=== PATIENT | female | born 1995 | race Caucasian/White ===

== ENCOUNTER 2018-06-11 16:19 | Emergency (ER) | payer SELFPAY ==
[~2018-06-11] VITALS: Ht 160 cm; Wt 54.4 kg
[~2018-06-11 16:19] MED LIST: ACYC200C5 PO; ACYC200O4 PO; BIRTHCONTROL PO; CEPH500C PO; DCS100C PO; HYDR-3454 PO; HYDR-3456 PO; HYDR-3714 PO; IBUP-2055 PO; MINO100C6 PO; SULF-222 PO; TRAM50TA2 PO
[2018-06-11 16:48] LABS: BILIRUBIN,URINE NEGATIVE (NEGATIVE); CLARITY,URINE CLEAR; COLOR,URINE YELLOW; GLUCOSE, URINE (UA) NEGATIVE (NEGATIVE); KETONES,URINE NEGATIVE (NEGATIVE); LEUKOCYTE ESTERASE ,URINE 1+ (NEGATIVE); NITRITE,URINE NEGATIVE (NEGATIVE); PH,URINE 6.5 (5-9); PROTEIN,URINE 1+ (NEGATIVE); UROBILINOGEN,URINE NORMAL (NORMAL)
[2018-06-11 16:57] LABS: BACTERIA,URINE FEW /HPF
--- NOTE | 2018-06-11 17:15 | ED GU-Female ---
General Chief Complaint: Abdominal/GI Problems Stated Complaint: ABDOMINAL PAIN Nursing Triage Note: THE PT IS AMBULATORY TO THE ROOM WITHOUT DIFFICULTY. NO DISTRESS IS SEEN ON ARRIVAL. LOC IS NORMAL FOR THE PT. THE PT C/O BILAT LOWER ABD PAIN. Nursing Sepsis Screen: No Definite Risk History of Present Illness Date Seen by Provider: Jun 11, 2018 Time Seen by Provider: 16:50 Initial Comments 23-year-old female presents for intermittent lower abdominal pain. She reports that she has been seen at [facility] and is awaiting financial assistance to have workup for possible ovarian cyst or endometriosis. She presents today, requesting an ultrasound. Explained to her that we do not have ultrasound services at this time, as a tech is not bonbon cream warmer. She denies any other complaints at this time, normal menstrual cycle that began on May 30. No vaginal discharge. No increased pain today. Timing/Duration: intermittent Location: suprapubic Radiation: none Activities at Onset: none Prior Genitourinary Problems: none Associated Symptoms: denies symptoms Allergies and Home Medications Allergies Coded Allergies: No Known Drug Allergies (Unverified , 01/09/12) Home Medications Ibuprofen 200 Mg Tablet, 600 MG PO DAILY PRN for PAIN, (Reported) Patient Home Medication List Home Medication List Reviewed: Yes Review of Systems Review of Systems Constitutional: no symptoms reported, see HPI Genitourinary: see HPI, pain : No LMP: May 30, 2018 Past Eafaiim-Wiywds-Atzuvn Hx Past Med/Social Hx: Reviewed Nursing Past Med/Soc Hx Patient Social History Alcohol Beverage of Choice: Whiskey Drug of Choice: MARIJUANA Type Used: Cigarettes Recent Foreign Travel: No Contact w/Someone Who Travel: No Recent Infectious Disease Expo: No Recent Hopitalizations: No Physical Abuse: No Sexual Abuse: No Mistreated: No Fear: No Immunizations Up To Date Tetanus Booster (TDap): Less than 5yrs PED Vaccines UTD: No Seasonal Allergies Seasonal Allergies: Yes Past Medical History Appendectomy, Tonsillectomy Last Menstrual Period: May 30, 2018 Hx : 0 Hx Para: 0 Hx Total # of Abortions (Sp): 0 Reproductive Disorders: No Female Reproductive Disorders: Denies Sexually Transmitted Disease: Yes (HERPES) HIV/AIDS: No Bipolar, Depression Adverse Reaction/Blood Tranf: No Physical Exam Vital Signs Vital Signs - First Documented 06/11/18 06/11/18 16:47 17:24 Temp 98.2 Pulse 70 Resp 16 B/P (MAP) 110/93 (99) Pulse Ox 98 Capillary Refill : Less Than 3 Seconds Height, Weight, BMI Height: 5'3.00" Weight: 120lbs. 0.0oz. [id number]; 18.1 BMI Method:Estimated General Appearance: WD/WN, no apparent distress Cardiovascular: normal peripheral pulses, regular rate, rhythm Respiratory: chest non-tender, lungs clear, normal breath sounds Gastrointestinal: normal bowel sounds, non tender, soft; No distended, No guarding, No rebound, No tenderness, No hernia, No mass Neurologic/Psychiatric: no motor/sensory deficits, alert, normal mood/affect, oriented x 3 Skin: normal color, warm/dry Lymphatic: no adenopathy Progress/Results/Core Measures Suspected Sepsis Recent Fever Within 48 Hours: No Infection Criteria Present: None New/Unexplained Altered Menta: No Sepsis Screen: No Definite Risk SIRS Temperature:98.2 Pulse: 70 Respiratory Rate: 16 Blood Pressure 110 /93 Mean: 99 Results/Orders Lab Results Laboratory Tests Test 06/11/18 16:35 Range/Units Urine Color YELLOW Urine Clarity CLEAR Urine pH 6.5 5-9 Urine Specific [place] 1.020 1.016-1.022 Urine Protein 1+ H NEGATIVE Urine Glucose (UA) NEGATIVE NEGATIVE Urine Ketones NEGATIVE NEGATIVE Urine Nitrite NEGATIVE NEGATIVE Urine Bilirubin NEGATIVE NEGATIVE Urine Urobilinogen NORMAL NORMAL MG/DL Urine Leukocyte Esterase 1+ H NEGATIVE Urine RBC (Auto) NEGATIVE NEGATIVE Urine RBC NONE /HPF Urine WBC 2-5 /HPF Urine Squamous Epithelial Cells 5-10 /HPF Urine Crystals NONE /LPF Urine Bacteria FEW H /HPF Urine Casts NONE /LPF Urine Mucus LARGE H /LPF Urine Culture Indicated NO Urine Test NEGATIVE NEGATIVE My Orders Orders - BRINDA DEL VALLE Ua Culture If Indicated (06/11/18 16:28) Hcg,Qualitative Urine (06/11/18 17:00) Vital Signs/I&O 06/11/18 06/11/18 16:47 17:24 Temp 98.2 98.2 Pulse 70 70 Resp 16 16 B/P (MAP) 110/93 (99) 110/70 (83) Pulse Ox 98 Capillary Refill : Less Than 3 Seconds Blood Pressure Mean: 99 Progress Note : Time: 16:50 Progress Note Patient was seen and evaluated, offered ibuprofen or Tylenol and patient declined stating that her pain was not worse today. She understands that we're unable to do an ultrasound in her symptoms and exam do not indicate the need for a CT scan. She will follow up at [facility]. Discharge instructions and return precautions were reviewed. Departure Impression Primary Impression: Lower abdominal pain of unknown etiology Disposition: HOME, SELF-CARE Condition: Stable Departure-Patient Inst. Decision time for Depature: 17:10 Referrals: [facility] (PCP/Family) Primary Care Physician Patient Instructions: Endometriosis (DC), Ovarian Cyst (DC) Add. Discharge Instructions: Follow-up with [facility] for referral to LITERARY AGENT or for outpatient ultrasound. You may take ibuprofen 600 mg every 8 hours when symptomatic. Return to emergency department for increased pain, vaginal bleeding, persistent nausea and vomiting, or new urgent health care needs. All discharge instructions reviewed with patient and/or family. Voiced understanding. Work/School Note: Work Release Form Date Seen in the Emergency Department: Jun 11, 2018 Return to Work: Jun 12, 2018 Restrictions: No Restrictions BRINDA DEL VALLE Jun 11, 2018 17:15
[2018-06-11 17:24] VITALS: BP 110/70
== END 2018-06-11 17:26 | disposition home or self-care (01) ==
LOC: EDUNIT# 16:19 → ER 16:25
DX: R10.30 Lower abdominal pain, unspecified (principal); F32.9 Major depressive disorder, single episode, unspecified; F12.10 Cannabis abuse, uncomplicated; Z90.49 Acquired absence of other specified parts of digestive tract; Z90.89 Acquired absence of other organs; Z86.19 Personal history of other infectious and parasitic diseases
CPT/HCPCS: 81000; 84703; 99282

== ENCOUNTER 2018-06-17 02:09 | Emergency (ER) | payer SELFPAY ==
[~2018-06-17] VITALS: Ht 157.5 cm; Wt 43.1 kg
[2018-06-17] MEDS ORDERED: LACTATED RINGERS 1,000 ML IV ONE (02:23)
[2018-06-17] MEDS ORDERED: AZITHROMYCIN 250 MG TAB (ZITHROMAX) PO ONE (02:30)
[2018-06-17] MEDS ORDERED: ONDANSETRON 4 MG/2 ML (SDV) Z0FRAN IVP ONE (02:30)
[2018-06-17] MEDS ORDERED: KETOROLAC 30 MG/ML VIAL IVP ONE (02:30)
--- NOTE | 2018-06-17 02:34 | ED Abdominal Pain ---
General Stated Complaint: ABD CRAMPING,VAG BLEEDING Source of Information: Patient Exam Limitations: No Limitations History of Present Illness Date Seen by Provider: Jun 17, 2018 Time Seen by Provider: 02:20 Initial Comments Patient presents to ER by private conveyance with her significant other and chief complaint that for the past week and a half she's been having some crampy intermittent abdominal pain especially in the suprapubic region. She's been using 1-2 tablets of ibuprofen several times a day with modest relief but she says is not working as well anymore. Tonight the pain has her doubled over and makes it hard for her walk. She says she's having some nausea without vomiting. No fevers or chills. She's been having a dark brown thick malodorous discharge for the last 2 weeks. Her last menstrual period was May 31 12 days ago. She does not smoke or drink alcohol but she does occasionally uses weed once or twice a week. She says she's not been checked for STDs recently but she does have herpes. Allergies and Home Medications Allergies Coded Allergies: No Known Drug Allergies (Unverified , 01/09/12) Home Medications Ibuprofen 200 Mg Tablet, 600 MG PO DAILY PRN for PAIN, (Reported) Patient Home Medication List Home Medication List Reviewed: Yes Review of Systems Review of Systems Constitutional: No chills, No diaphoresis EENTM: No Blurred Vision, No Double Vision Respiratory: Denies Cough, Denies Shortness of Air Cardiovascular: Denies Chest Pain, Denies Lightheadedness Gastrointestinal: See HPI, Abdominal Pain; Denies Constipated, Denies Diarrhea ; Nausea; Denies Vomiting Genitourinary: Denies Discharge, Denies Drainage Musculoskeletal: No back pain, No joint pain Skin: No pruritus, No rash Psychiatric/Neurological: Denies Headache, Denies Numbness, Denies Paresthesia Past Fiuzsft-Ymqccb-Yudygi Hx Patient Social History Alcohol Use: Occasionally Uses Alcohol Beverage of Choice: Whiskey Recreational Drug Use: Yes Drug of Choice: MARIJUANA Smoking Status: Former Smoker Type Used: Cigarettes Recent Foreign Travel: No Contact w/Someone Who Travel: No Recent Hopitalizations: No Immunizations Up To Date Tetanus Booster (TDap): Less than 5yrs PED Vaccines UTD: No Seasonal Allergies Seasonal Allergies: Yes Past Medical History Appendectomy, Tonsillectomy Reproductive Disorders: No Female Reproductive Disorders: Denies Sexually Transmitted Disease: Yes (HERPES) HIV/AIDS: No Bipolar, Depression Adverse Reaction/Blood Tranf: No Physical Exam Vital Signs Vital Signs - First Documented 06/17/18 02:19 Temp 98.3 Pulse 91 Resp 20 B/P (MAP) 112/77 (89) Pulse Ox 100 O2 Delivery Room Air Capillary Refill : Height/Weight/BMI Height: 5'3.00" Weight: 120lbs. 0.0oz. 54.381284lf; 18.1 BMI Method:Estimated General Appearance: WD/WN, moderate distress HEENT: PERRL/EOMI, normal ENT inspection, pharynx normal Respiratory: lungs clear, normal breath sounds, no respiratory distress, no accessory muscle use Cardiovascular: normal peripheral pulses, regular rate, rhythm Peripheral Pulses: 2+ Radial Pulses (R), 2+ Radial Pulses (L) Gastrointestinal: normal bowel sounds, soft, no organomegaly; No rebound (. Negative for rebound tenderness or tenderness over McBurney's point.); tenderness (suprapubic region), other (negative for Rovsing sign or other mesenteric signs.) Extremities: normal inspection, no pedal edema, normal capillary refill Pelvic: normal external exam, no masses, discharge (brown thick mucoid with traces of blood.); No lesions; other (cervix is friable with trace of bright red blood) Neurologic/Psychiatric: alert, oriented x 3, other (tearful, painful affect) Skin: normal color, warm/dry Progress/Results/Core Measures Results/Orders Lab Results Laboratory Tests Test 06/17/18 02:30 06/17/18 02:32 06/17/18 03:25 Range/Units White Blood Count 8.9 4.3-11.0 10^3/uL Red Blood Count 3.36 L 4.35-5.85 10^6/uL Hemoglobin 11.7 11.5-16.0 G/DL Hematocrit 35 35-52 % Mean Corpuscular Volume 103 H 80-99 FL Mean Corpuscular Hemoglobin 35 H 25-34 PG Mean Corpuscular Hemoglobin Concent 34 32-36 G/DL Red Cell Distribution Width 11.6 10.0-14.5 % Platelet Count 279 130-400 10^3/uL Mean Platelet Volume 10.7 H 7.4-10.4 FL Neutrophils (%) (Auto) 62 42-75 % Lymphocytes (%) (Auto) 26 12-44 % Monocytes (%) (Auto) 11 0-12 % Eosinophils (%) (Auto) 1 0-10 % Basophils (%) (Auto) 0 0-10 % Neutrophils # (Auto) 5.5 1.8-7.8 X 10^3 Lymphocytes # (Auto) 2.3 1.0-4.0 X 10^3 Monocytes # (Auto) 1.0 0.0-1.0 X 10^3 Eosinophils # (Auto) 0.1 0.0-0.3 10^3/uL Basophils # (Auto) 0.0 0.0-0.1 10^3/uL Sodium Level 144 135-145 MMOL/L Potassium Level 3.8 3.6-5.0 MMOL/L Chloride Level 112 H 98-107 MMOL/L Carbon Dioxide Level 23 21-32 MMOL/L Anion Gap 9 5-14 MMOL/L Blood Urea Nitrogen 14 7-18 MG/DL Creatinine 0.70 0.60-1.30 MG/DL Estimat Glomerular Filtration Rate > 60 BUN/Creatinine Ratio 20 Glucose Level 103 70-105 MG/DL Calcium Level 9.1 8.5-10.1 MG/DL Corrected Calcium 8.9 8.5-10.1 MG/DL Total Bilirubin 0.3 0.1-1.0 MG/DL Aspartate Amino Transf (AST/SGOT) 20 5-34 U/L Alanine Aminotransferase (ALT/SGPT) 16 0-55 U/L Alkaline Phosphatase 50 40-136 U/L C-Reactive Protein High Sensitivity 2.33 H 0.00-0.50 MG/DL Total Protein 6.4 6.4-8.2 GM/DL Albumin 4.2 3.2-4.5 GM/DL Urine Color YELLOW Urine Clarity CLEAR Urine pH 7 5-9 Urine Specific [place] 1.010 L 1.016-1.022 Urine Protein 2+ H NEGATIVE Urine Glucose (UA) NEGATIVE NEGATIVE Urine Ketones NEGATIVE NEGATIVE Urine Nitrite NEGATIVE NEGATIVE Urine Bilirubin NEGATIVE NEGATIVE Urine Urobilinogen NORMAL NORMAL MG/DL Urine Leukocyte Esterase 2+ H NEGATIVE Urine RBC (Auto) 5+ H NEGATIVE Urine RBC 5-10 H /HPF Urine WBC 25-50 H /HPF Urine Squamous Epithelial Cells 5-10 /HPF Urine Crystals NONE /LPF Urine Bacteria MODERATE H /HPF Urine Casts NONE /LPF Urine Mucus LARGE H /LPF Urine Culture Indicated YES Urine Opiates Screen NEGATIVE NEGATIVE Urine Oxycodone Screen NEGATIVE NEGATIVE Urine Methadone Screen NEGATIVE NEGATIVE Urine Propoxyphene Screen NEGATIVE NEGATIVE Urine Barbiturates Screen NEGATIVE NEGATIVE Ur Tricyclic Antidepressants Screen NEGATIVE NEGATIVE Urine Phencyclidine Screen NEGATIVE NEGATIVE Urine Amphetamines Screen NEGATIVE NEGATIVE Urine Methamphetamines Screen NEGATIVE NEGATIVE Urine Benzodiazepines Screen NEGATIVE NEGATIVE Urine Cocaine Screen NEGATIVE NEGATIVE Urine Cannabinoids Screen POSITIVE H NEGATIVE My Orders Orders - AYANA CARO Cbc With Automated Diff (06/17/18 02:23) Comprehensive Metabolic Panel (06/17/18 02:23) Hs C Reactive Protein (06/17/18 02:23) Drug Screen Stat (Urine) (06/17/18 02:23) Ua Culture If Indicated (06/17/18 02:23) Saline Lock/Iv-Start (06/17/18 02:23) Lactated Ringers (Lr 1000 Ml Iv Solution (06/17/18 02:23) Urine Bedside (06/17/18 02:23) Ketorolac Injection (Toradol Injection) (06/17/18 02:30) Ondansetron Injection (Zofran Injectio (06/17/18 02:30) Neisseria Gonorrhea Swab (06/17/18 02:23) Chlamydia Trachomatis Swab (06/17/18 02:23) Azithromycin Tablet (Zithromax Tablet) (06/17/18 02:30) Wet Prep (06/17/18 02:37) Promethazine Injection (Phenergan Injec (06/17/18 02:45) Promethazine Injection (Phenergan Injec (06/17/18 03:00) Urine Culture (06/17/18 02:32) Rocephin 1 Gm Iv (1x Dose) (06/17/18 04:00) Medications Given in ED Current Medications Medications Dose Ordered Sig/Gilberto Route Start Time Stop Time Status Last Admin Dose Admin Ketorolac Tromethamine 30 mg ONCE ONCE IVP 06/17/18 02:30 06/17/18 02:31 DC 06/17/18 02:33 30 MG Lactated Ringer's 1,000 ml @ 0 mls/hr Q0M ONCE IV 06/17/18 02:23 06/17/18 02:26 DC 06/17/18 02:33 0 MLS/HR Ondansetron HCl 4 mg ONCE ONCE IVP 06/17/18 02:30 06/17/18 02:31 DC 06/17/18 02:33 4 MG Promethazine HCl 25 mg ONCE ONCE IVP 06/17/18 02:45 06/17/18 02:46 DC 06/17/18 02:50 25 MG Vital Signs/I&O 06/17/18 02:19 Temp 98.3 Pulse 91 Resp 20 B/P (MAP) 112/77 (89) Pulse Ox 100 O2 Delivery Room Air Progress Progress Note #1: Time: 02:34 Progress Note Suspect cystitis versus pelvic inflammatory disease. We'll get a urine and basic labs. She is not tachycardic or febrile her vital signs are aseptic. We will give her Toradol and Zofran for her symptoms at first. Liter of fluids and she does appear mildly dry oral mucosa. Progress Note #2: Time: 03:42 Progress Note Wet prep demonstrates copious white blood cells. Departure Impression Primary Impression: Pelvic inflammatory disease Disposition: HOME, SELF-CARE Condition: Stable Departure-Patient Inst. Decision time for Depature: 03:45 Referrals: [facility] [place] (PCP/Family) Primary Care Physician Patient Instructions: Pelvic Inflammatory Disease (DC) Add. Discharge Instructions: Drink plenty of fluids. Use Tylenol 1000 g every 8 hours in addition to ibuprofen 800 mg every 8 hours for your pain. If this does not control your pain you may use one tablet of tramadol every 6 hours as needed. Tramadol will cause constipation and drowsiness. You can treat this with MiraLAX and rest. Do not drink alcohol while on tramadol. If you have nausea you can take Zofran 1 tablet every 6 hours. 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 Follow-up with your primary care doctor or OB doctor for continued management if you more pain or nausea medicines. Scripts Hydrocodone Bit/Acetaminophen (Hydrocodone/Acetaminophen 5/325mg Tablet) 1 Tab Tab 1 EACH PO Q4-6HR PRN for PAIN-MODERATE MDD 10 for 5 Days, #12 TAB 0 Refills Prov: AYANA CARO 06/17/18 Ondansetron (Ondansetron Odt) 4 Mg Tab.rapdis 4 MG PO Q6H PRN for NAUSEA/VOMITING, #8 TAB 0 Refills Prov: AYANA CARO 06/17/18 Doxycycline Hyclate (Doxycycline Hyclate) 100 Mg Tablet 100 MG PO BID for 10 Days, #20 TAB 0 Refills Prov: AYANA CARO 06/17/18 AYANA CARO Jun 17, 2018 02:34
--- NOTE | 2018-06-17 02:40 | NUR ---
PT IN ROOM VOMITING. NOTIFIED DR. VANIA MD.
[2018-06-17 02:41] LABS: BILIRUBIN,URINE NEGATIVE (NEGATIVE); CLARITY,URINE CLEAR; COLOR,URINE YELLOW; GLUCOSE, URINE (UA) NEGATIVE (NEGATIVE); KETONES,URINE NEGATIVE (NEGATIVE); LEUKOCYTE ESTERASE ,URINE 2+ (NEGATIVE); NITRITE,URINE NEGATIVE (NEGATIVE); PH,URINE 7 (5-9); PROTEIN,URINE 2+ (NEGATIVE); UROBILINOGEN,URINE NORMAL (NORMAL)
[2018-06-17 02:43] LABS: BASOPHILS % (AUTO) 0 % (0-10); EOSINOPHILS # (AUTO) 0.1 10^3/uL (0.0-0.3); EOSINOPHILS % (AUTO) 1 % (0-10); HEMATOCRIT 35 % (35-52); HEMOGLOBIN 11.7 G/DL (11.5-16.0); LYMPHOCYTES # (AUTO) 2.3 X 10^3 (1.0-4.0); LYMPHOCYTES % (AUTO) 26 % (12-44); MEAN CORPUSCULAR HEMOGLOBIN 35 PG (25-34); MEAN CORPUSCULAR HGB CONC 34 G/DL (32-36); MEAN CORPUSCULAR VOLUME 103 FL (80-99); MEAN PLATELET VOLUME 10.7 FL (7.4-10.4); MONOCYTES % (AUTO) 11 % (0-12); NEUTROPHILS # (AUTO) 5.5 X 10^3 (1.8-7.8); NEUTROPHILS % (AUTO) 62 % (42-75); PLATELET COUNT 279 10^3/uL (130-400); RED CELL DISTRIBUTION WIDTH 11.6 % (10.0-14.5); WHITE BLOOD COUNT 8.9 10^3/uL (4.3-11.0)
[2018-06-17] MEDS ORDERED: PROMETHAZINE INJ 25 MG/ML (PHENERGAN) AMP IVP ONE ×2 (02:45→03:00)
[2018-06-17 02:47] LABS: BACTERIA,URINE MODERATE /HPF; WBC,URINE 25-50 /HPF
[2018-06-17 02:54] LABS: AMPHETAMINE SCREEN, URINE NEGATIVE (NEGATIVE); BARBITURATE SCREEN URINE NEGATIVE (NEGATIVE); BENZODIAZEPINES SCREEN URINE NEGATIVE (NEGATIVE); CANNABINOID SCREEN, URINE POSITIVE (NEGATIVE); COCAINE SCREEN URINE NEGATIVE (NEGATIVE); METHADONE STAT NEGATIVE (NEGATIVE); METHAMPHETAMINE SCREEN URINE S NEGATIVE (NEGATIVE); OPIATE SCREEN URINE NEGATIVE (NEGATIVE); OXYCODONE STAT NEGATIVE (NEGATIVE); PROPOXYPHENE STAT NEGATIVE (NEGATIVE); TRICYCLIC ANTIDEPRESSANTS SCRE NEGATIVE (NEGATIVE)
[2018-06-17 03:00] LABS: ALANINE AMINOTRANSFERASE 16 U/L (0-55); ALBUMIN 4.2 GM/DL (3.2-4.5); ALKALINE PHOSPHATASE 50 U/L (40-136); BILIRUBIN,TOTAL 0.3 MG/DL (0.1-1.0); BUN/CREATININE RATIO 20; CALCIUM 9.1 MG/DL (8.5-10.1); CARBON DIOXIDE 23 MMOL/L (21-32); CHLORIDE 112 MMOL/L (98-107); GFR ESTIMATED > 60; GLUCOSE 103 MG/DL (70-105); POTASSIUM 3.8 MMOL/L (3.6-5.0); SODIUM 144 MMOL/L (135-145); TOTAL PROTEIN 6.4 GM/DL (6.4-8.2)
[2018-06-17] MEDS ORDERED: cefTRIAXone 1,000 MG IV (ROCEPHIN) VIAL ONE (03:48)
[2018-06-17] MEDS ORDERED: WATER (STERILE) FOR INJECTION 10 ML ONE (03:49)
[2018-06-17] MEDS ORDERED: cefTRIAXone FOR IV USE 1,000 MG in WATER (STERILE) FOR INJECTION 10 ML IV ONE (04:00)
[2018-06-17] MEDS ORDERED: ACHD5005 PO (04:03)
[2018-06-17] MEDS ORDERED: ONDA4TAB11 PO (04:03)
[2018-06-17] MEDS ORDERED: DOXY100T2 PO (04:03)
[2018-06-17] MEDS ORDERED: RX-ONDANSETRON 4 MG ODT (ZOFRAN) PPK #4 PO STA (04:33)
[2018-06-17 04:44] VITALS: BP 97/76
[2018-06-17] MEDS ORDERED: RX-HYDROCODONE/APAP 5/325 MG #4 TAB PK PO PRN (04:45)
== END 2018-06-17 04:44 | disposition home or self-care (01) ==
LOC: EDUNIT# 02:09 → ER 02:10
DX: N73.9 Female pelvic inflammatory disease, unspecified (principal); F31.9 Bipolar disorder, unspecified; F32.9 Major depressive disorder, single episode, unspecified; F12.10 Cannabis abuse, uncomplicated; Z87.891 Personal history of nicotine dependence; Z90.49 Acquired absence of other specified parts of digestive tract; Z86.19 Personal history of other infectious and parasitic diseases; Z90.89 Acquired absence of other organs
CPT/HCPCS: 36415; 80053; 80306; 81000; 84703; 85025; 86141; 87088; 87210; 87491; 87591

== ENCOUNTER → 2018-08-07 | Outpatient (CLI) | payer OTHER ==
[~2018-08-07] MED LIST changes: +ACHD5005 PO; +DOXY100T2 PO; +ONDA4TAB11 PO
--- NOTE | 2018-08-07 13:37 | Diagnostic Imaging Report ---
PROCEDURE: US Non-ob pelvis comp/trans. TECHNIQUE: Multiple realtime grayscale images were obtained of the pelvis in various projections endovaginally. Transabdominal imaging was also performed. INDICATION: Chronic pelvic pain. FINDINGS: Uterus measures 6.6 x 4.2 x 3.1 cm. Endometrium is 9 mm in thickness. No myometrial mass is detected. Right ovary measures 1.7 x 3.0 x 1.5 cm and left ovary measures 3.0 x 2.2 x 1.8 cm. Ovaries contain small follicles. Follicles are all 1 cm or less. There is blood flow to both ovaries. There is no adnexal mass or free fluid identified. IMPRESSION: Unremarkable pelvic ultrasound. Dictated by: Dictated on workstation # [id number]
== END ==
LOC: RAD 12:03
PROVIDERS: ATTEND Obstetrics & Gynecology
DX: G89.29 Other chronic pain (principal); R10.2 Pelvic and perineal pain
CPT/HCPCS: 76830; 76856

== ENCOUNTER 2018-09-02 09:30 | Outpatient (CLI) | payer OTHER ==
[~2018-09-02] VITALS: Ht 157.5 cm; Wt 43.1 kg
[2018-09-02] MEDS ORDERED: VALA10004 PO (09:46)
== END 2018-09-02 09:57 | disposition home or self-care (01) ==
LOC: PREOP 09:30
PROVIDERS: ATTEND Obstetrics & Gynecology
DX: Z01.818 Encounter for other preprocedural examination (principal)

== ENCOUNTER 2018-09-04 08:34 | Day surgery (SDC) | payer OTHER ==
[2018-09-04] VITALS (17 sets, daily range): BP systolic 92–139; BP diastolic 49–105
[~2018-09-04] VITALS: Ht 154.9 cm; Wt 47.2 kg
[~2018-09-04 08:34] MED LIST changes: +VALA10004 PO
[2018-09-04] MEDS ORDERED: ceFAZolin INJECTION 1,000 MG ONE (08:57)
[2018-09-04] MEDS ORDERED: LACTATED RINGERS 1,000 ML IV PRN (09:04)
[2018-09-04 09:05] LABS: BASOPHILS % (AUTO) 1 % (0-10); EOSINOPHILS # (AUTO) 0.2 10^3/uL (0.0-0.3); EOSINOPHILS % (AUTO) 3 % (0-10); HEMATOCRIT 38 % (35-52); HEMOGLOBIN 12.8 G/DL (11.5-16.0); LYMPHOCYTES # (AUTO) 1.7 X 10^3 (1.0-4.0); LYMPHOCYTES % (AUTO) 34 % (12-44); MEAN CORPUSCULAR HEMOGLOBIN 34 PG (25-34); MEAN CORPUSCULAR HGB CONC 34 G/DL (32-36); MEAN CORPUSCULAR VOLUME 99 FL (80-99); MEAN PLATELET VOLUME 11.3 FL (7.4-10.4); MONOCYTES # (AUTO) 0.6 X 10^3 (0.0-1.0); MONOCYTES % (AUTO) 11 % (0-12); NEUTROPHILS # (AUTO) 2.5 X 10^3 (1.8-7.8); NEUTROPHILS % (AUTO) 51 % (42-75); PLATELET COUNT 218 10^3/uL (130-400); RED CELL DISTRIBUTION WIDTH 12.9 % (10.0-14.5)
[2018-09-04] MEDS ORDERED: ceFAZolin INJECTION 1,000 MG in WATER (STERILE) FOR INJECTION 10 ML IV ONE (09:15)
--- OUTSIDE RECORDS SUMMARY | 2018-09-04 10:37 | XMS REPORT ---
Author Author Migration, Doctor Organization [facility] Address Unknown Phone Unavailable Care Team Providers Care Wildlife Control Agent Name Role Phone Migration, Doctor Unavailable Unavailable PROBLEMS Type Condition ICD9-CM Code SWV78-EG Code Onset Dates Condition Status SNOMED Code Problem Constipation, unspecified constipation type K59.00 Active 30157628 Problem Abnormal uterine bleeding N93.9 Active [id number] Problem Depression with anxiety F41.8 Active 788770511 Problem Allergic rhinitis J30.9 Active 27564196 Problem HSV-2 (herpes simplex virus 2) infection B00.9 Active 768877118 Problem Contact dermatitis and eczema due to plant L24.7 Active 206089585 ALLERGIES No Information ENCOUNTERS Encounter Location Date Diagnosis [place] [id number] [place] [address] 03717- 6039 May, Abnormal uterine bleeding N93.9 and Encounter for initial prescription of contraceptive pills Z30.011 [place] [id number] [place] [address] 83328- 4167 May, [place] [id number] [place] [address] 62010- 5209 Apr, HSV-2 (herpes simplex virus 2) infection B00.9 ; Allergic rhinitis J30.9 ; Long-term use of high-risk medication Z79.899 and History of ovarian cyst Z87.42 [place] [id number] [place] [address] 78829- 5869 Jan, Pelvic pain R10.2 and Constipation, unspecified constipation type K59.00 [place] [id number] [place] [address] 55420- 9597 Dec, [place] [id number] [place] [address] 21365- 5734 Nov, HSV-2 (herpes simplex virus 2) infection B00.9 ; Vaginal discharge N89.8 ; Allergic rhinitis J30.9 ; Other specified bacterial agents as the cause of diseases classified elsewhere B96.89 and Acute vaginitis N76.0 [place] [address] [place] [address] 87951- 3979 Nov, [place] [id number] [place] [address] 61063- 5100 Oct, HSV-2 (herpes simplex virus 2) infection B00.9 [place] [id number] [place] [address] 29557- 5807 Oct, HSV-2 (herpes simplex virus 2) infection B00.9 [place] [id number] [place] [address] 53816- 2798 Sep, [facility] [id number] [place] [address] [id number] Sep, [place] [id number] [place] [address] 38542- 7154 Sep, [place] [id number] [place] [address] 58839- 5735 Sep, Screening examination for sexually transmitted disease Z11.3 and Mariella vaginitis B37.3 [address] [place] [address] 04896- 3086 Jul, Acute non-recurrent frontal sinusitis J01.10 and Impacted cerumen of right ear H61.21 [place] [id number] [place] [address] 50352- 5506 Jun, Annual physical exam Z00.00 ; Routine gynecological examination Z01.419 ; HSV-2 (herpes simplex virus 2) infection B00.9 ; Seasonal allergic rhinitis due to pollen J30.1 ; Vaginal discharge N89.8 ; Allergic rhinitis J30.9 and Contact dermatitis and eczema due to plant L24.7 [address] [place] [address] 04734- 7730 16 Feb, 2018 Depression with anxiety F41.8 ; Allergic rhinitis J30.9 ; HSV-2 (herpes simplex virus 2) infection B00.9 ; Contact dermatitis and eczema due to plant L24.7 and Seasonal allergic rhinitis due to pollen J30.1 [place] [id number] [place] [address] 88665- 0690 Mar, [place] [address] 24503- 0584 Mar, [place] [address] 25158- 8641 Mar, Pelvic pain R10.2 ; Vaginal discharge N89.8 ; Other specified bacterial agents as the cause of diseases classified elsewhere B96.89 and Acute vaginitis N76.0 [facility] [place] [address] [address] Jun, Body aches R52 and Influenza A J10.1 [facility] [place] [address] 87305 -5391 Mar, Discharge from the vagina N89.8 ; Unprotected sex Z72.51 and Vaginal candidiasis B37.[address] [address]- [address] Feb, Acute gastritis without hemorrhage, unspecified gastritis type K29.00 and Seasonal allergic rhinitis due to pollen J30.1 [place] [id number] [place] [address] 34250- 6249 Dec, Dysuria R30.0 ; Contact dermatitis and eczema due to plant L24.7 ; Herpes simplex vulvovaginitis A60.04 and Abrasion, multiple sites T14.[address] 65158- 9358 Nov, Depression with anxiety F41.8 and HSV-2 (herpes simplex virus 2) infection B00.[address] 76899- 1685 Nov, [place] [id number] [place] [address] 22360- 2114 May, Depression with anxiety F41.8 [place] [address] 41049- 2444 Apr, [place] [address] 52571- 5716 Apr, Unspecified genital herpes 054.10 [place] [address] 41066- 6169 Mar, Depression with anxiety F41.8 and Allergic rhinitis J30.9 [place] [address] 59780- 9132 Mar, [place] [address] 31786- 1994 Mar, Chlamydia A74.9 [place] [address] 81387- 1019 Feb, Well woman exam Z01.419 ; Dysmenorrhea N94.6 ; Herpes simplex B00.9 ; Dyspareunia N94.1 ; Anxiety associated with depression F41.8 ; Unprotected sexual intercourse Z72.51 and Marijuana use F12.10 [place] [id number] [place] [address] 05727- 4964 Feb, Depression with anxiety F41.8 and H/O dysmenorrhea Z87.42 [place] [id number] [place] [address] 38434- 4071 Feb, General medical exam Z00.00 [place] [address] 57128- 0816 Jan, [place] [address] 94109- 9515 Jan, Major depressive disorder, recurrent episode, unspecified severity F33.9 ; Generalized anxiety disorder F41.1 and ADHD, adult residual type F90.8 [place] [address] [address]- 4585 Jan, General medical exam Z00.00 and Anxiety associated with depression F41.8 [facility] [address] 5372 Jan, Generalized anxiety disorder F41.1 [facility] [address] [address]- 6779 Sep, Allergic rhinitis 477.9 [facility] [address] [address]- 3320 August, [facility] [id number] [place] [address] 193871- 6632 August, Cervicitis and endocervicitis 616.0 ; History of chlamydia infection V12.09 and Unspecified genital herpes 054.10 [facility] [address] [address]- 7684 Jul, [facility] [address] [address]- 2773 Jul, [facility] [address] [address]- 7634 Apr, [facility] [address] [address]- 9902 Apr, [facility] [address] [address]- 5692 Apr, [facility] [address] [address]- 6628 Apr, [facility] [address] 3023 Apr, [facility] [address] 5336 Apr, [facility] [address] 1278 Apr, [facility] [place] [facility] [address] [id number] [place] [address]- 6876 Apr, [facility] [place] [facility] [address] [id number] [place] [address]- 9221 Apr, [facility] [place] [facility] [address] [id number] [place] [address]- 3041 Apr, [facility] [place] [facility] [address] [id number] [place] [address]- 5559 Apr, [facility] [place] [facility] [address] [id number] [place] [address]- 0680 Apr, [facility] [place] [facility] [address] [id number] [place] [address]- 6739 Mar, [facility] [place] [facility] [address] [id number] [place] [address]- 4754 Mar, [facility] [place] [facility] [address] [id number] [place] [address]- 0440 Jan, [facility] [place] [facility] [address] [id number] [place] [address]- 3021 Jan, [facility] [place] [facility] [address] [id number] [place] [address]- 8010 26 Dec, 2013 [facility] [place] [facility] [address] [id number] [place] [address]- 6321 26 Dec, 2013 [facility] [place] [facility] [address] [id number], [place] [address]- 2891 20 Dec, 2013 [facility] [place] [facility] [address] [id number] [place] [address]- 5730 19 Dec, 2013 [facility] [place] [facility] [address] [id number] [place] [address]- 7878 19 Dec, 2013 [facility] [place] [facility] [address] [id number] [place] [address]- 0664 17 Dec, 2013 [facility] [place] [facility] [address] [id number] [place] [address]- 0665 Dec, [facility] [place] [facility] [address] [id number] [place] [address]- 3736 Dec, [facility] [place] [facility] [address] [id number] [place] [address]- 0079 Dec, [facility] [place] [facility] [address] [id number] [place] [address]- 2998 Oct, [facility] [place] [facility] [address] [id number] [place] [address]- 3502 Oct, [facility] [place] [facility] [address] [id number] [place] [address]- 6180 Oct, [facility] [place] [facility] [address] [id number] [place] [address]- 5055 Oct, [facility] [place] [facility] [address] [id number] [place] [address]- 7823 Oct, [facility] [place] [facility] [address] [id number] [place] [address]- 2282 Oct, [facility] [place] [facility] [address] [id number] [place] [address]- 1071 Oct, [facility] [place] [facility] [address] [id number] [place] [address]- 8040 Oct, [facility] [place] [facility] [address] [id number] [place] [address]- 8850 Sep, [facility] [place] [facility] [address] [id number] [place] [address]- 1262 Sep, [facility] [place] [facility] [address] [id number] [place] [address]- 5782 August, [facility] [place] [facility] [address] [id number] [place] [address]- 5405 August, [facility] [place] [facility] [address] [id number] [place] [address]- 0020 August, [facility] [place] [facility] [address] [id number] [place] [address]- 1963 August, [facility] [place] [facility] [address] [id number] [place] [address]- 3386 August, [facility] [place] [facility] [address] [id number] [place] 9390 August, [facility] [place] [facility] [address] [id number] [place] [address]- 3730 August, [facility] [place] [facility] [address] [id number] [place] [address]- 8610 August, [facility] [place] [facility] [address] [id number] [place] [address]- 4110 Jul, [facility] [place] [facility] [address] [id number] [place] [address]- 8931 Jul, [facility] [place] [facility] [address] [id number] [place] [address]- 7109 Jul, [facility] [place] [facility] [address] [id number] [place] [address]- 7242 Jul, [facility] [place] [facility] [address] [id number] [place] [address]- 2905 Mar, [facility] [place] [facility] [address] [id number] [place] [address]- 5266 Mar, [facility] [place] [facility] [address] [id number] [place] [address]- 5738 Mar, [facility] [place] [facility] [address] [id number] [place] [address]- 2144 Mar, [facility] [place] [facility] [address] [id number] [place] 3575 Jan, [facility] [place] [facility] [address] [id number] [place] 8298 Jan, [facility] [place] [facility] [address] [id number] [place] [address]- 9598 Jul, [facility] [address] [id number] [place] [address]- 6918 Jul, [facility] [place] [facility] [address] [id number] [place] [address]- 3321 Jun, [facility] [place] [facility] [address] [id number] [place] [address]- 0095 Jun, [facility] [place] [facility] [address] [id number] [place] [address]- 6052 25 Jun, 2012 [facility] [place] [facility] [address] [id number] [place] [address]- 5697 15 Jun, 2012 [facility] [place] [facility] [address] [id number] [place] [address]- 9814 13 Jun, 2012 [facility] [place] [facility] [address] [id number] [place] [address]- 6074 12 Jun, 2012 [facility] [place] [facility] [address] [id number] [place] [address]- 9142 08 Jun, 2012 [facility] [place] [facility] [address] [id number] [place] [address]- 0014 07 Jun, 2012 [facility] [place] [facility] [address] [id number] [place] [address]- 4752 06 Jun, 2012 [facility] [place] [facility] [address] [id number], [place] [address]- 5384 05 Jun, 2012 [facility] [place] [facility] [address] [id number], [place] [address]- 6764 26 May, 2012 [facility] [place] [facility] [address] [id number] [place] [address]- 6552 19 May, 2012 [facility] [place] [facility] [address] [id number], [place] [address]- 0066 14 May, 2012 [facility] [place] [facility] [address] [id number][place] [address]- 3406 05 May, 2012 [facility] [place] [facility] [address] [id number] [place] [address]- 2546 May, [facility] [address] [id number] [place] [address]- 8436 May, [facility] [place] [facility] [address] [id number] [place] [address]- 1796 Apr, [facility] [address] [id number] [place] [address]- 0852 Apr, [facility] [place] [facility] [address] [id number] [place] [address]- 6796 Apr, [facility] [address] [id number] [place] [address]- 5806 Apr, [facility] [place] [facility] [address] [id number] [place] [address]- 0659 Mar, [facility] [address] [id number] [place] [address]- 1639 Mar, [facility] [address] [id number] [place] [address]- 2050 Mar, [facility] [address] [id number] [place] [address]- 2363 Mar, [facility] [address] [id number] [place] [address]- 5659 Feb, [facility] [place] [facility] [address] [id number] [place] [address]- 0244 Feb, [facility] [place] [facility] [address] [id number] [place] [address]- 8580 Feb, [facility] [place] [facility] [address] [id number] [place] [address]- 6316 Feb, [facility] [place] [facility] [address] [id number] [place] [address]- 2546 16 Feb, 2012 [facility] [place] [facility] [address] [id number] [place] [address]- 7515 15 Feb, 2012 [facility] [place] [facility] [address] [id number] [place] [address]- 9057 14 Feb, 2012 [facility] [place] [facility] [address] [id number] [place] [address]- 9143 13 Feb, 2012 [facility] [place] [facility] [address] [id number] [place] [address]- 0855 13 Feb, 2012 [facility] [place] [facility] [address] [id number] [place] [address]- 6795 13 Feb, 2012 [facility] [place] [facility] [address] [id number] [place] [address]- 1255 13 Feb, 2012 [facility] [place] [facility] [address] [id number] [place] [address]- 7537 Feb, [facility] [place] [facility] [address] [id number] [place] [address]- 0776 Feb, [facility] [place] [facility] [address] [id number] [place] [address]- 8677 Feb, [facility] [place] [facility] [address] [id number] [place] [address]- 9769 Jan, [facility] [place] [facility] [address] [id number] [place] [address]- 2788 Jan, [facility] [place] [facility] [address] [id number], [place] [address]- 3043 Jan, [facility] [place] [facility] [address] [id number], [place] [address]- 7295 August, [facility] [place] [facility] [address] [id number] [place] [address]- 9604 August, [facility] [place] [facility] [address] [id number], [place] [address]- 1668 Jul, [facility] [place] [facility] [address] [id number] [place] [address]- 2109 Jul, [facility] [place] [facility] [address] [id number] [place] [address]- 8928 21 Jul, 2011 [facility] [address] [id number] [place] [address]- 1640 20 Jul, 2011 [facility] [place] [facility] [address] [id number] [place] [address]- 2816 19 Jul, 2011 [facility] [place] [facility] [address] [id number] [place] [address]- 0176 Jul, [facility] [place] [facility] [address] [id number] [place] [address]- 8579 Jun, [facility] [place] [facility] [address] [id number] [place] [address]- 4565 24 May, 2011 [facility] [place] [facility] [address] [id number] [place] [address]- 8159 14 May, 2011 [facility] [address] [facility] [id number] [place] [address]- 5768 05 Mar, 2011 [facility] [address] [id number] [place] [address]- 7626 07 Feb, 2011 [facility] [place] [facility] [address] [facility] [id number] [place] [address]- 4374 18 Feb, 2010 [facility] [place] [facility] [address] [facility] [id number] [place] [address]- 3031 14 Jan, 2010 [facility] [place] [facility] [address] [id number] [place] [address]- 7616 14 Jan, 2010 [facility] [place] [facility] [address] [facility] [id number] [place] [address]- 0316 15 May, 2009 [facility] [place] [facility] [address] [id number] [place] 7776 02 Mar, 2009 [facility] [place] [facility] [address] [id number] [place] [address]- 3501 25 Feb, 2009 [facility] [place] [facility] [address] [id number] [place] [address]- 8849 10 Jul, 2008 [facility] [id number] [address]- 2546 16 May, 2008 [facility] [id number] [address]- 2546 14 May, 2006 [facility] [id number] [address]- 2546 Oct, [facility] [id number] [address]- 2546 10 Feb, 2003 IMMUNIZATIONS No Known Immunizations SOCIAL HISTORY Never Assessed REASON FOR VISIT EMR-[facility] PLAN OF CARE VITAL SIGNS MEDICATIONS No Known Medications RESULTS No Results PROCEDURES No Known procedures INSTRUCTIONS MEDICATIONS ADMINISTERED No Known Medications MEDICAL (GENERAL) HISTORY Type Description Date Medical History herpes simplex type II--dx 2011 Medical History anxiety Surgical History appendectomy 08/07/13 Hospitalization History Concussion 11/2015
--- OUTSIDE RECORDS SUMMARY | 2018-09-04 10:38 | XMS REPORT ---
Author Author Migration, Doctor Organization [facility] Address Unknown Phone Unavailable Care Team Providers Care Website Developer Name Role Phone Migration, Doctor Unavailable Unavailable PROBLEMS Type Condition ICD9-CM Code OAT47-GK Code Onset Dates Condition Status SNOMED Code Problem Constipation, unspecified constipation type K59.00 Active 44991266 Problem Abnormal uterine bleeding N93.9 Active 68274059668297 Problem Depression with anxiety F41.8 Active 047604133 Problem Allergic rhinitis J30.9 Active 72684842 Problem HSV-2 (herpes simplex virus 2) infection B00.9 Active 660313172 Problem Contact dermatitis and eczema due to plant L24.7 Active [id number] ALLERGIES No Information ENCOUNTERS Encounter Location Date Diagnosis [place] [id number] [place] [address] 95456- 4000 May, Abnormal uterine bleeding N93.9 and Encounter for initial prescription of contraceptive pills Z30.011 [place] [address] [place] [id number] [place] [address] 13716- 7283 May, [place] [address] [id number] [place] [address] 07831- 6248 Apr, HSV-2 (herpes simplex virus 2) infection B00.9 ; Allergic rhinitis J30.9 ; Long-term use of high-risk medication Z79.899 and History of ovarian cyst Z87.42 [place] [id number] [place] [address] 63680- 2801 Jan, Pelvic pain R10.2 and Constipation, unspecified constipation type K59.00 [place] [address] [place] [id number] [place] [address] 72850- 2804 Dec, [place] [address] [address] [id number] [place] [address] 98692- 7417 Nov, HSV-2 (herpes simplex virus 2) infection B00.9 ; Vaginal discharge N89.8 ; Allergic rhinitis J30.9 ; Other specified bacterial agents as the cause of diseases classified elsewhere B96.89 and Acute vaginitis N76.0 [place] [id number] [place] [address] 18653- 6980 Nov, [place] [address] [id number] [place] [address] 60088- 9562 Oct, HSV-2 (herpes simplex virus 2) infection B00.9 [place] [address] [address] [id number] [place] [address] 01010- 2653 Oct, HSV-2 (herpes simplex virus 2) infection B00.9 [place] [address] [id number] [place] [address] 14987- 1535 Sep, [facility] [id number] [place] [address] [id number] Sep, [place] [address] [address] [id number] [place] [address] 42518- 8476 Sep, [place] [address] [address] [id number] [place] [address] 33733- 8612 Sep, Screening examination for sexually transmitted disease Z11.3 and Mariella vaginitis B37.3 [id number] [place] [address] 98010- 0823 Jul, Acute non-recurrent frontal sinusitis J01.10 and Impacted cerumen of right ear H61.21 [place] [address] [id number] [place] [address] 21073- 0013 Jun, Annual physical exam Z00.00 ; Routine gynecological examination Z01.419 ; HSV-2 (herpes simplex virus 2) infection B00.9 ; Seasonal allergic rhinitis due to pollen J30.1 ; Vaginal discharge N89.8 ; Allergic rhinitis J30.9 and Contact dermatitis and eczema due to plant L24.7 [address] [place] [address] 30352- 0431 16 Feb, 2018 Depression with anxiety F41.8 ; Allergic rhinitis J30.9 ; HSV-2 (herpes simplex virus 2) infection B00.9 ; Contact dermatitis and eczema due to plant L24.7 and Seasonal allergic rhinitis due to pollen J30.1 [place] [address] [place] [id number] [place] [address] 69880- 8896 Mar, [place] [address] 90158- 5147 Mar, [place] [address] 06263- 1354 Mar, Pelvic pain R10.2 ; Vaginal discharge N89.8 ; Other specified bacterial agents as the cause of diseases classified elsewhere B96.89 and Acute vaginitis N76.0 [facility] [place] [address] [address] -4847 Jun, Body aches R52 and Influenza A J10.1 [facility] [place] [address] 37313 -0284 Mar, Discharge from the vagina N89.8 ; Unprotected sex Z72.51 and Vaginal candidiasis B37.[address] 84212- 9462 Feb, Acute gastritis without hemorrhage, unspecified gastritis type K29.00 and Seasonal allergic rhinitis due to pollen J30.1 [place] [address] [id number] [place] [address] 47530- 4948 Dec, Dysuria R30.0 ; Contact dermatitis and eczema due to plant L24.7 ; Herpes simplex vulvovaginitis A60.04 and Abrasion, multiple sites T14.[address] 09471- 9172 Nov, Depression with anxiety F41.8 and HSV-2 (herpes simplex virus 2) infection B00.[address] 77029- 2445 Nov, [place] [address] [id number] [place] [address] 55392- 8525 May, Depression with anxiety F41.8 [place] [address] 85273- 4481 Apr, [place] [address] 70272- 1866 Apr, Unspecified genital herpes 054.10 [place] [address] 92809- 8465 Mar, Depression with anxiety F41.8 and Allergic rhinitis J30.9 [place] [address] 08586- 5727 Mar, [place] [address] 70481- 7786 Mar, Chlamydia A74.9 [place] [address] 90733- 5571 Feb, Well woman exam Z01.419 ; Dysmenorrhea N94.6 ; Herpes simplex B00.9 ; Dyspareunia N94.1 ; Anxiety associated with depression F41.8 ; Unprotected sexual intercourse Z72.51 and Marijuana use F12.10 [place] [address] [id number] [place] [address] 44532- 4934 Feb, Depression with anxiety F41.8 and H/O dysmenorrhea Z87.42 [place] [address] [id number] [place] [address] 15894- 2937 Feb, General medical exam Z00.00 [place] [address] 30674- 9859 Jan, [place] [address] 25281- 7469 Jan, Major depressive disorder, recurrent episode, unspecified severity F33.9 ; Generalized anxiety disorder F41.1 and ADHD, adult residual type F90.8 [place] [id number] [address]- 7960 Jan, Generalized anxiety disorder F41.1 [facility] [address] [address]- 8068 Jan, General medical exam Z00.00 and Anxiety associated with depression F41.8 [facility] [address] [place] [address] 07488- 3015 15 Sep, 2014 Allergic rhinitis 477.9 [facility] [address] [place] [address] 41780- 3615 August, [facility] [id number] [place] [address] 97523- 4802 August, Cervicitis and endocervicitis 616.0 ; History of chlamydia infection V12.09 and Unspecified genital herpes 054.10 [facility] [address] [address]- 8500 Jul, [facility] [address] [address]- 6836 Jul, [facility] [address] [place] [address]- 9790 Apr, [facility] [address] [address]- 1340 Apr, [facility] [address] [place] [address]- 3038 Apr, [facility] [address] [place] [address]- 6723 Apr, [facility] [address] [id number] 2873 Apr, [facility] [address]- 9516 Apr, [facility] [address] 2870 Apr, [facility] [place] [facility] [address] [id number] [place] [address]- 9379 Apr, [facility] [place] [facility] [address] [id number] [place] [address]- 4017 Apr, [facility] [place] [facility] [address] [id number] [place] [address]- 7948 Apr, [facility] [place] [facility] [address] [id number] [place] [address]- 7393 Apr, [facility] [place] [facility] [address] [id number] [place] [address]- 2556 Apr, [facility] [place] [facility] [address] [id number] [place] [address]- 6950 Mar, [facility] [place] [facility] [address] [id number] [place] [address]- 6810 Mar, [facility] [place] [facility] [address] [id number] [place] [address]- 6024 Jan, [facility] [place] [facility] [address] [id number] [place] [address]- 4500 Jan, [facility] [place] [facility] [address] [id number] [place] [address]- 3516 26 Dec, 2013 [facility] [place] [facility] [address] [id number] [place] [address]- 6955 26 Dec, 2013 [facility] [place] [facility] [address] [id number] [address]- 5186 20 Dec, 2013 [facility] [place] [facility] [address] [id number] [place] [address]- 8560 19 Dec, 2013 [facility] [place] [facility] [address] [id number] [place] [address]- 1811 19 Dec, 2013 [facility] [place] [facility] [address] [id number] [place] [address]- 4264 17 Dec, 2013 [facility] [place] [facility] [address] [id number] [place] [address]- 9356 Dec, [facility] [place] [facility] [address] [id number] [place] [address]- 6842 Dec, [facility] [place] [facility] [address] [id number] [place] [address]- 5545 Dec, [facility] [place] [facility] [address] [id number] [place] [address]- 7762 Oct, [facility] [place] [facility] [address] [id number] [place] [address]- 5315 Oct, [facility] [place] [facility] [address] [id number] [place] [address]- 6182 Oct, [facility] [place] [facility] [address] [id number] [place] [address]- 6650 Oct, [facility] [place] [facility] [address] [id number] [place] [address]- 6011 Oct, [facility] [place] [facility] [address] [id number] [place] [address]- 6742 Oct, [facility] [place] [facility] [address] [id number] [place] [address]- 0060 Oct, [facility] [place] [facility] [address] [id number] [place] [address]- 5926 Oct, [facility] [place] [facility] [address] [id number] [place] [address]- 4791 Sep, [facility] [place] [facility] [address] [id number] [place] [address]- 5295 Sep, [facility] [place] [facility] [address] [id number] [place] [address]- 8803 August, [facility] [place] [facility] [address] [id number] [place] [address]- 5331 August, [facility] [place] [facility] [address] [id number] [place] [address]- 5428 August, [facility] [place] [facility] [address] [id number] [place] [address]- 7280 August, [facility] [place] [facility] [address] [id number] [place] [address]- 5941 August, [facility] [place] [facility] [address] [id number] [place] 8612 August, [facility] [place] [facility] [address] [id number] [place] [address]- 6762 August, [facility] [place] [facility] [address] [id number] [place] [address]- 2509 August, [facility] [place] [facility] [address] [id number] [place] [address]- 9631 Jul, [facility] [place] [facility] [address] [id number] [place] [address]- 2319 Jul, [facility] [place] [facility] [address] [id number] [place] [address]- 8657 Jul, [facility] [place] [facility] [address] [id number] [place] [address]- 0319 Jul, [facility] [place] [facility] [address] [id number] [place] [address]- 2123 Mar, [facility] [place] [facility] [address] [id number] [place] [address]- 3120 Mar, [facility] [place] [facility] [address] [id number] [place] [address]- 8940 Mar, [facility] [place] [facility] [address] [id number] [place] [address]- 6426 Mar, [facility] [place] [facility] [address] [id number] [place] 1120 Jan, [facility] [place] [facility] [address] [id number] [place] 5702 Jan, [facility] [place] [facility] [address] [id number] [place] [address]- 7514 Jul, [facility] [address] [id number] [place] [address]- 1954 Jul, [facility] [place] [facility] [address] [id number] [place] [address]- 3892 Jun, [facility] [place] [facility] [address] [id number] [place] [address]- 1248 Jun, [facility] [place] [facility] [address] [id number] [place] [address]- 8173 25 Jun, 2012 [facility] [place] [facility] [address] [id number] [place] [address]- 4032 15 Jun, 2012 [facility] [place] [facility] [address] [id number] [place] [address]- 9702 13 Jun, 2012 [facility] [place] [facility] [address] [id number] [place] [address]- 0062 12 Jun, 2012 [facility] [place] [facility] [address] [id number] [place] [address]- 4962 08 Jun, 2012 [facility] [place] [facility] [address] [id number] [place] [address]- 2170 07 Jun, 2012 [facility] [place] [facility] [address] [id number] [place] [address]- 2464 06 Jun, 2012 [facility] [place] [facility] [address] [id number], [place] [address]- 2647 05 Jun, 2012 [facility] [place] [facility] [address] [id number], [place] [address]- 6240 26 May, 2012 [facility] [place] [facility] [address] [id number] [place] [address]- 6918 19 May, 2012 [facility] [place] [facility] [address] [id number], [place] [address]- 9223 14 May, 2012 [facility] [place] [facility] [address] [id number], [place] [address]- 0926 05 May, 2012 [facility] [place] [facility] [address] [id number] [place] [address]- 2546 May, [facility] [address] [id number] [place] [address]- 0566 May, [facility] [place] [facility] [address] [id number] [place] [address]- 1986 Apr, [facility] [address] [id number] [place] [address]- 1949 Apr, [facility] [place] [facility] [address] [id number] [place] [address]- 1686 Apr, [facility] [address] [id number] [place] [address]- 8826 Apr, [facility] [place] [facility] [address] [id number] [place] [address]- 4541 Mar, [facility] [address] [id number] [place] [address]- 3840 Mar, [facility] [address] [id number] [place] [address]- 8693 Mar, [facility] [address] [id number] [place] [address]- 7001 Mar, [facility] [address] [id number] [place] [address]- 8741 Feb, [facility] [place] [facility] [address] [id number] [place] [address]- 5621 Feb, [facility] [place] [facility] [address] [id number] [place] [address]- 2725 Feb, [facility] [place] [facility] [address] [id number] [place] [address]- 9066 Feb, [facility] [place] [facility] [address] [id number] [place] [address]- 2546 16 Feb, 2012 [facility] [place] [facility] [address] [id number] [place] [address]- 0504 15 Feb, 2012 [facility] [place] [facility] [address] [id number] [place] [address]- 4608 14 Feb, 2012 [facility] [place] [facility] [address] [id number] [place] [address]- 9308 13 Feb, 2012 [facility] [place] [facility] [address] [id number] [place] [address]- 0472 13 Feb, 2012 [facility] [place] [facility] [address] [id number] [place] [address]- 7285 13 Feb, 2012 [facility] [place] [facility] [address] [id number] [place] [address]- 0074 13 Feb, 2012 [facility] [place] [facility] [address] [id number] [place] [address]- 9548 Feb, [facility] [place] [facility] [address] [id number] [place] [address]- 5274 Feb, [facility] [place] [facility] [address] [id number] [place] [address]- 7085 Feb, [facility] [place] [facility] [address] [id number] [place] [address]- 2109 Jan, [facility] [place] [facility] [address] [id number] [place] [address]- 7372 Jan, [facility] [place] [facility] [address] [id number], [place] [address]- 7829 Jan, [facility] [place] [facility] [address] [id number], [place] [address]- 6904 August, [facility] [place] [facility] [address] [id number] [place] [address]- 9967 August, [facility] [place] [facility] [address] [id number], [place] [address]- 5503 Jul, [facility] [place] [facility] [address] [id number] [place] [address]- 2688 Jul, [facility] [place] [facility] [address] [id number] [place] [address]- 6747 21 Jul, 2011 [facility] [address] [id number] [place] [address]- 9863 20 Jul, 2011 [facility] [place] [facility] [address] [id number] [place] [address]- 6036 19 Jul, 2011 [facility] [place] [facility] [address] [id number] [place] [address]- 0716 Jul, [facility] [place] [facility] [address] [id number] [place] [address]- 3474 Jun, [facility] [place] [facility] [address] [id number] [place] [address]- 8123 24 May, 2011 [facility] [place] [facility] [address] [id number] [place] [address]- 4237 14 May, 2011 [facility] [address] [facility] [id number] [place] [address]- 8086 05 Mar, 2011 [facility] [address] [id number] [place] [address]- 7855 07 Feb, 2011 [facility] [place] [facility] [address] [facility] [id number] [place] [address]- 9994 18 Feb, 2010 [facility] [place] [facility] [address] [facility] [id number] [place] [address]- 8313 14 Jan, 2010 [facility] [place] [facility] [address] [id number] [place] [address]- 3617 14 Jan, 2010 [facility] [place] [facility] [address] [facility] [id number] [place] [address]- 1261 15 May, 2009 [facility] [place] [facility] [address] [id number] [place] [address]100 02 Mar, 2009 [facility] [place] [facility] [address] [id number] [place] [address]- 2805 25 Feb, 2009 [facility] [place] [facility] [address] [id number] [place] [address]- 3702 10 Jul, 2008 [facility] [id number] [address]- 2546 16 May, 2008 [facility] [id number] [address]- 2546 14 May, 2006 [facility] [id number] [address]- 2546 Oct, [facility] [id number] [address]- 2546 10 Feb, 2003 IMMUNIZATIONS No Known Immunizations SOCIAL HISTORY Never Assessed REASON FOR VISIT EMR-[facility] [place] PLAN OF CARE VITAL SIGNS MEDICATIONS No Known Medications RESULTS No Results PROCEDURES No Known procedures INSTRUCTIONS MEDICATIONS ADMINISTERED No Known Medications MEDICAL (GENERAL) HISTORY Type Description Date Medical History herpes simplex type II--dx 2011 Medical History anxiety Surgical History appendectomy 08/07/13 Hospitalization History Concussion 11/2015
--- OUTSIDE RECORDS SUMMARY | 2018-09-04 10:38 | XMS REPORT ---
Author Author Migration, Doctor Organization [facility] Address Unknown Phone Unavailable Care Team Providers Care [employer] Name Role Phone Migration, Doctor Unavailable Unavailable PROBLEMS Type Condition ICD9-CM Code [id number] Code Onset Dates Condition Status SNOMED Code Problem Constipation, unspecified constipation type K59.00 Active 79254911 Problem Abnormal uterine bleeding N93.9 Active [id number] Problem Depression with anxiety F41.8 Active 032664518 Problem Allergic rhinitis J30.9 Active 23709900 Problem HSV-2 (herpes simplex virus 2) infection B00.9 Active 767067484 Problem Contact dermatitis and eczema due to plant L24.7 Active 866984145 ALLERGIES No Information ENCOUNTERS Encounter Location Date Diagnosis [place] [id number] [place] [address] 69796- 5078 May, Abnormal uterine bleeding N93.9 and Encounter for initial prescription of contraceptive pills Z30.011 [place] [address] [place] [id number] [place] [address] 81605- 0971 May, [place] [address] [place] [id number] [place] [address] 42055- 6070 Apr, HSV-2 (herpes simplex virus 2) infection B00.9 ; Allergic rhinitis J30.9 ; Long-term use of high-risk medication Z79.899 and History of ovarian cyst Z87.42 [place] [id number] [place] [address] 80428- 2108 Jan, Pelvic pain R10.2 and Constipation, unspecified constipation type K59.00 [place] [address] [place] [id number] [place] [address] 20009- 2715 Dec, [place] [address] [place] [id number] [place] [address] 07516- 1664 Nov, HSV-2 (herpes simplex virus 2) infection B00.9 ; Vaginal discharge N89.8 ; Allergic rhinitis J30.9 ; Other specified bacterial agents as the cause of diseases classified elsewhere B96.89 and Acute vaginitis N76.0 [place] [id number] [place] [address] 17028- 0416 Nov, [place] [address] [place] [id number] [place] [address] 09357- 7991 Oct, HSV-2 (herpes simplex virus 2) infection B00.9 [place] [address] [place] [id number] [place] [address] 36725- 0805 Oct, HSV-2 (herpes simplex virus 2) infection B00.9 [place] [address] [place] [id number] [place] [address] 26418- 7085 Sep, [facility] [id number] [place] [address] [id number] Sep, [place] [address] [place] [id number] [place] [address] 16421- 0599 Sep, [place] [address] [place] [id number] [place] [address] 90986- 0552 Sep, Screening examination for sexually transmitted disease Z11.3 and Mariella vaginitis B37.3 [address] [place] [address] 40394- 5103 Jul, Acute non-recurrent frontal sinusitis J01.10 and Impacted cerumen of right ear H61.21 [place] [address] [place] [id number] [place] [address] 26309- 6396 Jun, Annual physical exam Z00.00 ; Routine gynecological examination Z01.419 ; HSV-2 (herpes simplex virus 2) infection B00.9 ; Seasonal allergic rhinitis due to pollen J30.1 ; Vaginal discharge N89.8 ; Allergic rhinitis J30.9 and Contact dermatitis and eczema due to plant L24.7 [address] [place] [address] 69440- 2141 16 Feb, 2018 Depression with anxiety F41.8 ; Allergic rhinitis J30.9 ; HSV-2 (herpes simplex virus 2) infection B00.9 ; Contact dermatitis and eczema due to plant L24.7 and Seasonal allergic rhinitis due to pollen J30.1 [place] [address] [place] [id number] [place] [address] 81204- 4169 Mar, [place] [address] 96292- 9637 Mar, [place] [address] 91525- 2843 Mar, Pelvic pain R10.2 ; Vaginal discharge N89.8 ; Other specified bacterial agents as the cause of diseases classified elsewhere B96.89 and Acute vaginitis N76.0 [facility] [place] [address] [address] Jun, Body aches R52 and Influenza A J10.1 [facility] [place] [address] [address] -2771 Mar, Discharge from the vagina N89.8 ; Unprotected sex Z72.51 and Vaginal candidiasis B37.[address] 87346- 5108 Feb, Acute gastritis without hemorrhage, unspecified gastritis type K29.00 and Seasonal allergic rhinitis due to pollen J30.1 [place] [address] [place] [id number] [place] [address] 70199- 0131 Dec, Dysuria R30.0 ; Contact dermatitis and eczema due to plant L24.7 ; Herpes simplex vulvovaginitis A60.04 and Abrasion, multiple sites T14.[address] 73498- 0928 Nov, Depression with anxiety F41.8 and HSV-2 (herpes simplex virus 2) infection B00.[address] 03248- 5688 Nov, [place] [address] [place] [id number] [place] [address] 37392- 7689 May, Depression with anxiety F41.8 [place] [address] 69936- 3880 Apr, [place] [address] 30847- 9254 Apr, Unspecified genital herpes 054.10 [place] [address] 51866- 1502 Mar, Depression with anxiety F41.8 and Allergic rhinitis J30.9 [place] [address] 36163- 3249 Mar, [place] [address] 02595- 1483 Mar, Chlamydia A74.9 [place] [address] 60564- 8530 Feb, Well woman exam Z01.419 ; Dysmenorrhea N94.6 ; Herpes simplex B00.9 ; Dyspareunia N94.1 ; Anxiety associated with depression F41.8 ; Unprotected sexual intercourse Z72.51 and Marijuana use F12.10 [place] [address] [place] [id number] [place] [address] 83676- 8625 Feb, Depression with anxiety F41.8 and H/O dysmenorrhea Z87.42 [place] [address] [place] [id number] [place] [address] 83176- 6380 Feb, General medical exam Z00.00 [place] [address] 72225- 0918 Jan, [place] [address] 28630- 6607 Jan, Major depressive disorder, recurrent episode, unspecified severity F33.9 ; Generalized anxiety disorder F41.1 and ADHD, adult residual type F90.8 [place] [address] [address]- 6756 Jan, Generalized anxiety disorder F41.1 [facility] [address] [address]- 9417 Jan, General medical exam Z00.00 and Anxiety associated with depression F41.8 [facility] [address] [place] [address] 78100- 2583 15 Sep, 2014 Allergic rhinitis 477.9 [facility] [address] [place] [address] 40659- 2686 August, [facility] [address] [place] [id number] [place] [address] 05494- 7263 August, Cervicitis and endocervicitis 616.0 ; History of chlamydia infection V12.09 and Unspecified genital herpes 054.10 [facility] [address] [address]- 9107 Jul, [facility] [address] [address]- 0705 Jul, [facility] [address] [address]- 7078 Apr, [facility] [address], [place] [address]- 1178 Apr, [facility] [address], [place] [address]- 8594 Apr, [facility] [address] [place] [address]- 6168 Apr, [facility] [address] [place] [id number] 4041 Apr, [facility] [address]- 9046 Apr, [facility] [address]594 Apr, [facility] [place] [facility] [address] [id number] [place] [address]- 3722 Apr, [facility] [place] [facility] [address] [id number] [place] [address]- 6475 Apr, [facility] [place] [facility] [address] [id number] [place] [address]- 6900 Apr, [facility] [place] [facility] [address] [id number] [place] [address]- 5622 Apr, [facility] [place] [facility] [address] [id number] [place] [address]- 9675 Apr, [facility] [place] [facility] [address] [id number] [place] [address]- 6532 Mar, [facility] [place] [facility] [address] [id number] [place] [address]- 2254 Mar, [facility] [place] [facility] [address] [id number] [place] [address]- 6106 Jan, [facility] [place] [facility] [address] [id number] [place] [address]- 8635 Jan, [facility] [place] [facility] [address] [id number] [place] [address]- 3440 26 Dec, 2013 [facility] [place] [facility] [address] [id number] [place] [address]- 8386 26 Dec, 2013 [facility] [place] [facility] [address] [id number], [place] [address]- 5033 20 Dec, 2013 [facility] [place] [facility] [address] [id number] [place] [address]- 1891 19 Dec, 2013 [facility] [place] [facility] [address] [id number] [place] [address]- 0133 19 Dec, 2013 [facility] [place] [facility] [address] [id number] [place] [address]- 1180 17 Dec, 2013 [facility] [place] [facility] [address] [id number] [place] [address]- 3669 Dec, [facility] [place] [facility] [address] [id number] [place] [address]- 5872 Dec, [facility] [place] [facility] [address] [id number] [place] [address]- 9862 Dec, [facility] [place] [facility] [address] [id number] [place] [address]- 5877 Oct, [facility] [place] [facility] [address] [id number] [place] [address]- 4178 Oct, [facility] [place] [facility] [address] [id number] [place] [address]- 9264 Oct, [facility] [place] [facility] [address] [id number] [place] [address]- 4184 Oct, [facility] [place] [facility] [address] [id number] [place] [address]- 1734 Oct, [facility] [place] [facility] [address] [id number] [place] [address]- 2100 Oct, [facility] [place] [facility] [address] [id number] [place] [address]- 6199 Oct, [facility] [place] [facility] [address] [id number] [place] [address]- 5339 Oct, [facility] [place] [facility] [address] [id number] [place] [address]- 1246 Sep, [facility] [place] [facility] [address] [id number] [place] [address]- 4767 Sep, [facility] [place] [facility] [address] [id number] [place] [address]- 6432 August, [facility] [place] [facility] [address] [id number] [place] [address]- 8422 August, [facility] [place] [facility] [address] [id number] [place] [address]- 3657 August, [facility] [place] [facility] [address] [id number] [place] [address]- 8722 August, [facility] [place] [facility] [address] [id number] [place] [address]- 1619 August, [facility] [place] [facility] [address] [id number] [place] 1220 August, [facility] [place] [facility] [address] [id number] [place] [address]- 1511 August, [facility] [place] [facility] [address] [id number] [place] [address]- 4962 August, [facility] [place] [facility] [address] [id number] [place] [address]- 1295 Jul, [facility] [place] [facility] [address] [id number] [place] [address]- 0587 Jul, [facility] [place] [facility] [address] [id number] [place] [address]- 1995 Jul, [facility] [place] [facility] [address] [id number] [place] [address]- 8742 Jul, [facility] [place] [facility] [address] [id number] [place] [address]- 4367 Mar, [facility] [place] [facility] [address] [id number] [place] [address]- 3209 Mar, [facility] [place] [facility] [address] [id number] [place] [address]- 0076 Mar, [facility] [place] [facility] [address] [id number] [place] [address]- 5510 Mar, [facility] [place] [facility] [address] [id number] [place] 7828 Jan, [facility] [place] [facility] [address] [id number] [place] 9955 Jan, [facility] [place] [facility] [address] [id number] [place] [address]- 8624 Jul, [facility] [address] [id number] [place] [address]- 5856 Jul, [facility] [place] [facility] [address] [id number] [place] [address]- 0419 Jun, [facility] [place] [facility] [address] [id number] [place] [address]- 5742 Jun, [facility] [place] [facility] [address] [id number] [place] [address]- 7788 25 Jun, 2012 [facility] [place] [facility] [address] [id number] [place] [address]- 8248 15 Jun, 2012 [facility] [place] [facility] [address] [id number] [place] [address]- 0957 13 Jun, 2012 [facility] [place] [facility] [address] [id number] [place] [address]- 3419 12 Jun, 2012 [facility] [place] [facility] [address] [id number] [place] [address]- 4495 08 Jun, 2012 [facility] [place] [facility] [address] [id number] [place] [address]- 8474 07 Jun, 2012 [facility] [place] [facility] [address] [id number] [place] [address]- 2552 06 Jun, 2012 [facility] [place] [facility] [address] [id number], [place] [address]- 4456 05 Jun, 2012 [facility] [place] [facility] [address] [id number], [place] [address]- 6157 26 May, 2012 [facility] [place] [facility] [address] [id number] [place] [address]- 0690 19 May, 2012 [facility] [place] [facility] [address] [id number], [place] [address]- 7211 14 May, 2012 [facility] [place] [facility] [address] [id number], [place] [address]- 3806 05 May, 2012 [facility] [place] [facility] [address] [id number] [place] [address]- 2546 May, [facility] [address] [id number] [place] [address]- 4546 May, [facility] [place] [facility] [address] [id number] [place] [address]- 7846 Apr, [facility] [address] [id number] [place] [address]- 2401 Apr, [facility] [place] [facility] [address] [id number] [place] [address]- 9996 Apr, [facility] [address] [id number] [place] [address]- 6916 Apr, [facility] [place] [facility] [address] [id number] [place] [address]- 3181 Mar, [facility] [address] [id number] [place] [address]- 8925 Mar, [facility] [address] [id number] [place] [address]- 5378 Mar, [facility] [address] [id number] [place] [address]- 0969 Mar, [facility] [address] [id number] [place] [address]- 1151 Feb, [facility] [place] [facility] [address] [id number] [place] [address]- 8266 Feb, [facility] [place] [facility] [address] [id number] [place] [address]- 3539 Feb, [facility] [place] [facility] [address] [id number] [place] [address]- 6196 Feb, [facility] [place] [facility] [address] [id number] [place] [address]- 2546 16 Feb, 2012 [facility] [place] [facility] [address] [id number] [place] [address]- 5160 15 Feb, 2012 [facility] [place] [facility] [address] [id number] [place] [address]- 4973 14 Feb, 2012 [facility] [place] [facility] [address] [id number] [place] [address]- 9532 13 Feb, 2012 [facility] [place] [facility] [address] [id number] [place] [address]- 5555 13 Feb, 2012 [facility] [place] [facility] [address] [id number] [place] [address]- 6851 13 Feb, 2012 [facility] [place] [facility] [address] [id number] [place] [address]- 5313 13 Feb, 2012 [facility] [place] [facility] [address] [id number] [place] [address]- 8435 Feb, [facility] [place] [facility] [address] [id number] [place] [address]- 7407 Feb, [facility] [place] [facility] [address] [id number] [place] [address]- 4481 Feb, [facility] [place] [facility] [address] [id number] [place] [address]- 0657 Jan, [facility] [place] [facility] [address] [id number] [place] [address]- 3019 Jan, [facility] [place] [facility] [address] [id number], [place] [address]- 7087 Jan, [facility] [place] [facility] [address] [id number], [place] [address]- 9362 August, [facility] [place] [facility] [address] [id number] [place] [address]- 1055 August, [facility] [place] [facility] [address] [id number], [place] [address]- 3745 Jul, [facility] [place] [facility] [address] [id number] [place] [address]- 2349 Jul, [facility] [place] [facility] [address] [id number] [place] [address]- 5526 21 Jul, 2011 [facility] [address] [id number] [place] [address]- 0287 20 Jul, 2011 [facility] [place] [facility] [address] [id number] [place] [address]- 4526 19 Jul, 2011 [facility] [place] [facility] [address] [id number] [place] [address]- 2446 Jul, [facility] [place] [facility] [address] [id number] [place] [address]- 3018 Jun, [facility] [place] [facility] [address] [id number] [place] [address]- 7855 24 May, 2011 [facility] [place] [facility] [address] [id number] [place] [address]- 3749 14 May, 2011 [facility] [address] [facility] [id number] [place] [address]- 4214 05 Mar, 2011 [facility] [address] [id number] [place] [address]- 7611 07 Feb, 2011 [facility] [place] [facility] [address] [facility] [id number] [place] [address]- 2514 18 Feb, 2010 [facility] [place] [facility] [address] [facility] [id number] [place] [address]- 4780 14 Jan, 2010 [facility] [place] [facility] [address] [id number] [place] [address]- 2704 14 Jan, 2010 [facility] [place] [facility] [address] [facility] [id number] [place] [address]- 5000 15 May, 2009 [facility] [place] [facility] [address] [id number] [place] 4913 02 Mar, 2009 [facility] [place] [facility] [address] [id number] [place] [address]- 1290 25 Feb, 2009 [facility] [place] [facility] [address] [id number] [place] [address]- 2376 10 Jul, 2008 [facility] [id number] [address]- 2546 16 May, 2008 [facility] [address] [id number], [place] [address]- 2546 14 May, 2006 [facility] [id number], [place] [address]- 2546 Oct, [facility] [id number], [place] [address]- 2546 10 Feb, 2003 IMMUNIZATIONS No Known Immunizations SOCIAL HISTORY Never Assessed REASON FOR VISIT [place] [place] VITAL SIGNS MEDICATIONS No Known Medications RESULTS No Results PROCEDURES No Known procedures INSTRUCTIONS MEDICATIONS ADMINISTERED No Known Medications MEDICAL (GENERAL) HISTORY Type Description Date Medical History herpes simplex type II--dx 2011 Medical History anxiety Surgical History appendectomy 08/07/13 Hospitalization History Concussion 11/2015
--- OUTSIDE RECORDS SUMMARY | 2018-09-04 10:38 | XMS REPORT ---
Author Author Migration, Doctor Organization [facility] Address Unknown Phone Unavailable Care Team Providers Care Plaster Helper Name Role Phone Migration, Doctor Unavailable Unavailable PROBLEMS Type Condition ICD9-CM Code ESR49-RP Code Onset Dates Condition Status SNOMED Code Problem Constipation, unspecified constipation type K59.00 Active 23719367 Problem Abnormal uterine bleeding N93.9 Active 88419115737859 Problem Depression with anxiety F41.8 Active [id number] Problem Allergic rhinitis J30.9 Active 94064911 Problem HSV-2 (herpes simplex virus 2) infection B00.9 Active 128845829 Problem Contact dermatitis and eczema due to plant L24.7 Active [id number] ALLERGIES No Information ENCOUNTERS Encounter Location Date Diagnosis [place] [id number] [place] [address] 10368- 9987 May, Abnormal uterine bleeding N93.9 and Encounter for initial prescription of contraceptive pills Z30.011 [place] [address] [place] [id number] [place] [address] 30821- 0871 May, [place] [address] [id number] [place] [address] 13745- 1346 Apr, HSV-2 (herpes simplex virus 2) infection B00.9 ; Allergic rhinitis J30.9 ; Long-term use of high-risk medication Z79.899 and History of ovarian cyst Z87.42 [place] [id number] [place] [address] 33080- 9365 Jan, Pelvic pain R10.2 and Constipation, unspecified constipation type K59.00 [place] [address] [id number] [place] [address] 61516- 1371 Dec, [place] [address] [id number] [place] [address] 59606- 2510 Nov, HSV-2 (herpes simplex virus 2) infection B00.9 ; Vaginal discharge N89.8 ; Allergic rhinitis J30.9 ; Other specified bacterial agents as the cause of diseases classified elsewhere B96.89 and Acute vaginitis N76.0 [place] [id number] [place] [address] 31751- 5828 Nov, [place] [address] [place] [id number] [place] [address] 42184- 5323 Oct, HSV-2 (herpes simplex virus 2) infection B00.9 [place] [id number] [place] [address] 60024- 2871 Oct, HSV-2 (herpes simplex virus 2) infection B00.9 [place] [id number] [place] [address] 41418- 8486 Sep, [facility] [id number] [place] [address] [id number] Sep, [place] [address] [id number] [place] [address] 36813- 9301 Sep, [place] [address] [id number] [place] [address] 59406- 9971 Sep, Screening examination for sexually transmitted disease Z11.3 and Mariella vaginitis B37.3 [address] [place] [address] 31797- 8923 Jul, Acute non-recurrent frontal sinusitis J01.10 and Impacted cerumen of right ear H61.21 [place] [address] [id number] [place] [address] 80753- 0831 Jun, Annual physical exam Z00.00 ; Routine gynecological examination Z01.419 ; HSV-2 (herpes simplex virus 2) infection B00.9 ; Seasonal allergic rhinitis due to pollen J30.1 ; Vaginal discharge N89.8 ; Allergic rhinitis J30.9 and Contact dermatitis and eczema due to plant L24.7 [address] [place] [address] 60372- 9559 16 Feb, 2018 Depression with anxiety F41.8 ; Allergic rhinitis J30.9 ; HSV-2 (herpes simplex virus 2) infection B00.9 ; Contact dermatitis and eczema due to plant L24.7 and Seasonal allergic rhinitis due to pollen J30.1 [place] [id number] [place] [address] 28328- 5147 Mar, [place] [address] 91297- 7299 Mar, [place] [address] 89408- 4436 Mar, Pelvic pain R10.2 ; Vaginal discharge N89.8 ; Other specified bacterial agents as the cause of diseases classified elsewhere B96.89 and Acute vaginitis N76.0 [facility] [place] [address] 49[address] -0929 Jun, Body aches R52 and Influenza A J10.1 [facility] [place] [address] 22504 -2274 Mar, Discharge from the vagina N89.8 ; Unprotected sex Z72.51 and Vaginal candidiasis B37.[address] 13753- 3743 Feb, Acute gastritis without hemorrhage, unspecified gastritis type K29.00 and Seasonal allergic rhinitis due to pollen J30.1 [place] [id number] [place] [address] 41670- 0197 Dec, Dysuria R30.0 ; Contact dermatitis and eczema due to plant L24.7 ; Herpes simplex vulvovaginitis A60.04 and Abrasion, multiple sites T14.[address] 12165- 8159 Nov, Depression with anxiety F41.8 and HSV-2 (herpes simplex virus 2) infection B00.[address] 77370- 7259 Nov, [place] [id number] [place] [address] 80161- 0027 May, Depression with anxiety F41.8 [place] [address] 72855- 5367 Apr, [place] [address] 30953- 5318 Apr, Unspecified genital herpes 054.10 [place] [address] 59805- 9444 Mar, Depression with anxiety F41.8 and Allergic rhinitis J30.9 [place] [address] 69984- 7995 Mar, [place] [address] 10130- 2757 Mar, Chlamydia A74.9 [place] [address] 17496- 1169 Feb, Well woman exam Z01.419 ; Dysmenorrhea N94.6 ; Herpes simplex B00.9 ; Dyspareunia N94.1 ; Anxiety associated with depression F41.8 ; Unprotected sexual intercourse Z72.51 and Marijuana use F12.10 [place] [id number] [place] [address] 45226- 3460 Feb, Depression with anxiety F41.8 and H/O dysmenorrhea Z87.42 [place] [address] [id number] [place] [address] 33944- 3821 Feb, General medical exam Z00.00 [place] [address] 56153- 4056 Jan, [place] [address] 05437- 9363 Jan, Major depressive disorder, recurrent episode, unspecified severity F33.9 ; Generalized anxiety disorder F41.1 and ADHD, adult residual type F90.8 [place] [address] [address] 7109 Jan, Generalized anxiety disorder F41.1 [facility] [address] [address]- 3800 Jan, General medical exam Z00.00 and Anxiety associated with depression F41.8 [facility] [address] [place] [address] 99491- 2689 15 Sep, 2014 Allergic rhinitis 477.9 [facility] [address] [place] [address] 04067- 4810 August, [facility] [address] [id number] [place] [address] 73357- 0385 August, Cervicitis and endocervicitis 616.0 ; History of chlamydia infection V12.09 and Unspecified genital herpes 054.10 [facility] [address] [address]- 7777 Jul, [facility] [address] [address]- 1392 Jul, [facility] [address] [address]- 0621 Apr, [facility] [address] [address]- 6571 Apr, [facility] [address] [address]- 0422 Apr, [facility] [address] [address]- 3444 Apr, [facility] [id number] 3908 Apr, [facility] [address]- 2966 Apr, [facility] [address] 5099 Apr, [facility] [place] [facility] [address] [id number] [place] [address]- 7602 Apr, [facility] [place] [facility] [address] [id number] [place] [address]- 8945 Apr, [facility] [place] [facility] [address] [id number] [place] [address]- 6675 Apr, [facility] [place] [facility] [address] [id number] [place] [address]- 2570 Apr, [facility] [place] [facility] [address] [id number] [place] [address]- 0489 Apr, [facility] [place] [facility] [address] [id number] [place] [address]- 0855 Mar, [facility] [place] [facility] [address] [id number] [place] [address]- 6183 Mar, [facility] [place] [facility] [address] [id number] [place] [address]- 3325 Jan, [facility] [place] [facility] [address] [id number] [place] [address]- 4488 Jan, [facility] [place] [facility] [address] [id number] [place] [address]- 3859 26 Dec, 2013 [facility] [place] [facility] [address] [id number] [place] [address]- 8195 26 Dec, 2013 [facility] [place] [facility] [address] [id number] [address]- 0091 20 Dec, 2013 [facility] [place] [facility] [address] [id number] [place] [address]- 2616 19 Dec, 2013 [facility] [place] [facility] [address] [id number] [place] [address]- 9500 19 Dec, 2013 [facility] [place] [facility] [address] [id number] [place] [address]- 8815 17 Dec, 2013 [facility] [place] [facility] [address] [id number] [place] [address]- 2760 Dec, [facility] [place] [facility] [address] [id number] [place] [address]- 6451 Dec, [facility] [place] [facility] [address] [id number] [place] [address]- 5232 Dec, [facility] [place] [facility] [address] [id number] [place] [address]- 2578 Oct, [facility] [place] [facility] [address] [id number] [place] [address]- 6780 Oct, [facility] [place] [facility] [address] [id number] [place] [address]- 1823 Oct, [facility] [place] [facility] [address] [id number] [place] [address]- 4350 Oct, [facility] [place] [facility] [address] [id number] [place] [address]- 6484 Oct, [facility] [place] [facility] [address] [id number] [place] [address]- 8640 Oct, [facility] [place] [facility] [address] [id number] [place] [address]- 4401 Oct, [facility] [place] [facility] [address] [id number] [place] [address]- 5771 Oct, [facility] [place] [facility] [address] [id number] [place] [address]- 5764 Sep, [facility] [place] [facility] [address] [id number] [place] [address]- 8153 Sep, [facility] [place] [facility] [address] [id number] [place] [address]- 8185 August, [facility] [place] [facility] [address] [id number] [place] [address]- 1591 August, [facility] [place] [facility] [address] [id number] [place] [address]- 0354 August, [facility] [place] [facility] [address] [id number] [place] [address]- 6609 August, [facility] [place] [facility] [address] [id number] [place] [address]- 8189 August, [facility] [place] [facility] [address] [id number] [place]170 August, [facility] [place] [facility] [address] [id number] [place] [address]- 4641 August, [facility] [place] [facility] [address] [id number] [place] [address]- 5300 August, [facility] [place] [facility] [address] [id number] [place] [address]- 9320 Jul, [facility] [place] [facility] [address] [id number] [place] [address]- 5213 Jul, [facility] [place] [facility] [address] [id number] [place] [address]- 0665 Jul, [facility] [place] [facility] [address] [id number] [place] [address]- 9515 Jul, [facility] [place] [facility] [address] [id number] [place] [address]- 6684 Mar, [facility] [place] [facility] [address] [id number] [place] [address]- 4431 Mar, [facility] [place] [facility] [address] [id number] [place] [address]- 6636 Mar, [facility] [place] [facility] [address] [id number] [place] [address]- 0938 Mar, [facility] [place] [facility] [address] [id number] [place] 9416 Jan, [facility] [place] [facility] [address] [id number] [place] 8992 Jan, [facility] [place] [facility] [address] [id number] [place] [address]- 5534 Jul, [facility] [address] [id number] [place] [address]- 3019 Jul, [facility] [place] [facility] [address] [id number] [place] [address]- 1784 Jun, [facility] [place] [facility] [address] [id number] [place] [address]- 3942 Jun, [facility] [place] [facility] [address] [id number] [place] [address]- 2390 25 Jun, 2012 [facility] [place] [facility] [address] [id number] [place] [address]- 6785 15 Jun, 2012 [facility] [place] [facility] [address] [id number] [place] [address]- 6743 13 Jun, 2012 [facility] [place] [facility] [address] [id number] [place] [address]- 8425 12 Jun, 2012 [facility] [place] [facility] [address] [id number] [place] [address]- 7589 08 Jun, 2012 [facility] [place] [facility] [address] [id number] [place] [address]- 8038 07 Jun, 2012 [facility] [place] [facility] [address] [id number] [place] [address]- 9042 06 Jun, 2012 [facility] [place] [facility] [address] [id number] [address]- 0957 05 Jun, 2012 [facility] [place] [facility] [address] [id number] [address]- 6310 26 May, 2012 [facility] [place] [facility] [address] [id number] [place] [address]- 3037 19 May, 2012 [facility] [place] [facility] [address] [id number] [address]- 6533 14 May, 2012 [facility] [place] [facility] [address] [id number] [address]- 6716 05 May, 2012 [facility] [place] [facility] [address] [id number] [place] [address]- 2546 May, [facility] [address] [id number] [place] [address]- 7976 May, [facility] [place] [facility] [address] [id number] [place] [address]- 2516 Apr, [facility] [address] [id number] [place] [address]- 8267 Apr, [facility] [place] [facility] [address] [id number] [place] [address]- 0096 Apr, [facility] [address] [id number] [place] [address]- 1296 Apr, [facility] [place] [facility] [address] [id number] [place] [address]- 5907 Mar, [facility] [address] [id number] [place] [address]- 5729 Mar, [facility] [address] [id number] [place] [address]- 4563 Mar, [facility] [address] [id number] [place] [address]- 5187 Mar, [facility] [address] [id number] [place] [address]- 4623 Feb, [facility] [place] [facility] [address] [id number] [place] [address]- 2391 Feb, [facility] [place] [facility] [address] [id number] [place] [address]- 9712 Feb, [facility] [place] [facility] [address] [id number] [place] [address]- 2356 Feb, [facility] [place] [facility] [address] [id number] [place] [address]- 2546 16 Feb, 2012 [facility] [place] [facility] [address] [id number] [place] [address]- 4117 15 Feb, 2012 [facility] [place] [facility] [address] [id number] [place] [address]- 1727 14 Feb, 2012 [facility] [place] [facility] [address] [id number] [place] [address]- 5406 13 Feb, 2012 [facility] [place] [facility] [address] [id number] [place] [address]- 7313 13 Feb, 2012 [facility] [place] [facility] [address] [id number] [place] [address]- 6086 13 Feb, 2012 [facility] [place] [facility] [address] [id number] [place] [address]- 1763 13 Feb, 2012 [facility] [place] [facility] [address] [id number] [place] [address]- 0322 Feb, [facility] [place] [facility] [address] [id number] [place] [address]- 9222 Feb, [facility] [place] [facility] [address] [id number] [place] [address]- 5617 Feb, [facility] [place] [facility] [address] [id number] [place] [address]- 8667 Jan, [facility] [place] [facility] [address] [id number] [place] [address]- 3472 Jan, [facility] [place] [facility] [address] [id number] [address]- 6091 Jan, [facility] [place] [facility] [address] [id number], [place] [address]- 8621 August, [facility] [place] [facility] [address] [id number] [place] [address]- 5359 August, [facility] [place] [facility] [address] [id number] [address]- 1652 Jul, [facility] [place] [facility] [address] [id number] [place] [address]- 2362 Jul, [facility] [place] [facility] [address] [id number] [place] [address]- 4855 21 Jul, 2011 [facility] [address] [id number] [place] [address]- 9400 20 Jul, 2011 [facility] [place] [facility] [address] [id number] [place] [address]- 7456 19 Jul, 2011 [facility] [place] [facility] [address] [id number] [place] [address]- 7086 Jul, [facility] [place] [facility] [address] [id number] [place] [address]- 0769 Jun, [facility] [place] [facility] [address] [id number] [place] [address]- 3249 24 May, 2011 [facility] [place] [facility] [address] [id number] [place] [address]- 1375 14 May, 2011 [facility] [address] [facility] [id number] [place] [address]- 9599 05 Mar, 2011 [facility] [address] [id number] [place] [address]- 6838 07 Feb, 2011 [facility] [place] [facility] [address] [facility] [id number] [place] [address]- 7779 18 Feb, 2010 [facility] [place] [facility] [address] [facility] [id number] [place] [address]- 3911 14 Jan, 2010 [facility] [place] [facility] [address] [id number] [place] [address]- 7558 14 Jan, 2010 [facility] [place] [facility] [address] [facility] [id number] [place] [address]- 7385 15 May, 2009 [facility] [place] [facility] [address] [id number] [place] 4949 02 Mar, 2009 [facility] [place] [facility] [address] [id number] [place] [address]- 1323 25 Feb, 2009 [facility] [place] [facility] [address] [id number] [place] [address]- 1744 10 Jul, 2008 [facility] [id number] [address]- 2546 16 May, 2008 [facility] [id number] [address]- 2546 14 May, 2006 [facility] [id number] [address]- 2546 Oct, [facility] [id number] [address]- 2546 10 Feb, 2003 IMMUNIZATIONS No Known Immunizations SOCIAL HISTORY Never Assessed REASON FOR VISIT [place] VITAL SIGNS MEDICATIONS No Known Medications RESULTS No Results PROCEDURES No Known procedures INSTRUCTIONS MEDICATIONS ADMINISTERED No Known Medications MEDICAL (GENERAL) HISTORY Type Description Date Medical History herpes simplex type II--dx 2011 Medical History anxiety Surgical History appendectomy 08/07/13 Hospitalization History Concussion 11/2015
--- OUTSIDE RECORDS SUMMARY | 2018-09-04 10:39 | XMS REPORT ---
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 Name Role Phone Migration, Doctor Unavailable Unavailable PROBLEMS Type Condition ICD9-CM Code [id number] Code Onset Dates Condition Status SNOMED Code Problem Constipation, unspecified constipation type K59.00 Active 39865973 Problem Abnormal uterine bleeding N93.9 Active 52450501171345 Problem Depression with anxiety F41.8 Active 239215790 Problem Allergic rhinitis J30.9 Active 50743113 Problem HSV-2 (herpes simplex virus 2) infection B00.9 Active 455542029 Problem Contact dermatitis and eczema due to plant L24.7 Active [id number] ALLERGIES No Information ENCOUNTERS Encounter Location Date Diagnosis [place] [id number] [place] [address] 40845- 5494 May, Abnormal uterine bleeding N93.9 and Encounter for initial prescription of contraceptive pills Z30.011 [place] [address] [place] [id number] [place] [address] 11377- 2606 May, [place] [address] [place] [id number] [place] [address] 77775- 0531 Apr, HSV-2 (herpes simplex virus 2) infection B00.9 ; Allergic rhinitis J30.9 ; Long-term use of high-risk medication Z79.899 and History of ovarian cyst Z87.42 [place] [id number] [place] [address] 56636- 2943 Jan, Pelvic pain R10.2 and Constipation, unspecified constipation type K59.00 [place] [address] [place] [id number] [place] [address] 86501- 8827 Dec, [place] [address] [place] [id number] [place] [address] 43956- 6174 Nov, HSV-2 (herpes simplex virus 2) infection B00.9 ; Vaginal discharge N89.8 ; Allergic rhinitis J30.9 ; Other specified bacterial agents as the cause of diseases classified elsewhere B96.89 and Acute vaginitis N76.0 [place] [address] [place] [address] 61404- 5464 Nov, [place] [address] [place] [id number] [place] [address] 52973- 7097 Oct, HSV-2 (herpes simplex virus 2) infection B00.9 [place] [address] [place] [id number] [place] [address] 74056- 5064 Oct, HSV-2 (herpes simplex virus 2) infection B00.9 [place] [address] [place] [id number] [place] [address] 83404- 1927 Sep, [facility] [id number] [place] [address] [id number] Sep, [place] [address] [place] [id number] [place] [address] 55926- 9942 Sep, [place] [address] [place] [id number] [place] [address] 95375- 9678 Sep, Screening examination for sexually transmitted disease Z11.3 and Mariella vaginitis B37.3 [address] [place] [address] 29725- 0061 Jul, Acute non-recurrent frontal sinusitis J01.10 and Impacted cerumen of right ear H61.21 [place] [address] [place] [id number] [place] [address] 97890- 4691 Jun, Annual physical exam Z00.00 ; Routine gynecological examination Z01.419 ; HSV-2 (herpes simplex virus 2) infection B00.9 ; Seasonal allergic rhinitis due to pollen J30.1 ; Vaginal discharge N89.8 ; Allergic rhinitis J30.9 and Contact dermatitis and eczema due to plant L24.7 [address] [place] [address] 39869- 1315 16 Feb, 2018 Depression with anxiety F41.8 ; Allergic rhinitis J30.9 ; HSV-2 (herpes simplex virus 2) infection B00.9 ; Contact dermatitis and eczema due to plant L24.7 and Seasonal allergic rhinitis due to pollen J30.1 [place] [address] [place] [id number] [place] [address] 85265- 5798 Mar, [place] [address] 31283- 9985 Mar, [place] [address] 24762- 6727 Mar, Pelvic pain R10.2 ; Vaginal discharge N89.8 ; Other specified bacterial agents as the cause of diseases classified elsewhere B96.89 and Acute vaginitis N76.0 [facility] [place] [address] [address] -0625 Jun, Body aches R52 and Influenza A J10.1 [facility] [place] [address] 60122 -2052 Mar, Discharge from the vagina N89.8 ; Unprotected sex Z72.51 and Vaginal candidiasis B37.[address] 72591- 7983 Feb, Acute gastritis without hemorrhage, unspecified gastritis type K29.00 and Seasonal allergic rhinitis due to pollen J30.1 [place] [address] [place] [place] [id number] [place] [address] 89460- 2531 Dec, Dysuria R30.0 ; Contact dermatitis and eczema due to plant L24.7 ; Herpes simplex vulvovaginitis A60.04 and Abrasion, multiple sites T14.[address] 03764- 6078 Nov, Depression with anxiety F41.8 and HSV-2 (herpes simplex virus 2) infection B00.[address] 79466- 0568 Nov, [place] [address] [place] [id number] [place] [address] 65069- 0831 May, Depression with anxiety F41.8 [place] [address] 96977- 1406 Apr, [place] [address] 76021- 5266 Apr, Unspecified genital herpes 054.10 [place] [address] 96604- 8574 Mar, Depression with anxiety F41.8 and Allergic rhinitis J30.9 [place] [address] 00765- 2760 Mar, [place] [address] 03911- 2082 Mar, Chlamydia A74.9 [place] [address] 39587- 1472 Feb, Well woman exam Z01.419 ; Dysmenorrhea N94.6 ; Herpes simplex B00.9 ; Dyspareunia N94.1 ; Anxiety associated with depression F41.8 ; Unprotected sexual intercourse Z72.51 and Marijuana use F12.10 [place] [address] [id number] [place] [address] 10249- 5524 Feb, Depression with anxiety F41.8 and H/O dysmenorrhea Z87.42 [place] [address] [place] [id number] [place] [address] 14257- 1430 Feb, General medical exam Z00.00 [place] [address] 62751- 1055 Jan, [place] [address] 74635- 3553 Jan, Major depressive disorder, recurrent episode, unspecified severity F33.9 ; Generalized anxiety disorder F41.1 and ADHD, adult residual type F90.8 [place] [id number] [address]- 4086 Jan, Generalized anxiety disorder F41.1 [facility] [address] [address]- 4921 Jan, General medical exam Z00.00 and Anxiety associated with depression F41.8 [facility] [address] [place] [address] 66115- 3223 15 Sep, 2014 Allergic rhinitis 477.9 [facility] [address] [place] [address] 31113- 2443 August, [facility] [address] [place] [id number] [place] [address] 69715- 4452 August, Cervicitis and endocervicitis 616.0 ; History of chlamydia infection V12.09 and Unspecified genital herpes 054.10 [facility] [address] [address]- 2809 Jul, [facility] [address] [address]- 3241 Jul, [facility] [address] [address]- 7890 Apr, [facility] [address] [address]- 9814 Apr, [facility] [address] [address]- 7334 Apr, [facility] [address] [address]- 2779 Apr, [facility] [address] [place] [address] [id number] 8598 Apr, [facility] [address] [address] 8336 Apr, [facility] [address] [address]1 Apr, [facility] [place] [facility] [address] [id number] [place] [address]- 5090 Apr, [facility] [place] [facility] [address] [id number] [place] [address]- 9563 Apr, [facility] [place] [facility] [address] [id number] [place] [address]- 7103 Apr, [facility] [place] [facility] [address] [id number] [place] [address]- 8856 Apr, [facility] [place] [facility] [address] [id number] [place] [address]- 0925 Apr, [facility] [place] [facility] [address] [id number] [place] [address]- 0228 Mar, [facility] [place] [facility] [address] [id number] [place] [address]- 6357 Mar, [facility] [place] [facility] [address] [id number] [place] [address]- 5477 Jan, [facility] [place] [facility] [address] [id number] [place] [address]- 0988 Jan, [facility] [place] [facility] [address] [id number] [place] [address]- 6475 26 Dec, 2013 [facility] [place] [facility] [address] [id number] [place] [address]- 2872 26 Dec, 2013 [facility] [place] [facility] [address] [id number] [address]- 1730 20 Dec, 2013 [facility] [place] [facility] [address] [id number] [place] [address]- 6241 19 Dec, 2013 [facility] [place] [facility] [address] [id number] [place] [address]- 6503 19 Dec, 2013 [facility] [place] [facility] [address] [id number] [place] [address]- 7557 17 Dec, 2013 [facility] [place] [facility] [address] [id number] [place] [address]- 1985 Dec, [facility] [place] [facility] [address] [id number] [place] [address]- 9777 Dec, [facility] [place] [facility] [address] [id number] [place] [address]- 3130 Dec, [facility] [place] [facility] [address] [id number] [place] [address]- 2049 Oct, [facility] [place] [facility] [address] [id number] [place] [address]- 5204 Oct, [facility] [place] [facility] [address] [id number] [place] [address]- 1468 Oct, [facility] [place] [facility] [address] [id number] [place] [address]- 6229 Oct, [facility] [place] [facility] [address] [id number] [place] [address]- 6114 Oct, [facility] [place] [facility] [address] [id number] [place] [address]- 1525 Oct, [facility] [place] [facility] [address] [id number] [place] [address]- 0994 Oct, [facility] [place] [facility] [address] [id number] [place] [address]- 1637 Oct, [facility] [place] [facility] [address] [id number] [place] [address]- 6150 Sep, [facility] [place] [facility] [address] [id number] [place] [address]- 9311 Sep, [facility] [place] [facility] [address] [id number] [place] [address]- 2063 August, [facility] [place] [facility] [address] [id number] [place] [address]- 2655 August, [facility] [place] [facility] [address] [id number] [place] [address]- 3806 August, [facility] [place] [facility] [address] [id number] [place] [address]- 0641 August, [facility] [place] [facility] [address] [id number] [place] [address]- 7242 August, [facility] [place] [facility] [address] [id number] [place] 9588 August, [facility] [place] [facility] [address] [id number] [place] [address]- 0951 August, [facility] [place] [facility] [address] [id number] [place] [address]- 6368 August, [facility] [place] [facility] [address] [id number] [place] [address]- 9926 Jul, [facility] [place] [facility] [address] [id number] [place] [address]- 3885 Jul, [facility] [place] [facility] [address] [id number] [place] [address]- 3373 Jul, [facility] [place] [facility] [address] [id number] [place] [address]- 2411 Jul, [facility] [place] [facility] [address] [id number] [place] [address]- 1146 Mar, [facility] [place] [facility] [address] [id number] [place] [address]- 7960 Mar, [facility] [place] [facility] [address] [id number] [place] [address]- 5791 Mar, [facility] [place] [facility] [address] [id number] [place] [address]- 3133 Mar, [facility] [place] [facility] [address] [id number] [place] 2438 Jan, [facility] [place] [facility] [address] [id number] [place] 1950 Jan, [facility] [place] [facility] [address] [id number] [place] [address]- 6966 Jul, [facility] [address] [id number] [place] [address]- 3384 Jul, [facility] [place] [facility] [address] [id number] [place] [address]- 2687 Jun, [facility] [place] [facility] [address] [id number] [place] [address]- 1560 Jun, [facility] [place] [facility] [address] [id number] [place] [address]- 9905 25 Jun, 2012 [facility] [place] [facility] [address] [id number] [place] [address]- 6679 15 Jun, 2012 [facility] [place] [facility] [address] [id number] [place] [address]- 4113 13 Jun, 2012 [facility] [place] [facility] [address] [id number] [place] [address]- 4435 12 Jun, 2012 [facility] [place] [facility] [address] [id number] [place] [address]- 2830 08 Jun, 2012 [facility] [place] [facility] [address] [id number] [place] [address]- 0134 07 Jun, 2012 [facility] [place] [facility] [address] [id number] [place] [address]- 0068 06 Jun, 2012 [facility] [place] [facility] [address] [id number], [place] [address]- 2537 05 Jun, 2012 [facility] [place] [facility] [address] [id number], [place] [address]- 6701 26 May, 2012 [facility] [place] [facility] [address] [id number] [place] [address]- 0597 19 May, 2012 [facility] [place] [facility] [address] [id number], [place] [address]- 4887 14 May, 2012 [facility] [place] [facility] [address] [id number], [place] [address]- 2356 05 May, 2012 [facility] [place] [facility] [address] [id number] [place] [address]- 2546 May, [facility] [address] [id number] [place] [address]- 0966 May, [facility] [place] [facility] [address] [id number] [place] [address]- 7946 Apr, [facility] [address] [id number] [place] [address]- 5978 Apr, [facility] [place] [facility] [address] [id number] [place] [address]- 9586 Apr, [facility] [address] [id number] [place] [address]- 8806 Apr, [facility] [place] [facility] [address] [id number] [place] [address]- 2555 Mar, [facility] [address] [id number] [place] [address]- 1728 Mar, [facility] [address] [id number] [place] [address]- 2566 Mar, [facility] [address] [id number] [place] [address]- 6000 Mar, [facility] [address] [id number] [place] [address]- 3467 Feb, [facility] [place] [facility] [address] [id number] [place] [address]- 4393 Feb, [facility] [place] [facility] [address] [id number] [place] [address]- 7318 Feb, [facility] [place] [facility] [address] [id number] [place] [address]- 1446 Feb, [facility] [place] [facility] [address] [id number] [place] [address]- 2546 16 Feb, 2012 [facility] [place] [facility] [address] [id number] [place] [address]- 9603 15 Feb, 2012 [facility] [place] [facility] [address] [id number] [place] [address]- 3807 14 Feb, 2012 [facility] [place] [facility] [address] [id number] [place] [address]- 7972 13 Feb, 2012 [facility] [place] [facility] [address] [id number] [place] [address]- 4539 13 Feb, 2012 [facility] [place] [facility] [address] [id number] [place] [address]- 1478 13 Feb, 2012 [facility] [place] [facility] [address] [id number] [place] [address]- 7136 13 Feb, 2012 [facility] [place] [facility] [address] [id number] [place] [address]- 6384 Feb, [facility] [place] [facility] [address] [id number] [place] [address]- 0688 Feb, [facility] [place] [facility] [address] [id number] [place] [address]- 9503 Feb, [facility] [place] [facility] [address] [id number] [place] [address]- 2999 Jan, [facility] [place] [facility] [address] [id number] [place] [address]- 1599 Jan, [facility] [place] [facility] [address] [id number], [place] [address]- 8027 Jan, [facility] [place] [facility] [address] [id number], [place] [address]- 7798 August, [facility] [place] [facility] [address] [id number] [place] [address]- 2472 August, [facility] [place] [facility] [address] [id number], [place] [address]- 9060 Jul, [facility] [place] [facility] [address] [id number] [place] [address]- 0433 Jul, [facility] [place] [facility] [address] [id number] [place] [address]- 2183 21 Jul, 2011 [facility] [address] [id number] [place] [address]- 8193 20 Jul, 2011 [facility] [place] [facility] [address] [id number] [place] [address]- 1976 19 Jul, 2011 [facility] [place] [facility] [address] [id number] [place] [address]- 8966 Jul, [facility] [place] [facility] [address] [id number] [place] [address]- 7623 Jun, [facility] [place] [facility] [address] [id number] [place] [address]- 9615 24 May, 2011 [facility] [place] [facility] [address] [id number] [place] [address]- 4539 14 May, 2011 [facility] [address] [facility] [id number] [place] [address]- 5903 05 Mar, 2011 [facility] [address] [id number] [place] [address]- 3181 07 Feb, 2011 [facility] [place] [facility] [address] [facility] [id number] [place] [address]- 8127 18 Feb, 2010 [facility] [place] [facility] [address] [facility] [id number] [place] [address]- 8762 14 Jan, 2010 [facility] [place] [facility] [address] [id number] [place] [address]- 0206 14 Jan, 2010 [facility] [place] [facility] [address] [facility] [id number] [place] [address]- 2052 15 May, 2009 [facility] [place] [facility] [address] [id number] [place] 8663 02 Mar, 2009 [facility] [place] [facility] [address] [id number] [place] [address]- 0999 25 Feb, 2009 [facility] [place] [facility] [address] [id number] [place] [address]- 6215 10 Jul, 2008 [facility] [id number] [address]- 2546 16 May, 2008 [facility] [id number], [place] [address]- 2546 14 May, 2006 [facility] [id number], [place] [address]- 2546 Oct, [facility] [id number], [place] [address]- 2546 10 Feb, 2003 IMMUNIZATIONS No Known Immunizations SOCIAL HISTORY Never Assessed REASON FOR VISIT EMR-[facility] PLAN OF CARE VITAL SIGNS MEDICATIONS No Known Medications RESULTS No Results PROCEDURES No Known procedures INSTRUCTIONS MEDICATIONS ADMINISTERED No Known Medications MEDICAL (GENERAL) HISTORY Type Description Date Medical History herpes simplex type II--dx 2011 Medical History anxiety Surgical History appendectomy 08/07/13 Hospitalization History Concussion 11/2015
--- OUTSIDE RECORDS SUMMARY | 2018-09-04 10:39 | XMS REPORT ---
Author Author Migration, Doctor Organization [facility] Address Unknown Phone Unavailable Care Team Providers Care Logistics Supervisor Name Role Phone Migration, Doctor Unavailable Unavailable PROBLEMS Type Condition ICD9-CM Code WTI13-OE Code Onset Dates Condition Status SNOMED Code Problem Constipation, unspecified constipation type K59.00 Active 19728985 Problem Abnormal uterine bleeding N93.9 Active 46116021597602 Problem Depression with anxiety F41.8 Active 305082950 Problem Allergic rhinitis J30.9 Active 96884234 Problem HSV-2 (herpes simplex virus 2) infection B00.9 Active 470862893 Problem Contact dermatitis and eczema due to plant L24.7 Active 578135123 ALLERGIES No Information ENCOUNTERS Encounter Location Date Diagnosis [place] [id number] [place] [address] 52519- 5505 May, Abnormal uterine bleeding N93.9 and Encounter for initial prescription of contraceptive pills Z30.011 [place] [address] [place] [id number] [place] [address] 36148- 8148 May, [place] [address] [place] [id number] [place] [address] 77387- 2371 Apr, HSV-2 (herpes simplex virus 2) infection B00.9 ; Allergic rhinitis J30.9 ; Long-term use of high-risk medication Z79.899 and History of ovarian cyst Z87.42 [place] [id number] [place] [address] 04354- 0450 Jan, Pelvic pain R10.2 and Constipation, unspecified constipation type K59.00 [place] [address] [place] [id number] [place] [address] 35198- 5991 Dec, [place] [address] [place] [id number] [place] [address] 83844- 0692 Nov, HSV-2 (herpes simplex virus 2) infection B00.9 ; Vaginal discharge N89.8 ; Allergic rhinitis J30.9 ; Other specified bacterial agents as the cause of diseases classified elsewhere B96.89 and Acute vaginitis N76.0 [place] [id number] [place] [address] 26670- 7444 Nov, [place] [address] [place] [id number] [place] [address] 69569- 4340 Oct, HSV-2 (herpes simplex virus 2) infection B00.9 [place] [address] [place] [id number] [place] [address] 84624- 6787 Oct, HSV-2 (herpes simplex virus 2) infection B00.9 [place] [address] [place] [id number] [place] [address] 43554- 3410 Sep, [facility] [id number] [place] [address] [id number] Sep, [place] [address] [place] [id number] [place] [address] 03359- 7726 Sep, [place] [address] [place] [id number] [place] [address] 63890- 7279 Sep, Screening examination for sexually transmitted disease Z11.3 and Mariella vaginitis B37.3 [id number] [place] [address] 90495- 7673 Jul, Acute non-recurrent frontal sinusitis J01.10 and Impacted cerumen of right ear H61.21 [place] [address] [place] [id number] [place] [address] 93919- 5285 Jun, Annual physical exam Z00.00 ; Routine gynecological examination Z01.419 ; HSV-2 (herpes simplex virus 2) infection B00.9 ; Seasonal allergic rhinitis due to pollen J30.1 ; Vaginal discharge N89.8 ; Allergic rhinitis J30.9 and Contact dermatitis and eczema due to plant L24.7 [address] [place] [address] 30347- 8333 16 Feb, 2018 Depression with anxiety F41.8 ; Allergic rhinitis J30.9 ; HSV-2 (herpes simplex virus 2) infection B00.9 ; Contact dermatitis and eczema due to plant L24.7 and Seasonal allergic rhinitis due to pollen J30.1 [place] [address] [place] [id number] [place] [address] 80529- 2889 Mar, [place] [address] 46158- 5701 Mar, [place] [address] 54152- 4691 Mar, Pelvic pain R10.2 ; Vaginal discharge N89.8 ; Other specified bacterial agents as the cause of diseases classified elsewhere B96.89 and Acute vaginitis N76.0 [facility] [place] [address] [address] -8831 Jun, Body aches R52 and Influenza A J10.1 [facility] [place] [address] 39990 -7817 Mar, Discharge from the vagina N89.8 ; Unprotected sex Z72.51 and Vaginal candidiasis B37.[address] 88122- 1056 Feb, Acute gastritis without hemorrhage, unspecified gastritis type K29.00 and Seasonal allergic rhinitis due to pollen J30.1 [place] [address] [place] [id number] [place] [address] 24327- 3517 Dec, Dysuria R30.0 ; Contact dermatitis and eczema due to plant L24.7 ; Herpes simplex vulvovaginitis A60.04 and Abrasion, multiple sites T14.[address] 98245- 1920 Nov, Depression with anxiety F41.8 and HSV-2 (herpes simplex virus 2) infection B00.[address] 53358- 0135 Nov, [place] [address] [place] [id number] [place] [address] 31602- 9207 May, Depression with anxiety F41.8 [place] [address] 54610- 8210 Apr, [place] [address] 94235- 3314 Apr, Unspecified genital herpes 054.10 [place] [address] 57628- 5829 Mar, Depression with anxiety F41.8 and Allergic rhinitis J30.9 [place] [address] 74927- 9606 Mar, [place] [address] 29770- 7299 Mar, Chlamydia A74.9 [place] [address] 41751- 1583 Feb, Well woman exam Z01.419 ; Dysmenorrhea N94.6 ; Herpes simplex B00.9 ; Dyspareunia N94.1 ; Anxiety associated with depression F41.8 ; Unprotected sexual intercourse Z72.51 and Marijuana use F12.10 [place] [address] [place] [id number] [place] [address] 71335- 3589 Feb, Depression with anxiety F41.8 and H/O dysmenorrhea Z87.42 [place] [address] [place] [id number] [place] [address] 72905- 3351 Feb, General medical exam Z00.00 [place] [address] 67818- 1084 Jan, [place] [address] 67625- 3293 Jan, Major depressive disorder, recurrent episode, unspecified severity F33.9 ; Generalized anxiety disorder F41.1 and ADHD, adult residual type F90.8 [place] [id number] [address]- 2384 Jan, Generalized anxiety disorder F41.1 [facility] [address] [address] 7[address] Jan, General medical exam Z00.00 and Anxiety associated with depression F41.8 [facility] [id number] [place] [address] 31872- 9343 15 Sep, 2014 Allergic rhinitis 477.9 [facility] [id number] [place] [address] 03630- 6323 August, [facility] [address] [place] [id number] [place] [address] 88527- 6742 August, Cervicitis and endocervicitis 616.0 ; History of chlamydia infection V12.09 and Unspecified genital herpes 054.10 [facility] [address] [address]- 6171 Jul, [facility] [address] [address]- 8129 Jul, [facility] [address] [address]- 6848 Apr, [facility] [address] [address]- 8871 Apr, [facility] [address] [address]- 1046 Apr, [facility] [address] [address]- 4473 Apr, [facility] [address] [place] [id number] 0130 Apr, [facility] [address] [address] 7266 Apr, [facility] [address] [address]80 Apr, [facility] [place] [facility] [address] [id number] [place] [address]- 1103 Apr, [facility] [place] [facility] [address] [id number] [place] [address]- 1822 Apr, [facility] [place] [facility] [address] [id number] [place] [address]- 5496 Apr, [facility] [place] [facility] [address] [id number] [place] [address]- 0162 Apr, [facility] [place] [facility] [address] [id number] [place] [address]- 1866 Apr, [facility] [place] [facility] [address] [id number] [place] [address]- 7138 Mar, [facility] [place] [facility] [address] [id number] [place] [address]- 0260 Mar, [facility] [place] [facility] [address] [id number] [place] [address]- 3304 Jan, [facility] [place] [facility] [address] [id number] [place] [address]- 0042 Jan, [facility] [place] [facility] [address] [id number] [place] [address]- 2593 26 Dec, 2013 [facility] [place] [facility] [address] [id number] [place] [address]- 3690 26 Dec, 2013 [facility] [place] [facility] [address] [id number] [address]- 8529 20 Dec, 2013 [facility] [place] [facility] [address] [id number] [place] [address]- 1261 19 Dec, 2013 [facility] [place] [facility] [address] [id number] [place] [address]- 8399 19 Dec, 2013 [facility] [place] [facility] [address] [id number] [place] [address]- 4825 17 Dec, 2013 [facility] [place] [facility] [address] [id number] [place] [address]- 6999 Dec, [facility] [place] [facility] [address] [id number] [place] [address]- 6531 Dec, [facility] [place] [facility] [address] [id number] [place] [address]- 9411 Dec, [facility] [place] [facility] [address] [id number] [place] [address]- 7224 Oct, [facility] [place] [facility] [address] [id number] [place] [address]- 4537 Oct, [facility] [place] [facility] [address] [id number] [place] [address]- 8262 Oct, [facility] [place] [facility] [address] [id number] [place] [address]- 3600 Oct, [facility] [place] [facility] [address] [id number] [place] [address]- 7020 Oct, [facility] [place] [facility] [address] [id number] [place] [address]- 4425 Oct, [facility] [place] [facility] [address] [id number] [place] [address]- 9250 Oct, [facility] [place] [facility] [address] [id number] [place] [address]- 4354 Oct, [facility] [place] [facility] [address] [id number] [place] [address]- 0115 Sep, [facility] [place] [facility] [address] [id number] [place] [address]- 1466 Sep, [facility] [place] [facility] [address] [id number] [place] [address]- 2013 August, [facility] [place] [facility] [address] [id number] [place] [address]- 9336 August, [facility] [place] [facility] [address] [id number] [place] [address]- 3648 August, [facility] [place] [facility] [address] [id number] [place] [address]- 5776 August, [facility] [place] [facility] [address] [id number] [place] [address]- 3116 August, [facility] [place] [facility] [address] [id number] [place] 4833 August, [facility] [place] [facility] [address] [id number] [place] [address]- 9334 August, [facility] [place] [facility] [address] [id number] [place] [address]- 7942 August, [facility] [place] [facility] [address] [id number] [place] [address]- 8411 Jul, [facility] [place] [facility] [address] [id number] [place] [address]- 3019 Jul, [facility] [place] [facility] [address] [id number] [place] [address]- 2305 Jul, [facility] [place] [facility] [address] [id number] [place] [address]- 8819 Jul, [facility] [place] [facility] [address] [id number] [place] [address]- 0961 Mar, [facility] [place] [facility] [address] [id number] [place] [address]- 2319 Mar, [facility] [place] [facility] [address] [id number] [place] [address]- 5767 Mar, [facility] [place] [facility] [address] [id number] [place] [address]- 1656 Mar, [facility] [place] [facility] [address] [id number] [place] 6784 Jan, [facility] [place] [facility] [address] [id number] [place] 5982 Jan, [facility] [place] [facility] [address] [id number] [place] [address]- 1501 Jul, [facility] [address] [id number] [place] [address]- 1502 Jul, [facility] [place] [facility] [address] [id number] [place] [address]- 1797 Jun, [facility] [place] [facility] [address] [id number] [place] [address]- 1999 Jun, [facility] [place] [facility] [address] [id number] [place] [address]- 1426 25 Jun, 2012 [facility] [place] [facility] [address] [id number] [place] [address]- 3012 15 Jun, 2012 [facility] [place] [facility] [address] [id number] [place] [address]- 5843 13 Jun, 2012 [facility] [place] [facility] [address] [id number] [place] [address]- 3720 12 Jun, 2012 [facility] [place] [facility] [address] [id number] [place] [address]- 9606 08 Jun, 2012 [facility] [place] [facility] [address] [id number] [place] [address]- 5048 07 Jun, 2012 [facility] [place] [facility] [address] [id number] [place] [address]- 7411 06 Jun, 2012 [facility] [place] [facility] [address] [id number], [place] [address]- 0221 05 Jun, 2012 [facility] [place] [facility] [address] [id number], [place] [address]- 6568 26 May, 2012 [facility] [place] [facility] [address] [id number] [place] [address]- 7269 19 May, 2012 [facility] [place] [facility] [address] [id number], [place] [address]- 8630 14 May, 2012 [facility] [place] [facility] [address] [id number], [place] [address]- 5196 05 May, 2012 [facility] [place] [facility] [address] [id number] [place] [address]- 2546 May, [facility] [address] [id number] [place] [address]- 0666 May, [facility] [place] [facility] [address] [id number] [place] [address]- 2066 Apr, [facility] [address] [id number] [place] [address]- 8118 Apr, [facility] [place] [facility] [address] [id number] [place] [address]- 3716 Apr, [facility] [address] [id number] [place] [address]- 6076 Apr, [facility] [place] [facility] [address] [id number] [place] [address]- 0838 Mar, [facility] [address] [id number] [place] [address]- 7154 Mar, [facility] [address] [id number] [place] [address]- 4510 Mar, [facility] [address] [id number] [place] [address]- 3507 Mar, [facility] [address] [id number] [place] [address]- 9030 Feb, [facility] [place] [facility] [address] [id number] [place] [address]- 5785 Feb, [facility] [place] [facility] [address] [id number] [place] [address]- 9207 Feb, [facility] [place] [facility] [address] [id number] [place] [address]- 6136 Feb, [facility] [place] [facility] [address] [id number] [place] [address]- 2546 16 Feb, 2012 [facility] [place] [facility] [address] [id number] [place] [address]- 8449 15 Feb, 2012 [facility] [place] [facility] [address] [id number] [place] [address]- 1757 14 Feb, 2012 [facility] [place] [facility] [address] [id number] [place] [address]- 5055 13 Feb, 2012 [facility] [place] [facility] [address] [id number] [place] [address]- 3405 13 Feb, 2012 [facility] [place] [facility] [address] [id number] [place] [address]- 1086 13 Feb, 2012 [facility] [place] [facility] [address] [id number] [place] [address]- 6764 13 Feb, 2012 [facility] [place] [facility] [address] [id number] [place] [address]- 0156 Feb, [facility] [place] [facility] [address] [id number] [place] [address]- 2883 Feb, [facility] [place] [facility] [address] [id number] [place] [address]- 0172 Feb, [facility] [place] [facility] [address] [id number] [place] [address]- 3973 Jan, [facility] [place] [facility] [address] [id number] [place] [address]- 2092 Jan, [facility] [place] [facility] [address] [id number], [place] [address]- 9791 Jan, [facility] [place] [facility] [address] [id number], [place] [address]- 6112 August, [facility] [place] [facility] [address] [id number] [place] [address]- 6847 August, [facility] [place] [facility] [address] [id number], [place] [address]- 3282 Jul, [facility] [place] [facility] [address] [id number] [place] [address]- 5504 Jul, [facility] [place] [facility] [address] [id number] [place] [address]- 6355 21 Jul, 2011 [facility] [address] [id number] [place] [address]- 0171 20 Jul, 2011 [facility] [place] [facility] [address] [id number] [place] [address]- 1256 19 Jul, 2011 [facility] [place] [facility] [address] [id number] [place] [address]- 0996 Jul, [facility] [place] [facility] [address] [id number] [place] [address]- 1330 Jun, [facility] [place] [facility] [address] [id number] [place] [address]- 6467 24 May, 2011 [facility] [place] [facility] [address] [id number] [place] [address]- 4687 14 May, 2011 [facility] [address] [facility] [id number] [place] [address]- 9854 05 Mar, 2011 [facility] [address] [id number] [place] [address]- 1669 07 Feb, 2011 [facility] [place] [facility] [address] [facility] [id number] [place] [address]- 8419 18 Feb, 2010 [facility] [place] [facility] [address] [facility] [id number] [place] [address]- 6149 14 Jan, 2010 [facility] [place] [facility] [address] [id number] [place] [address]- 0932 14 Jan, 2010 [facility] [place] [facility] [address] [facility] [id number] [place] [address]- 8083 15 May, 2009 [facility] [place] [facility] [address] [id number] [place] 3197 02 Mar, 2009 [facility] [place] [facility] [address] [id number] [place] [address]- 4205 25 Feb, 2009 [facility] [place] [facility] [address] [id number] [place] [address]- 1347 10 Jul, 2008 [facility] [id number] [address]- 2546 16 May, 2008 [facility] [id number] [address]- 2546 14 May, 2006 [facility] [id number] [address]- 2546 Oct, [facility] [id number] [address]- 2546 10 Feb, 2003 IMMUNIZATIONS No Known Immunizations SOCIAL HISTORY Never Assessed REASON FOR VISIT EMR-[facility] PLAN OF CARE VITAL SIGNS MEDICATIONS No Known Medications RESULTS No Results PROCEDURES No Known procedures INSTRUCTIONS MEDICATIONS ADMINISTERED No Known Medications MEDICAL (GENERAL) HISTORY Type Description Date Medical History herpes simplex type II--dx 2011 Medical History anxiety Surgical History appendectomy 08/07/13 Hospitalization History Concussion 11/2015
--- OUTSIDE RECORDS SUMMARY | 2018-09-04 10:40 | XMS REPORT ---
Author Author Migration, Doctor Organization [facility] Address Unknown Phone Unavailable Care Team Providers Care Biology Intern Name Role Phone Migration, Doctor Unavailable Unavailable PROBLEMS Type Condition ICD9-CM Code KIV67-HR Code Onset Dates Condition Status SNOMED Code Problem Constipation, unspecified constipation type K59.00 Active 28047346 Problem Abnormal uterine bleeding N93.9 Active [id number] Problem Depression with anxiety F41.8 Active 745413213 Problem Allergic rhinitis J30.9 Active 32881732 Problem HSV-2 (herpes simplex virus 2) infection B00.9 Active 615717099 Problem Contact dermatitis and eczema due to plant L24.7 Active [id number] ALLERGIES No Information ENCOUNTERS Encounter Location Date Diagnosis [place] [id number] [place] [address] 70601- 8829 May, Abnormal uterine bleeding N93.9 and Encounter for initial prescription of contraceptive pills Z30.011 [place] [address] [place] [id number] [place] [address] 25098- 4742 May, [place] [address] [place] [id number] [place] [address] 89805- 3776 Apr, HSV-2 (herpes simplex virus 2) infection B00.9 ; Allergic rhinitis J30.9 ; Long-term use of high-risk medication Z79.899 and History of ovarian cyst Z87.42 [place] [address] [place] [address] 41017- 2147 Jan, Pelvic pain R10.2 and Constipation, unspecified constipation type K59.00 [place] [address] [place] [id number] [place] [address] 23163- 9971 Dec, [place] [address] [place] [id number] [place] [address] 31760- 5163 Nov, HSV-2 (herpes simplex virus 2) infection B00.9 ; Vaginal discharge N89.8 ; Allergic rhinitis J30.9 ; Other specified bacterial agents as the cause of diseases classified elsewhere B96.89 and Acute vaginitis N76.0 [place] [address] [place] [address] 58958- 9163 Nov, [place] [address] [place] [id number] [place] [address] 52654- 4003 Oct, HSV-2 (herpes simplex virus 2) infection B00.9 [place] [address] [place] [id number] [place] [address] 38470- 4213 Oct, HSV-2 (herpes simplex virus 2) infection B00.9 [place] [address] [place] [id number] [place] [address] 84583- 8959 Sep, [facility] [id number] [place] [address] [id number] Sep, [place] [address] [place] [id number] [place] [address] 46692- 5296 Sep, [place] [address] [place] [id number] [place] [address] 45932- 7428 Sep, Screening examination for sexually transmitted disease Z11.3 and Mariella vaginitis B37.3 [address] [place] [address] 31176- 8969 Jul, Acute non-recurrent frontal sinusitis J01.10 and Impacted cerumen of right ear H61.21 [place] [address] [place] [id number] [place] [address] 36658- 1487 Jun, Annual physical exam Z00.00 ; Routine gynecological examination Z01.419 ; HSV-2 (herpes simplex virus 2) infection B00.9 ; Seasonal allergic rhinitis due to pollen J30.1 ; Vaginal discharge N89.8 ; Allergic rhinitis J30.9 and Contact dermatitis and eczema due to plant L24.7 [address] [place] [address] 07148- 9931 16 Feb, 2018 Depression with anxiety F41.8 ; Allergic rhinitis J30.9 ; HSV-2 (herpes simplex virus 2) infection B00.9 ; Contact dermatitis and eczema due to plant L24.7 and Seasonal allergic rhinitis due to pollen J30.1 [place] [address] [place] [id number] [place] [address] 47614- 3533 Mar, [place] [address] 02517- 3985 Mar, [place] [address] 03021- 7146 Mar, Pelvic pain R10.2 ; Vaginal discharge N89.8 ; Other specified bacterial agents as the cause of diseases classified elsewhere B96.89 and Acute vaginitis N76.0 [facility] [place] [address] [address] -0916 Jun, Body aches R52 and Influenza A J10.1 [facility] [place] [address] 28792 -6888 Mar, Discharge from the vagina N89.8 ; Unprotected sex Z72.51 and Vaginal candidiasis B37.[address] 16971- 4741 Feb, Acute gastritis without hemorrhage, unspecified gastritis type K29.00 and Seasonal allergic rhinitis due to pollen J30.1 [place] [address] [place] [id number] [place] [address] 34422- 4011 Dec, Dysuria R30.0 ; Contact dermatitis and eczema due to plant L24.7 ; Herpes simplex vulvovaginitis A60.04 and Abrasion, multiple sites T14.[address] [address]- 1965 Nov, Depression with anxiety F41.8 and HSV-2 (herpes simplex virus 2) infection B00.[address] 13544- 9024 Nov, [place] [address] [place] [id number] [place] [address] 28956- 0072 May, Depression with anxiety F41.8 [place] [address] 48066- 9938 Apr, [place] [address] 55370- 6315 Apr, Unspecified genital herpes 054.10 [place] [address] 91485- 6440 Mar, Depression with anxiety F41.8 and Allergic rhinitis J30.9 [place] [address] 81910- 4641 Mar, [place] [address] 72945- 1378 Mar, Chlamydia A74.9 [place] [address] 08118- 3871 Feb, Well woman exam Z01.419 ; Dysmenorrhea N94.6 ; Herpes simplex B00.9 ; Dyspareunia N94.1 ; Anxiety associated with depression F41.8 ; Unprotected sexual intercourse Z72.51 and Marijuana use F12.10 [place] [address] [place] [id number] [place] [address] 26657- 4609 Feb, Depression with anxiety F41.8 and H/O dysmenorrhea Z87.42 [place] [address] [place] [id number] [place] [address] 03953- 2719 Feb, General medical exam Z00.00 [place] [address] 47150- 4332 Jan, [place] [address] 76197- 0676 Jan, Major depressive disorder, recurrent episode, unspecified severity F33.9 ; Generalized anxiety disorder F41.1 and ADHD, adult residual type F90.8 [place] [address] [address] 0073 Jan, Generalized anxiety disorder F41.1 [facility] [address] [address]- 1793 Jan, General medical exam Z00.00 and Anxiety associated with depression F41.8 [facility] [address] [place] [address] 83764- 4565 15 Sep, 2014 Allergic rhinitis 477.9 [facility] [address] [place] [address] 73749- 5639 August, [facility] [address] [place] [id number] [place] [address] 84434- 1420 August, Cervicitis and endocervicitis 616.0 ; History of chlamydia infection V12.09 and Unspecified genital herpes 054.10 [facility] [address] [address]- 1558 Jul, [facility] [address] [address]- 4798 Jul, [facility] [address] [address]- 7053 Apr, [facility] [address] [address]- 5529 Apr, [facility] [address] [address]- 8697 Apr, [facility] [address] [address]- 0508 Apr, [facility] [address] [place] [id number] 3246 Apr, [facility] [address] [address] 1756 Apr, [facility] [address] 2441 Apr, [facility] [place] [facility] [address] [id number] [place] [address]- 6173 Apr, [facility] [place] [facility] [address] [id number] [place] [address]- 5577 Apr, [facility] [place] [facility] [address] [id number] [place] [address]- 0409 Apr, [facility] [place] [facility] [address] [id number] [place] [address]- 2861 Apr, [facility] [place] [facility] [address] [id number] [place] [address]- 8606 Apr, [facility] [place] [facility] [address] [id number] [place] [address]- 0785 Mar, [facility] [place] [facility] [address] [id number] [place] [address]- 0654 Mar, [facility] [place] [facility] [address] [id number] [place] [address]- 9781 Jan, [facility] [place] [facility] [address] [id number] [place] [address]- 2932 Jan, [facility] [place] [facility] [address] [id number] [place] [address]- 2297 26 Dec, 2013 [facility] [place] [facility] [address] [id number] [place] [address]- 4582 26 Dec, 2013 [facility] [place] [facility] [address] [id number], [place] [address]- 4264 20 Dec, 2013 [facility] [place] [facility] [address] [id number] [place] [address]- 7438 19 Dec, 2013 [facility] [place] [facility] [address] [id number] [place] [address]- 0064 19 Dec, 2013 [facility] [place] [facility] [address] [id number] [place] [address]- 1397 17 Dec, 2013 [facility] [place] [facility] [address] [id number] [place] [address]- 4827 Dec, [facility] [place] [facility] [address] [id number] [place] [address]- 9525 Dec, [facility] [place] [facility] [address] [id number] [place] [address]- 8261 Dec, [facility] [place] [facility] [address] [id number] [place] [address]- 9902 Oct, [facility] [place] [facility] [address] [id number] [place] [address]- 2491 Oct, [facility] [place] [facility] [address] [id number] [place] [address]- 8238 Oct, [facility] [place] [facility] [address] [id number] [place] [address]- 2485 Oct, [facility] [place] [facility] [address] [id number] [place] [address]- 5056 Oct, [facility] [place] [facility] [address] [id number] [place] [address]- 7890 Oct, [facility] [place] [facility] [address] [id number] [place] [address]- 7749 Oct, [facility] [place] [facility] [address] [id number] [place] [address]- 8929 Oct, [facility] [place] [facility] [address] [id number] [place] [address]- 3903 Sep, [facility] [place] [facility] [address] [id number] [place] [address]- 1927 Sep, [facility] [place] [facility] [address] [id number] [place] [address]- 3982 August, [facility] [place] [facility] [address] [id number] [place] [address]- 7845 August, [facility] [place] [facility] [address] [id number] [place] [address]- 0397 August, [facility] [place] [facility] [address] [id number] [place] [address]- 9786 August, [facility] [place] [facility] [address] [id number] [place] [address]- 6176 August, [facility] [place] [facility] [address] [id number] [place]25 August, [facility] [place] [facility] [address] [id number] [place] [address]- 6114 August, [facility] [place] [facility] [address] [id number] [place] [address]- 5340 August, [facility] [place] [facility] [address] [id number] [place] [address]- 8735 Jul, [facility] [place] [facility] [address] [id number] [place] [address]- 9633 Jul, [facility] [place] [facility] [address] [id number] [place] [address]- 9813 Jul, [facility] [place] [facility] [address] [id number] [place] [address]- 4370 Jul, [facility] [place] [facility] [address] [id number] [place] [address]- 3517 Mar, [facility] [place] [facility] [address] [id number] [place] [address]- 1563 Mar, [facility] [place] [facility] [address] [id number] [place] [address]- 1371 Mar, [facility] [place] [facility] [address] [id number] [place] [address]- 8890 Mar, [facility] [place] [facility] [address] [id number] [place] 6469 Jan, [facility] [place] [facility] [address] [id number] [place] 0764 Jan, [facility] [place] [facility] [address] [id number] [place] [address]- 5838 Jul, [facility] [address] [id number] [place] [address]- 8592 Jul, [facility] [place] [facility] [address] [id number] [place] [address]- 9837 Jun, [facility] [place] [facility] [address] [id number] [place] [address]- 5750 Jun, [facility] [place] [facility] [address] [id number] [place] [address]- 8548 25 Jun, 2012 [facility] [place] [facility] [address] [id number] [place] [address]- 7805 15 Jun, 2012 [facility] [place] [facility] [address] [id number] [place] [address]- 5316 13 Jun, 2012 [facility] [place] [facility] [address] [id number] [place] [address]- 2862 12 Jun, 2012 [facility] [place] [facility] [address] [id number] [place] [address]- 7805 08 Jun, 2012 [facility] [place] [facility] [address] [id number] [place] [address]- 6194 07 Jun, 2012 [facility] [place] [facility] [address] [id number] [place] [address]- 0876 06 Jun, 2012 [facility] [place] [facility] [address] [id number], [place] [address]- 3683 05 Jun, 2012 [facility] [place] [facility] [address] [id number], [place] [address]- 5228 26 May, 2012 [facility] [place] [facility] [address] [id number] [place] [address]- 1719 19 May, 2012 [facility] [place] [facility] [address] [id number], [place] [address]- 1224 14 May, 2012 [facility] [place] [facility] [address] [id number], [place] [address]- 3136 05 May, 2012 [facility] [place] [facility] [address] [id number] [place] [address]- 2546 May, [facility] [address] [id number] [place] [address]- 4576 May, [facility] [place] [facility] [address] [id number] [place] [address]- 1486 Apr, [facility] [address] [id number] [place] [address]- 1074 Apr, [facility] [place] [facility] [address] [id number] [place] [address]- 5286 Apr, [facility] [address] [id number] [place] [address]- 5346 Apr, [facility] [place] [facility] [address] [id number] [place] [address]- 5157 Mar, [facility] [address] [id number] [place] [address]- 9594 Mar, [facility] [address] [id number] [place] [address]- 4077 Mar, [facility] [address] [id number] [place] [address]- 7240 Mar, [facility] [address] [id number] [place] [address]- 2664 Feb, [facility] [place] [facility] [address] [id number] [place] [address]- 5127 Feb, [facility] [place] [facility] [address] [id number] [place] [address]- 5886 Feb, [facility] [place] [facility] [address] [id number] [place] [address]- 8146 Feb, [facility] [place] [facility] [address] [id number] [place] [address]- 2546 16 Feb, 2012 [facility] [place] [facility] [address] [id number] [place] [address]- 5166 15 Feb, 2012 [facility] [place] [facility] [address] [id number] [place] [address]- 9031 14 Feb, 2012 [facility] [place] [facility] [address] [id number] [place] [address]- 7187 13 Feb, 2012 [facility] [place] [facility] [address] [id number] [place] [address]- 5855 13 Feb, 2012 [facility] [place] [facility] [address] [id number] [place] [address]- 2938 13 Feb, 2012 [facility] [place] [facility] [address] [id number] [place] [address]- 3755 13 Feb, 2012 [facility] [place] [facility] [address] [id number] [place] [address]- 9855 Feb, [facility] [place] [facility] [address] [id number] [place] [address]- 9120 Feb, [facility] [place] [facility] [address] [id number] [place] [address]- 2208 Feb, [facility] [place] [facility] [address] [id number] [place] [address]- 4765 Jan, [facility] [place] [facility] [address] [id number] [place] [address]- 2263 Jan, [facility] [place] [facility] [address] [id number], [place] [address]- 0876 Jan, [facility] [place] [facility] [address] [id number], [place] [address]- 3428 August, [facility] [place] [facility] [address] [id number] [place] [address]- 7168 August, [facility] [place] [facility] [address] [id number], [place] [address]- 0280 Jul, [facility] [place] [facility] [address] [id number] [place] [address]- 1012 Jul, [facility] [place] [facility] [address] [id number] [place] [address]- 6598 21 Jul, 2011 [facility] [address] [id number] [place] [address]- 3950 20 Jul, 2011 [facility] [place] [facility] [address] [id number] [place] [address]- 7716 19 Jul, 2011 [facility] [place] [facility] [address] [id number] [place] [address]- 6116 Jul, [facility] [place] [facility] [address] [id number] [place] [address]- 9099 Jun, [facility] [place] [facility] [address] [id number] [place] [address]- 8996 24 May, 2011 [facility] [place] [facility] [address] [id number] [place] [address]- 5543 14 May, 2011 [facility] [address] [facility] [id number] [place] [address]- 8876 05 Mar, 2011 [facility] [address] [id number] [place] [address]- 8235 07 Feb, 2011 [facility] [place] [facility] [address] [facility] [id number] [place] [address]- 5830 18 Feb, 2010 [facility] [place] [facility] [address] [facility] [id number] [place] [address]- 6697 14 Jan, 2010 [facility] [place] [facility] [address] [id number] [place] [address]- 2284 14 Jan, 2010 [facility] [place] [facility] [address] [facility] [address] [id number] [place] [address]- 4045 15 May, 2009 [facility] [place] [facility] [address] [id number] [place] [address]29 02 Mar, 2009 [facility] [place] [facility] [address] [id number] [place] [address]- 7115 25 Feb, 2009 [facility] [place] [facility] [address] [id number] [place] [address]- 6932 10 Jul, 2008 [facility] [id number] [address]- 2546 16 May, 2008 [facility] [id number], [place] [address]- 2546 14 May, 2006 [facility] [id number], [place] [address]- 2546 Oct, [facility] [id number], [place] [address]- 2546 10 Feb, 2003 IMMUNIZATIONS No Known Immunizations SOCIAL HISTORY Never Assessed REASON FOR VISIT EMR-[facility] PLAN OF CARE VITAL SIGNS MEDICATIONS No Known Medications RESULTS No Results PROCEDURES No Known procedures INSTRUCTIONS MEDICATIONS ADMINISTERED No Known Medications MEDICAL (GENERAL) HISTORY Type Description Date Medical History herpes simplex type II--dx 2011 Medical History anxiety Surgical History appendectomy 08/07/13 Hospitalization History Concussion 11/2015
--- OUTSIDE RECORDS SUMMARY | 2018-09-04 10:40 | XMS REPORT ---
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 Name Role Phone Migration, Doctor Unavailable Unavailable PROBLEMS Type Condition ICD9-CM Code XBI00-PK Code Onset Dates Condition Status SNOMED Code Problem Constipation, unspecified constipation type K59.00 Active 85214212 Problem Abnormal uterine bleeding N93.9 Active [id number] Problem Depression with anxiety F41.8 Active 848321083 Problem Allergic rhinitis J30.9 Active 39394965 Problem HSV-2 (herpes simplex virus 2) infection B00.9 Active 944383164 Problem Contact dermatitis and eczema due to plant L24.7 Active [id number] ALLERGIES No Information ENCOUNTERS Encounter Location Date Diagnosis [place] [id number] [place] [address] 83192- 5447 May, Abnormal uterine bleeding N93.9 and Encounter for initial prescription of contraceptive pills Z30.011 [place] [address] [place] [id number] [place] [address] 16083- 3556 May, [place] [address] [id number] [place] [address] 85267- 3209 Apr, HSV-2 (herpes simplex virus 2) infection B00.9 ; Allergic rhinitis J30.9 ; Long-term use of high-risk medication Z79.899 and History of ovarian cyst Z87.42 [place] [id number] [place] [address] 79432- 8459 Jan, Pelvic pain R10.2 and Constipation, unspecified constipation type K59.00 [place] [address] [id number] [place] [address] 05907- 5467 Dec, [place] [address] [address] [id number] [place] [address] 04745- 6211 Nov, HSV-2 (herpes simplex virus 2) infection B00.9 ; Vaginal discharge N89.8 ; Allergic rhinitis J30.9 ; Other specified bacterial agents as the cause of diseases classified elsewhere B96.89 and Acute vaginitis N76.0 [place] [id number] [place] [address] 94956- 4311 Nov, [place] [address] [id number] [place] [address] 56486- 3095 Oct, HSV-2 (herpes simplex virus 2) infection B00.9 [place] [id number] [place] [address] 27592- 1701 Oct, HSV-2 (herpes simplex virus 2) infection B00.9 [place] [id number] [place] [address] 17467- 3614 Sep, [facility] [id number] [place] [address] [id number] Sep, [place] [id number] [place] [address] 07801- 6859 Sep, [place] [id number] [place] [address] 44729- 3083 Sep, Screening examination for sexually transmitted disease Z11.3 and Mariella vaginitis B37.3 [address] [place] [address] 90749- 6237 Jul, Acute non-recurrent frontal sinusitis J01.10 and Impacted cerumen of right ear H61.21 [place] [id number] [place] [address] 79151- 7412 Jun, Annual physical exam Z00.00 ; Routine gynecological examination Z01.419 ; HSV-2 (herpes simplex virus 2) infection B00.9 ; Seasonal allergic rhinitis due to pollen J30.1 ; Vaginal discharge N89.8 ; Allergic rhinitis J30.9 and Contact dermatitis and eczema due to plant L24.7 [address] [place] [address] 99409- 1673 16 Feb, 2018 Depression with anxiety F41.8 ; Allergic rhinitis J30.9 ; HSV-2 (herpes simplex virus 2) infection B00.9 ; Contact dermatitis and eczema due to plant L24.7 and Seasonal allergic rhinitis due to pollen J30.1 [place] [id number] [place] [address] 84516- 4269 Mar, [place] [address] 08499- 8126 Mar, [place] [address] 41973- 6078 Mar, Pelvic pain R10.2 ; Vaginal discharge N89.8 ; Other specified bacterial agents as the cause of diseases classified elsewhere B96.89 and Acute vaginitis N76.0 [facility] [place] [address] [address] -5782 Jun, Body aches R52 and Influenza A J10.1 [facility] [place] [address] 68480 -1260 Mar, Discharge from the vagina N89.8 ; Unprotected sex Z72.51 and Vaginal candidiasis B37.[address] 14136- 2483 Feb, Acute gastritis without hemorrhage, unspecified gastritis type K29.00 and Seasonal allergic rhinitis due to pollen J30.1 [place] [id number] [place] [address] 82970- 6379 Dec, Dysuria R30.0 ; Contact dermatitis and eczema due to plant L24.7 ; Herpes simplex vulvovaginitis A60.04 and Abrasion, multiple sites T14.[address] 36363- 6906 Nov, Depression with anxiety F41.8 and HSV-2 (herpes simplex virus 2) infection B00.[address] 07774- 8307 Nov, [place] [address] [id number] [place] [address] 74017- 9389 May, Depression with anxiety F41.8 [place] [address] 08425- 9872 Apr, [place] [address] 77591- 6840 Apr, Unspecified genital herpes 054.10 [place] [address] 80934- 4484 Mar, Depression with anxiety F41.8 and Allergic rhinitis J30.9 [place] [address] 03302- 7924 Mar, [place] [address] 69641- 4807 Mar, Chlamydia A74.9 [place] [address] 31724- 3821 Feb, Well woman exam Z01.419 ; Dysmenorrhea N94.6 ; Herpes simplex B00.9 ; Dyspareunia N94.1 ; Anxiety associated with depression F41.8 ; Unprotected sexual intercourse Z72.51 and Marijuana use F12.10 [place] [address] [id number] [place] [address] 22900- 3819 Feb, Depression with anxiety F41.8 and H/O dysmenorrhea Z87.42 [place] [address] [id number] [place] [address] 02459- 3259 Feb, General medical exam Z00.00 [place] [address] 32763- 4825 Jan, [place] [address] 28093- 9516 Jan, Major depressive disorder, recurrent episode, unspecified severity F33.9 ; Generalized anxiety disorder F41.1 and ADHD, adult residual type F90.8 [place] [address] [address] 2018 Jan, Generalized anxiety disorder F41.1 [facility] [address] [address]- 3899 Jan, General medical exam Z00.00 and Anxiety associated with depression F41.8 [facility] [address] [place] [address] 33958- 8870 15 Sep, 2014 Allergic rhinitis 477.9 [facility] [address] [place] [address] 21830- 8861 August, [facility] [address] [address] [id number] [place] [address] 84087- 3049 August, Cervicitis and endocervicitis 616.0 ; History of chlamydia infection V12.09 and Unspecified genital herpes 054.10 [facility] [address] [address]- 6706 Jul, [facility] [address] [address]- 7271 Jul, [facility] [address] [address]- 6896 Apr, [facility] [address] [address]- 2591 Apr, [facility] [address] [address]- 1031 Apr, [facility] [address] [place] [address]- 1313 Apr, [facility] [id number] 9509 Apr, [facility] [address] [address]- 1166 Apr, [facility] [address] 9448 Apr, [facility] [place] [facility] [address] [id number] [place] [address]- 3729 Apr, [facility] [place] [facility] [address] [id number] [place] [address]- 6434 Apr, [facility] [place] [facility] [address] [id number] [place] [address]- 0908 Apr, [facility] [place] [facility] [address] [id number] [place] [address]- 9021 Apr, [facility] [place] [facility] [address] [id number] [place] [address]- 8017 Apr, [facility] [place] [facility] [address] [id number] [place] [address]- 6348 Mar, [facility] [place] [facility] [address] [id number] [place] [address]- 4435 Mar, [facility] [place] [facility] [address] [id number] [place] [address]- 4892 Jan, [facility] [place] [facility] [address] [id number] [place] [address]- 4442 Jan, [facility] [place] [facility] [address] [id number] [place] [address]- 0336 26 Dec, 2013 [facility] [place] [facility] [address] [id number] [place] [address]- 1935 26 Dec, 2013 [facility] [place] [facility] [address] [id number] [address]- 7894 20 Dec, 2013 [facility] [place] [facility] [address] [id number] [place] [address]- 1175 19 Dec, 2013 [facility] [place] [facility] [address] [id number] [place] [address]- 4604 19 Dec, 2013 [facility] [place] [facility] [address] [id number] [place] [address]- 1278 17 Dec, 2013 [facility] [place] [facility] [address] [id number] [place] [address]- 1922 Dec, [facility] [place] [facility] [address] [id number] [place] [address]- 3293 Dec, [facility] [place] [facility] [address] [id number] [place] [address]- 0666 Dec, [facility] [place] [facility] [address] [id number] [place] [address]- 2851 Oct, [facility] [place] [facility] [address] [id number] [place] [address]- 1436 Oct, [facility] [place] [facility] [address] [id number] [place] [address]- 3849 Oct, [facility] [place] [facility] [address] [id number] [place] [address]- 1871 Oct, [facility] [place] [facility] [address] [id number] [place] [address]- 2518 Oct, [facility] [place] [facility] [address] [id number] [place] [address]- 2128 Oct, [facility] [place] [facility] [address] [id number] [place] [address]- 3440 Oct, [facility] [place] [facility] [address] [id number] [place] [address]- 9366 Oct, [facility] [place] [facility] [address] [id number] [place] [address]- 2665 Sep, [facility] [place] [facility] [address] [id number] [place] [address]- 9904 Sep, [facility] [place] [facility] [address] [id number] [place] [address]- 6784 August, [facility] [place] [facility] [address] [id number] [place] [address]- 7778 August, [facility] [place] [facility] [address] [id number] [place] [address]- 6222 August, [facility] [place] [facility] [address] [id number] [place] [address]- 2293 August, [facility] [place] [facility] [address] [id number] [place] [address]- 0099 August, [facility] [place] [facility] [address] [id number] [place] 9485 August, [facility] [place] [facility] [address] [id number] [place] [address]- 9712 August, [facility] [place] [facility] [address] [id number] [place] [address]- 6984 August, [facility] [place] [facility] [address] [id number] [place] [address]- 0869 Jul, [facility] [place] [facility] [address] [id number] [place] [address]- 3212 Jul, [facility] [place] [facility] [address] [id number] [place] [address]- 6343 Jul, [facility] [place] [facility] [address] [id number] [place] [address]- 4757 Jul, [facility] [place] [facility] [address] [id number] [place] [address]- 3128 Mar, [facility] [place] [facility] [address] [id number] [place] [address]- 4187 Mar, [facility] [place] [facility] [address] [id number] [place] [address]- 1747 Mar, [facility] [place] [facility] [address] [id number] [place] [address]- 5480 Mar, [facility] [place] [facility] [address] [id number] [place] 2472 Jan, [facility] [place] [facility] [address] [id number] [place] 4491 Jan, [facility] [place] [facility] [address] [id number] [place] [address]- 6368 Jul, [facility] [address] [id number] [place] [address]- 9312 Jul, [facility] [place] [facility] [address] [id number] [place] [address]- 6451 Jun, [facility] [place] [facility] [address] [id number] [place] [address]- 0087 Jun, [facility] [place] [facility] [address] [id number] [place] [address]- 2180 25 Jun, 2012 [facility] [place] [facility] [address] [id number] [place] [address]- 2884 15 Jun, 2012 [facility] [place] [facility] [address] [id number] [place] [address]- 4009 13 Jun, 2012 [facility] [place] [facility] [address] [id number] [place] [address]- 0531 12 Jun, 2012 [facility] [place] [facility] [address] [id number] [place] [address]- 5713 08 Jun, 2012 [facility] [place] [facility] [address] [id number] [place] [address]- 0323 07 Jun, 2012 [facility] [place] [facility] [address] [id number] [place] [address]- 8434 06 Jun, 2012 [facility] [place] [facility] [address] [id number], [place] [address]- 6884 05 Jun, 2012 [facility] [place] [facility] [address] [id number], [place] [address]- 1860 26 May, 2012 [facility] [place] [facility] [address] [id number] [place] [address]- 4106 19 May, 2012 [facility] [place] [facility] [address] [id number], [place] [address]- 2299 14 May, 2012 [facility] [place] [facility] [address] [id number], [place] [address]- 4996 05 May, 2012 [facility] [place] [facility] [address] [id number] [place] [address]- 2546 May, [facility] [address] [id number] [place] [address]- 0136 May, [facility] [place] [facility] [address] [id number] [place] [address]- 3876 Apr, [facility] [address] [id number] [place] [address]- 0724 Apr, [facility] [place] [facility] [address] [id number] [place] [address]- 9446 Apr, [facility] [address] [id number] [place] [address]- 7246 Apr, [facility] [place] [facility] [address] [id number] [place] [address]- 4368 Mar, [facility] [address] [id number] [place] [address]- 2496 Mar, [facility] [address] [id number] [place] [address]- 2525 Mar, [facility] [address] [id number] [place] [address]- 4627 Mar, [facility] [address] [id number] [place] [address]- 5851 Feb, [facility] [place] [facility] [address] [id number] [place] [address]- 3575 Feb, [facility] [place] [facility] [address] [id number] [place] [address]- 2069 Feb, [facility] [place] [facility] [address] [id number] [place] [address]- 9486 Feb, [facility] [place] [facility] [address] [id number] [place] [address]- 2546 16 Feb, 2012 [facility] [place] [facility] [address] [id number] [place] [address]- 5991 15 Feb, 2012 [facility] [place] [facility] [address] [id number] [place] [address]- 6974 14 Feb, 2012 [facility] [place] [facility] [address] [id number] [place] [address]- 8398 13 Feb, 2012 [facility] [place] [facility] [address] [id number] [place] [address]- 7867 13 Feb, 2012 [facility] [place] [facility] [address] [id number] [place] [address]- 6618 13 Feb, 2012 [facility] [place] [facility] [address] [id number] [place] [address]- 3937 13 Feb, 2012 [facility] [place] [facility] [address] [id number] [place] [address]- 1491 Feb, [facility] [place] [facility] [address] [id number] [place] [address]- 2764 Feb, [facility] [place] [facility] [address] [id number] [place] [address]- 5148 Feb, [facility] [place] [facility] [address] [id number] [place] [address]- 9246 Jan, [facility] [place] [facility] [address] [id number] [place] [address]- 0482 Jan, [facility] [place] [facility] [address] [id number], [place] [address]- 2643 Jan, [facility] [place] [facility] [address] [id number], [place] [address]- 7985 August, [facility] [place] [facility] [address] [id number] [place] [address]- 0309 August, [facility] [place] [facility] [address] [id number], [place] [address]- 9137 Jul, [facility] [place] [facility] [address] [id number] [place] [address]- 3476 Jul, [facility] [place] [facility] [address] [id number] [place] [address]- 2172 21 Jul, 2011 [facility] [address] [id number] [place] [address]- 3555 20 Jul, 2011 [facility] [place] [facility] [address] [id number] [place] [address]- 4076 19 Jul, 2011 [facility] [place] [facility] [address] [id number] [place] [address]- 5696 Jul, [facility] [place] [facility] [address] [id number] [place] [address]- 6410 Jun, [facility] [place] [facility] [address] [id number] [place] [address]- 5880 24 May, 2011 [facility] [place] [facility] [address] [id number] [place] [address]- 3500 14 May, 2011 [facility] [address] [facility] [id number] [place] [address]- 5929 05 Mar, 2011 [facility] [address] [id number] [place] [address]- 9904 07 Feb, 2011 [facility] [place] [facility] [address] [facility] [id number] [place] [address]- 5276 18 Feb, 2010 [facility] [place] [facility] [address] [facility] [id number] [place] [address]- 5570 14 Jan, 2010 [facility] [place] [facility] [address] [id number] [place] [address]- 7598 14 Jan, 2010 [facility] [place] [facility] [address] [facility] [id number] [place] [address]- 0192 15 May, 2009 [facility] [place] [facility] [address] [id number] [place] 4946 02 Mar, 2009 [facility] [place] [facility] [address] [id number] [place] [address]- 3666 25 Feb, 2009 [facility] [place] [facility] [address] [id number] [place] [address]- 0116 10 Jul, 2008 [facility] [id number], [place] [address]- 2546 16 May, 2008 [facility] [id number], [place] [address]- 2546 14 May, 2006 [facility] [id number], [place] [address]- 2546 Oct, [facility] [id number], [place] [address]- 2546 10 Feb, 2003 IMMUNIZATIONS No Known Immunizations SOCIAL HISTORY Never Assessed REASON FOR VISIT EMR[place] [place] VITAL SIGNS MEDICATIONS No Known Medications RESULTS No Results PROCEDURES No Known procedures INSTRUCTIONS MEDICATIONS ADMINISTERED No Known Medications MEDICAL (GENERAL) HISTORY Type Description Date Medical History herpes simplex type II--dx 2011 Medical History anxiety Surgical History appendectomy 08/07/13 Hospitalization History Concussion 11/2015
--- OUTSIDE RECORDS SUMMARY | 2018-09-04 10:41 | XMS REPORT ---
Author Author Migration, Doctor Organization [facility] Address Unknown Phone Unavailable Care Team Providers Care Robot Operator Name Role Phone Migration, Doctor Unavailable Unavailable PROBLEMS Type Condition ICD9-CM Code ESS64-HQ Code Onset Dates Condition Status SNOMED Code Problem Constipation, unspecified constipation type K59.00 Active 43534501 Problem Abnormal uterine bleeding N93.9 Active 42854119009165 Problem Depression with anxiety F41.8 Active 815841979 Problem Allergic rhinitis J30.9 Active 42896958 Problem HSV-2 (herpes simplex virus 2) infection B00.9 Active 505591464 Problem Contact dermatitis and eczema due to plant L24.7 Active 773294109 ALLERGIES No Information ENCOUNTERS Encounter Location Date Diagnosis [place] [id number] [place] [address] 97766- [address]77 May, Abnormal uterine bleeding N93.9 and Encounter for initial prescription of contraceptive pills Z30.011 [place] [address] [place] [id number] [place] [address] 51646- 8156 May, [place] [address] [id number] [place] [address] 72417- 9973 Apr, HSV-2 (herpes simplex virus 2) infection B00.9 ; Allergic rhinitis J30.9 ; Long-term use of high-risk medication Z79.899 and History of ovarian cyst Z87.42 [place] [id number] [place] [address] 19239- 3418 Jan, Pelvic pain R10.2 and Constipation, unspecified constipation type K59.00 [place] [address] [place] [id number] [place] [address] 40847- 5726 Dec, [place] [address] [place] [id number] [place] [address] 03027- 8177 Nov, HSV-2 (herpes simplex virus 2) infection B00.9 ; Vaginal discharge N89.8 ; Allergic rhinitis J30.9 ; Other specified bacterial agents as the cause of diseases classified elsewhere B96.89 and Acute vaginitis N76.0 [place] [id number] [place] [address] 35605- 9065 Nov, [place] [address] [id number] [place] [address] 26112- 3709 Oct, HSV-2 (herpes simplex virus 2) infection B00.9 [place] [address] [id number] [place] [address] 81889- 5010 Oct, HSV-2 (herpes simplex virus 2) infection B00.9 [place] [address] [id number] [place] [address] 24276- 2319 Sep, [facility] [id number] [place] [address] [id number] Sep, [place] [address] [place] [id number] [place] [address] 55877- 8283 Sep, [place] [address] [place] [id number] [place] [address] 84899- 5296 Sep, Screening examination for sexually transmitted disease Z11.3 and Mariella vaginitis B37.3 [address] [place] [address] 38157- 4753 Jul, Acute non-recurrent frontal sinusitis J01.10 and Impacted cerumen of right ear H61.21 [place] [address] [id number] [place] [address] 13951- 0806 Jun, Annual physical exam Z00.00 ; Routine gynecological examination Z01.419 ; HSV-2 (herpes simplex virus 2) infection B00.9 ; Seasonal allergic rhinitis due to pollen J30.1 ; Vaginal discharge N89.8 ; Allergic rhinitis J30.9 and Contact dermatitis and eczema due to plant L24.7 [address] [place] [address] 01879- 9992 16 Feb, 2018 Depression with anxiety F41.8 ; Allergic rhinitis J30.9 ; HSV-2 (herpes simplex virus 2) infection B00.9 ; Contact dermatitis and eczema due to plant L24.7 and Seasonal allergic rhinitis due to pollen J30.1 [place] [address] [place] [id number] [place] [address] 81777- 9421 Mar, [place] [address] 68666- 1197 Mar, [place] [address] 06368- 1763 Mar, Pelvic pain R10.2 ; Vaginal discharge N89.8 ; Other specified bacterial agents as the cause of diseases classified elsewhere B96.89 and Acute vaginitis N76.0 [facility] [place] [address] [address] -9167 Jun, Body aches R52 and Influenza A J10.1 [facility] [place] [address] 69921 -5451 Mar, Discharge from the vagina N89.8 ; Unprotected sex Z72.51 and Vaginal candidiasis B37.[address] 76984- 9695 Feb, Acute gastritis without hemorrhage, unspecified gastritis type K29.00 and Seasonal allergic rhinitis due to pollen J30.1 [place] [address] [place] [id number] [place] [address] 50216- 6793 Dec, Dysuria R30.0 ; Contact dermatitis and eczema due to plant L24.7 ; Herpes simplex vulvovaginitis A60.04 and Abrasion, multiple sites T14.[address] 33605- 8809 Nov, Depression with anxiety F41.8 and HSV-2 (herpes simplex virus 2) infection B00.[address] 04301- 4071 Nov, [place] [address] [place] [id number] [place] [address] 62080- 8252 May, Depression with anxiety F41.8 [place] [address] 40429- 8396 Apr, [place] [address] 54499- 7762 Apr, Unspecified genital herpes 054.10 [place] [address] 00918- 3236 Mar, Depression with anxiety F41.8 and Allergic rhinitis J30.9 [place] [address] 54654- 5439 Mar, [place] [address] 90343- 4250 Mar, Chlamydia A74.9 [place] [address] 00634- 3352 Feb, Well woman exam Z01.419 ; Dysmenorrhea N94.6 ; Herpes simplex B00.9 ; Dyspareunia N94.1 ; Anxiety associated with depression F41.8 ; Unprotected sexual intercourse Z72.51 and Marijuana use F12.10 [place] [address] [place] [id number] [place] [address] 62969- 0204 Feb, Depression with anxiety F41.8 and H/O dysmenorrhea Z87.42 [place] [address] [id number] [place] [address] 81163- 0195 Feb, General medical exam Z00.00 [place] [address] 73805- 7627 Jan, [place] [address] 31773- 5279 Jan, Major depressive disorder, recurrent episode, unspecified severity F33.9 ; Generalized anxiety disorder F41.1 and ADHD, adult residual type F90.8 [place] [address] [address]- 6590 Jan, Generalized anxiety disorder F41.1 [facility] [address] [address]- 6437 Jan, General medical exam Z00.00 and Anxiety associated with depression F41.8 [facility] [id number] [place] [address] 23282- 1485 15 Sep, 2014 Allergic rhinitis 477.9 [facility] [address] [place] [address] 71726- 5192 August, [facility] [address] [place] [id number] [place] [address] 88019- 2470 August, Cervicitis and endocervicitis 616.0 ; History of chlamydia infection V12.09 and Unspecified genital herpes 054.10 [facility] [address] [address]- 8098 Jul, [facility] [address] [address]- 1169 Jul, [facility] [address] [address]- 4494 Apr, [facility] [address] [address]- 0936 Apr, [facility] [address] [address]- 5115 Apr, [facility] [address] [address]- 3572 Apr, [facility] [id number] 1420 Apr, [facility] [address] [address] 6766 Apr, [facility] [address] [address]39 Apr, [facility] [place] [facility] [address] [id number] [place] [address]- 0725 Apr, [facility] [place] [facility] [address] [id number] [place] [address]- 6576 Apr, [facility] [place] [facility] [address] [id number] [place] [address]- 3355 Apr, [facility] [place] [facility] [address] [id number] [place] [address]- 8313 Apr, [facility] [place] [facility] [address] [id number] [place] [address]- 7330 Apr, [facility] [place] [facility] [address] [id number] [place] [address]- 5815 Mar, [facility] [place] [facility] [address] [id number] [place] [address]- 6700 Mar, [facility] [place] [facility] [address] [id number] [place] [address]- 2867 Jan, [facility] [place] [facility] [address] [id number] [place] [address]- 0000 Jan, [facility] [place] [facility] [address] [id number] [place] [address]- 0694 26 Dec, 2013 [facility] [place] [facility] [address] [id number] [place] [address]- 7017 26 Dec, 2013 [facility] [place] [facility] [address] [id number] [address]- 1763 20 Dec, 2013 [facility] [place] [facility] [address] [id number] [place] [address]- 9529 19 Dec, 2013 [facility] [place] [facility] [address] [id number] [place] [address]- 8495 19 Dec, 2013 [facility] [place] [facility] [address] [id number] [place] [address]- 3218 17 Dec, 2013 [facility] [place] [facility] [address] [id number] [place] [address]- 9839 Dec, [facility] [place] [facility] [address] [id number] [place] [address]- 9949 Dec, [facility] [place] [facility] [address] [id number] [place] [address]- 0063 Dec, [facility] [place] [facility] [address] [id number] [place] [address]- 6297 Oct, [facility] [place] [facility] [address] [id number] [place] [address]- 2167 Oct, [facility] [place] [facility] [address] [id number] [place] [address]- 0873 Oct, [facility] [place] [facility] [address] [id number] [place] [address]- 0921 Oct, [facility] [place] [facility] [address] [id number] [place] [address]- 6204 Oct, [facility] [place] [facility] [address] [id number] [place] [address]- 8746 Oct, [facility] [place] [facility] [address] [id number] [place] [address]- 9039 Oct, [facility] [place] [facility] [address] [id number] [place] [address]- 2008 Oct, [facility] [place] [facility] [address] [id number] [place] [address]- 5439 Sep, [facility] [place] [facility] [address] [id number] [place] [address]- 3748 Sep, [facility] [place] [facility] [address] [id number] [place] [address]- 5602 August, [facility] [place] [facility] [address] [id number] [place] [address]- 8717 August, [facility] [place] [facility] [address] [id number] [place] [address]- 8422 August, [facility] [place] [facility] [address] [id number] [place] [address]- 9896 August, [facility] [place] [facility] [address] [id number] [place] [address]- 2554 August, [facility] [place] [facility] [address] [id number] [place] 2892 August, [facility] [place] [facility] [address] [id number] [place] [address]- 8655 August, [facility] [place] [facility] [address] [id number] [place] [address]- 0181 August, [facility] [place] [facility] [address] [id number] [place] [address]- 1434 Jul, [facility] [place] [facility] [address] [id number] [place] [address]- 0864 Jul, [facility] [place] [facility] [address] [id number] [place] [address]- 5002 Jul, [facility] [place] [facility] [address] [id number] [place] [address]- 0860 Jul, [facility] [place] [facility] [address] [id number] [place] [address]- 2770 Mar, [facility] [place] [facility] [address] [id number] [place] [address]- 0189 Mar, [facility] [place] [facility] [address] [id number] [place] [address]- 9431 Mar, [facility] [place] [facility] [address] [id number] [place] [address]- 4969 Mar, [facility] [place] [facility] [address] [id number] [place] 4373 Jan, [facility] [place] [facility] [address] [id number] [place] 5012 Jan, [facility] [place] [facility] [address] [id number] [place] [address]- 3269 Jul, [facility] [address] [id number] [place] [address]- 1453 Jul, [facility] [place] [facility] [address] [id number] [place] [address]- 9423 Jun, [facility] [place] [facility] [address] [id number] [place] [address]- 7958 Jun, [facility] [place] [facility] [address] [id number] [place] [address]- 7759 25 Jun, 2012 [facility] [place] [facility] [address] [id number] [place] [address]- 2770 15 Jun, 2012 [facility] [place] [facility] [address] [id number] [place] [address]- 0972 13 Jun, 2012 [facility] [place] [facility] [address] [id number] [place] [address]- 0472 12 Jun, 2012 [facility] [place] [facility] [address] [id number] [place] [address]- 5554 08 Jun, 2012 [facility] [place] [facility] [address] [id number] [place] [address]- 7185 07 Jun, 2012 [facility] [place] [facility] [address] [id number] [place] [address]- 6375 06 Jun, 2012 [facility] [place] [facility] [address] [id number] [address]- 4637 05 Jun, 2012 [facility] [place] [facility] [address] [id number] [address]- 6131 26 May, 2012 [facility] [place] [facility] [address] [id number] [place] [address]- 5136 19 May, 2012 [facility] [place] [facility] [address] [id number] [address]- 6838 14 May, 2012 [facility] [place] [facility] [address] [id number] [place] [address]- 5096 05 May, 2012 [facility] [place] [facility] [address] [id number] [place] [address]- 2546 May, [facility] [address] [id number] [place] [address]- 1266 May, [facility] [place] [facility] [address] [id number] [place] [address]- 5996 Apr, [facility] [address] [id number] [place] [address]- 0164 Apr, [facility] [place] [facility] [address] [id number] [place] [address]- 8106 Apr, [facility] [address] [id number] [place] [address]- 2776 Apr, [facility] [place] [facility] [address] [id number] [place] [address]- 1244 Mar, [facility] [address] [id number] [place] [address]- 4615 Mar, [facility] [address] [id number] [place] [address]- 8942 Mar, [facility] [address] [id number] [place] [address]- 8881 Mar, [facility] [address] [id number] [place] [address]- 1513 Feb, [facility] [place] [facility] [address] [id number] [place] [address]- 6884 Feb, [facility] [place] [facility] [address] [id number] [place] [address]- 6292 Feb, [facility] [place] [facility] [address] [id number] [place] [address]- 6826 Feb, [facility] [place] [facility] [address] [id number] [place] [address]- 2546 16 Feb, 2012 [facility] [place] [facility] [address] [id number] [place] [address]- 1314 15 Feb, 2012 [facility] [place] [facility] [address] [id number] [place] [address]- 1361 14 Feb, 2012 [facility] [place] [facility] [address] [id number] [place] [address]- 1686 13 Feb, 2012 [facility] [place] [facility] [address] [id number] [place] [address]- 8672 13 Feb, 2012 [facility] [place] [facility] [address] [id number] [place] [address]- 2682 13 Feb, 2012 [facility] [place] [facility] [address] [id number] [place] [address]- 9909 13 Feb, 2012 [facility] [place] [facility] [address] [id number] [place] [address]- 4002 Feb, [facility] [place] [facility] [address] [id number] [place] [address]- 4215 Feb, [facility] [place] [facility] [address] [id number] [place] [address]- 5464 Feb, [facility] [place] [facility] [address] [id number] [place] [address]- 7869 Jan, [facility] [place] [facility] [address] [id number] [place] [address]- 9969 Jan, [facility] [place] [facility] [address] [id number] [address]- 1995 Jan, [facility] [place] [facility] [address] [id number] [place] [address]- 1877 August, [facility] [place] [facility] [address] [id number] [place] [address]- 6155 August, [facility] [place] [facility] [address] [id number] [place] [address]- 5401 Jul, [facility] [place] [facility] [address] [id number] [place] [address]- 1370 Jul, [facility] [place] [facility] [address] [id number] [place] [address]- 4772 21 Jul, 2011 [facility] [address] [id number] [place] [address]- 3910 20 Jul, 2011 [facility] [place] [facility] [address] [id number] [place] [address]- 1846 19 Jul, 2011 [facility] [place] [facility] [address] [id number] [place] [address]- 9086 Jul, [facility] [place] [facility] [address] [id number] [place] [address]- 7538 Jun, [facility] [place] [facility] [address] [id number] [place] [address]- 1123 24 May, 2011 [facility] [place] [facility] [address] [id number] [place] [address]- 7082 14 May, 2011 [facility] [address] [facility] [id number] [place] [address]- 3331 05 Mar, 2011 [facility] [address] [id number] [place] [address]- 3301 07 Feb, 2011 [facility] [place] [facility] [address] [facility] [id number] [place] [address]- 3788 18 Feb, 2010 [facility] [place] [facility] [address] [facility] [id number] [place] [address]- 1879 14 Jan, 2010 [facility] [place] [facility] [address] [id number] [place] [address]- 1440 14 Jan, 2010 [facility] [place] [facility] [address] [facility] [id number] [place] [address]- 6030 15 May, 2009 [facility] [place] [facility] [address] [id number] [place] 5888 02 Mar, 2009 [facility] [place] [facility] [address] [id number] [place] [address]- 4002 25 Feb, 2009 [facility] [place] [facility] [address] [id number] [place] [address]- 3650 10 Jul, 2008 [facility] [id number] [address]- 2546 16 May, 2008 [facility] [address] [id number] [address]- 2546 14 May, 2006 [facility] [address] [id number] [address]- 2546 Oct, [facility] [id number] [address]- 2546 10 Feb, 2003 IMMUNIZATIONS No Known Immunizations SOCIAL HISTORY Never Assessed REASON FOR VISIT EMR-[facility] PLAN OF CARE VITAL SIGNS MEDICATIONS No Known Medications RESULTS No Results PROCEDURES No Known procedures INSTRUCTIONS MEDICATIONS ADMINISTERED No Known Medications MEDICAL (GENERAL) HISTORY Type Description Date Medical History herpes simplex type II--dx 2011 Medical History anxiety Surgical History appendectomy 08/07/13 Hospitalization History Concussion 11/2015
--- OUTSIDE RECORDS SUMMARY | 2018-09-04 10:41 | XMS REPORT ---
Author Author LAURE PEREIRA [facility] Address [address] [place] [address] Care Team Providers Care Grounds Manager Name Role Phone LAURE PEREIRA Unavailable PROBLEMS Type Condition ICD9-CM Code VWC72-ZR Code Onset Dates Condition Status SNOMED Code Problem Constipation, unspecified constipation type K59.00 Active 23665137 Problem Contact dermatitis and eczema due to plant L24.7 Active 778169736 Problem Depression with anxiety F41.8 Active 865771472 Problem HSV-2 (herpes simplex virus 2) infection B00.9 Active 888658808 Problem Allergic rhinitis J30.9 Active 80183205 ALLERGIES Substance Reaction Event Type Date Status Cymbalta Insominia, Rapid heart beat and sweating Drug Allergy Jan, Active ENCOUNTERS Encounter Location Date Diagnosis [place] [id number] [address] Jan, Pelvic pain R10.2 and Constipation, unspecified constipation type K59.00 [place] [address] [place] [id number] [place] [address]- [address] Dec, [place] [address] [place] [id number] [place] [address]07- 3701 Nov, HSV-2 (herpes simplex virus 2) infection B00.9 ; Vaginal discharge N89.8 ; Allergic rhinitis J30.9 ; Other specified bacterial agents as the cause of diseases classified elsewhere B96.89 and Acute vaginitis N76.0 [place] [address] [place] [id number] [place] [address]10- 8421 Nov, [place] [address] [place] [id number] [place] [address] 89439- 7750 Oct, HSV-2 (herpes simplex virus 2) infection B00.9 [place] [address] [place] [id number] [address] Oct, HSV-2 (herpes simplex virus 2) infection B00.9 [place] [address], [place] [address] Sep, [facility] [id number] [id number] Sep, [place] [id number] [place] [address]- [address]146 Sep, [place] [id number] [place] [address] 44[address]- 1526 Sep, Screening examination for sexually transmitted disease Z11.3 and Mariella vaginitis B37.[id number] [place] [address] 68043- 3755 Jul, Acute non-recurrent frontal sinusitis J01.10 and Impacted cerumen of right ear H61.21 [address], [place] [address] Jun, Annual physical exam Z00.00 ; Routine gynecological examination Z01.419 ; HSV-2 (herpes simplex virus 2) infection B00.9 ; Seasonal allergic rhinitis due to pollen J30.1 ; Vaginal discharge N89.8 ; Allergic rhinitis J30.9 and Contact dermatitis and eczema due to plant L24.7 [place] [id number] [place] [address] 29943- 8992 16 May, 2017 Depression with anxiety F41.8 ; Allergic rhinitis J30.9 ; HSV-2 (herpes simplex virus 2) infection B00.9 ; Contact dermatitis and eczema due to plant L24.7 and Seasonal allergic rhinitis due to pollen J30.1 [place] [address], [place] [address] Mar, [place] [id number] [place] [address] 29701- 5594 Mar, [place] [address] [place] [id number] [place] [address] 26836- 8480 05 Mar, 2017 Pelvic pain R10.2 ; Vaginal discharge N89.8 ; Other specified bacterial agents as the cause of diseases classified elsewhere B96.89 and Acute vaginitis N76.0 [facility] [address] [address] Jun, Body aches R52 and Influenza A J10.1 [facility] [place] [address] [address] Mar, Discharge from the vagina N89.8 ; Unprotected sex Z72.51 and Vaginal candidiasis B37.[address] [address]- [address] Feb, Acute gastritis without hemorrhage, unspecified gastritis type K29.00 and Seasonal allergic rhinitis due to pollen J30.[address] [address]- [address] Dec, Dysuria R30.0 ; Contact dermatitis and eczema due to plant L24.7 ; Herpes simplex vulvovaginitis A60.04 and Abrasion, multiple sites T14.8 [place] [address] [address]- 9987 Nov, Depression with anxiety F41.8 and HSV-2 (herpes simplex virus 2) infection B00.9 [place] [address] [address]- 3084 Nov, [address] [address]- 8537 May, Depression with anxiety F41.8 [place] [address] [address]- 1365 Apr, [place] [address] [address]- 3261 Apr, Unspecified genital herpes 054.10 [place] [address] [place] [id number] [address] Mar, Depression with anxiety F41.8 and Allergic rhinitis J30.9 [place] [address] [address]- 3[address] Mar, [place] [address] [address]- 87[address] Mar, Chlamydia A74.9 [place] [address] [address]- 45[address] Feb, Well woman exam Z01.419 ; Dysmenorrhea N94.6 ; Herpes simplex B00.9 ; Dyspareunia N94.1 ; Anxiety associated with depression F41.8 ; Unprotected sexual intercourse Z72.51 and Marijuana use F12.10 [place] [address] [address]- [address] Feb, Depression with anxiety F41.8 and H/O dysmenorrhea Z87.42 [place] [address] [place] [id number] [place] [address] 71239- 1445 Feb, General medical exam Z00.00 [place] [address] [address]- 82[address] Jan, [place] [address] [address]69- [address] Jan, Major depressive disorder, recurrent episode, unspecified severity F33.9 ; Generalized anxiety disorder F41.1 and ADHD, adult residual type F90.8 [place] [address] [place] [id number] [place] [address] 41774- 7016 Jan, Generalized anxiety disorder F41.1 [place] [address] [address]- 0[address] Jan, General medical exam Z00.00 and Anxiety associated with depression F41.8 [place] [address] [address]- 63[address] Sep, Allergic rhinitis 477.9 [facility] [address], [place] [address] August, [facility] [address] [place] [id number] [address] August, Cervicitis and endocervicitis 616.0 ; History of chlamydia infection V12.09 and Unspecified genital herpes 054.10 [facility] [address], [place] [address]- [address] Jul, [facility] [address] [facility] [id number] [address]- [address] Jul, [facility] [address] [place] [id number] [address] 0[address] Apr, [facility] [address], [place] [address]- 2026 Apr, [facility] [address], [place] [address]- 2830 Apr, [facility] [address], [place] [address]- 8428 Apr, [facility] [address], [place] [address]- 54[address] Apr, [facility] [address], [place] [address]- 3527 Apr, [facility] [address], [place] [address]- 9129 Apr, [facility] [address] [place] [id number], [place] [address]- 4216 Apr, [facility] [address], [place] [address]- 4298 Apr, [facility] [address], [place] [address]- 9427 Apr, [facility] [address], [place] [address]- 5180 Apr, [facility] [place] [facility] [address] [id number] [place] [address]- 5843 Apr, [facility] [place] [facility] [address] [id number] [place] [address]- 7437 Mar, [facility] [place] [facility] [address] [id number] [place] [address]- 0685 Mar, [facility] [place] [facility] [address] [id number] [place] [address]- 7940 Jan, [facility] [place] [facility] [address] [id number] [place] [address]- 7012 Jan, [facility] [place] [facility] [address] [id number] [place] [address]- 0866 26 Dec, 2013 [facility] [place] [facility] [address] [id number] [place] [address]- 9095 26 Dec, 2013 [facility] [place] [facility] [address] [id number] [place] [address]- 6067 20 Dec, 2013 [facility] [place] [facility] [address] [id number] [place] [address]- 5441 19 Dec, 2013 [facility] [place] [facility] [address] [id number] [place] [address]- 9040 19 Dec, 2013 [facility] [place] [facility] [address] [id number] [place] [address]- 4721 17 Dec, 2013 [facility] [place] [facility] [address] [id number] [place] [address]- 2597 17 Dec, 2013 [facility] [place] [facility] [address] [id number] [place] [address]- 2309 12 Dec, 2013 [facility] [place] [facility] [address] [id number] [place] [address]- 2457 12 Dec, 2013 [facility] [place] [facility] [address] [id number] [place] [address]- 7301 Oct, [facility] [place] [facility] [address] [id number] [place] [address]- 7923 Oct, [facility] [place] [facility] [address] [id number] [place] [address]- 4932 Oct, [facility] [place] [facility] [address] [id number] [place] [address]- 2565 Oct, [facility] [place] [facility] [address] [id number] [place] [address]- 3358 Oct, [facility] [place] [facility] [address] [id number] [place] [address]- 4739 Oct, [facility] [place] [facility] [address] [id number] [place] [address]- 0247 Oct, [facility] [place] [facility] [address] [id number] [place] [address]- 0443 Oct, [facility] [place] [facility] [address] [id number] [place] [address]- 7023 Sep, [facility] [place] [facility] [address] [id number] [place] [address]- 9424 Sep, [facility] [place] [facility] [address] [id number] [place] [address]- 4466 August, [facility] [place] [facility] [address] [id number] [place] [address]- 1174 August, [facility] [place] [facility] [address] [id number] [place] [address]- 8131 August, [facility] [place] [facility] [address] [id number] [place] [address]- 2060 August, [facility] [place] [facility] [address] [id number] [place] [address]- 1855 August, [facility] [place] [facility] [address] [id number] [place] [address]- 4688 August, [facility] [place] [facility] [address] [id number] [place] [address]- 8512 August, [facility] [address] [id number] [place] [address]- 3063 August, [facility] [place] [facility] [address] [id number] [place] [address]- 8922 Jul, [facility] [place] [facility] [address] [id number] [place] [address]- 5462 Jul, [facility] [place] [facility] [address] [id number] [place] [address]- 1826 Jul, [facility] [place] [facility] [address] [id number] [place] [address]- 8345 Jul, [facility] [place] [facility] [address] [id number] [place] [address]- 4612 Mar, [facility] [place] [facility] [address] [id number] [place] [address]- 1260 Mar, [facility] [place] [facility] [address] [id number] [place] [address]- 4333 Mar, [facility] [place] [facility] [address] [id number] [place] [address]- 8817 Mar, [facility] [place] [facility] [address] [id number], [place] [address]- 6874 Jan, [facility] [place] [facility] [address] [id number], [place] [address]- 9977 Jan, [facility] [place] [facility] [address] [id number], [place] [address]- 9797 Jul, [facility] [place] [facility] [address] [id number] [place] [address]- 9172 Jul, [facility] [place] [facility] [address] [id number], [place] [address]- 3585 Jun, [facility] [place] [facility] [address] [id number], [place] [address]- 2441 Jun, [facility] [place] [facility] [address] [id number], [place] [address]- 5647 25 Jun, 2012 [facility] [address] [id number] [place] [address]- 4907 15 Jun, 2012 [facility] [address] [id number] [place] [address]- 9506 13 Jun, 2012 [facility] [address] [facility] [id number] [place] [address]- 9486 12 Jun, 2012 [facility] [address] [id number] [place] [address]- 7679 08 Jun, 2012 [facility] [address] [id number] [place] [address]- 1595 07 Jun, 2012 [facility] [address] [facility] [id number] [place] [address]- 9793 06 Jun, 2012 [facility] [address] [place] [address]- 8601 05 Jun, 2012 [facility] [address] [facility] [id number] [place] [address]- 3524 26 May, 2012 [facility] [address] [place] [id number] [place] [address]- 5631 May, [facility] [address] [place] [id number] [place] [address]- 3227 14 May, 2012 [facility] [address] [place] [address]- 8782 May, [facility] [place] [facility] [address] [facility] [id number] [place] [address]- 2548 May, [facility] [place] [facility] [address] [facility] [id number] [place] [address]- 5600 May, [facility] [place] [facility] [address] [facility] [id number] [place] [address]- 8456 Apr, [facility] [place] [facility] [address] [facility] [id number] [place] [address]- 5041 Apr, [facility] [place] [facility] [address] [id number] [place] [address]- 0310 Apr, [facility] [place] [facility] [address] [id number] [place] [address]- 9907 Apr, [facility] [place] [facility] [address] [id number] [place] [address]- 2874 Mar, [facility] [place] [facility] [address] [id number] [place] [address]- 9649 Mar, [facility] [place] [facility] [address] [id number] [place] [address]- 7959 Mar, [facility] [place] [facility] [address] [id number] [place] [address]- 4730 Mar, [facility] [place] [facility] [address] [id number] [place] [address]- 5104 Feb, [facility] [place] [facility] [address] [id number] [place] [address]- 4522 Feb, [facility] [place] [facility] [address] [id number] [place] [address]- 4035 Feb, [facility] [place] [facility] [address] [id number] [place] [address]- 3895 19 Feb, 2012 [facility] [place] [facility] [address] [id number] [place] [address]- 8168 16 Feb, 2012 [facility] [place] [facility] [address] [id number], [place] [address]- 5338 15 Feb, 2012 [facility] [place] [facility] [address] [id number] [place] [address]- 7415 14 Feb, 2012 [facility] [place] [facility] [address] [id number] [place] [address]- 5260 13 Feb, 2012 [facility] [place] [facility] [address] [id number] [place] [address]- 0477 13 Feb, 2012 [facility] [place] [facility] [address] [id number], [place] [address]- 2652 Feb, [facility] [place] [facility] [address] [id number] [place] [address]- 6030 Feb, [facility] [place] [facility] [address] [id number] [place] [address]- 5714 Feb, [facility] [place] [facility] [address] [id number] [place] [address]- 1007 Feb, [facility] [place] [facility] [address] [id number] [place] [address]- 2990 Feb, [facility] [place] [facility] [address] [id number] [place] [address]- 9043 Jan, [facility] [place] [facility] [address] [id number] [place] [address]- 9422 Jan, [facility] [place] [facility] [address] [id number] [place] [address]- 7118 Jan, [facility] [place] [facility] [address] [id number] [place] [address]- 0649 August, [facility] [place] [facility] [address] [id number] [place] [address]- 3451 August, [facility] [place] [facility] [address] [id number] [place] [address]- 8486 Jul, [facility] [place] [facility] [address] [id number] [place] [address]- 8229 Jul, [facility] [place] [facility] [address] [id number] [place] [address]- 5533 Jul, [facility] [place] [facility] [address] [id number] [place] [address]- 6840 Jul, [facility] [place] [facility] [address] [id number] [place] [address]- 4742 Jul, [facility] [place] [facility] [address] [id number] [place] [address]- 9422 Jul, [facility] [place] [facility] [address] [id number] [place] [address]- 8242 06 Jun, 2011 [facility] [place] [facility] [address] [id number] [place] [address]- 5266 24 May, 2011 [facility] [place] [facility] [address] [id number] [place] [address]- 2508 14 May, 2011 [facility] [place] [facility] [address] [id number] [place] [address]- 1518 05 Mar, 2011 [facility] [place] [facility] [address] [id number] [place] [address]- 9286 07 Feb, 2011 [facility] [place] [facility] [address] [id number] [place] [address]- 6003 18 Feb, 2010 [facility] [place] [facility] [address] [id number] [place] [address]- 4366 14 Jan, 2010 [facility] [place] [facility] [address] [id number] [place] [address]- 5028 14 Jan, 2010 [facility] [place] [facility] [address] [id number] [place] [address]- 0063 15 May, 2009 [facility] [place] [facility] [address] [facility] [id number] [place] [address]- 0075 02 Mar, 2009 [facility] [place] [facility] [address] [facility] [id number] [place] [address]- 4513 25 Feb, 2009 [facility] [place] [facility] [address] [facility] [id number] [place] [address]- 8448 10 Jul, 2008 [facility] [place] [facility] [address] [id number] [place] [address]- 5331 16 May, 2008 [facility] [place] [facility] [address] [id number] [place] [address]- 8662 14 May, 2006 [facility] [place] [facility] [address] [id number] [place] [address]- 7174 13 Oct, 2004 [facility] [place] [facility] [address] [id number], [place] [address]- 1816 Feb, IMMUNIZATIONS No Known Immunizations SOCIAL HISTORY Never Assessed REASON FOR VISIT intermittent lower abdominal pain. Pt states that she has had this pain on and off for years but it is getting worse. RICARDO Cali PLAN OF CARE Activity Details Follow Up 4 Weeks Reason: Pending Test Ultrasound : Pelvic, COMPLETE (REFLEX [id number]) VITAL SIGNS Height 62 in 2018-01-22 Weight 101.5 lbs 2018-01-22 Temperature 97.4 degrees Fahrenheit 2018-01-22 Heart Rate 89 bpm 2018-01-22 Respiratory Rate 18 2018-01-22 BMI 18.56 kg/m2 2018-01-22 Blood pressure systolic 112 mmHg 2018-01-22 Blood pressure diastolic 74 mmHg 2018-01-22 MEDICATIONS Medication Instructions Dosage Frequency Start Date End Date Duration Status Fluticasone Propionate 50 MCG/ACT Nasally Once a day 1 spray in each nostril 24h Mar, 12 months Active Polyethylene Glycol 3350 17 gm/dose Orally every other day 17 gram JanApr, 30 days Active Valtrex 500 mg Orally twice a day 1 tablet 12h 16 May, 2017 90 days Active RESULTS Name Result Date Reference Range TEST, URINE (IN HOUSE) 2018-01-22 RESULTS negative Lot # [id number] Control + Exp date 07/2019 UA LONG DIP (IN HOUSE) 2018-01-22 Lot # [id number] Exp date 10/2018 Clarity slightly cloudy Color dark yellow Odor no GLU neg RIANNA neg KET neg SG 1.030 BLO neg pH 6.0 Protein trace URO 0.2 NIT neg PAU neg Lot # Exp date PROCEDURES Procedure Date Ordered Result Body Site URINE TEST Jan 22, 2018 URINALYSIS, AUTO, W/O SCOPE Jan 22, 2018 INSTRUCTIONS MEDICATIONS ADMINISTERED No Known Medications MEDICAL (GENERAL) HISTORY Type Description Date Medical History herpes simplex type II--dx 2011 Medical History anxiety Surgical History appendectomy 08/07/13 Hospitalization History Concussion 11/2015
--- OUTSIDE RECORDS SUMMARY | 2018-09-04 10:41 | XMS REPORT ---
Author Author KYLAHROXYULYSSES Organization [facility] Address [address] [place] [address] Care Team Providers Care Hand Former Helper Name Role Phone ULYSSES MONTERO Unavailable PROBLEMS Type Condition ICD9-CM Code QYE66-KX Code Onset Dates Condition Status SNOMED Code Problem Contact dermatitis and eczema due to plant L24.7 Active 371446343 Problem HSV-2 (herpes simplex virus 2) infection B00.9 Active 518923712 Problem Allergic rhinitis J30.9 Active 21628297 Problem Depression with anxiety F41.8 Active 261215116 ALLERGIES Substance Reaction Event Type Date Status Cymbalta Insominia, Rapid heart beat and sweating Drug Allergy Nov, Active ENCOUNTERS Encounter Location Date Diagnosis [place] [id number] [place] [address]456- 8894 Jan, [facility] [id number] [place] [address] 62938- 4696 Dec, [place] [id number] [place] [address] 25291- 7084 Nov, HSV-2 (herpes simplex virus 2) infection B00.9 ; Vaginal discharge N89.8 ; Allergic rhinitis J30.9 ; Other specified bacterial agents as the cause of diseases classified elsewhere B96.89 and Acute vaginitis N76.0 [facility] [address] [address] Nov, [facility] [id number] [place] [address] 30566- 9884 Oct, HSV-2 (herpes simplex virus 2) infection B00.9 [facility] [address] [address] 2537 Oct, HSV-2 (herpes simplex virus 2) infection B00.9 [facility] [id number] [address]273 Sep, [facility]AC[facility] [address] [id number] [id number] Sep, [facility] [address] [address] 92[address] Sep, [facility] [id number] [place] [address] 07842- 5506 Sep, Screening examination for sexually transmitted disease Z11.3 and Mariella vaginitis B37.3 [facility] [id number] [place] [address] 77179- 6438 Jul, Acute non-recurrent frontal sinusitis J01.10 and Impacted cerumen of right ear H61.21 [facility] [id number] [place] [address] 56628- 8112 Jun, Annual physical exam Z00.00 ; Routine gynecological examination Z01.419 ; HSV-2 (herpes simplex virus 2) infection B00.9 ; Seasonal allergic rhinitis due to pollen J30.1 ; Vaginal discharge N89.8 ; Allergic rhinitis J30.9 and Contact dermatitis and eczema due to plant L24.7 [facility] [address], [place] [address] 8577 May, Depression with anxiety F41.8 ; Allergic rhinitis J30.9 ; HSV-2 (herpes simplex virus 2) infection B00.9 ; Contact dermatitis and eczema due to plant L24.7 and Seasonal allergic rhinitis due to pollen J30.1 [facility] [id number] [address] 1480 Mar, [facility] [id number] [place] [address] 39819- 5089 Mar, [facility] [address] [address] 3421 Mar, Pelvic pain R10.2 ; Vaginal discharge N89.8 ; Other specified bacterial agents as the cause of diseases classified elsewhere B96.89 and Acute vaginitis N76.0 [facility] [address] [address] Jun, Body aches R52 and Influenza A J10.1 [facility] [address] [address] Mar, Discharge from the vagina N89.8 ; Unprotected sex Z72.51 and Vaginal candidiasis B37.3 [place] [address] 88981- 6473 Feb, Acute gastritis without hemorrhage, unspecified gastritis type K29.00 and Seasonal allergic rhinitis due to pollen J30.1 [place] [address] 07817- 9450 08 Dec, 2015 Dysuria R30.0 ; Contact dermatitis and eczema due to plant L24.7 ; Herpes simplex vulvovaginitis A60.04 and Abrasion, multiple sites T14.8 [place] [address] 26078- 5771 Nov, Depression with anxiety F41.8 and HSV-2 (herpes simplex virus 2) infection B00.9 [place] [id number] [place] [address] 33795- 8476 Nov, [place] [address] 37950- 7583 May, Depression with anxiety F41.8 [place] [address] [address]37- 6820 Apr, [place] [address] 10458- 9567 Apr, Unspecified genital herpes 054.10 [place] [id number] [place] [address] 63851- 9310 Mar, Depression with anxiety F41.8 and Allergic rhinitis J30.9 [place] [id number] [place] [address] 53934- 4221 Mar, [place] [address] 14734- 3110 Mar, Chlamydia A74.9 [place] [id number] [place] [address] 16240- 5852 Feb, Well woman exam Z01.419 ; Dysmenorrhea N94.6 ; Herpes simplex B00.9 ; Dyspareunia N94.1 ; Anxiety associated with depression F41.8 ; Unprotected sexual intercourse Z72.51 and Marijuana use F12.10 [place] [address] 04207- 4317 Feb, Depression with anxiety F41.8 and H/O dysmenorrhea Z87.[address] [address]- 5036 Feb, General medical exam Z00.00 [place] [id number] [place] [address] 94573- 3291 Jan, [address] [address]- [address] Jan, Major depressive disorder, recurrent episode, unspecified severity F33.9 ; Generalized anxiety disorder F41.1 and ADHD, adult residual type F90.8 [place] [id number] [place] [address] 52884- 9644 Jan, Generalized anxiety disorder F41.1 [place] [id number] [place] [address] 88037- 1024 Jan, General medical exam Z00.00 and Anxiety associated with depression F41.8 [place] [id number] [place] [address] 51055- 6473 Sep, Allergic rhinitis 477.9 [place] [id number] [place] [address] 74881- 8563 August, [place] [address] [facility] [id number] [address] 4[address] August, Cervicitis and endocervicitis 616.0 ; History of chlamydia infection V12.09 and Unspecified genital herpes 054.10 [facility] [address] [id number] [place] [address]- 7186 14 Jul, 2014 [facility] [address] [facility] [id number] [place] [address]- 3706 Jul, [facility] [address] [id number] [place] [address]- 7239 Apr, [facility] [address] [id number] [place] [address]- 9826 Apr, [facility] [address] [facility] [id number] [place] [address]- 4820 Apr, [facility] [address] [facility] [id number] [place] [address]- 2792 Apr, [facility] [address] [facility] [id number] [place] [address]- 2646 Apr, [facility] [address] [facility] [id number] [place] [address]- 4061 Apr, [facility] [address] [id number] [address]- 4678 Apr, [facility] [address] [facility] [id number], [place] [address]- 6646 Apr, [facility] [address] [id number], [place] [address]- 9596 Apr, [facility] [address] [facility] [id number], [place] [address]- 3996 Apr, [facility] [address] [facility] [id number], [place] [address]- 8096 Apr, [facility] [address] [facility] [id number], [place] [address]- 9890 Apr, [facility] [place] [facility] [address] [id number] [place] [address]- 7367 Mar, [facility] [place] [facility] [address] [id number] [place] [address]- 2976 Mar, [facility] [place] [facility] [address] [id number] [place] [address]- 3022 Jan, [facility] [place] [facility] [address] [id number] [place] [address]- 4834 Jan, [facility] [place] [facility] [address] [id number] [place] [address]- 4395 Dec, [facility] [place] [facility] [address] [id number] [place] [address]- 9646 26 Dec, 2013 [facility] [place] [facility] [address] [id number] [place] [address]- 2258 20 Dec, 2013 [facility] [place] [facility] [address] [id number] [place] [address]- 0769 19 Dec, 2013 [facility] [place] [facility] [address] [id number] [place] [address]- 0109 19 Dec, 2013 [facility] [place] [facility] [address] [id number] [place] [address]- 1381 17 Dec, 2013 [facility] [place] [facility] [address] [id number] [place] [address]- 3221 17 Dec, 2013 [facility] [place] [facility] [address] [id number], [place] [address]- 8193 12 Dec, 2013 [facility] [place] [facility] [address] [id number] [place] [address]- 1059 Dec, [facility] [place] [facility] [address] [id number] [place] [address]- 2272 Oct, [facility] [place] [facility] [address] [id number] [place] [address]- 9101 Oct, [facility] [place] [facility] [address] [id number] [place] [address]- 4244 Oct, [facility] [place] [facility] [address] [id number] [place] [address]- 1632 Oct, [facility] [place] [facility] [address] [id number] [place] [address]- 5769 Oct, [facility] [place] [facility] [address] [id number] [place] [address]- 7725 Oct, [facility] [place] [facility] [address] [id number] [place] [address]- 3248 Oct, [facility] [place] [facility] [address] [id number] [place] [address]- 6288 Oct, [facility] [place] [facility] [address] [id number] [place] [address]- 5557 Sep, [facility] [place] [facility] [address] [id number] [place] [address]- 1606 Sep, [facility] [place] [facility] [address] [id number] [place] [address]- 8701 August, [facility] [place] [facility] [address] [id number] [place] [address]- 0438 August, [facility] [place] [facility] [address] [id number] [place] [address]- 8985 August, [facility] [place] [facility] [address] [id number] [place] [address]- 1396 August, [facility] [place] [facility] [address] [id number] [place] [address]- 2193 August, [facility] [place] [facility] [address] [id number] [place] [address]- 0748 August, [facility] [place] [facility] [address] [id number] [place] [address]- 4803 August, [facility] [place] [facility] [address] [id number] [place] [address]- 7761 August, [facility] [place] [facility] [address] [id number] [place] [address]- 8912 Jul, [facility] [address] [id number] [place] [address]- 7946 Jul, [facility] [place] [facility] [address] [id number] [place] [address]- 2493 Jul, [facility] [place] [facility] [address] [id number] [place] [address]- 7472 Jul, [facility] [address] [id number] [place] [address]- 4027 Mar, [facility] [place] [facility] [address] [id number] [place] [address]- 9958 Mar, [facility] [address] [id number] [place] [address]- 6642 Mar, [facility] [address] [id number] [place] [address]- 0347 Mar, [facility] [address] [id number] [place] [address]- 7817 Jan, [facility] [place] [facility] [address] [id number] [place] [address]- 6813 Jan, [facility] [place] [facility] [address] [id number] [place] [address]- 9330 Jul, [facility] [place] [facility] [address] [id number] [place] [address]- 7922 Jul, [facility] [place] [facility] [address] [id number] [place] [address]- 6107 Jun, [facility] [place] [facility] [address] [id number] [place] [address]- 3456 Jun, [facility] [place] [facility] [address] [id number] [place] [address]- 3630 Jun, [facility] [place] [facility] [address] [id number], [place] [address]- 9786 15 Jun, 2012 [facility] [address] [id number] [place] [address]- 5816 13 Jun, 2012 [facility] [place] [facility] [address] [id number] [place] [address]- 9156 12 Jun, 2012 [facility] [address] [facility] [id number] [place] [address]- 3084 08 Jun, 2012 [facility] [place] [facility] [address] [id number] [place] [address]- 0386 07 Jun, 2012 [facility] [address] [id number] [place] [address]- 9132 06 Jun, 2012 [facility] [address] [facility] [id number] [place] [address]- 8305 05 Jun, 2012 [facility] [address] [facility] [id number] [place] [address]- 0919 26 May, 2012 [facility] [place] [facility] [address] [id number] [place] [address]- 0714 May, [facility] [address] [id number] [place] [address]- 4966 14 May, 2012 [facility] [place] [facility] [address] [facility] [id number] [place] [address]- 1393 May, [facility] [place] [facility] [address] [id number], [place] [address]- 3956 05 May, 2012 [facility] [place] [facility] [address] [id number], [place] [address] 2545 May, [facility] [place] [facility] [address] [id number], [place] [address]- 8981 Apr, [facility] [place] [facility] [address] [id number] [place] [address]- 3276 Apr, [facility] [place] [facility] [address] [facility] [id number], [place] [address]- 5403 Apr, [facility] [place] [facility] [address] [id number] [place] [address]- 5603 Apr, [facility] [place] [facility] [address] [id number] [place] [address]- 4246 Mar, [facility] [place] [facility] [address] [id number] [place] [address]- 2076 Mar, [facility] [place] [facility] [address] [id number] [place] [address]- 9580 Mar, [facility] [place] [facility] [address] [id number] [place] [address]- 6290 Mar, [facility] [place] [facility] [address] [id number] [place] [address]- 2851 Feb, [facility] [place] [facility] [address] [id number] [place] [address]- 2751 Feb, [facility] [place] [facility] [address] [id number] [place] [address]- 9308 Feb, [facility] [place] [facility] [address] [id number] [place] [address]- 1989 19 Feb, 2012 [facility] [place] [facility] [address] [id number] [place] [address]- 0372 16 Feb, 2012 [facility] [place] [facility] [address] [id number] [place] [address]- 9624 15 Feb, 2012 [facility] [place] [facility] [address] [id number] [place] [address]- 1184 14 Feb, 2012 [facility] [place] [facility] [address] [id number] [place] [address]- 4481 13 Feb, 2012 [facility] [place] [facility] [address] [id number] [place] [address] 2543 13 Feb, 2012 [facility] [place] [facility] [address] [id number] [place] [address]- 2548 13 Feb, 2012 [facility] [place] [facility] [address] [id number] [place] [address]- 4315 Feb, [facility] [place] [facility] [address] [id number] [place] [address]- 6093 Feb, [facility] [place] [facility] [address] [id number] [place] [address]- 9594 Feb, [facility] [place] [facility] [address] [facility] [id number] [place] [address]- 1250 Feb, [facility] [place] [facility] [address] [id number] [place] [address]- 0291 Jan, [facility] [place] [facility] [address] [id number] [place] [address]- 3538 Jan, [facility] [place] [facility] [address] [id number] [place] [address]- 1499 Jan, [facility] [place] [facility] [address] [id number] [place] [address]- 7673 August, [facility] [place] [facility] [address] [id number] [place] [address]- 4098 August, [facility] [place] [facility] [address] [id number] [place] [address]- 8454 Jul, [facility] [place] [facility] [address] [id number] [place] [address]- 6850 Jul, [facility] [place] [facility] [address] [id number], [place] [address]- 1200 Jul, [facility] [place] [facility] [address] [id number], [place] [address]- 1169 Jul, [facility] [place] [facility] [address] [id number] [place] [address]- 3538 Jul, [facility] [place] [facility] [address] [id number], [place] [address]- 0051 Jul, [facility] [place] [facility] [address] [id number] [place] [address]- 0586 Jun, [facility] [place] [facility] [address] [facility] [id number], [place] [address]- 9478 24 May, 2011 [facility] [address] [facility] [id number][place]- 8906 14 May, 2011 [facility] [address] [facility] [id number][place]- 4036 05 Mar, 2011 [facility] [address] 1396 07 Feb, 2011 [facility] [address] [facility] [id number], [place] [address]- 9117 18 Feb, 2010 [facility] [address] [facility] [id number][place]- 8883 14 Jan, 2010 [facility] [address] [id number] 0993 14 Jan, 2010 [facility] [address] [address]- 3447 15 May, 2009 [facility] [id number] [address]- 0975 02 Mar, 2009 [facility] [address] [address]- 4226 25 Feb, 2009 [facility] [address] [address]- 1118 10 Jul, 2008 [facility] [address] [address]- 7934 16 May, 2008 [facility] [address] [facility] [id number], [place] [address]- 2543 14 May, 2006 [facility] [address] 5566 13 Oct, 2004 [facility] [address] [id number] [address]- 8353 10 Feb, 2003 IMMUNIZATIONS No Known Immunizations SOCIAL HISTORY Never Assessed REASON FOR VISIT Vaginal discharge- yellow in color for the past two weeks with slight itching Cm Farris RN PLAN OF CARE Activity Details Follow Up prn Reason: VITAL SIGNS Height 62 in 2017-12-12 Weight 108.2 lbs 2017-12-12 Temperature 98.6 degrees Fahrenheit 2017-12-12 Heart Rate 71 bpm 2017-12-12 Respiratory Rate 18 2017-12-12 BMI 19.79 kg/m2 2017-12-12 Blood pressure systolic 106 mmHg 2017-12-12 Blood pressure diastolic 80 mmHg 2017-12-12 MEDICATIONS Medication Instructions Dosage Frequency Start Date End Date Duration Status Metronidazole 500 mg Orally Twice a day 1 tablet 12h Nov, Nov, 07 days Active Fluticasone Propionate 50 MCG/ACT Nasally Once a day 1 spray in each nostril 24h Mar, 12 months Active Valtrex 500 mg Orally twice a day 1 tablet 12h May, 90 days Active RESULTS No Results PROCEDURES Procedure Date Ordered Result Body Site URINALYSIS, AUTO, W/O SCOPE Dec 12, 2017 Bacterial Vaginosis In House Dec 12, 2017 No Charge Dec 12, 2017 TRICHOMONAS ASSAY W/OPTIC Dec 12, 2017 CULTURE, BACTERIA, OTHER Dec 12, 2017 INSTRUCTIONS MEDICATIONS ADMINISTERED No Known Medications MEDICAL (GENERAL) HISTORY Type Description Date Medical History herpes simplex type II--dx 2011 Medical History anxiety Surgical History appendectomy 08/07/13 Hospitalization History Concussion 11/2015
[2018-09-04] MEDS ORDERED: METHYLENE BLUE (Antidote only) 100 MG/10 ML VIAL IV ONE (10:42)
--- OUTSIDE RECORDS SUMMARY | 2018-09-04 10:42 | XMS REPORT ---
Author Author KYLHA ULYSSES Organization [facility] Address [address] [place] [address] Care Team Providers Care Flue Blower Name Role Phone ULYSSES MONTERO Unavailable PROBLEMS Type Condition ICD9-CM Code [id number] Code Onset Dates Condition Status SNOMED Code Problem Contact dermatitis and eczema due to plant L24.7 Active 601931193 Problem HSV-2 (herpes simplex virus 2) infection B00.9 Active 244481511 Problem Allergic rhinitis J30.9 Active 33473842 Problem Depression with anxiety F41.8 Active [id number] ALLERGIES No Information ENCOUNTERS Encounter Location Date Diagnosis [facility] [id number] [place] [address] 25335- 2868 Nov, HSV-2 (herpes simplex virus 2) infection B00.9 ; Vaginal discharge N89.8 ; Allergic rhinitis J30.9 ; Other specified bacterial agents as the cause of diseases classified elsewhere B96.89 and Acute vaginitis N76.0 [facility] [id number] [place] [address] 58629- 2426 Nov, [facility] [id number] [place] [address] 69942- 7353 Oct, HSV-2 (herpes simplex virus 2) infection B00.9 [facility] [id number] [place] [address] 36659- 8334 Oct, HSV-2 (herpes simplex virus 2) infection B00.9 [facility] [id number] [place] [address] 39746- 7565 Sep, [facility] [address] [id number] [id number] Sep, [facility] [id number] [place] [address] 51357- 8774 Sep, [place] [id number] [place] [address] 61088- 2451 Sep, Screening examination for sexually transmitted disease Z11.3 and Mariella vaginitis B37.3 [place] [id number] [place] [address] 42367- 5428 Jul, Acute non-recurrent frontal sinusitis J01.10 and Impacted cerumen of right ear H61.21 [place] [id number] [place] [address] 87240- 5772 Jun, Annual physical exam Z00.00 ; Routine gynecological examination Z01.419 ; HSV-2 (herpes simplex virus 2) infection B00.9 ; Seasonal allergic rhinitis due to pollen J30.1 ; Vaginal discharge N89.8 ; Allergic rhinitis J30.9 and Contact dermatitis and eczema due to plant L24.[address] [address]21- 1425 May, Depression with anxiety F41.8 ; Allergic rhinitis J30.9 ; HSV-2 (herpes simplex virus 2) infection B00.9 ; Contact dermatitis and eczema due to plant L24.7 and Seasonal allergic rhinitis due to pollen J30.1 [place] [id number] [place] [address] 94621- 6051 Mar, [place] [id number] [place] [address] 45250- 7399 Mar, [place] [id number] [place] [address] 44454- 0909 Mar, Pelvic pain R10.2 ; Vaginal discharge N89.8 ; Other specified bacterial agents as the cause of diseases classified elsewhere B96.89 and Acute vaginitis N76.0 [facility] [place] [id number] [place] [address] 69259 -8528 Jun, Body aches R52 and Influenza A J10.1 [facility] [address] [address] -7371 Mar, Discharge from the vagina N89.8 ; Unprotected sex Z72.51 and Vaginal candidiasis B37.3 [place] [address] 68849- 2691 Feb, Acute gastritis without hemorrhage, unspecified gastritis type K29.00 and Seasonal allergic rhinitis due to pollen J30.1 [place] [address] 91063- 1828 Dec, Dysuria R30.0 ; Contact dermatitis and eczema due to plant L24.7 ; Herpes simplex vulvovaginitis A60.04 and Abrasion, multiple sites T14.8 [place] [address] 44767- 1188 Nov, Depression with anxiety F41.8 and HSV-2 (herpes simplex virus 2) infection B00.[address] 21941- 8435 Nov, [place] [address] 08017- 9301 May, Depression with anxiety F41.8 [place] [address] 54333- 8807 Apr, [address] 89595- 2605 Apr, Unspecified genital herpes 054.10 [place] [address] 95658- 3315 Mar, Depression with anxiety F41.8 and Allergic rhinitis J30.9 [place] [address] 71430- 0675 Mar, [address] 99826- 0951 Mar, Chlamydia A74.[address] 92156- 0048 Feb, Well woman exam Z01.419 ; Dysmenorrhea N94.6 ; Herpes simplex B00.9 ; Dyspareunia N94.1 ; Anxiety associated with depression F41.8 ; Unprotected sexual intercourse Z72.51 and Marijuana use F12.10 [place] [id number] [place] [address] 25300- 4615 Feb, Depression with anxiety F41.8 and H/O dysmenorrhea Z87.42 [place] [id number] [place] [address] 31579- 5048 Feb, General medical exam Z00.00 [place] [address] 63813- 0343 Jan, [place] [id number] [place] [address] 69031- 9732 Jan, Major depressive disorder, recurrent episode, unspecified severity F33.9 ; Generalized anxiety disorder F41.1 and ADHD, adult residual type F90.8 [place] [id number] [place] [address] 01892- 6826 Jan, Generalized anxiety disorder F41.1 [place] [id number] [place] [address] 22723- 8597 Jan, General medical exam Z00.00 and Anxiety associated with depression F41.8 [place] [id number] [place] [address] 62234- 4929 Sep, Allergic rhinitis 477.9 [place] [id number] [place] [address] 15815- 8515 August, [address] 68483- 1555 August, Cervicitis and endocervicitis 616.0 ; History of chlamydia infection V12.09 and Unspecified genital herpes 054.10 [place] [id number] [place] [address] 34013- 7868 Jul, [facility] [address] [id number] [place] [address]- 3955 13 Jul, 2014 [facility] [place] [facility] [address] [id number] [place] [address]- 3037 Apr, [facility] [place] [facility] [address] [id number] [place] [address]- 6331 Apr, [facility] [place] [facility] [address] [id number] [place] [address]- 0890 Apr, [facility] [place] [facility] [address] [id number] [place] [address]- 4967 Apr, [facility] [place] [facility] [address] [id number] [place] [address]- 0974 Apr, [facility] [place] [facility] [address] [id number] [place] [address]- 5319 Apr, [facility] [place] [facility] [address] [id number] [place] [address]- 8421 Apr, [facility] [place] [facility] [address] [id number] [place] [address]- 0716 Apr, [facility] [place] [facility] [address] [id number] [place] [address]- 7387 Apr, [facility] [place] [facility] [address] [id number] [place] [address]- 4052 Apr, [facility] [place] [facility] [address] [id number], [place] [address]- 4655 Apr, [facility] [place] [facility] [address] [id number] [place] [address]- 5235 Apr, [facility] [place] [facility] [address] [id number] [place] [address]- 5291 Mar, [facility] [place] [facility] [address] [id number] [place] [address]- 5529 Mar, [facility] [place] [facility] [address] [id number], [place] [address]- 1766 Jan, [facility] [place] [facility] [address] [id number] [place] [address]- 7765 07 Jan, 2014 [facility] [place] [facility] [address] [id number] [place] [address]- 1880 26 Dec, 2013 [facility] [place] [facility] [address] [id number] [place] [address]- 6466 26 Dec, 2013 [facility] [place] [facility] [address] [id number] [place] [address]- 5628 20 Dec, 2013 [facility] [place] [facility] [address] [id number] [place] [address]- 1537 19 Dec, 2013 [facility] [place] [facility] [address] [id number] [place] [address]- 8202 19 Dec, 2013 [facility] [place] [facility] [address] [id number] [place] [address]- 0825 17 Dec, 2013 [facility] [place] [facility] [address] [id number] [place] [address]- 5292 17 Dec, 2013 [facility] [place] [facility] [address] [id number] [place] [address]- 6728 Dec, [facility] [place] [facility] [address] [id number] [place] [address]- 8537 Dec, [facility] [place] [facility] [address] [id number] [place] [address]- 0351 Oct, [facility] [place] [facility] [address] [id number] [place] [address]- 3697 Oct, [facility] [place] [facility] [address] [id number] [place] [address]- 1573 Oct, [facility] [place] [facility] [address] [id number] [place] [address]- 3645 Oct, [facility] [place] [facility] [address] [id number] [place] [address]- 4080 Oct, [facility] [place] [facility] [address] [id number] [place] [address]- 4262 Oct, [facility] [place] [facility] [address] [id number] [place] [address]- 0024 Oct, [facility] [place] [facility] [address] [id number] [place] [address]- 6541 Oct, [facility] [place] [facility] [address] [id number] [place] [address]- 5115 Sep, [facility] [place] [facility] [address] [id number] [place] [address]- 2160 Sep, [facility] [place] [facility] [address] [id number] [place] [address]- 0284 August, [facility] [place] [facility] [address] [id number] [place] [address]- 5293 August, [facility] [place] [facility] [address] [id number] [place] [address]- 2535 August, [facility] [place] [facility] [address] [id number] [place] [address]- 7273 August, [facility] [place] [facility] [address] [id number] [place] [address]- 6712 August, [facility] [place] [facility] [address] [id number] [place] [address]- 4011 August, [facility] [place] [facility] [address] [id number] [place] [address]- 2053 August, [facility] [place] [facility] [address] [id number] [place] [address]- 8987 August, [facility] [place] [facility] [address] [id number] [place] [address]- 0536 Jul, [facility] [place] [facility] [address] [id number] [place] [address]- 8309 Jul, [facility] [place] [facility] [address] [id number] [place] [address]- 0826 Jul, [facility] [address] [id number] [place] [address]- 1295 Jul, [facility] [place] [facility] [address] [id number] [place] [address]- 6071 Mar, [facility] [place] [facility] [address] [id number] [place] [address]- 6249 Mar, [facility] [place] [facility] [address] [id number] [place] [address]- 1982 Mar, [facility] [address] [id number] [place] [address]- 1308 Mar, [facility] [place] [facility] [address] [id number] [place] [address]- 4050 Jan, [facility] [place] [facility] [address] [id number] [place] [address]- 6609 Jan, [facility] [place] [facility] [address] [id number] [place] [address]- 0217 Jul, [facility] [place] [facility] [address] [id number] [place] [address]- 6472 Jul, [facility] [place] [facility] [address] [id number], [place] [address]- 7045 Jun, [facility] [place] [facility] [address] [id number], [place] [address]- 1585 Jun, [facility] [place] [facility] [address] [id number], [place] [address]- 4693 25 Jun, 2012 [facility] [place] [facility] [address] [id number] [place] [address]- 5435 15 Jun, 2012 [facility] [place] [facility] [address] [id number], [place] [address]- 1943 13 Jun, 2012 [facility] [place] [facility] [address] [id number] [place] [address]- 6758 12 Jun, 2012 [facility] [place] [facility] [address] [id number] [place] [address]- 3760 08 Jun, 2012 [facility] [address] [id number] [place] [address]- 1644 07 Jun, 2012 [facility] [place] [facility] [address] [id number] [place] [address]- 6457 06 Jun, 2012 [facility] [address] [id number] [place] [address]- 4149 05 Jun, 2012 [facility] [place] [facility] [address] [id number] [place] [address]- 1482 26 May, 2012 [facility] [place] [facility] [address] [id number] [place] [address]- 2507 May, [facility] [place] [facility] [address] [id number] [place] [address]- 4206 14 May, 2012 [facility] [address] [id number] [place] [address]- 5223 05 May, 2012 [facility] [address] [id number] [place] [address]- 5990 05 May, 2012 [facility] [place] [facility] [address] [id number] [place] [address]- 4656 May, [facility] [address] [facility] [id number] [place] [address]- 3814 Apr, [facility] [place] [facility] [address] [id number] [place] [address]- 5825 Apr, [facility] [place] [facility] [address] [id number] [place] [address]- 6525 Apr, [facility] [place] [facility] [address] [id number] [place] [address]- 3350 Apr, [facility] [place] [facility] [address] [id number] [place] [address]- 3386 Mar, [facility] [place] [facility] [address] [id number] [place] 4087 Mar, [facility] [place] [facility] [address] [id number] [place] [address]- 1993 Mar, [facility] [place] [facility] [address] [id number] [place] [address]- 7152 Mar, [facility] [place] [facility] [address] [id number] [place] [address]- 3071 Feb, [facility] [place] [facility] [address] [id number] [place] [address]- 5270 Feb, [facility] [place] [facility] [address] [id number] [place] [address]- 9791 Feb, [facility] [place] [facility] [address] [id number] [place] [address]- 8260 19 Feb, 2012 [facility] [place] [facility] [address] [id number] [place] [address]- 5669 16 Feb, 2012 [facility] [place] [facility] [address] [id number], [place] [address]- 6650 15 Feb, 2012 [facility] [place] [facility] [address] [id number] [place] [address]- 7220 14 Feb, 2012 [facility] [place] [facility] [address] [id number], [place] [address]- 9559 13 Feb, 2012 [facility] [place] [facility] [address] [id number], [place] [address]- 2914 13 Feb, 2012 [facility] [place] [facility] [address] [id number], [place] [address]- 5641 13 Feb, 2012 [facility] [place] [facility] [address] [id number], [place] [address]- 6488 13 Feb, 2012 [facility] [place] [facility] [address] [id number], [place] [address]- 1445 12 Feb, 2012 [facility] [place] [facility] [address] [id number], [place] [address]- 4048 06 Feb, 2012 [facility] [place] [facility] [address] [id number], [place] [address]- 0320 Feb, [facility] [address] [id number] [place] [address]- 4738 Jan, [facility] [place] [facility] [address] [id number] [place] [address]- 6268 Jan, [facility] [id number] [place] [address]- 4445 Jan, [facility] [place] [facility] [address] [facility] [id number] [place] [address]- 1999 August, [facility] [id number] [place] [address], [place]- 8982 August, [facility] [place] [facility] [address] [id number] [place] [address]- 3496 Jul, [facility] [id number] [place] [address]- 4573 Jul, [facility] [place] [facility] [id number] [place] [address]- 4039 Jul, [facility] [address] [id number] [place] [address]- 4018 Jul, [facility] [place] [facility] [id number] [place] [address]- 8037 Jul, [facility] [id number] [place] [address]- 2590 Jul, [facility] [place] [facility] [address] [facility] [id number], [place] [address]- 2967 Jun, [facility] [place] [facility] [address] [id number] [place] [address]- 5479 May, [facility] [place] [facility] [address] [facility] [id number] [place] [address]- 4611 May, [facility] [place] [facility] [address] [id number] 0038 Mar, [facility] [place] [facility] [address], [place] [address] 2546 07 Feb, 2011 [facility] [address], [place] [address]- 4766 18 Feb, 2010 [facility] [address], [place] [address]- 2546 14 Jan, 2010 [facility] [id number] [place] [address] 83354- 9816 14 Jan, 2010 [facility] [address], [place] [address]- 4535 15 May, 2009 [facility] [id number] [place] [address] 43512- 6246 Mar, [facility] [address], [place] [address]- 4796 Feb, [facility] [id number] [place] [address] 42373- 8818 Jul, [facility] [address], [place] [address]- 1473 16 May, 2008 [facility] [address], [place] [address]- 5975 14 May, 2006 [facility] [address], [place] [address]- 1461 Oct, [facility] [address], [place] [address]- 0576 Feb, IMMUNIZATIONS No Known Immunizations SOCIAL HISTORY Never Assessed REASON FOR VISIT PLAN OF CARE VITAL SIGNS MEDICATIONS Medication Instructions Dosage Frequency Start Date End Date Duration Status Valtrex 500 mg Orally twice a day 1 tablet 12h 16 May, 2017 Oct, 90 days Active RESULTS No Results PROCEDURES No Known procedures INSTRUCTIONS MEDICATIONS ADMINISTERED No Known Medications MEDICAL (GENERAL) HISTORY Type Description Date Medical History herpes simplex type II--dx 2011 Medical History anxiety Surgical History appendectomy 08/07/13 Hospitalization History Concussion 11/2015
--- OUTSIDE RECORDS SUMMARY | 2018-09-04 10:42 | XMS REPORT ---
Author Author LAURE PEREIRA [facility] Address [address] [place] [address] Care Team Providers Care Area Manager Name Role Phone LAURE PEREIRA Unavailable PROBLEMS Type Condition ICD9-CM Code GWO78-FG Code Onset Dates Condition Status SNOMED Code Problem Contact dermatitis and eczema due to plant L24.7 Active 317228870 Problem HSV-2 (herpes simplex virus 2) infection B00.9 Active 042083279 Problem Allergic rhinitis J30.9 Active 31333198 Problem Depression with anxiety F41.8 Active [id number] ALLERGIES No Information ENCOUNTERS Encounter Location Date Diagnosis [place] [id number] [place] [address] 21163- 9630 Jan, [facility] [id number] [place] [address] 44313- 3392 Dec, [place] [id number] [place] [address] 68249- 3890 Nov, HSV-2 (herpes simplex virus 2) infection B00.9 ; Vaginal discharge N89.8 ; Allergic rhinitis J30.9 ; Other specified bacterial agents as the cause of diseases classified elsewhere B96.89 and Acute vaginitis N76.0 [facility] [address] [address] 7608 Nov, [facility] [id number] [place] [address] 07727- 7623 Oct, HSV-2 (herpes simplex virus 2) infection B00.9 [place] [address] [address] 2403 Oct, HSV-2 (herpes simplex virus 2) infection B00.9 [place] [id number] [address] 27[address] Sep, [facility] [address] [id number] [id number] Sep, [facility] [address] [address]- 57[address] Sep, [place] [id number] [address] 0703 Sep, Screening examination for sexually transmitted disease Z11.3 and Mariella vaginitis B37.3 [place] [id number] [address]- 6369 Jul, Acute non-recurrent frontal sinusitis J01.10 and Impacted cerumen of right ear H61.21 [place] [id number] [address]- 2957 Jun, Annual physical exam Z00.00 ; Routine gynecological examination Z01.419 ; HSV-2 (herpes simplex virus 2) infection B00.9 ; Seasonal allergic rhinitis due to pollen J30.1 ; Vaginal discharge N89.8 ; Allergic rhinitis J30.9 and Contact dermatitis and eczema due to plant L24.7 [place] [address] [address] 08[address] May, Depression with anxiety F41.8 ; Allergic rhinitis J30.9 ; HSV-2 (herpes simplex virus 2) infection B00.9 ; Contact dermatitis and eczema due to plant L24.7 and Seasonal allergic rhinitis due to pollen J30.1 [facility] [id number] [address]- 0410 Mar, [place] [address] [address]- 4798 Mar, [place] [id number] [address]- 3328 Mar, Pelvic pain R10.2 ; Vaginal discharge N89.8 ; Other specified bacterial agents as the cause of diseases classified elsewhere B96.89 and Acute vaginitis N76.0 [facility] [id number] [place] [address] 48784 -9121 Jun, Body aches R52 and Influenza A J10.1 [facility] [address] [address] -[address]47 Mar, Discharge from the vagina N89.8 ; Unprotected sex Z72.51 and Vaginal candidiasis B37.3 [place] [address] 36401- 7416 Feb, Acute gastritis without hemorrhage, unspecified gastritis type K29.00 and Seasonal allergic rhinitis due to pollen J30.1 [place] [address] 65095- 8490 08 Dec, 2015 Dysuria R30.0 ; Contact dermatitis and eczema due to plant L24.7 ; Herpes simplex vulvovaginitis A60.04 and Abrasion, multiple sites T14.8 [place] [address] 7[address]- 5205 Nov, Depression with anxiety F41.8 and HSV-2 (herpes simplex virus 2) infection B00.9 [place] [address] [address]649- 4111 Nov, [address] [address]- 2952 May, Depression with anxiety F41.8 [place] [address] 38741- 0666 Apr, [place] [address] 96934- 5713 Apr, Unspecified genital herpes 054.10 [place] [address] 25880- 0834 Mar, Depression with anxiety F41.8 and Allergic rhinitis J30.9 [place] [address] 80813- 4006 Mar, [place] [id number] [place] [address] 34292- 3720 Mar, Chlamydia A74.9 [place] [id number] [place] [address] 99029- 8036 Feb, Well woman exam Z01.419 ; Dysmenorrhea N94.6 ; Herpes simplex B00.9 ; Dyspareunia N94.1 ; Anxiety associated with depression F41.8 ; Unprotected sexual intercourse Z72.51 and Marijuana use F12.10 [place] [id number] [place] [address] 06329- 0937 Feb, Depression with anxiety F41.8 and H/O dysmenorrhea Z87.42 [place] [id number] [place] [address] 96402- 0184 Feb, General medical exam Z00.00 [place] [id number] [place] [address] 25047- 5386 Jan, [place] [address] 53219- 5999 Jan, Major depressive disorder, recurrent episode, unspecified severity F33.9 ; Generalized anxiety disorder F41.1 and ADHD, adult residual type F90.8 [place] [id number] [place] [address] 69001- 0521 Jan, Generalized anxiety disorder F41.1 [place] [id number] [place] [address] 86675- 4654 Jan, General medical exam Z00.00 and Anxiety associated with depression F41.8 [place] [address] 14183- 9205 Sep, Allergic rhinitis 477.9 [place] [id number] [place] [address] 35106- 5410 August, [place] [address] 30026- 5561 August, Cervicitis and endocervicitis 616.0 ; History of chlamydia infection V12.09 and Unspecified genital herpes 054.10 [facility] [address] [facility] [id number] [address]- 5293 14 Jul, 2014 [facility] [address] [facility] [id number] [address]- 7870 Jul, [facility] [address] [id number] [address]- 7956 Apr, [facility] [address] [id number] [address]- 0971 Apr, [facility] [address] [facility] [id number] [address]- 9335 Apr, [facility] [address] [facility] [id number] [address]- 8403 Apr, [facility] [address] [facility] [id number] [address]- 2740 Apr, [facility] [address] [facility] [id number] [address]- 6594 Apr, [facility] [address] [facility] [id number] [address]- 2289 Apr, [facility] [address] [facility] [id number] [address]- 6231 Apr, [facility] [address] [facility] [id number] [address]- 4747 Apr, [facility] [address] [facility] [id number] [address]- 6376 Apr, [facility] [address] [facility] [id number] [place] 2793 Apr, [facility] [address] [facility] [id number] [address]- 3822 Apr, [facility] [address] [facility] [id number] [place] [address]- 0045 15 Mar, 2014 [facility] [place] [facility] [address] [id number] [place] [address]- 3568 15 Mar, 2014 [facility] [place] [facility] [address] [id number] [place] [address]- 3666 07 Jan, 2014 [facility] [place] [facility] [address] [id number] [place] [address]- 0836 07 Jan, 2014 [facility] [place] [facility] [address] [id number] [place] [address]- 9615 26 Dec, 2013 [facility] [place] [facility] [address] [id number] [place] [address]- 3335 26 Dec, 2013 [facility] [place] [facility] [address] [id number] [place] [address]- 8621 20 Dec, 2013 [facility] [place] [facility] [address] [id number] [place] [address]- 9188 19 Dec, 2013 [facility] [place] [facility] [address] [id number] [place] [address]- 8901 19 Dec, 2013 [facility] [place] [facility] [address] [id number] [place] [address]- 8982 17 Dec, 2013 [facility] [place] [facility] [address] [id number] [place] [address]- 5911 17 Dec, 2013 [facility] [place] [facility] [address] [id number] [place] [address]- 5190 12 Dec, 2013 [facility] [place] [facility] [address] [id number] [place] [address]- 2542 12 Dec, 2013 [facility] [place] [facility] [address] [id number] [place] [address]- 1080 Oct, [facility] [place] [facility] [address] [id number] [place] [address]- 7608 Oct, [facility] [place] [facility] [address] [id number] [place] [address]- 4014 Oct, [facility] [place] [facility] [address] [id number] [place] [address]- 0060 Oct, [facility] [place] [facility] [address] [id number] [place] [address]- 4259 Oct, [facility] [place] [facility] [address] [id number] [place] [address]- 9977 Oct, [facility] [place] [facility] [address] [id number] [place] [address]- 2179 Oct, [facility] [place] [facility] [address] [id number] [place] [address]- 1505 Oct, [facility] [place] [facility] [address] [id number] [place] [address]- 6072 Sep, [facility] [place] [facility] [address] [id number] [place] [address]- 6371 Sep, [facility] [place] [facility] [address] [id number] [place] [address]- 6288 August, [facility] [place] [facility] [address] [id number] [place] [address]- 0367 August, [facility] [place] [facility] [address] [id number] [place] [address]- 1284 August, [facility] [place] [facility] [address] [id number] [place] [address]- 9972 August, [facility] [place] [facility] [address] [id number] [place] [address]- 0280 August, [facility] [place] [facility] [address] [id number] [place] [address]- 5847 August, [facility] [place] [facility] [address] [id number] [place] [address]- 5528 August, [facility] [place] [facility] [address] [id number] [place] [address]- 7192 August, [facility] [place] [facility] [address] [id number] [place] [address]- 0290 Jul, [facility] [address] [id number] [place] [address]- 6582 Jul, [facility] [place] [facility] [address] [id number] [place] [address]- 8415 Jul, [facility] [place] [facility] [address] [id number] [place] [address]- 5444 Jul, [facility] [place] [facility] [address] [id number] [place] [address]- 7601 Mar, [facility] [place] [facility] [address] [id number] [place] [address]- 9867 Mar, [facility] [place] [facility] [address] [id number] [place] [address]- 7948 Mar, [facility] [place] [facility] [address] [id number] [place] [address]- 1903 Mar, [facility] [place] [facility] [address] [id number] [place] [address]- 6640 Jan, [facility] [place] [facility] [address] [id number] [place] [address]- 1363 Jan, [facility] [place] [facility] [address] [id number] [place] [address]- 8779 Jul, [facility] [place] [facility] [address] [id number] [address]- 7487 Jul, [facility] [place] [facility] [address] [id number] [place] [address]- 5190 Jun, [facility] [place] [facility] [address] [id number] [place] [address]- 5401 Jun, [facility] [place] [facility] [address] [id number] [place] [address]- 7159 Jun, [facility] [place] [facility] [address] [id number] [place] [address]- 4328 Jun, [facility] [place] [facility] [address] [id number] [place] [address]- 6665 13 Jun, 2012 [facility] [address] [id number] [place] [address]- 9825 12 Jun, 2012 [facility] [place] [facility] [address] [id number] [place] [address]- 6690 08 Jun, 2012 [facility] [address] [id number] [place] [address]- 4915 07 Jun, 2012 [facility] [address] [id number] [place] [address]- 1420 06 Jun, 2012 [facility] [address] [id number] [place] [address]- 1675 05 Jun, 2012 [facility] [address] [id number] [place] [address]- 1010 26 May, 2012 [facility] [address] [id number] [place] [address]- 4780 May, [facility] [address] [id number] [place] [address]- 6734 14 May, 2012 [facility] [address] [id number] [place] [address]- 4763 05 May, 2012 [facility] [address] [facility] [id number] [place] [address]- 2338 May, [facility] [address] [id number] [place] [address]- 0426 May, [facility] [place] [facility] [address] [id number] [place] [address]- 8300 Apr, [facility] [place] [facility] [address] [id number] [place] [address]- 2178 Apr, [facility] [place] [facility] [address] [facility] [id number] [place] [address]- 2546 Apr, [facility] [place] [facility] [address] [id number] [place] [address]- 1917 Apr, [facility] [place] [facility] [address] [id number] [place] [address]- 5120 Mar, [facility] [place] [facility] [address] [id number] [place] [address]- 6781 Mar, [facility] [place] [facility] [address] [id number] [place] [address]- 9789 Mar, [facility] [place] [facility] [address] [id number] [place] [address]- 7987 Mar, [facility] [place] [facility] [address] [id number] [place] [address]- 0319 Feb, [facility] [place] [facility] [address] [id number] [place] [address]- 3570 Feb, [facility] [place] [facility] [address] [id number] [place] [address]- 4728 Feb, [facility] [place] [facility] [address] [id number] [address]- 5729 19 Feb, 2012 [facility] [place] [facility] [address] [id number] [place] [address]- 9579 16 Feb, 2012 [facility] [place] [facility] [address] [id number] [place] [address]- 4057 15 Feb, 2012 [facility] [place] [facility] [address] [id number] [address]- 5887 14 Feb, 2012 [facility] [place] [facility] [address] [id number] [address]- 4823 13 Feb, 2012 [facility] [place] [facility] [address] [id number] [address]- 9452 13 Feb, 2012 [facility] [place] [facility] [address] [id number] [address]- 9380 13 Feb, 2012 [facility] [place] [facility] [address] [id number] [address]- 9593 13 Feb, 2012 [facility] [place] [facility] [address] [id number] [place] [address]- 4177 Feb, [facility] [place] [facility] [address] [id number] [place] [address]- 4675 Feb, [facility] [place] [facility] [address] [id number] [place] 3525 Feb, [facility] [place] [facility] [address] [id number] [place] [address]- 6703 Jan, [facility] [place] [facility] [address] [id number] [place] [address]- 6536 Jan, [facility] [place] [facility] [address] [id number] [place] 0374 Jan, [facility] [place] [facility] [address] [id number] [place] [address]- 5878 August, [facility] [place] [facility] [address] [id number] [place] [address]- 6437 August, [facility] [place] [facility] [address] [id number] [place] [address]- 0100 Jul, [facility] [place] [facility] [address] [id number] [place] [address]- 5603 Jul, [facility] [place] [facility] [address] [facility] [id number] [place] [address]- 5175 Jul, [facility] [place] [facility] [address] [id number] [place] [address]- 1886 Jul, [facility] [place] [facility] [address] [id number] [place] [address]- 4421 Jul, [facility] [place] [facility] [address] [id number] [place] [address]- 9494 Jul, [facility] [place] [facility] [address] [id number] [place] [address]- 8103 Jun, [facility] [place] [facility] [address] [id number] [place] [address]- 9732 May, [facility] [address] [address]- 6317 14 May, 2011 [facility] [address] [address]- 8798 05 Mar, 2011 [facility] [address] [address]- 7242 Feb, [facility] [address] [address]- 7983 Feb, [facility] [address] [address]- 9780 14 Jan, 2010 [facility] [address] [address]- 1865 14 Jan, 2010 [facility] [address] [address]- 8481 15 May, 2009 [facility] [address] [address]- 4170 Mar, [facility] [address] [address]- 7966 Feb, [facility] [address] [address]- 3398 Jul, [facility] [address] [address]- 8020 16 May, 2008 [facility] [address] [address]- 2743 14 May, 2006 [facility] [id number] [address]- 5758 Oct, [facility] [address] [address]- 9446 10 Feb, 2003 IMMUNIZATIONS No Known Immunizations SOCIAL HISTORY Never Assessed REASON FOR VISIT Requests return call PLAN OF CARE VITAL SIGNS MEDICATIONS Unknown Medications RESULTS No Results PROCEDURES No Known procedures INSTRUCTIONS MEDICATIONS ADMINISTERED No Known Medications MEDICAL (GENERAL) HISTORY Type Description Date Medical History herpes simplex type II--dx 2011 Medical History anxiety Surgical History appendectomy 08/07/13 Hospitalization History Concussion 11/2015
[2018-09-04] MEDS ORDERED: BUPIVACAINE 0.25% 30 ML (SENSORCAINE) VIAL ONE (10:43)
--- OUTSIDE RECORDS SUMMARY | 2018-09-04 10:43 | XMS REPORT ---
Author Author KYLAH ULYSSES Organization [facility] Address [address] [place] [address] Care Team Providers Care Rn Patient Care Name Role Phone ULYSSES MONTERO Unavailable PROBLEMS Type Condition ICD9-CM Code UGE98-KE Code Onset Dates Condition Status SNOMED Code Problem Contact dermatitis and eczema due to plant L24.7 Active 463221421 Problem HSV-2 (herpes simplex virus 2) infection B00.9 Active 481728994 Problem Allergic rhinitis J30.9 Active 70714945 Problem Depression with anxiety F41.8 Active 416379420 ALLERGIES No Information ENCOUNTERS Encounter Location Date Diagnosis [facility] [id number] [place] [address] 43018- 9734 Nov, HSV-2 (herpes simplex virus 2) infection B00.9 ; Vaginal discharge N89.8 ; Allergic rhinitis J30.9 ; Other specified bacterial agents as the cause of diseases classified elsewhere B96.89 and Acute vaginitis N76.0 [facility] [id number] [place] [address] 98817- 6569 Nov, [facility] [id number] [place] [address] 96738- 7949 Oct, HSV-2 (herpes simplex virus 2) infection B00.9 [facility] [id number] [place] [address] 26986- 2385 Oct, HSV-2 (herpes simplex virus 2) infection B00.9 [facility] [id number] [place] [address] 96251- 9844 Sep, [facility] [address] [id number] [id number] Sep, [facility] [id number] [place] [address] 64086- 5324 Sep, [place] [id number] [place] [address] 46712- 9808 Sep, Screening examination for sexually transmitted disease Z11.3 and Mariella vaginitis B37.3 [place] [id number] [place] [address] 32101- 5072 Jul, Acute non-recurrent frontal sinusitis J01.10 and Impacted cerumen of right ear H61.21 [place] [id number] [place] [address] 38971- 4262 Jun, Annual physical exam Z00.00 ; Routine gynecological examination Z01.419 ; HSV-2 (herpes simplex virus 2) infection B00.9 ; Seasonal allergic rhinitis due to pollen J30.1 ; Vaginal discharge N89.8 ; Allergic rhinitis J30.9 and Contact dermatitis and eczema due to plant L24.[address] 93172- 7157 May, Depression with anxiety F41.8 ; Allergic rhinitis J30.9 ; HSV-2 (herpes simplex virus 2) infection B00.9 ; Contact dermatitis and eczema due to plant L24.7 and Seasonal allergic rhinitis due to pollen J30.1 [place] [id number] [place] [address] 46007- 5868 Mar, [place] [id number] [place] [address] 63348- 6599 Mar, [place] [id number] [place] [address] 39423- 9381 Mar, Pelvic pain R10.2 ; Vaginal discharge N89.8 ; Other specified bacterial agents as the cause of diseases classified elsewhere B96.89 and Acute vaginitis N76.0 [facility] [place] [id number] [place] [address] 68201 -8620 Jun, Body aches R52 and Influenza A J10.1 [facility] [address] [address]90 -9540 Mar, Discharge from the vagina N89.8 ; Unprotected sex Z72.51 and Vaginal candidiasis B37.3 [place] [address] 06254- 3143 Feb, Acute gastritis without hemorrhage, unspecified gastritis type K29.00 and Seasonal allergic rhinitis due to pollen J30.1 [place] [address] 99655- 6820 Dec, Dysuria R30.0 ; Contact dermatitis and eczema due to plant L24.7 ; Herpes simplex vulvovaginitis A60.04 and Abrasion, multiple sites T14.8 [place] [address] 58026- 9490 Nov, Depression with anxiety F41.8 and HSV-2 (herpes simplex virus 2) infection B00.[address] 15623- 8316 Nov, [place] [address] 80810- 6782 May, Depression with anxiety F41.8 [place] [address] 78983- 8613 Apr, [address] 96307- 2231 Apr, Unspecified genital herpes 054.10 [place] [address] 13482- 6057 Mar, Depression with anxiety F41.8 and Allergic rhinitis J30.9 [place] [address] 29490- 2621 Mar, [address] 99341- 6967 Mar, Chlamydia A74.[address] 05043- 8420 Feb, Well woman exam Z01.419 ; Dysmenorrhea N94.6 ; Herpes simplex B00.9 ; Dyspareunia N94.1 ; Anxiety associated with depression F41.8 ; Unprotected sexual intercourse Z72.51 and Marijuana use F12.10 [place] [id number] [place] [address] 37786- 7051 Feb, Depression with anxiety F41.8 and H/O dysmenorrhea Z87.42 [place] [id number] [place] [address] 88099- 3325 Feb, General medical exam Z00.00 [place] [address] 69952- 4425 Jan, [place] [id number] [place] [address] 66608- 0712 Jan, Major depressive disorder, recurrent episode, unspecified severity F33.9 ; Generalized anxiety disorder F41.1 and ADHD, adult residual type F90.8 [place] [id number] [place] [address] 07916- 5589 Jan, Generalized anxiety disorder F41.1 [place] [id number] [place] [address] 39331- 1123 Jan, General medical exam Z00.00 and Anxiety associated with depression F41.8 [place] [id number] [place] [address] 32805- 3216 Sep, Allergic rhinitis 477.9 [place] [id number] [place] [address] 57175- 6520 August, [address] 63867- 6515 August, Cervicitis and endocervicitis 616.0 ; History of chlamydia infection V12.09 and Unspecified genital herpes 054.10 [place] [id number] [place] [address] 98724- 2265 Jul, [facility] [address] [id number] [place] [address]- 2267 13 Jul, 2014 [facility] [place] [facility] [address] [id number] [place] [address]- 8063 Apr, [facility] [place] [facility] [address] [id number] [place] [address]- 5465 Apr, [facility] [place] [facility] [address] [id number] [place] [address]- 0299 Apr, [facility] [place] [facility] [address] [id number] [place] [address]- 8316 Apr, [facility] [place] [facility] [address] [id number] [place] [address]- 3635 Apr, [facility] [place] [facility] [address] [id number] [place] [address]- 2248 Apr, [facility] [place] [facility] [address] [id number] [place] [address]- 9037 Apr, [facility] [place] [facility] [address] [id number] [place] [address]- 5292 Apr, [facility] [place] [facility] [address] [id number] [place] [address]- 7005 Apr, [facility] [place] [facility] [address] [id number] [place] [address]- 8324 Apr, [facility] [place] [facility] [address] [id number], [place] [address]- 9404 Apr, [facility] [place] [facility] [address] [id number] [place] [address]- 4985 Apr, [facility] [place] [facility] [address] [id number] [place] [address]- 0708 Mar, [facility] [place] [facility] [address] [id number] [place] [address]- 6171 Mar, [facility] [place] [facility] [address] [id number], [place] [address]- 9900 Jan, [facility] [place] [facility] [address] [id number] [place] [address]- 6878 07 Jan, 2014 [facility] [place] [facility] [address] [id number] [place] [address]- 3093 26 Dec, 2013 [facility] [place] [facility] [address] [id number] [place] [address]- 3656 26 Dec, 2013 [facility] [place] [facility] [address] [id number] [place] [address]- 5087 20 Dec, 2013 [facility] [place] [facility] [address] [id number] [place] [address]- 4956 19 Dec, 2013 [facility] [place] [facility] [address] [id number] [place] [address]- 9323 19 Dec, 2013 [facility] [place] [facility] [address] [id number] [place] [address]- 0399 17 Dec, 2013 [facility] [place] [facility] [address] [id number] [place] [address]- 5615 17 Dec, 2013 [facility] [place] [facility] [address] [id number] [place] [address]- 1269 Dec, [facility] [place] [facility] [address] [id number] [place] [address]- 4914 Dec, [facility] [place] [facility] [address] [id number] [place] [address]- 6620 Oct, [facility] [place] [facility] [address] [id number] [place] [address]- 1143 Oct, [facility] [place] [facility] [address] [id number] [place] [address]- 1205 Oct, [facility] [place] [facility] [address] [id number] [place] [address]- 2119 Oct, [facility] [place] [facility] [address] [id number] [place] [address]- 6522 Oct, [facility] [place] [facility] [address] [id number] [place] [address]- 1916 Oct, [facility] [place] [facility] [address] [id number] [place] [address]- 7724 Oct, [facility] [place] [facility] [address] [id number] [place] [address]- 5988 Oct, [facility] [place] [facility] [address] [id number] [place] [address]- 6447 Sep, [facility] [place] [facility] [address] [id number] [place] [address]- 5779 Sep, [facility] [place] [facility] [address] [id number] [place] [address]- 4482 August, [facility] [place] [facility] [address] [id number] [place] [address]- 3745 August, [facility] [place] [facility] [address] [id number] [place] [address]- 9439 August, [facility] [place] [facility] [address] [id number] [place] [address]- 9161 August, [facility] [place] [facility] [address] [id number] [place] [address]- 9523 August, [facility] [place] [facility] [address] [id number] [place] [address]- 0544 August, [facility] [place] [facility] [address] [id number] [place] [address]- 6659 August, [facility] [place] [facility] [address] [id number] [place] [address]- 5141 August, [facility] [place] [facility] [address] [id number] [place] [address]- 7681 Jul, [facility] [place] [facility] [address] [id number] [place] [address]- 7903 Jul, [facility] [place] [facility] [address] [id number] [place] [address]- 2310 Jul, [facility] [address] [id number] [place] [address]- 7533 Jul, [facility] [place] [facility] [address] [id number] [place] [address]- 4097 Mar, [facility] [place] [facility] [address] [id number] [place] [address]- 5101 Mar, [facility] [place] [facility] [address] [id number] [place] [address]- 1787 Mar, [facility] [address] [id number] [place] [address]- 5189 Mar, [facility] [place] [facility] [address] [id number] [place] [address]- 3737 Jan, [facility] [place] [facility] [address] [id number] [place] [address]- 6830 Jan, [facility] [place] [facility] [address] [id number] [place] [address]- 6544 Jul, [facility] [place] [facility] [address] [id number] [place] [address]- 1109 Jul, [facility] [place] [facility] [address] [id number], [place] [address]- 2567 Jun, [facility] [place] [facility] [address] [id number], [place] [address]- 4012 Jun, [facility] [place] [facility] [address] [id number], [place] [address]- 2430 25 Jun, 2012 [facility] [place] [facility] [address] [id number] [place] [address]- 1097 15 Jun, 2012 [facility] [place] [facility] [address] [id number], [place] [address]- 6906 13 Jun, 2012 [facility] [place] [facility] [address] [id number] [place] [address]- 8810 12 Jun, 2012 [facility] [place] [facility] [address] [id number] [place] [address]- 8141 08 Jun, 2012 [facility] [address] [id number] [place] [address]- 9332 07 Jun, 2012 [facility] [place] [facility] [address] [id number] [place] [address]- 4661 06 Jun, 2012 [facility] [address] [id number] [place] [address]- 7475 05 Jun, 2012 [facility] [place] [facility] [address] [id number] [place] [address]- 3705 26 May, 2012 [facility] [place] [facility] [address] [id number] [place] [address]- 2112 May, [facility] [place] [facility] [address] [id number] [place] [address]- 9836 14 May, 2012 [facility] [address] [id number] [place] [address]- 3162 05 May, 2012 [facility] [address] [id number] [place] [address]- 7817 05 May, 2012 [facility] [place] [facility] [address] [id number] [place] [address]- 3560 May, [facility] [address] [facility] [id number] [place] [address]- 1848 Apr, [facility] [place] [facility] [address] [id number] [place] [address]- 8742 Apr, [facility] [place] [facility] [address] [id number] [place] [address]- 5740 Apr, [facility] [place] [facility] [address] [id number] [place] [address]- 6155 Apr, [facility] [place] [facility] [address] [id number] [place] [address]- 9166 Mar, [facility] [place] [facility] [address] [id number] [place] 3961 Mar, [facility] [place] [facility] [address] [id number] [place] [address]- 4503 Mar, [facility] [place] [facility] [address] [id number] [place] [address]- 9083 Mar, [facility] [place] [facility] [address] [id number] [place] [address]- 0148 Feb, [facility] [place] [facility] [address] [id number] [place] [address]- 0293 Feb, [facility] [place] [facility] [address] [id number] [place] [address]- 4011 Feb, [facility] [place] [facility] [address] [id number] [place] [address]- 9902 19 Feb, 2012 [facility] [place] [facility] [address] [id number] [place] [address]- 7487 16 Feb, 2012 [facility] [place] [facility] [address] [id number], [place] [address]- 5813 15 Feb, 2012 [facility] [place] [facility] [address] [id number] [place] [address]- 2072 14 Feb, 2012 [facility] [place] [facility] [address] [id number], [place] [address]- 8814 13 Feb, 2012 [facility] [place] [facility] [address] [id number], [place] [address]- 2477 13 Feb, 2012 [facility] [place] [facility] [address] [id number], [place] [address]- 1220 13 Feb, 2012 [facility] [place] [facility] [address] [id number], [place] [address]- 4308 13 Feb, 2012 [facility] [place] [facility] [address] [id number], [place] [address]- 4144 12 Feb, 2012 [facility] [place] [facility] [address] [id number], [place] [address]- 5014 06 Feb, 2012 [facility] [place] [facility] [address] [id number], [place] [address]- 9168 Feb, [facility] [address] [id number] [place] [address]- 4167 Jan, [facility] [place] [facility] [address] [id number] [place] [address]- 2900 Jan, [facility] [id number] [place] [address]- 3461 Jan, [facility] [place] [facility] [address] [facility] [id number] [place] [address]- 1701 August, [facility] [id number] [place] [address], [place] 8477 August, [facility] [place] [facility] [address] [id number] [place] [address]- 7387 Jul, [facility] [address] [place] [address]- 2503 Jul, [facility] [place] [facility] [id number] [place] [address]- 3716 Jul, [facility] [address] [id number] [place] [address]- 7039 Jul, [facility] [place] [facility] [id number] [place] [address]- 5030 Jul, [facility] [id number] [place] [address]- 7330 Jul, [facility] [place] [facility] [address] [facility] [id number], [place] [address]- 6176 Jun, [facility] [place] [facility] [address] [id number] [place] [address]- 1185 May, [facility] [place] [facility] [address] [facility] [id number] [place] [address]- 1652 May, [facility] [place] [facility] [address] [id number] 1615 Mar, [facility] [place] [facility] [address], [place] [address] 2546 07 Feb, 2011 [facility] [address], [place] [address]- 8686 18 Feb, 2010 [facility] [address], [place] [address]- 3456 14 Jan, 2010 [facility] [id number] [place] [address] 58389- 4671 14 Jan, 2010 [facility] [id number] [place] [address] 09861- 4867 15 May, 2009 [facility] [id number] [place] [address] 52248- 8836 Mar, [facility] [address], [place] [address]- 2699 Feb, [facility] [id number] [place] [address] 14499- 7320 Jul, [facility] [address], [place] [address]- 6622 16 May, 2008 [facility] [address], [place] [address]- 5484 14 May, 2006 [facility] [address], [place] [address]- 6707 Oct, [facility] [address], [place] [address]- 5181 10 Feb, 2003 IMMUNIZATIONS No Known Immunizations SOCIAL HISTORY Never Assessed REASON FOR VISIT Medication refill request PLAN OF CARE VITAL SIGNS MEDICATIONS Medication Instructions Dosage Frequency Start Date End Date Duration Status Valtrex 500 mg Orally twice a day 1 tablet 12h 16 May, 2017 90 days Active RESULTS No Results PROCEDURES No Known procedures INSTRUCTIONS MEDICATIONS ADMINISTERED No Known Medications MEDICAL (GENERAL) HISTORY Type Description Date Medical History herpes simplex type II--dx 2011 Medical History anxiety Surgical History appendectomy 08/07/13 Hospitalization History Concussion 11/2015
--- OUTSIDE RECORDS SUMMARY | 2018-09-04 10:43 | XMS REPORT ---
Author Author LAURE PEREIRA [facility] Address [address] [place] [address] Care Team Providers Care English Language Learner Teacher Name Role Phone LAURE PEREIRA Unavailable PROBLEMS Type Condition ICD9-CM Code HSR46-PC Code Onset Dates Condition Status SNOMED Code Problem Contact dermatitis and eczema due to plant L24.7 Active 662065589 Problem HSV-2 (herpes simplex virus 2) infection B00.9 Active 455132924 Problem Allergic rhinitis J30.9 Active 84755570 Problem Depression with anxiety F41.8 Active [id number] ALLERGIES No Information ENCOUNTERS Encounter Location Date Diagnosis [facility] [id number] [place] [address] 85152- 9140 Nov, HSV-2 (herpes simplex virus 2) infection B00.9 ; Vaginal discharge N89.8 ; Allergic rhinitis J30.9 ; Other specified bacterial agents as the cause of diseases classified elsewhere B96.89 and Acute vaginitis N76.0 [facility] [address] [address] Nov, [facility] [id number] [place] [address] 16287- 8352 Oct, HSV-2 (herpes simplex virus 2) infection B00.9 [facility] [id number] [place] [address] 62853- 2173 Oct, HSV-2 (herpes simplex virus 2) infection B00.9 [facility] [id number] [place] [address] 71399- 2660 Sep, [facility] [address] [id number] [id number] Sep, [facility] [id number] [place] [address] 50483- 8354 Sep, [place] [address] [address]- [address] Sep, Screening examination for sexually transmitted disease Z11.3 and Mariella vaginitis B37.3 [place] [id number] [place] [address] 38885- 2925 Jul, Acute non-recurrent frontal sinusitis J01.10 and Impacted cerumen of right ear H61.21 [place] [id number] [place] [address] 75496- 1249 Jun, Annual physical exam Z00.00 ; Routine gynecological examination Z01.419 ; HSV-2 (herpes simplex virus 2) infection B00.9 ; Seasonal allergic rhinitis due to pollen J30.1 ; Vaginal discharge N89.8 ; Allergic rhinitis J30.9 and Contact dermatitis and eczema due to plant L24.[address] [address]09- 8598 16 May, 2017 Depression with anxiety F41.8 ; Allergic rhinitis J30.9 ; HSV-2 (herpes simplex virus 2) infection B00.9 ; Contact dermatitis and eczema due to plant L24.7 and Seasonal allergic rhinitis due to pollen J30.1 [place] [address] [place] [address] 84828- 6239 Mar, [place] [id number] [place] [address] 57609- 0724 Mar, [address] 01893- 5883 Mar, Pelvic pain R10.2 ; Vaginal discharge N89.8 ; Other specified bacterial agents as the cause of diseases classified elsewhere B96.89 and Acute vaginitis N76.0 [facility] [id number] [place] [address] 45060 -1641 Jun, Body aches R52 and Influenza A J10.1 [facility] [address] [address]27 Mar, Discharge from the vagina N89.8 ; Unprotected sex Z72.51 and Vaginal candidiasis B37.3 [place] [address] 40826- 0465 Feb, Acute gastritis without hemorrhage, unspecified gastritis type K29.00 and Seasonal allergic rhinitis due to pollen J30.1 [place] [address] 57129- 1378 08 Dec, 2015 Dysuria R30.0 ; Contact dermatitis and eczema due to plant L24.7 ; Herpes simplex vulvovaginitis A60.04 and Abrasion, multiple sites T14.8 [place] [address] 95377- 2937 Nov, Depression with anxiety F41.8 and HSV-2 (herpes simplex virus 2) infection B00.9 [place] [address] 59448- 0108 Nov, [place] [address] 01107- 7632 May, Depression with anxiety F41.8 [place] [address] 65780- 5039 Apr, [place] [address] 09180- 2526 Apr, Unspecified genital herpes 054.10 [place] [address] 68385- 3041 Mar, Depression with anxiety F41.8 and Allergic rhinitis J30.9 [place] [address] 56620- 9971 Mar, [place] [address] 52970- 1752 Mar, Chlamydia A74.9 [place] [address] 87882- 0276 Feb, Well woman exam Z01.419 ; Dysmenorrhea N94.6 ; Herpes simplex B00.9 ; Dyspareunia N94.1 ; Anxiety associated with depression F41.8 ; Unprotected sexual intercourse Z72.51 and Marijuana use F12.10 [place] [id number] [place] [address] 45150- 5469 Feb, Depression with anxiety F41.8 and H/O dysmenorrhea Z87.42 [place] [address] 20498- 3818 Feb, General medical exam Z00.00 [place] [address] 46998- 7181 Jan, [address] 28545- 7176 Jan, Major depressive disorder, recurrent episode, unspecified severity F33.9 ; Generalized anxiety disorder F41.1 and ADHD, adult residual type F90.8 [place] [id number] [place] [address] 23188- 5396 Jan, Generalized anxiety disorder F41.1 [place] [id number] [place] [address] 82636- 8517 Jan, General medical exam Z00.00 and Anxiety associated with depression F41.8 [place] [id number] [place] [address] 80344- 5871 Sep, Allergic rhinitis 477.9 [place] [id number] [place] [address] 06501- 3537 August, [place] [address] 55645- 5141 August, Cervicitis and endocervicitis 616.0 ; History of chlamydia infection V12.09 and Unspecified genital herpes 054.10 [place] [id number] [place] [address] 54223- 7124 14 Jul, 2014 [facility] [place] [facility] [address] [id number] [place] [address]- 7851 Jul, [facility] [place] [facility] [address] [id number] [place] [address]- 5864 Apr, [facility] [place] [facility] [address] [id number] [place] [address]- 0866 Apr, [facility] [place] [facility] [address] [id number] [place] [address]- 3832 Apr, [facility] [place] [facility] [address] [id number] [place] [address]- 7497 Apr, [facility] [place] [facility] [address] [id number] [place] [address]- 0493 Apr, [facility] [place] [facility] [address] [id number] [place] [address]- 3091 Apr, [facility] [place] [facility] [address] [id number] [place] [address]- 6649 Apr, [facility] [place] [facility] [address] [id number] [place] [address]- 8499 Apr, [facility] [place] [facility] [address] [id number] [place] [address]- 5344 Apr, [facility] [place] [facility] [address] [id number] [address]- 5151 Apr, [facility] [place] [facility] [address] [id number][place] [address]- 6872 Apr, [facility] [place] [facility] [address] [id number] [place] [address]- 2189 Apr, [facility] [place] [facility] [address] [id number] [address]- 5323 Mar, [facility] [place] [facility] [address] [id number] [place] [address]- 9639 Mar, [facility] [place] [facility] [address] [id number] [place] [address]- 5794 07 Jan, 2013 [facility] [place] [facility] [address] [id number] [place] [address]- 6544 07 Jan, 2014 [facility] [place] [facility] [address] [id number] [place] [address]- 2826 26 Dec, 2013 [facility] [place] [facility] [address] [id number] [place] [address]- 2856 26 Dec, 2013 [facility] [place] [facility] [address] [id number] [place] [address]- 9135 20 Dec, 2013 [facility] [place] [facility] [address] [id number] [place] [address]- 0604 19 Dec, 2013 [facility] [place] [facility] [address] [id number] [place] [address]- 1261 19 Dec, 2013 [facility] [place] [facility] [address] [id number] [place] [address]- 1350 17 Dec, 2013 [facility] [place] [facility] [address] [id number] [place] [address]- 2198 17 Dec, 2013 [facility] [place] [facility] [address] [id number] [place] [address]- 8475 12 Dec, 2013 [facility] [place] [facility] [address] [id number] [place] [address]- 5751 12 Dec, 2013 [facility] [place] [facility] [address] [id number] [place] [address]- 8587 Oct, [facility] [place] [facility] [address] [id number] [place] [address]- 7410 Oct, [facility] [place] [facility] [address] [id number] [place] [address]- 5807 Oct, [facility] [place] [facility] [address] [id number] [place] [address]- 9229 Oct, [facility] [place] [facility] [address] [id number] [place] [address]- 2858 Oct, [facility] [place] [facility] [address] [id number] [place] [address]- 1752 Oct, [facility] [place] [facility] [address] [id number] [place] [address]- 3280 Oct, [facility] [place] [facility] [address] [id number] [place] [address]- 2244 Oct, [facility] [place] [facility] [address] [id number] [place] [address]- 2317 Sep, [facility] [place] [facility] [address] [id number] [place] [address]- 4580 Sep, [facility] [place] [facility] [address] [id number] [place] [address]- 4352 August, [facility] [place] [facility] [address] [id number] [place] [address]- 0664 August, [facility] [place] [facility] [address] [id number] [place] [address]- 2877 August, [facility] [place] [facility] [address] [id number] [place] [address]- 5518 August, [facility] [place] [facility] [address] [id number] [place] [address]- 7234 August, [facility] [place] [facility] [address] [id number] [place] [address]- 3041 August, [facility] [place] [facility] [address] [id number] [place] [address]- 0009 August, [facility] [place] [facility] [address] [id number] [place] [address]- 2432 August, [facility] [place] [facility] [address] [id number] [place] [address]- 5933 Jul, [facility] [place] [facility] [address] [id number] [place] [address]- 6798 Jul, [facility] [place] [facility] [address] [id number] [place] [address]- 8046 Jul, [facility] [address] [id number] [place] 8806 Jul, [facility] [place] [facility] [address] [id number] [place] [address]- 1388 Mar, [facility] [place] [facility] [address] [id number] [place] 5343 Mar, [facility] [place] [facility] [address] [id number] [place] [address]- 4781 Mar, [facility] [address] [id number] [place] [address]- 2049 Mar, [facility] [place] [facility] [address] [id number] [place] [address]- 9099 Jan, [facility] [address] [id number] [place] [address]- 0823 Jan, [facility] [place] [facility] [address] [id number] [place] [address]- 6604 Jul, [facility] [address] [id number] [place] [address]- 4956 Jul, [facility] [place] [facility] [address] [id number] [place] [address]- 8230 Jun, [facility] [place] [facility] [address] [id number], [place] [address]- 9622 Jun, [facility] [place] [facility] [address] [id number], [place] [address]- 7415 25 Jun, 2012 [facility] [place] [facility] [address] [id number] [place] [address]- 5682 15 Jun, 2012 [facility] [place] [facility] [address] [id number] 8302 13 Jun, 2012 [facility] [place] [facility] [address] [id number] [place] 0722 12 Jun, 2012 [facility] [place] [facility] [address] [id number] [place] [address]- 2991 08 Jun, 2012 [facility] [address] [id number] [place] [address]- 7185 07 Jun, 2012 [facility] [place] [facility] [address] [id number] [place] [address] 2546 06 Jun, 2012 [facility] [address] [id number] [place] [address]- 7332 05 Jun, 2012 [facility] [place] [facility] [address] [id number] [place] [address]- 4704 26 May, 2012 [facility] [place] [facility] [address] [id number] [place] [address]- 2426 May, [facility] [place] [facility] [address] [id number] [place] [address]- 9626 14 May, 2012 [facility] [place] [facility] [address] [id number] [place] [address] 2541 May, [facility] [address] [id number] [place] [address]- 0088 May, [facility] [place] [facility] [address] [id number] [place] [address]- 3063 May, [facility] [address] [id number] [place] [address]- 1196 Apr, [facility] [place] [facility] [address] [id number] [place] [address]- 4962 Apr, [facility] [place] [facility] [address] [id number] [place] [address]- 4282 Apr, [facility] [place] [facility] [address] [id number] [place] [address] 254 Apr, [facility] [place] [facility] [address] [id number] [place] [address]- 2541 Mar, [facility] [place] [facility] [address] [id number] [place] [address]- 4605 Mar, [facility] [place] [facility] [address] [id number] [place] [address]- 4180 Mar, [facility] [place] [facility] [address] [id number] [place] [address]- 1397 Mar, [facility] [place] [facility] [address] [id number] [place] [address]- 0043 Feb, [facility] [place] [facility] [address] [id number] [place] [address]- 1744 Feb, [facility] [place] [facility] [address] [id number] [place] [address]- 0291 Feb, [facility] [place] [facility] [address] [id number] [place] [address]- 8407 19 Feb, 2012 [facility] [place] [facility] [address] [id number] [place] [address]- 4230 16 Feb, 2012 [facility] [place] [facility] [address] [id number], [place] [address]- 1007 15 Feb, 2012 [facility] [place] [facility] [address] [id number][place] [address]- 8758 14 Feb, 2012 [facility] [place] [facility] [address] [id number][place] [address]- 4401 13 Feb, 2012 [facility] [place] [facility] [address] [id number], [place] [address]- 8979 13 Feb, 2012 [facility] [place] [facility] [address] [id number], [place] [address]- 2530 13 Feb, 2012 [facility] [place] [facility] [address] [id number], [place] [address]- 3170 13 Feb, 2012 [facility] [place] [facility] [address] [id number], [place] [address]- 1770 12 Feb, 2012 [facility] [place] [facility] [address] [id number][place] [address]- 4498 06 Feb, 2012 [facility] [place] [facility] [address] [id number] [place] [address]- 8759 Feb, [facility] [address] [id number] [place] [address]- 1718 Jan, [facility] [place] [facility] [address] [id number] [place] 4991 Jan, [facility] [place] [facility] [address] [id number] [place] [address]- 7039 Jan, [facility] [place] [facility] [address] [id number] [place] [address]- 6534 August, [facility] [place] [facility] [address] [id number] [place] 5909 August, [facility] [place] [facility] [address] [id number] [place] [address]- 2408 Jul, [facility] [place] [facility] [address] [id number] [place] [address]- 1409 Jul, [facility] [place] [facility] [address] [id number] [place] [address]- 6337 Jul, [facility] [place] [facility] [address] [id number] [place] [address]- 4186 Jul, [facility] [address] [facility] [id number] [place] [address]- 4139 Jul, [facility] [place] [facility] [address] [id number] [place] [address]- 3829 Jul, [facility] [place] [facility] [address] [id number] [place] [address]- 3763 Jun, [facility] [place] [facility] [address] [id number] [place] [address]- 8831 May, [facility] [place] [facility] [address] [id number] [place] [address]- 0725 May, [facility] [place] [facility] [address] [id number] [place] [address]- 6931 Mar, [facility] [address] [address]- 5946 07 Feb, 2011 [facility] [address] [address]- 2546 18 Feb, 2010 [facility] [address] [address]- 9596 14 Jan, 2010 [facility] [address] [address]- 2546 14 Jan, 2010 [facility] [address] [address]- 1466 15 May, 2009 [facility] [address] [place] [address] 46840- 2546 02 Mar, 2009 [facility] [address] [address]- 9826 Feb, [facility] [address] [address]- 4346 Jul, [facility] [address] [address]- 1896 16 May, 2008 [facility] [address] [address]- 6126 14 May, 2006 [facility] [address] [address]- 9466 Oct, [facility] [id number] [address]- 2286 10 Feb, 2003 IMMUNIZATIONS No Known Immunizations SOCIAL HISTORY Never Assessed REASON FOR VISIT STD treatment (STATE)-[facility] PLAN OF CARE VITAL SIGNS MEDICATIONS No Known Medications RESULTS No Results PROCEDURES No Known procedures INSTRUCTIONS MEDICATIONS ADMINISTERED No Known Medications MEDICAL (GENERAL) HISTORY Type Description Date Medical History herpes simplex type II--dx 2011 Medical History anxiety Surgical History appendectomy 08/07/13 Hospitalization History Concussion 11/2015
--- OUTSIDE RECORDS SUMMARY | 2018-09-04 10:44 | XMS REPORT ---
Author Author LAURE PEREIRA [facility] Address [address] [place] [address] Care Team Providers Care Photograph Developer Name Role Phone LAURE PEREIRA Unavailable PROBLEMS Type Condition ICD9-CM Code [id number] Code Onset Dates Condition Status SNOMED Code Problem Contact dermatitis and eczema due to plant L24.7 Active 903171186 Problem HSV-2 (herpes simplex virus 2) infection B00.9 Active 134278975 Problem Allergic rhinitis J30.9 Active 09144184 Problem Depression with anxiety F41.8 Active [id number] ALLERGIES No Information ENCOUNTERS Encounter Location Date Diagnosis [facility] [id number] [place] [address] 66405- 6604 Nov, HSV-2 (herpes simplex virus 2) infection B00.9 ; Vaginal discharge N89.8 ; Allergic rhinitis J30.9 ; Other specified bacterial agents as the cause of diseases classified elsewhere B96.89 and Acute vaginitis N76.0 [facility] [address] [address] Nov, [facility] [id number] [place] [address] 64648- 8378 Oct, HSV-2 (herpes simplex virus 2) infection B00.9 [facility] [id number] [place] [address] 34963- 9601 Oct, HSV-2 (herpes simplex virus 2) infection B00.9 [facility] [id number] [place] [address] 16692- 4315 Sep, [facility] [address] [id number] [id number] Sep, [facility] [id number] [place] [address] 33885- 1394 Sep, [place] [address] [address]- [address] Sep, Screening examination for sexually transmitted disease Z11.3 and Mariella vaginitis B37.3 [place] [id number] [place] [address] 01344- 3631 Jul, Acute non-recurrent frontal sinusitis J01.10 and Impacted cerumen of right ear H61.21 [place] [id number] [place] [address] 25077- 6832 Jun, Annual physical exam Z00.00 ; Routine gynecological examination Z01.419 ; HSV-2 (herpes simplex virus 2) infection B00.9 ; Seasonal allergic rhinitis due to pollen J30.1 ; Vaginal discharge N89.8 ; Allergic rhinitis J30.9 and Contact dermatitis and eczema due to plant L24.[address] [address]- [address] 16 May, 2017 Depression with anxiety F41.8 ; Allergic rhinitis J30.9 ; HSV-2 (herpes simplex virus 2) infection B00.9 ; Contact dermatitis and eczema due to plant L24.7 and Seasonal allergic rhinitis due to pollen J30.1 [place] [id number] [place] [address] 79587- 7949 Mar, [place] [id number] [place] [address] 81211- 1282 Mar, [address] [address]271- 3687 Mar, Pelvic pain R10.2 ; Vaginal discharge N89.8 ; Other specified bacterial agents as the cause of diseases classified elsewhere B96.89 and Acute vaginitis N76.0 [facility] [id number] [place] [address] 78411 -0930 Jun, Body aches R52 and Influenza A J10.1 [facility] [address] [address] -9729 Mar, Discharge from the vagina N89.8 ; Unprotected sex Z72.51 and Vaginal candidiasis B37.3 [place] [address] 08945- 7023 Feb, Acute gastritis without hemorrhage, unspecified gastritis type K29.00 and Seasonal allergic rhinitis due to pollen J30.1 [place] [address] 04791- 0615 08 Dec, 2015 Dysuria R30.0 ; Contact dermatitis and eczema due to plant L24.7 ; Herpes simplex vulvovaginitis A60.04 and Abrasion, multiple sites T14.8 [place] [address] 13181- 4394 Nov, Depression with anxiety F41.8 and HSV-2 (herpes simplex virus 2) infection B00.9 [place] [address] 51352- 2753 Nov, [place] [address] 54707- 0095 May, Depression with anxiety F41.8 [place] [address] 56769- 0821 Apr, [place] [address] 26557- 9419 Apr, Unspecified genital herpes 054.10 [place] [address] 56660- 5990 Mar, Depression with anxiety F41.8 and Allergic rhinitis J30.9 [place] [address] 60481- 7859 Mar, [place] [address] 61312- 7998 Mar, Chlamydia A74.9 [place] [address] 75561- 0355 Feb, Well woman exam Z01.419 ; Dysmenorrhea N94.6 ; Herpes simplex B00.9 ; Dyspareunia N94.1 ; Anxiety associated with depression F41.8 ; Unprotected sexual intercourse Z72.51 and Marijuana use F12.10 [place] [id number] [place] [address] 68132- 9887 Feb, Depression with anxiety F41.8 and H/O dysmenorrhea Z87.42 [place] [address] 07654- 9224 Feb, General medical exam Z00.00 [place] [address] 07894- 1488 Jan, [address] 6[address]24- 3586 Jan, Major depressive disorder, recurrent episode, unspecified severity F33.9 ; Generalized anxiety disorder F41.1 and ADHD, adult residual type F90.8 [place] [id number] [place] [address] 38431- 0975 Jan, Generalized anxiety disorder F41.1 [place] [id number] [place] [address] 19062- 7613 Jan, General medical exam Z00.00 and Anxiety associated with depression F41.8 [place] [id number] [place] [address] 45686- 9984 Sep, Allergic rhinitis 477.9 [place] [id number] [place] [address] 10718- 7882 August, [place] [address] 73572- 4232 August, Cervicitis and endocervicitis 616.0 ; History of chlamydia infection V12.09 and Unspecified genital herpes 054.10 [place] [id number] [place] [address] 77326- 7014 14 Jul, 2014 [facility] [place] [facility] [address] [id number] [place] [address]- 4287 Jul, [facility] [place] [facility] [address] [id number] [place] [address]- 0610 Apr, [facility] [place] [facility] [address] [id number] [place] [address]- 7777 Apr, [facility] [place] [facility] [address] [id number] [place] [address]- 8289 Apr, [facility] [place] [facility] [address] [id number] [place] [address]- 6067 Apr, [facility] [place] [facility] [address] [id number] [place] [address]- 7607 Apr, [facility] [place] [facility] [address] [id number] [place] [address]- 6056 Apr, [facility] [place] [facility] [address] [id number] [place] [address]- 6618 Apr, [facility] [place] [facility] [address] [id number] [place] [address]- 3421 Apr, [facility] [place] [facility] [address] [id number] [place] [address]- 0322 Apr, [facility] [place] [facility] [address] [id number] [address]- 1442 Apr, [facility] [place] [facility] [address] [id number] [address]- 3599 Apr, [facility] [place] [facility] [address] [id number] [place] [address]- 6677 Apr, [facility] [place] [facility] [address] [id number] [address]- 1149 Mar, [facility] [place] [facility] [address] [id number] [place] [address]- 9270 Mar, [facility] [place] [facility] [address] [id number] [place] [address]- 9156 07 Jan, 2013 [facility] [place] [facility] [address] [id number] [place] [address]- 1166 07 Jan, 2014 [facility] [place] [facility] [address] [id number] [place] [address]- 0776 26 Dec, 2013 [facility] [place] [facility] [address] [id number] [place] [address]- 8126 26 Dec, 2013 [facility] [place] [facility] [address] [id number] [place] [address]- 8542 20 Dec, 2013 [facility] [place] [facility] [address] [id number] [place] [address]- 4453 19 Dec, 2013 [facility] [place] [facility] [address] [id number] [place] [address]- 8554 19 Dec, 2013 [facility] [place] [facility] [address] [id number] [place] [address]- 0660 17 Dec, 2013 [facility] [place] [facility] [address] [id number] [place] [address]- 1680 17 Dec, 2013 [facility] [place] [facility] [address] [id number] [place] [address]- 5749 12 Dec, 2013 [facility] [place] [facility] [address] [id number] [place] [address]- 8268 12 Dec, 2013 [facility] [place] [facility] [address] [id number] [place] [address]- 2740 Oct, [facility] [place] [facility] [address] [id number] [place] [address]- 1885 Oct, [facility] [place] [facility] [address] [id number] [place] [address]- 0250 Oct, [facility] [place] [facility] [address] [id number] [place] [address]- 6129 Oct, [facility] [place] [facility] [address] [id number] [place] [address]- 2177 Oct, [facility] [place] [facility] [address] [id number] [place] [address]- 6553 Oct, [facility] [place] [facility] [address] [id number] [place] [address]- 3386 Oct, [facility] [place] [facility] [address] [id number] [place] [address]- 2227 Oct, [facility] [place] [facility] [address] [id number] [place] [address]- 1671 Sep, [facility] [place] [facility] [address] [id number] [place] [address]- 7571 Sep, [facility] [place] [facility] [address] [id number] [place] [address]- 1447 August, [facility] [place] [facility] [address] [id number] [place] [address]- 2169 August, [facility] [place] [facility] [address] [id number] [place] [address]- 2177 August, [facility] [place] [facility] [address] [id number] [place] [address]- 8203 August, [facility] [place] [facility] [address] [id number] [place] [address]- 4320 August, [facility] [place] [facility] [address] [id number] [place] [address]- 7230 August, [facility] [place] [facility] [address] [id number] [place] [address]- 6780 August, [facility] [place] [facility] [address] [id number] [place] [address]- 6932 August, [facility] [place] [facility] [address] [id number] [place] [address]- 0223 Jul, [facility] [place] [facility] [address] [id number] [place] [address]- 0856 Jul, [facility] [place] [facility] [address] [id number] [place] [address]- 6796 Jul, [facility] [address] [id number] [place]284 Jul, [facility] [place] [facility] [address] [id number] [place] [address]- 6856 Mar, [facility] [place] [facility] [address] [id number] [place] 2297 Mar, [facility] [place] [facility] [address] [id number] [place] [address]- 5606 Mar, [facility] [address] [id number] [place] [address]- 6623 Mar, [facility] [place] [facility] [address] [id number] [place] [address]- 3330 Jan, [facility] [address] [id number] [place] [address]- 2607 Jan, [facility] [place] [facility] [address] [id number] [place] [address]- 1543 Jul, [facility] [address] [id number] [place] [address]- 8669 Jul, [facility] [place] [facility] [address] [id number] [place] [address]- 3765 Jun, [facility] [place] [facility] [address] [id number] [address]- 8350 Jun, [facility] [place] [facility] [address] [id number] [place] [address]- 0922 25 Jun, 2012 [facility] [place] [facility] [address] [id number] [place] [address]- 7297 15 Jun, 2012 [facility] [place] [facility] [address] [id number] [place] 0927 13 Jun, 2012 [facility] [place] [facility] [address] [id number] [place] 3345 12 Jun, 2012 [facility] [place] [facility] [address] [id number] [place] [address]- 6973 08 Jun, 2012 [facility] [address] [id number] [place] [address]- 7879 07 Jun, 2012 [facility] [place] [facility] [address] [id number] [place] [address] 2546 06 Jun, 2012 [facility] [address] [id number] [place] [address]- 1748 05 Jun, 2012 [facility] [place] [facility] [address] [id number] [place] [address]- 8927 26 May, 2012 [facility] [place] [facility] [address] [id number] [place] [address]- 2356 May, [facility] [place] [facility] [address] [id number] [place] [address]- 1121 14 May, 2012 [facility] [place] [facility] [address] [id number] [place] [address] 2549 May, [facility] [address] [id number] [place] [address]- 0740 May, [facility] [place] [facility] [address] [id number] [place] [address]- 0981 May, [facility] [address] [id number] [place] [address]- 1490 Apr, [facility] [place] [facility] [address] [id number] [place] [address]- 3463 Apr, [facility] [place] [facility] [address] [id number] [place] [address]- 5156 Apr, [facility] [place] [facility] [address] [id number] [place] [address] 2542 Apr, [facility] [place] [facility] [address] [id number] [place] [address]- 2545 Mar, [facility] [place] [facility] [address] [id number] [place] [address]- 3173 Mar, [facility] [place] [facility] [address] [id number] [place] [address]- 7199 Mar, [facility] [place] [facility] [address] [id number] [place] [address]- 7428 Mar, [facility] [place] [facility] [address] [id number] [place] [address]- 1173 Feb, [facility] [place] [facility] [address] [id number] [place] [address]- 3949 Feb, [facility] [place] [facility] [address] [id number] [place] [address]- 0650 Feb, [facility] [place] [facility] [address] [id number] [place] [address]- 7712 19 Feb, 2012 [facility] [place] [facility] [address] [id number] [place] [address]- 2807 16 Feb, 2012 [facility] [place] [facility] [address] [id number] [address]- 7971 15 Feb, 2012 [facility] [place] [facility] [address] [id number] [address]- 6223 14 Feb, 2012 [facility] [place] [facility] [address] [id number] [place] [address]- 8640 13 Feb, 2012 [facility] [place] [facility] [address] [id number] [address]- 4990 13 Feb, 2012 [facility] [place] [facility] [address] [id number] [place] [address]- 0383 13 Feb, 2012 [facility] [place] [facility] [address] [id number] [address]- 9376 13 Feb, 2012 [facility] [place] [facility] [address] [id number] [address]- 9801 12 Feb, 2012 [facility] [place] [facility] [address] [id number] [address]- 9086 06 Feb, 2012 [facility] [place] [facility] [address] [id number] [place] [address]- 5944 Feb, [facility] [address] [id number] [place] [address]- 1761 Jan, [facility] [place] [facility] [address] [id number] [place] 5366 Jan, [facility] [place] [facility] [address] [id number] [place] [address]- 1054 Jan, [facility] [place] [facility] [address] [id number] [place] [address]- 4706 August, [facility] [place] [facility] [address] [id number] [place] [address]294 August, [facility] [place] [facility] [address] [id number] [place] [address]- 2824 Jul, [facility] [place] [facility] [address] [id number] [place] [address]- 7363 Jul, [facility] [place] [facility] [address] [id number] [place] [address]- 4213 Jul, [facility] [place] [facility] [address] [id number] [place] [address]- 3839 Jul, [facility] [address] [facility] [id number] [place] [address]- 3802 Jul, [facility] [place] [facility] [address] [id number] [place] [address]- 2415 Jul, [facility] [place] [facility] [address] [id number] [place] [address]- 5583 Jun, [facility] [place] [facility] [address] [id number] [place] [address]- 0532 May, [facility] [place] [facility] [address] [id number] [place] [address]- 6588 May, [facility] [place] [facility] [address] [id number] [place] [address]- 9430 Mar, [facility] [address] [address]- 0366 07 Feb, 2011 [facility] [address] [address]- 2546 Feb, [facility] [address] [address]- 3576 14 Jan, 2010 [facility] [address] [address]- 1356 14 Jan, 2010 [facility] [address] [address]- 3826 15 May, 2009 [facility] [id number] [place] [address] 10736- 9876 Mar, [facility] [address] [address]- 3146 Feb, [facility] [id number] [place] [address] 88753- 2526 Jul, [facility] [address] [address]- 5226 16 May, 2008 [facility] [address] [address]- 1286 14 May, 2006 [facility] [address] [address]- 0796 Oct, [facility] [id number] [address]- 8116 Feb, IMMUNIZATIONS No Known Immunizations SOCIAL HISTORY Never Assessed REASON FOR VISIT new med orders PLAN OF CARE VITAL SIGNS MEDICATIONS Medication Instructions Dosage Frequency Start Date End Date Duration Status Azithromycin 500 mg Orally Once as directed Sep, 1 dose Active RESULTS No Results PROCEDURES No Known procedures INSTRUCTIONS MEDICATIONS ADMINISTERED No Known Medications MEDICAL (GENERAL) HISTORY Type Description Date Medical History herpes simplex type II--dx 2011 Medical History anxiety Surgical History appendectomy 08/07/13 Hospitalization History Concussion 11/2015
--- OUTSIDE RECORDS SUMMARY | 2018-09-04 10:44 | XMS REPORT ---
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 Role Phone LAURE PEREIRA Unavailable PROBLEMS Type Condition ICD9-CM Code [id number] Code Onset Dates Condition Status SNOMED Code Problem Contact dermatitis and eczema due to plant L24.7 Active 844311664 Problem HSV-2 (herpes simplex virus 2) infection B00.9 Active 676432150 Problem Allergic rhinitis J30.9 Active 72543406 Problem Depression with anxiety F41.8 Active [id number] ALLERGIES No Information ENCOUNTERS Encounter Location Date Diagnosis [facility] [id number] [place] [address]29- 5869 Nov, HSV-2 (herpes simplex virus 2) infection B00.9 ; Vaginal discharge N89.8 ; Allergic rhinitis J30.9 ; Other specified bacterial agents as the cause of diseases classified elsewhere B96.89 and Acute vaginitis N76.0 [facility] [address] [address] Nov, [facility] [id number] [place] [address] 17517- 4731 Oct, HSV-2 (herpes simplex virus 2) infection B00.9 [facility] [id number] [place] [address] 48957- 8902 Oct, HSV-2 (herpes simplex virus 2) infection B00.9 [facility] [id number] [place] [address] 45265- 3297 Sep, [facility] [address] [id number] [id number] Sep, [facility] [id number] [place] [address] 31495- 4478 Sep, [place] [address] [address]- [address] Sep, Screening examination for sexually transmitted disease Z11.3 and Mariella vaginitis B37.3 [place] [id number] [place] [address] 03992- 9116 Jul, Acute non-recurrent frontal sinusitis J01.10 and Impacted cerumen of right ear H61.21 [place] [id number] [place] [address] 51752- 7278 Jun, Annual physical exam Z00.00 ; Routine gynecological examination Z01.419 ; HSV-2 (herpes simplex virus 2) infection B00.9 ; Seasonal allergic rhinitis due to pollen J30.1 ; Vaginal discharge N89.8 ; Allergic rhinitis J30.9 and Contact dermatitis and eczema due to plant L24.[address] [address]- [address] 16 May, 2017 Depression with anxiety F41.8 ; Allergic rhinitis J30.9 ; HSV-2 (herpes simplex virus 2) infection B00.9 ; Contact dermatitis and eczema due to plant L24.7 and Seasonal allergic rhinitis due to pollen J30.1 [place] [id number] [place] [address] 04413- 9836 Mar, [place] [id number] [place] [address] 68481- 5206 Mar, [address] [address]- 2749 Mar, Pelvic pain R10.2 ; Vaginal discharge N89.8 ; Other specified bacterial agents as the cause of diseases classified elsewhere B96.89 and Acute vaginitis N76.0 [facility] [address] [id number] [place] [address] 22273 -7077 Jun, Body aches R52 and Influenza A J10.1 [facility] [address] [address] -2451 Mar, Discharge from the vagina N89.8 ; Unprotected sex Z72.51 and Vaginal candidiasis B37.3 [place] [address] 90139- 1220 Feb, Acute gastritis without hemorrhage, unspecified gastritis type K29.00 and Seasonal allergic rhinitis due to pollen J30.1 [place] [address] 27673- 7875 08 Dec, 2015 Dysuria R30.0 ; Contact dermatitis and eczema due to plant L24.7 ; Herpes simplex vulvovaginitis A60.04 and Abrasion, multiple sites T14.8 [place] [address] 19559- 4608 Nov, Depression with anxiety F41.8 and HSV-2 (herpes simplex virus 2) infection B00.9 [place] [address] 44293- 0344 Nov, [place] [address] 42687- 2903 May, Depression with anxiety F41.8 [place] [address] 69211- 5373 Apr, [place] [address] 01408- 6470 Apr, Unspecified genital herpes 054.10 [place] [address] 86174- 3656 Mar, Depression with anxiety F41.8 and Allergic rhinitis J30.9 [place] [address] 55860- 3801 Mar, [place] [address] 96837- 6084 Mar, Chlamydia A74.9 [place] [address] 58735- 6619 Feb, Well woman exam Z01.419 ; Dysmenorrhea N94.6 ; Herpes simplex B00.9 ; Dyspareunia N94.1 ; Anxiety associated with depression F41.8 ; Unprotected sexual intercourse Z72.51 and Marijuana use F12.10 [place] [id number] [place] [address] 47147- 3209 Feb, Depression with anxiety F41.8 and H/O dysmenorrhea Z87.42 [place] [address] 71065- 5868 Feb, General medical exam Z00.00 [place] [address] 04958- 6986 Jan, [address] 6[address]- 7931 Jan, Major depressive disorder, recurrent episode, unspecified severity F33.9 ; Generalized anxiety disorder F41.1 and ADHD, adult residual type F90.8 [place] [id number] [place] [address] 56633- 3116 Jan, Generalized anxiety disorder F41.1 [place] [id number] [place] [address] 34650- 1424 Jan, General medical exam Z00.00 and Anxiety associated with depression F41.8 [place] [id number] [place] [address] 81477- 7746 Sep, Allergic rhinitis 477.9 [place] [id number] [place] [address] 74732- 0341 August, [place] [address] 87076- 2410 August, Cervicitis and endocervicitis 616.0 ; History of chlamydia infection V12.09 and Unspecified genital herpes 054.10 [place] [id number] [place] [address] 19478- 3925 14 Jul, 2014 [facility] [place] [facility] [address] [id number] [place] [address]- 7648 Jul, [facility] [place] [facility] [address] [id number] [place] [address]- 9436 Apr, [facility] [place] [facility] [address] [id number] [place] [address]- 5277 Apr, [facility] [place] [facility] [address] [id number] [place] [address]- 0259 Apr, [facility] [place] [facility] [address] [id number] [place] [address]- 4249 Apr, [facility] [place] [facility] [address] [id number] [place] [address]- 3047 Apr, [facility] [place] [facility] [address] [id number] [place] [address]- 7510 Apr, [facility] [place] [facility] [address] [id number] [place] [address]- 3092 Apr, [facility] [place] [facility] [address] [id number] [place] [address]- 3558 Apr, [facility] [place] [facility] [address] [id number] [place] [address]- 5387 Apr, [facility] [place] [facility] [address] [id number], [place] [address]- 7929 Apr, [facility] [place] [facility] [address] [id number], [place] [address]- 1611 Apr, [facility] [place] [facility] [address] [id number] [place] [address]- 7286 Apr, [facility] [place] [facility] [address] [id number], [place] [address]- 1257 Mar, [facility] [place] [facility] [address] [id number] [place] [address]- 1737 Mar, [facility] [place] [facility] [address] [id number] [place] [address]- 8464 07 Jan, 2013 [facility] [place] [facility] [address] [id number] [place] [address]- 4434 07 Jan, 2014 [facility] [place] [facility] [address] [id number] [place] [address]- 1396 26 Dec, 2013 [facility] [place] [facility] [address] [id number] [place] [address]- 5446 26 Dec, 2013 [facility] [place] [facility] [address] [id number] [place] [address]- 3624 20 Dec, 2013 [facility] [place] [facility] [address] [id number] [place] [address]- 7103 19 Dec, 2013 [facility] [place] [facility] [address] [id number] [place] [address]- 4639 19 Dec, 2013 [facility] [place] [facility] [address] [id number] [place] [address]- 6933 17 Dec, 2013 [facility] [place] [facility] [address] [id number] [place] [address]- 6756 17 Dec, 2013 [facility] [place] [facility] [address] [id number] [place] [address]- 5002 12 Dec, 2013 [facility] [place] [facility] [address] [id number] [place] [address]- 4516 12 Dec, 2013 [facility] [place] [facility] [address] [id number] [place] [address]- 5919 Oct, [facility] [place] [facility] [address] [id number] [place] [address]- 8927 Oct, [facility] [place] [facility] [address] [id number] [place] [address]- 3575 Oct, [facility] [place] [facility] [address] [id number] [place] [address]- 8534 Oct, [facility] [place] [facility] [address] [id number] [place] [address]- 7204 Oct, [facility] [place] [facility] [address] [id number] [place] [address]- 3792 Oct, [facility] [place] [facility] [address] [id number] [place] [address]- 9566 Oct, [facility] [place] [facility] [address] [id number] [place] [address]- 5629 Oct, [facility] [place] [facility] [address] [id number] [place] [address]- 8915 Sep, [facility] [place] [facility] [address] [id number] [place] [address]- 0136 Sep, [facility] [place] [facility] [address] [id number] [place] [address]- 0615 August, [facility] [place] [facility] [address] [id number] [place] [address]- 4191 August, [facility] [place] [facility] [address] [id number] [place] [address]- 7755 August, [facility] [place] [facility] [address] [id number] [place] [address]- 2438 August, [facility] [place] [facility] [address] [id number] [place] [address]- 7522 August, [facility] [place] [facility] [address] [id number] [place] [address]- 8444 August, [facility] [place] [facility] [address] [id number] [place] [address]- 3772 August, [facility] [place] [facility] [address] [id number] [place] [address]- 6471 August, [facility] [place] [facility] [address] [id number] [place] [address]- 0080 Jul, [facility] [place] [facility] [address] [id number] [place] [address]- 6419 Jul, [facility] [place] [facility] [address] [id number] [place] [address]- 1446 Jul, [facility] [address] [id number] [place] 1897 Jul, [facility] [place] [facility] [address] [id number] [place] [address]- 1619 Mar, [facility] [place] [facility] [address] [id number] [place] 9579 Mar, [facility] [place] [facility] [address] [id number] [place] [address]- 3389 Mar, [facility] [address] [id number] [place] [address]- 2941 Mar, [facility] [place] [facility] [address] [id number] [place] [address]- 3177 Jan, [facility] [address] [id number] [place] [address]- 1242 Jan, [facility] [place] [facility] [address] [id number] [place] [address]- 8484 Jul, [facility] [address] [id number] [place] [address]- 0699 Jul, [facility] [place] [facility] [address] [id number] [place] [address]- 1741 Jun, [facility] [place] [facility] [address] [id number], [place] [address]- 0232 Jun, [facility] [place] [facility] [address] [id number], [place] [address]- 2334 25 Jun, 2012 [facility] [place] [facility] [address] [id number] [place] [address]- 5385 15 Jun, 2012 [facility] [place] [facility] [address] [id number] 2559 13 Jun, 2012 [facility] [place] [facility] [address] [id number] [place] 0853 12 Jun, 2012 [facility] [place] [facility] [address] [id number] [place] [address]- 0634 08 Jun, 2012 [facility] [address] [id number] [place] [address]- 9719 07 Jun, 2012 [facility] [place] [facility] [address] [id number] [place] [address] 2546 06 Jun, 2012 [facility] [address] [id number] [place] [address]- 9249 05 Jun, 2012 [facility] [place] [facility] [address] [id number] [place] [address]- 1591 26 May, 2012 [facility] [place] [facility] [address] [id number] [place] [address]- 0496 May, [facility] [place] [facility] [address] [id number] [place] [address]- 8543 14 May, 2012 [facility] [place] [facility] [address] [id number] [place] [address] 2547 May, [facility] [address] [id number] [place] [address]- 3644 May, [facility] [place] [facility] [address] [id number] [place] [address]- 1795 May, [facility] [address] [id number] [place] [address]- 0145 Apr, [facility] [place] [facility] [address] [id number] [place] [address]- 9406 Apr, [facility] [place] [facility] [address] [id number] [place] [address]- 8977 Apr, [facility] [place] [facility] [address] [id number] [place] [address] 2547 Apr, [facility] [place] [facility] [address] [id number] [place] [address]- 2548 Mar, [facility] [place] [facility] [address] [id number] [place] [address]- 6202 Mar, [facility] [place] [facility] [address] [id number] [place] [address]- 6762 Mar, [facility] [place] [facility] [address] [id number] [place] [address]- 9125 Mar, [facility] [place] [facility] [address] [id number] [place] [address]- 1665 Feb, [facility] [place] [facility] [address] [id number] [place] [address]- 3708 Feb, [facility] [place] [facility] [address] [id number] [place] [address]- 7429 Feb, [facility] [place] [facility] [address] [id number] [place] [address]- 7452 19 Feb, 2012 [facility] [place] [facility] [address] [id number] [place] [address]- 7684 16 Feb, 2012 [facility] [place] [facility] [address] [id number], [place] [address]- 7887 15 Feb, 2012 [facility] [place] [facility] [address] [id number], [place] [address]- 0865 14 Feb, 2012 [facility] [place] [facility] [address] [id number], [place] [address]- 8239 13 Feb, 2012 [facility] [place] [facility] [address] [id number], [place] [address]- 9100 13 Feb, 2012 [facility] [place] [facility] [address] [id number], [place] [address]- 0649 13 Feb, 2012 [facility] [place] [facility] [address] [id number], [place] [address]- 0118 13 Feb, 2012 [facility] [place] [facility] [address] [id number], [place] [address]- 9104 12 Feb, 2012 [facility] [place] [facility] [address] [id number], [place] [address]- 1101 06 Feb, 2012 [facility] [place] [facility] [address] [id number] [place] [address]- 4325 Feb, [facility] [address] [id number] [place] [address]- 4555 Jan, [facility] [place] [facility] [address] [id number] [place] 9162 Jan, [facility] [place] [facility] [address] [id number] [place] [address]- 8366 Jan, [facility] [place] [facility] [address] [id number] [place] [address]- 7470 August, [facility] [place] [facility] [address] [id number] [place] 8416 August, [facility] [place] [facility] [address] [id number] [place] [address]- 5683 Jul, [facility] [place] [facility] [address] [id number] [place] [address]- 6869 Jul, [facility] [place] [facility] [address] [id number] [place] [address]- 9491 Jul, [facility] [place] [facility] [address] [id number] [place] [address]- 0018 Jul, [facility] [address] [facility] [id number] [place] [address]- 9984 Jul, [facility] [place] [facility] [address] [id number] [place] [address]- 0529 Jul, [facility] [place] [facility] [address] [id number] [place] [address]- 7564 Jun, [facility] [place] [facility] [address] [id number] [place] [address]- 4867 May, [facility] [place] [facility] [address] [id number] [place] [address]- 6623 May, [facility] [place] [facility] [address] [id number] [place] [address]- 7041 Mar, [facility] [address] [address]- 2546 07 Feb, 2011 [facility] [address], [place] [address]- 2546 18 Feb, 2010 [facility] [address], [place] [address]- 2546 14 Jan, 2010 [facility] [id number] [place] [address] 24719- 2546 14 Jan, 2010 [facility] [address], [place] [address]- 6776 15 May, 2009 [facility] [id number] [place] [address] 00062- 2546 Mar, [facility] [address], [place] [address]- 2546 Feb, [facility] [id number] [place] [address] 25342- 2676 Jul, [facility] [address], [place] [address]- 7086 16 May, 2008 [facility] [address], [place] [address]- 9806 14 May, 2006 [facility] [address], [place] [address]- 2546 Oct, [facility] [id number], [place] [address]- 2546 10 Feb, 2003 IMMUNIZATIONS No Known Immunizations SOCIAL HISTORY Never Assessed REASON FOR VISIT MEDICATION NOT RECEIVED PLAN OF CARE VITAL SIGNS MEDICATIONS No Known Medications RESULTS No Results PROCEDURES No Known procedures INSTRUCTIONS MEDICATIONS ADMINISTERED No Known Medications MEDICAL (GENERAL) HISTORY Type Description Date Medical History herpes simplex type II--dx 2011 Medical History anxiety Surgical History appendectomy 08/07/13 Hospitalization History Concussion 11/2015
--- OUTSIDE RECORDS SUMMARY | 2018-09-04 10:44 | XMS REPORT ---
Author Author LAURE PEREIRA [facility] Address [address] [place] [address] Care Team Providers Care Leather Tanner Name Role Phone LAURE PEREIRA Unavailable PROBLEMS Type Condition ICD9-CM Code [id number] Code Onset Dates Condition Status SNOMED Code Problem Contact dermatitis and eczema due to plant L24.7 Active 724213589 Problem HSV-2 (herpes simplex virus 2) infection B00.9 Active 293478154 Problem Allergic rhinitis J30.9 Active 84955642 Problem Depression with anxiety F41.8 Active 959617131 ALLERGIES Substance Reaction Event Type Date Status Cymbalta Insominia, Rapid heart beat and sweating Drug Allergy Sep, Active ENCOUNTERS Encounter Location Date Diagnosis [facility] [address] [address] Nov, Vaginal discharge N89.8 ; HSV-2 (herpes simplex virus 2) infection B00.9 ; Allergic rhinitis J30.9 ; Other specified bacterial agents as the cause of diseases classified elsewhere B96.89 and Acute vaginitis N76.0 [facility] [id number] [address] Nov, [facility] [address], [place] [address] Oct, HSV-2 (herpes simplex virus 2) infection B00.9 [facility] [address], [place] [address] Oct, HSV-2 (herpes simplex virus 2) infection B00.9 [facility] [id number], [place] [address] Sep, [facility] [id number] [id number] Sep, [place] [id number] [place] [address]142- 0884 Sep, [place] [address] [place] [address] 39283- 7847 Sep, Screening examination for sexually transmitted disease Z11.3 and Mariella vaginitis B37.3 [place] [id number] [place] [address]- 1978 Jul, Acute non-recurrent frontal sinusitis J01.10 and Impacted cerumen of right ear H61.21 [place] [id number] [place] [address] 95385- 4903 Jun, Annual physical exam Z00.00 ; Routine gynecological examination Z01.419 ; HSV-2 (herpes simplex virus 2) infection B00.9 ; Seasonal allergic rhinitis due to pollen J30.1 ; Vaginal discharge N89.8 ; Allergic rhinitis J30.9 and Contact dermatitis and eczema due to plant L24.7 [place] [address] [place] [address] 89000- 7259 May, Depression with anxiety F41.8 ; Allergic rhinitis J30.9 ; HSV-2 (herpes simplex virus 2) infection B00.9 ; Contact dermatitis and eczema due to plant L24.7 and Seasonal allergic rhinitis due to pollen J30.1 [place] [address] [place] [address] 82834- 5156 Mar, [place] [id number] [place] [address] 35922- 8700 Mar, [place] [id number] [place] [address] 03870- 6260 Mar, Pelvic pain R10.2 ; Vaginal discharge N89.8 ; Other specified bacterial agents as the cause of diseases classified elsewhere B96.89 and Acute vaginitis N76.0 [facility] [address] [place] [address] 15071 -1314 Jun, Body aches R52 and Influenza A J10.1 [facility] [id number] [place] [address] 13596 -9228 Mar, Discharge from the vagina N89.8 ; Unprotected sex Z72.51 and Vaginal candidiasis B37.3 [facility] [id number] [place] [address] 54874- 5668 Feb, Acute gastritis without hemorrhage, unspecified gastritis type K29.00 and Seasonal allergic rhinitis due to pollen J30.1 [place] [address] [address] Dec, Dysuria R30.0 ; Contact dermatitis and eczema due to plant L24.7 ; Herpes simplex vulvovaginitis A60.04 and Abrasion, multiple sites T14.8 [place] [address] [address] Nov, Depression with anxiety F41.8 and HSV-2 (herpes simplex virus 2) infection B00.9 [place] [address] [address]- [address] Nov, [place] [address] [address] May, Depression with anxiety F41.8 [place] [address] [address]- 8213 Apr, [place] [address] [address] 4332 Apr, Unspecified genital herpes 054.10 [place] [id number] [place] [address] 55862- 6566 Mar, Depression with anxiety F41.8 and Allergic rhinitis J30.9 [facility] [id number] [place] [address] 23304- 4083 Mar, [place] [address] [address] 118[address] Mar, Chlamydia A74.9 [place] [id number] [place] [address] 93154- 5597 Feb, Well woman exam Z01.419 ; Dysmenorrhea N94.6 ; Herpes simplex B00.9 ; Dyspareunia N94.1 ; Anxiety associated with depression F41.8 ; Unprotected sexual intercourse Z72.51 and Marijuana use F12.10 [place] [address] [address] Feb, Depression with anxiety F41.8 and H/O dysmenorrhea Z87.[address] [address]- [address] Feb, General medical exam Z00.00 [place] [id number] [place] [address] 43278- 7545 Jan, [address] [address] Jan, Major depressive disorder, recurrent episode, unspecified severity F33.9 ; Generalized anxiety disorder F41.1 and ADHD, adult residual type F90.8 [place] [id number] [place] [address] 27651- 4442 Jan, Generalized anxiety disorder F41.1 [place] [id number] [place] [address] 44529- 7667 Jan, General medical exam Z00.00 and Anxiety associated with depression F41.8 [place] [id number] [place] [address] 24115- 1452 Sep, Allergic rhinitis 477.[address] [address]- 267[address] August, [place] [id number] [place] [address] 61487- 4108 August, Cervicitis and endocervicitis 616.0 ; History of chlamydia infection V12.09 and Unspecified genital herpes 054.10 [facility] [address] [id number] [place] [address] 14 Jul, 2014 [facility] [place] [facility] [address] [id number] [place] [address]- 4853 Jul, [facility] [place] [facility] [address] [id number] [place] [address]- 8165 Apr, [facility] [place] [facility] [address] [id number] [place] [address]- 0847 Apr, [facility] [address] [id number] [place] [address]- 2778 Apr, [facility] [place] [facility] [address] [id number] [place] [address]- 1309 Apr, [facility] [address] [id number] [place] [address]- 0070 Apr, [facility] [address] [id number] [place] [address]- 1383 Apr, [facility] [place] [facility] [address] [id number] [place] [address]- 1876 Apr, [facility] [place] [facility] [address] [id number] [place] [address]- 4445 Apr, [facility] [place] [facility] [address] [id number] [place] [address]- 4020 Apr, [facility] [place] [facility] [address] [id number], [place] [address] 7721 Apr, [facility] [place] [facility] [address] [id number] [place] [address]- 9354 Apr, [facility] [place] [facility] [address] [id number] [place] [address]- 7613 Apr, [facility] [place] [facility] [address] [id number] [place] [address]- 8740 Mar, [facility] [place] [facility] [address] [id number] [place] [address]- 3057 15 Mar, 2014 [facility] [place] [facility] [address] [id number] [place] [address]- 6102 Jan, [facility] [place] [facility] [address] [id number] [place] [address]- 0906 Jan, [facility] [place] [facility] [address] [id number] [place] [address]- 6616 26 Dec, 2013 [facility] [place] [facility] [address] [id number] [place] [address] 2541 26 Dec, 2013 [facility] [place] [facility] [address] [id number] [place] [address]- 3777 20 Dec, 2013 [facility] [place] [facility] [address] [id number] [place] [address]- 6361 19 Dec, 2013 [facility] [place] [facility] [address] [id number] [place] [address]- 2303 19 Dec, 2013 [facility] [place] [facility] [address] [id number] [place] [address]- 8659 17 Dec, 2013 [facility] [place] [facility] [address] [id number] [place] [address]- 9263 17 Dec, 2013 [facility] [place] [facility] [address] [id number] [place] [address]- 2950 12 Dec, 2013 [facility] [place] [facility] [address] [id number] [place] [address]- 7547 Dec, [facility] [place] [facility] [address] [id number] [place] [address]- 7089 Oct, [facility] [place] [facility] [address] [id number] [place] [address]- 9893 Oct, [facility] [place] [facility] [address] [id number] [place] [address]- 8559 Oct, [facility] [place] [facility] [address] [id number] [place] [address]- 5629 Oct, [facility] [place] [facility] [address] [id number] [place] [address]- 6922 Oct, [facility] [place] [facility] [address] [id number] [place] [address]- 0799 Oct, [facility] [place] [facility] [address] [id number] [place] [address]- 1059 Oct, [facility] [place] [facility] [address] [id number] [place] [address]- 3878 Oct, [facility] [place] [facility] [address] [id number] [place] [address]- 9499 Sep, [facility] [place] [facility] [address] [id number] [place] [address]- 3506 Sep, [facility] [place] [facility] [address] [id number] [place] [address]- 7142 August, [facility] [place] [facility] [address] [id number] [place] [address]- 8586 August, [facility] [address] [id number] [place] [address]- 1429 August, [facility] [place] [facility] [address] [id number] [place] [address]- 1819 August, [facility] [address] [id number] [place] [address]- 6971 August, [facility] [place] [facility] [address] [id number] [place] [address]- 7457 August, [facility] [place] [facility] [address] [id number] [place] [address]- 7029 August, [facility] [place] [facility] [address] [id number] [place] [address]- 3143 August, [facility] [place] [facility] [address] [id number] [place] [address]- 2933 Jul, [facility] [place] [facility] [address] [id number] [place] [address]- 2947 Jul, [facility] [address] [id number] [place] [address]- 4397 Jul, [facility] [place] [facility] [address] [id number] [place] [address]- 0661 Jul, [facility] [place] [facility] [address] [id number] [place] [address]- 7165 Mar, [facility] [place] [facility] [address] [id number] [place] [address]- 9299 Mar, [facility] [place] [facility] [address] [id number] [place] [address]- 0549 Mar, [facility] [place] [facility] [address] [id number] [place] [address]- 9283 Mar, [facility] [place] [facility] [address] [id number] [place] [address]- 1845 Jan, [facility] [place] [facility] [address] [id number], [place] [address]- 5629 Jan, [facility] [place] [facility] [address] [id number] [place] [address]- 1623 Jul, [facility] [place] [facility] [address] [id number], [place] [address]- 6578 Jul, [facility] [place] [facility] [address] [id number], [place] [address]- 7563 Jun, [facility] [place] [facility] [address] [id number], [place] [address]- 2172 Jun, [facility] [place] [facility] [address] [id number] [place] [address]- 0078 25 Jun, 2012 [facility] [place] [facility] [address] [id number], [place] [address]- 1805 15 Jun, 2012 [facility] [place] [facility] [address] [id number] 7905 13 Jun, 2012 [facility] [place] [facility] [address] [id number], [place] [address]- 7506 12 Jun, 2012 [facility] [address] [id number] [place] [address]- 9746 08 Jun, 2012 [facility] [place] [facility] [address] [id number] [place] [address]- 7124 07 Jun, 2012 [facility] [address] [id number] [place] [address]- 4968 06 Jun, 2012 [facility] [address] [id number] [place] [address]- 6197 05 Jun, 2012 [facility] [address] [id number] [place] [address]- 4882 26 May, 2012 [facility] [place] [facility] [address] [id number] [place] [address]- 2493 May, [facility] [address] [id number] [place] [address]- 6975 14 May, 2012 [facility] [address] [id number] [place] [address]- 6329 05 May, 2012 [facility] [address] [id number] [place] [address]- 9158 05 May, 2012 [facility] [address] [facility] [id number] [place] [address]- 3950 May, [facility] [address] [id number] [place] [address]- 3918 Apr, [facility] [place] [facility] [address] [id number] [place] [address]- 6419 Apr, [facility] [place] [facility] [address] [id number] [place] [address]- 2677 Apr, [facility] [place] [facility] [address] [facility] [id number] [place] [address]- 7706 Apr, [facility] [place] [facility] [address] [id number] [place] [address]- 3977 Mar, [facility] [place] [facility] [address] [id number] [place] [address]- 9318 Mar, [facility] [place] [facility] [address] [id number] [place] [address]- 8786 Mar, [facility] [place] [facility] [address] [id number] [place] [address]- 3483 Mar, [facility] [place] [facility] [address] [id number] [place] [address]- 8216 Feb, [facility] [place] [facility] [address] [id number] [place] [address]- 4952 Feb, [facility] [place] [facility] [address] [id number] [place] [address]- 8942 Feb, [facility] [place] [facility] [address] [id number] [place] [address]- 5216 19 Feb, 2012 [facility] [place] [facility] [address] [id number] [place] [address]- 4226 16 Feb, 2012 [facility] [place] [facility] [address] [id number] [place] [address]- 6303 15 Feb, 2012 [facility] [place] [facility] [address] [id number] [place] [address]- 7365 14 Feb, 2012 [facility] [place] [facility] [address] [id number] [place] [address]- 0275 13 Feb, 2012 [facility] [place] [facility] [address] [id number], [place] [address]- 6701 13 Feb, 2012 [facility] [place] [facility] [address] [id number] [place] [address]- 4860 13 Feb, 2012 [facility] [place] [facility] [address] [id number] [place] [address]- 5014 13 Feb, 2012 [facility] [place] [facility] [address] [id number], [place] [address]- 7495 12 Feb, 2012 [facility] [place] [facility] [address] [id number], [place] [address]- 3534 Feb, [facility] [place] [facility] [address] [id number] [place] [address]- 2125 Feb, [facility] [place] [facility] [address] [id number] [place]44 Jan, [facility] [place] [facility] [address] [facility] [id number] [place] [address]- 8686 Jan, [facility] [place] [facility] [address] [id number] [place] [address]- 2179 Jan, [facility] [place] [facility] [address] [id number] [place] [address]- 9189 August, [facility] [place] [facility] [address] [id number] [place] [address]- 4212 August, [facility] [place] [facility] [id number] [place] [address]- 4398 Jul, [facility] [place] [facility] [address] [id number] [place] [address]- 4894 Jul, [facility] [place] [facility] [address] [facility] [id number] [place] [address]- 6248 Jul, [facility] [place] [facility] [address] [facility] [id number] [place] [address]- 0216 Jul, [facility] [place] [facility] [address] [id number], [place] [address]- 1092 Jul, [facility] [place] [facility] [address] [facility] [id number], [place] [address]- 6176 Jul, [facility] [place] [facility] [address] [id number] [place] [address]- 0417 Jun, [facility] [place] [facility] [address] [facility] [id number], [place] [address]- 2552 24 May, 2011 [facility] [place] [facility] [address] [facility] [id number] [place] [address]- 3677 14 May, 2011 [facility] [place] [facility] [address] [address]- 6003 05 Mar, 2011 [facility] [address]- 1777 07 Feb, 2011 [facility] [address], [place] [address]- 3448 Feb, [facility] [address], [place] [address]- 3148 14 Jan, 2010 [facility] [address] 3587 Jan, [facility] [id number] [place] [address] 09712- 4699 15 May, 2009 [facility] [address], [place] [address]- 2075 Mar, [facility] [address], [place] [address]- 3481 Feb, [facility] [address], [place] [address]- 6963 Jul, [facility] [address], [place] [address]- 6205 16 May, 2008 [facility] [address] [id number], [place] [address]- 8534 14 May, 2006 [facility] [address], [place] [address]- 9336 Oct, [facility] [id number] 4444 Feb, IMMUNIZATIONS No Known Immunizations SOCIAL HISTORY Never Assessed REASON FOR VISIT STD check-twoodenMA PLAN OF CARE Activity Details Follow Up prn Reason: VITAL SIGNS Height 62 in 2017-09-23 Weight 99.2 lbs 2017-09-23 Temperature 98.6 degrees Fahrenheit 2017-09-23 Heart Rate 64 bpm 2017-09-23 Respiratory Rate 18 2017-09-23 BMI 18.14 kg/m2 2017-09-23 Blood pressure systolic 98 mmHg 2017-09-23 Blood pressure diastolic 60 mmHg 2017-09-23 MEDICATIONS Medication Instructions Dosage Frequency Start Date End Date Duration Status Fluconazole 150 MG Orally once 1 tablet Sep, 1 dose Active Triamcinolone Acetonide 0.025 % Externally Twice a day apply thin layer to areas on hands 12h May, 10 days Active Valtrex 500 mg Orally twice a day 1 tablet 12h May, May, 90 days Active Fluticasone Propionate 50 MCG/ACT Nasally Once a day 1 spray in each nostril 24h Mar, 12 months Active RESULTS Name Result Date Reference Range TRICHOMONAS (IN HOUSE) 2017-09-23 TRICHOMONAS neg Control + Lot # [id number] Exp date 08/2018 GC/CHLAM PROBE (STATE) 2017-09-23 CHLAMYDIA pos GC neg SYPHILIS (STATE) 2017-09-23 HIV (STATE) 2017-09-23 PROCEDURES Procedure Date Ordered Result Body Site No Charge September 23, 2017 TRICHOMONAS ASSAY W/OPTIC September 23, 2017 VENIPUNCT, ROUTINE* September 23, 2017 INSTRUCTIONS MEDICATIONS ADMINISTERED No Known Medications MEDICAL (GENERAL) HISTORY Type Description Date Medical History herpes simplex type II--dx 2011 Medical History anxiety Surgical History appendectomy 08/07/13 Hospitalization History Concussion 11/2015
--- OUTSIDE RECORDS SUMMARY | 2018-09-04 10:45 | XMS REPORT ---
Author Author ULYSSES MONTERO Organization [employer] Address Unknown Phone Unavailable Care Team Providers Care Classics Professor Name Role Phone ULYSSES MONTERO CP Unavailable Allergies No Known Allergies Problems Problem Type Condition Code Onset Dates Condition Status Problem Allergic rhinitis J30.9 Active Problem Unspecified genital herpes 054.10 Active Problem Depression with anxiety F41.8 Active Medications No Known Medications Results No Known Results Summary Purpose [employer] Submission
--- OUTSIDE RECORDS SUMMARY | 2018-09-04 10:45 | XMS REPORT ---
Author Author LAURE PEREIRA [facility] Address [address] [place] [address] Care Team Providers Care Turf Grower Name Role Phone LAURE PEREIRA Unavailable PROBLEMS Type Condition ICD9-CM Code QBL99-AS Code Onset Dates Condition Status SNOMED Code Problem Contact dermatitis and eczema due to plant L24.7 Active 762821316 Problem HSV-2 (herpes simplex virus 2) infection B00.9 Active 242605554 Problem Allergic rhinitis J30.9 Active 21764915 Problem Depression with anxiety F41.8 Active 407379975 ALLERGIES Substance Reaction Event Type Date Status Cymbalta Insominia, Rapid heart beat and sweating Drug Allergy Jul, Active ENCOUNTERS Encounter Location Date Diagnosis [facility] [address] [address] Oct, HSV-2 (herpes simplex virus 2) infection B00.9 [facility] [id number] [place] [address]681- 5561 Oct, HSV-2 (herpes simplex virus 2) infection B00.9 [facility] [address] [address] Sep, [facility] [address] [id number] [id number] Sep, [facility] [id number] [place] [address]953- 1231 Sep, [facility] [id number] [place] [address]32- 9412 Sep, Screening examination for sexually transmitted disease Z11.3 and Mariella vaginitis B37.3 [facility] [id number] [place] [address] 31148- 3815 Jul, Acute non-recurrent frontal sinusitis J01.10 and Impacted cerumen of right ear H61.[address] [address] Jun, Annual physical exam Z00.00 ; Routine gynecological examination Z01.419 ; HSV-2 (herpes simplex virus 2) infection B00.9 ; Seasonal allergic rhinitis due to pollen J30.1 ; Vaginal discharge N89.8 ; Allergic rhinitis J30.9 and Contact dermatitis and eczema due to plant L24.7 [place] [address] [address] 16 May, 2017 Depression with anxiety F41.8 ; Allergic rhinitis J30.9 ; HSV-2 (herpes simplex virus 2) infection B00.9 ; Contact dermatitis and eczema due to plant L24.7 and Seasonal allergic rhinitis due to pollen J30.[address] [address] Mar, [address] [address] Mar, [address] [address]- [address] Mar, Pelvic pain R10.2 ; Vaginal discharge N89.8 ; Other specified bacterial agents as the cause of diseases classified elsewhere B96.89 and Acute vaginitis N76.0 [facility] [address] [address] Jun, Body aches R52 and Influenza A J10.1 [facility] [address] [address] Mar, Discharge from the vagina N89.8 ; Unprotected sex Z72.51 and Vaginal candidiasis B37.[address] [address]- [address] Feb, Acute gastritis without hemorrhage, unspecified gastritis type K29.00 and Seasonal allergic rhinitis due to pollen J30.1 [place] [id number] [place] [address]- 5[address] 08 Dec, 2015 Dysuria R30.0 ; Contact dermatitis and eczema due to plant L24.7 ; Herpes simplex vulvovaginitis A60.04 and Abrasion, multiple sites T14.8 [place] [id number] [place] [address] 18476- 2211 Nov, Depression with anxiety F41.8 and HSV-2 (herpes simplex virus 2) infection B00.[address] [address]- [address] Nov, [address] [address] May, Depression with anxiety F41.[address] [address]- [address] Apr, [place] [address] [address] Apr, Unspecified genital herpes 054.[address] [address]- [address] Mar, Depression with anxiety F41.8 and Allergic rhinitis J30.9 [place] [id number] [place] [address] 8[address]01- 2931 Mar, [place] [id number] [place] [address] 65080- 4703 Mar, Chlamydia A74.9 [place] [id number] [place] [address] 29674- 6385 Feb, Well woman exam Z01.419 ; Dysmenorrhea N94.6 ; Herpes simplex B00.9 ; Dyspareunia N94.1 ; Anxiety associated with depression F41.8 ; Unprotected sexual intercourse Z72.51 and Marijuana use F12.[address] [address]- [address] Feb, Depression with anxiety F41.8 and H/O dysmenorrhea Z87.42 [facility] [id number] [place] [address] 25317- 5992 Feb, General medical exam Z00.00 [facility] [id number] [place] [address] 84120- 0901 Jan, [facility] [id number] [place] [address] 99688- 1699 Jan, Major depressive disorder, recurrent episode, unspecified severity F33.9 ; Generalized anxiety disorder F41.1 and ADHD, adult residual type F90.8 [place] [id number] [place] [address] 04105- 9614 Jan, Generalized anxiety disorder F41.1 [place] [id number] [place] [address] 91966- 1852 Jan, General medical exam Z00.00 and Anxiety associated with depression F41.8 [place] [id number] [place] [address] 05134- 5163 Sep, Allergic rhinitis 477.9 [facility] [id number] [place] [address] 18678- 3330 August, [facility] [id number] [place] [address] 43946- 8194 August, Cervicitis and endocervicitis 616.0 ; History of chlamydia infection V12.09 and Unspecified genital herpes 054.10 [facility] [address] [place] [address] 39002- 4091 Jul, [facility] [id number] [place] [address] 75472- 9228 Jul, [facility] [id number] [place] [address] 70285- 9306 Apr, [facility] [id number] [place] [address] 70715- 5862 Apr, [facility] [place] [facility] [address] [id number] [place] [address]- 95[address] Apr, [facility] [place] [facility] [address] [id number] [place] [address]- 1837 Apr, [facility] [place] [facility] [address] [id number] [place] [address]- 0371 Apr, [facility] [place] [facility] [address] [id number] [place] [address]- 3388 Apr, [facility] [place] [facility] [address] [id number] [place] [address]- 6539 Apr, [facility] [place] [facility] [address] [id number] [place] [address]- 3248 Apr, [facility] [place] [facility] [address] [id number] [place] [address]- 0755 Apr, [facility] [place] [facility] [address] [id number] [place] [address]- 9494 Apr, [facility] [place] [facility] [address] [id number] [address] 00[address] Apr, [facility] [place] [facility] [address] [id number] [place] [address]- 9146 Apr, [facility] [place] [facility] [address] [id number] [address] 132[address] Mar, [facility] [place] [facility] [address] [id number] [address] 7191 Mar, [facility] [place] [facility] [address] [id number] [address] 0641 Jan, [facility] [place] [facility] [address] [id number] [place] [address]- 8498 Jan, [facility] [place] [facility] [address] [id number] [place] [address]- 2511 Dec, [facility] [place] [facility] [address] [id number] [place] [address]- 6195 26 Dec, 2013 [facility] [place] [facility] [address] [id number] [place] [address]- 9146 20 Dec, 2013 [facility] [place] [facility] [address] [id number] [place] [address]- 1676 19 Dec, 2013 [facility] [place] [facility] [address] [id number] [place] [address]- 1376 19 Dec, 2013 [facility] [place] [facility] [address] [id number] [place] [address]- 7797 17 Dec, 2013 [facility] [place] [facility] [address] [id number] [place] [address]- 4233 17 Dec, 2013 [facility] [place] [facility] [address] [id number] [place] [address]- 5259 Dec, 2013 [facility] [place] [facility] [address] [id number] [place] [address]- 4136 Dec, 2013 [facility] [place] [facility] [address] [id number] [place] [address]- 2323 Oct, [facility] [place] [facility] [address] [id number] [place] [address]- 6379 Oct, [facility] [place] [facility] [address] [id number] [place] [address]- 7178 Oct, [facility] [place] [facility] [address] [id number] [place] [address]- 6182 Oct, [facility] [place] [facility] [address] [id number] [place] [address]- 4519 Oct, [facility] [place] [facility] [address] [id number] [place] [address]- 0397 Oct, [facility] [place] [facility] [address] [id number] [place] [address] Oct, [facility] [place] [facility] [address] [id number] [place] [address]- 6697 Oct, [facility] [place] [facility] [address] [id number] [place] [address]- 1630 Sep, [facility] [place] [facility] [address] [id number] [place] [address]- 6302 Sep, [facility] [place] [facility] [address] [id number] [place] [address]- 4951 August, [facility] [place] [facility] [address] [id number] [place] [address]- 9993 August, [facility] [place] [facility] [address] [id number] [place] [address]- 3847 August, [facility] [place] [facility] [address] [id number] [place] [address]- 7228 August, [facility] [place] [facility] [address] [id number] [place] [address]- 5550 August, [facility] [place] [facility] [address] [id number] [place] [address]- 5196 August, [facility] [place] [facility] [address] [id number] [place] [address]- 0085 August, [facility] [place] [facility] [address] [id number] [place] [address]- 3809 August, [facility] [place] [facility] [address] [id number] [place] [address]- 0830 Jul, [facility] [place] [facility] [address] [id number] [place] [address]- 9168 Jul, [facility] [place] [facility] [address] [id number] [place] [address]- 7185 Jul, [facility] [place] [facility] [address] [id number] [place] [address]- 7673 Jul, [facility] [place] [facility] [address] [id number] [place] [address]- 5525 Mar, [facility] [place] [facility] [address] [id number] [place] [address]- 6703 26 Mar, 2013 [facility] [address] [id number] [place] [address]- 6453 16 Mar, 2013 [facility] [address] [id number] [place] 3816 16 Mar, 2013 [facility] [address] [id number] [place] [address]- 1496 18 Jan, 2013 [facility] [place] [facility] [address] [id number] [place] [address]- 5173 18 Jan, 2013 [facility] [address] [id number] [place] [address]- 0547 Jul, [facility] [place] [facility] [address] [id number] [place] [address]- 7217 Jul, [facility] [address] [id number] [place] [address]- 2275 26 Jun, 2012 [facility] [address] [id number] [place] [address]- 3510 25 Jun, 2012 [facility] [address] [id number] [place] [address]- 8531 25 Jun, 2012 [facility] [address] [facility] [id number] [place] [address]- 6611 15 Jun, 2012 [facility] [address] [id number] [place] [address]- 4102 13 Jun, 2012 [facility] [place] [facility] [address] [id number] [place] [address]- 1715 12 Jun, 2012 [facility] [place] [facility] [address] [id number] [place] [address]- 9723 08 Jun, 2012 [facility] [place] [facility] [address] [facility] [id number] [place] [address]32 07 Jun, 2012 [facility] [place] [facility] [address] [facility] [id number] [place] [address]- 5543 06 Jun, 2012 [facility] [place] [facility] [address] [id number] [place] [address]- 4126 Jun, [facility] [place] [facility] [address] [id number] [place] [address]- 6508 May, [facility] [place] [facility] [address] [id number] [place] [address] 2546 May, [facility] [place] [facility] [address] [id number] [place] [address]- 8788 May, [facility] [place] [facility] [address] [id number] [place] [address]- 1033 May, [facility] [place] [facility] [address] [id number] [place] [address]- 8596 May, [facility] [place] [facility] [address] [id number] [place] [address]- 4597 May, [facility] [place] [facility] [address] [id number] [place] [address]- 3642 Apr, [facility] [place] [facility] [address] [id number] [place] [address]- 1600 Apr, [facility] [place] [facility] [address] [facility] [id number] [place] [address]- 3360 Apr, [facility] [place] [facility] [address] [id number] [place] [address]- 2031 Apr, [facility] [place] [facility] [address] [id number] [place] [address]- 6612 Mar, [facility] [place] [facility] [address] [id number] [place] [address] 2549 Mar, [facility] [place] [facility] [address] [id number] [place] [address] 2546 Mar, [facility] [place] [facility] [address] [id number] [place] [address] 2543 Mar, [facility] [place] [facility] [address] [id number] [address]- 0110 Feb, [facility] [place] [facility] [address] [id number] [place] [address]- 8112 Feb, [facility] [place] [facility] [address] [id number] [address]- 7024 19 Feb, 2012 [facility] [place] [facility] [address] [facility] [id number] [place] [address]- 0367 19 Feb, 2012 [facility] [place] [facility] [address] [id number] [place] [address]- 1044 16 Feb, 2012 [facility] [place] [facility] [address] [facility] [id number] [place] [address], [place] [address]- 2069 15 Feb, 2012 [facility] [place] [facility] [address] [facility] [id number] [place] [address]- 4178 14 Feb, 2012 [facility] [place] [facility] [id number] [place] [address] 83764- 2276 13 Feb, 2012 [facility] [place] [facility] [address] [id number] [address]- 4696 13 Feb, 2012 [facility] [place] [facility] [id number] [address]- 4130 13 Feb, 2012 [facility] [place] [facility] [id number] [address]- 0257 13 Feb, 2012 [facility] [place] [facility] [address] [facility] [id number] [address]- 3167 Feb, [facility] [place] [facility] [address] [facility] [id number] [address]- 6759 Feb, [facility] [place] [facility] [address] [id number] [address]- 7988 Feb, [facility] [place] [facility] [address] [facility] [id number] [place] [address]- 7956 Jan, [facility] [place] [facility] [address] [facility] [id number] [place] [address]- 1821 Jan, [facility] [place] [facility] [address] [id number] [place] [address]- 4651 Jan, [facility] [place] [facility] [address] [id number] [place] [address]- 4135 August, [facility] [place] [facility] [address] [id number] [place] [address]- 8245 August, [facility] [place] [facility] [address] [id number] [place] [address]- 7986 Jul, [facility] [place] [facility] [address] [id number] [place] [address]- 8247 Jul, [facility] [place] [facility] [address] [id number] [place] [address]- 5916 Jul, [facility] [place] [facility] [address] [id number] [place] [address]- 5509 Jul, [facility] [place] [facility] [address] [id number] [place] [address]- 5603 Jul, [facility] [place] [facility] [address] [id number] [place] [address]- 7990 Jul, [facility] [place] [facility] [address] [id number] [place] [address]- 8994 Jun, [facility] [place] [facility] [address] [id number] [place] [address]- 0822 May, [facility] [place] [facility] [address] [id number] [place] [address]- 6042 May, [facility] [place] [facility] [address] [id number] [place] [address] Mar, [facility] [place] [facility] [address] [id number] [place] [address]- 6338 Feb, [facility] [place] [facility] [address] [id number] [place] [address]- 5337 Feb, [facility] [place] [facility] [address] [id number] [place] [address]- 8013 14 Jan, 2010 [facility] [id number]- [address]188 14 Jan, 2010 [facility] [address] [address] 15 May, 2009 [facility] [address] [address]- 9492 Mar, [facility] [id number] [place] [address] 70370- 4812 Feb, [facility] [address] [address]276 Jul, [facility] [id number] [place] [address] 63505- 3116 16 May, 2008 [facility] [id number] [place] [address] 552891- 1533 May, [facility] [address] [address]- 6742 Oct, [facility] [address] [address]239 Feb, IMMUNIZATIONS No Known Immunizations SOCIAL HISTORY Never Assessed REASON FOR VISIT Head congestion, cough, productive green discharge, feels like fluid in right ear, tried multiple OTC's but no improvement-AHarrymanRAayush PLAN OF CARE Activity Details Follow Up prn Reason: VITAL SIGNS Height 62 in 2017-08-15 Weight 100.0 lbs 2017-08-15 Temperature 98.5 degrees Fahrenheit 2017-08-15 Heart Rate 78 bpm 2017-08-15 Respiratory Rate 20 2017-08-15 BMI 18.29 kg/m2 2017-08-15 Blood pressure systolic 104 mmHg 2017-08-15 Blood pressure diastolic 64 mmHg 2017-08-15 MEDICATIONS Medication Instructions Dosage Frequency Start Date End Date Duration Status Augmentin 500-125 MG Orally every 12 hrs 1 tablet 12h Jul, August, 07 days Active Fluticasone Propionate 50 MCG/ACT Nasally Once a day 1 spray in each nostril 24h Jul, 30 day(s) Active Valtrex 500 mg Orally twice a day 1 tablet 12h May, May, 90 days Active Triamcinolone Acetonide 0.025 % Externally Twice a day apply thin layer to areas on hands 12h May, 10 days Active Fluticasone Propionate 50 MCG/ACT Nasally Once a day 1 spray in each nostril 24h Mar, 12 months Active RESULTS No Results PROCEDURES No Known procedures INSTRUCTIONS MEDICATIONS ADMINISTERED No Known Medications MEDICAL (GENERAL) HISTORY Type Description Date Medical History herpes simplex type II--dx 2011 Medical History anxiety Surgical History appendectomy 08/07/13 Hospitalization History Concussion 11/2015
--- OUTSIDE RECORDS SUMMARY | 2018-09-04 10:45 | XMS REPORT ---
Author Author ULYSSES MONTERO Organization [employer] Address Unknown Phone Unavailable Care Team Providers Care Analysis Analyst Name Role Phone ULYSSES MONTERO CP Unavailable Allergies, Adverse Reactions, Alerts Substance Reaction Event Type Cymbalta Insominia, Rapid heart beat and sweating Drug Allergy Problems Problem Type Condition Code Onset Dates Condition Status Assessment Depression with anxiety F41.8 Active Assessment H/O dysmenorrhea Z87.42 Active Problem Unspecified genital herpes 054.10 Active Medications Medication Code System Code Instructions Start Date End Date Status Dosage Valtrex [facility] [address]-00 1 gram Apr 05, 2014 take 1 tablet (1, 000 mg) by oral route once daily Ibuprofen [facility] [address]-48 800 MG Orally 2 times a day Mar 11, 2015 1 tablet Citalopram Hydrobromide [facility] [address]-55 20 MG Orally Once a day at bedtime Mar 11, 2015 1 tablet Procedures Procedure Coding System Code Date Office Visit, Est Pt., Level 3 CPT-4 95431 Mar 11, 2015 Vital Signs Date/Time: Mar 11, 2015 Temperature 97.0 F Weight 91.0 lbs Height 62 in BMI 16.64 Index Blood Pressure Diastolic 62 mmHg Blood Pressure Systolic 100 mmHg Cardiac Monitoring Heart Rate 82 bpm Results No Known Results Summary Purpose [employer] Submission
--- OUTSIDE RECORDS SUMMARY | 2018-09-04 10:45 | XMS REPORT ---
Author Author MONTEROULYSSES Gallegos Organization [facility] Address [address] [place] [address] Care Team Providers Care Cook Helper Pastry Name Role Phone ULYSSES MONTERO Unavailable PROBLEMS Type Condition ICD9-CM Code EJS72-FH Code Onset Dates Condition Status SNOMED Code Problem Contact dermatitis and eczema due to plant L24.7 Active 551216104 Problem HSV-2 (herpes simplex virus 2) infection B00.9 Active 961436869 Problem Allergic rhinitis J30.9 Active 44409444 Problem Depression with anxiety F41.8 Active 221662397 ALLERGIES No Information ENCOUNTERS Encounter Location Date Diagnosis [place] [id number] [id number] [place] [address] 71718- 5168 04 Sep, 2017 Screening examination for sexually transmitted disease Z11.3 and Mariella vaginitis B37.3 [place] [id number] [place] [address] 21835- 0885 Jul, Acute non-recurrent frontal sinusitis J01.10 and Impacted cerumen of right ear H61.21 [place] [id number] [place] [address] 62709- 6337 Jun, Annual physical exam Z00.00 ; Routine gynecological examination Z01.419 ; HSV-2 (herpes simplex virus 2) infection B00.9 ; Seasonal allergic rhinitis due to pollen J30.1 ; Vaginal discharge N89.8 ; Allergic rhinitis J30.9 and Contact dermatitis and eczema due to plant L24.7 [place] [id number] [place] [address] 66662- 7508 16 May, 2017 Depression with anxiety F41.8 ; Allergic rhinitis J30.9 ; HSV-2 (herpes simplex virus 2) infection B00.9 ; Contact dermatitis and eczema due to plant L24.7 and Seasonal allergic rhinitis due to pollen J30.1 [place] [address] [address] Mar, [place] [id number] [place] [address] 05316- 1771 Mar, [place] [id number] [place] [address] 90660- 3318 Mar, Pelvic pain R10.2 ; Vaginal discharge N89.8 ; Other specified bacterial agents as the cause of diseases classified elsewhere B96.89 and Acute vaginitis N76.0 [facility] [place] [id number] [place] [address] 80820 -4930 Jun, Body aches R52 and Influenza A J10.1 [facility] [place] [id number] [place] [address] 29316 -9726 Mar, Discharge from the vagina N89.8 ; Unprotected sex Z72.51 and Vaginal candidiasis B37.3 [place] [id number] [place] [address] 00880- 5302 Feb, Acute gastritis without hemorrhage, unspecified gastritis type K29.00 and Seasonal allergic rhinitis due to pollen J30.1 [place] [id number] [place] [address] 23619- 0773 Dec, Dysuria R30.0 ; Contact dermatitis and eczema due to plant L24.7 ; Herpes simplex vulvovaginitis A60.04 and Abrasion, multiple sites T14.8 [place] [id number] [place] [address] 06033- 6850 Nov, Depression with anxiety F41.8 and HSV-2 (herpes simplex virus 2) infection B00.9 [place] [id number] [place] [address] 87239- 7391 Nov, [place] [id number] [place] [address] 26820- 4212 May, Depression with anxiety F41.8 [place] [id number] [place] [address] 29529- 1134 Apr, [place] [id number] [place] [address] 12425- 4726 Apr, Unspecified genital herpes 054.10 [place] [id number] [place] [address] 88129- 7107 Mar, Depression with anxiety F41.8 and Allergic rhinitis J30.9 [place] [id number] [place] [address] 18677- 3309 Mar, [place] [address] [address] 1977 Mar, Chlamydia A74.9 [place] [id number] [place] [address] 40056- 9599 Feb, Well woman exam Z01.419 ; Dysmenorrhea N94.6 ; Herpes simplex B00.9 ; Dyspareunia N94.1 ; Anxiety associated with depression F41.8 ; Unprotected sexual intercourse Z72.51 and Marijuana use F12.10 [place] [id number] [place] [address] 04396- 7852 Feb, Depression with anxiety F41.8 and H/O dysmenorrhea Z87.42 [place] [id number] [place] [address] 17378- 3547 Feb, General medical exam Z00.00 [place] [id number] [place] [address] 96916- 1730 Jan, [place] [id number] [place] [address] 33446- 2098 Jan, Major depressive disorder, recurrent episode, unspecified severity F33.9 ; Generalized anxiety disorder F41.1 and ADHD, adult residual type F90.8 [place] [id number] [place] [address] 17278- 9413 Jan, General medical exam Z00.00 and Anxiety associated with depression F41.8 [facility] [address] [address] 2005 Jan, Generalized anxiety disorder F41.1 [facility] [address] [address] 2012 Sep, Allergic rhinitis 477.9 [facility] [address] [address]- 9527 August, [facility] [address] [address]- 2571 August, Cervicitis and endocervicitis 616.0 ; History of chlamydia infection V12.09 and Unspecified genital herpes 054.10 [facility] [address] [address] 8488 Jul, [facility] [address] [address]- 8358 Jul, [facility] [address] [address]- 6787 Apr, [facility] [address] [address]- 3563 Apr, [facility] [address] [address]- 9608 Apr, [facility] [address] [place] [id number] [address]- 0567 Apr, [facility] [address] [address]- 5569 Apr, [facility] [address] [address]- 6321 Apr, [facility] [address] [address]- 0773 Apr, [facility] [id number] [address]- 2547 Apr, [facility] [address] [place] [address]- 0554 Apr, [facility] [address] [id number] [place] [address]- 5515 Apr, [facility] [place] [facility] [address] [id number] [place] [address]- 8131 Apr, [facility] [address] [id number] [place] [address]- 0279 Apr, [facility] [address] [id number] [place] [address]- 5251 Mar, [facility] [address] [id number] [place] [address]- 2008 Mar, [facility] [address] [id number] [place] [address]- 6506 Jan, [facility] [place] [facility] [address] [id number] [place] [address]- 3958 Jan, [facility] [address] [id number] [place] [address]- 1183 26 Dec, 2013 [facility] [place] [facility] [address] [id number] [place] [address]- 0785 26 Dec, 2013 [facility] [address] [facility] [id number] [place] [address]- 9437 20 Dec, 2013 [facility] [place] [facility] [address] [id number] [place] [address]- 2540 19 Dec, 2013 [facility] [place] [facility] [address] [id number] [place] [address]- 254 19 Dec, 2013 [facility] [place] [facility] [address] [id number] [place] [address]- 6188 17 Dec, 2013 [facility] [place] [facility] [address] [id number] [place] [address]- 8020 17 Dec, 2013 [facility] [place] [facility] [address] [id number] [place] [address]- 2166 Dec, [facility] [place] [facility] [address] [id number] [place] [address]- 3876 Dec, [facility] [place] [facility] [address] [id number] [place] [address]- 5225 Oct, [facility] [place] [facility] [address] [id number] [place] [address]- 7695 Oct, [facility] [place] [facility] [address] [id number] [place] [address]- 8176 Oct, [facility] [place] [facility] [address] [id number] [place] [address]- 0937 Oct, [facility] [place] [facility] [address] [id number] [place] [address]- 2220 Oct, [facility] [place] [facility] [address] [id number] [place] [address]- 6500 Oct, [facility] [place] [facility] [address] [id number] [place] [address]- 4065 Oct, [facility] [place] [facility] [address] [id number] [place] [address]- 4265 Oct, [facility] [place] [facility] [address] [id number] [place] [address]- 4163 Sep, [facility] [place] [facility] [address] [id number] [place] [address]- 7165 Sep, [facility] [place] [facility] [address] [id number] [place] [address]- 8776 August, [facility] [place] [facility] [address] [id number] [place] [address]- 6441 August, [facility] [place] [facility] [address] [id number] [place] [address]- 5374 August, [facility] [place] [facility] [address] [id number] [place] [address]- 6503 August, [facility] [place] [facility] [address] [id number] [place] [address]- 8555 August, [facility] [address] [id number] [place] [address]- 4125 August, [facility] [place] [facility] [address] [id number] [place] [address]- 7994 August, [facility] [place] [facility] [address] [id number] [place] [address]- 0956 August, [facility] [place] [facility] [address] [id number] [place] [address]- 2024 Jul, [facility] [place] [facility] [address] [id number] [place] [address]- 8581 Jul, [facility] [place] [facility] [address] [id number] [place] [address]- 1206 Jul, [facility] [address] [id number] [place] [address]- 9363 Jul, [facility] [place] [facility] [address] [id number] [place] [address]- 3564 Mar, [facility] [address] [id number] [place] [address]- 8805 Mar, [facility] [place] [facility] [address] [facility] [id number] [place] [address]- 3822 Mar, [facility] [place] [facility] [address] [id number] [place] [address]- 1573 Mar, [facility] [place] [facility] [address] [id number] [place] [address]- 6560 Jan, [facility] [place] [facility] [address] [id number] [place] [address]- 0261 Jan, [facility] [place] [facility] [address] [id number] [place] [address]- 8261 Jul, [facility] [place] [facility] [address] [id number] [place] [address]- 4409 Jul, [facility] [place] [facility] [address] [id number] [place] [address]- 9788 26 Jun, 2012 [facility] [address] [id number] [place] [address]- 9700 25 Jun, 2012 [facility] [place] [facility] [address] [id number] [place] [address]- 9700 25 Jun, 2012 [facility] [place] [facility] [address] [id number] [place] [address]- 2052 15 Jun, 2012 [facility] [place] [facility] [address] [id number] [place] [address]- 1509 13 Jun, 2012 [facility] [place] [facility] [address] [id number] [place] [address]- 9216 12 Jun, 2012 [facility] [place] [facility] [address] [facility] [id number] [place] [address]- 5524 08 Jun, 2012 [facility] [place] [facility] [address] [id number] [place] [address]- 1014 07 Jun, 2012 [facility] [address] [id number] [place] [address]- 5509 06 Jun, 2012 [facility] [place] [facility] [address] [id number] [place] [address]- 6770 05 Jun, 2012 [facility] [place] [facility] [address] [facility] [id number] [place] [address]- 8441 26 May, 2012 [facility] [place] [facility] [address] [id number] [place] [address]- 9521 19 May, 2012 [facility] [place] [facility] [address] [id number] [place] [address]- 3720 14 May, 2012 [facility] [place] [facility] [address] [id number] [place] [address]- 7130 05 May, 2012 [facility] [place] [facility] [address] [id number] [place] [address]- 0880 05 May, 2012 [facility] [place] [facility] [address] [id number] [place] [address]- 2157 May, [facility] [place] [facility] [address] [id number] [place] [address]- 4464 Apr, [facility] [place] [facility] [address] [id number] [place] [address]- 1014 Apr, [facility] [place] [facility] [address] [id number] [place] [address]- 2223 Apr, [facility] [place] [facility] [address] [id number] [place] [address]- 0239 Apr, [facility] [place] [facility] [address] [id number] [place] [address]- 2507 Mar, [facility] [place] [facility] [address] [id number] [place] [address]- 8745 Mar, [facility] [place] [facility] [address] [id number] [place] [address]- 9705 Mar, [facility] [place] [facility] [address] [id number] [place] [address]- 6005 Mar, [facility] [place] [facility] [address] [id number] [place] [address]- 0975 Feb, [facility] [place] [facility] [address] [id number] [place] [address]- 1183 Feb, [facility] [place] [facility] [address] [id number] [place] [address]- 9949 Feb, [facility] [place] [facility] [address] [id number] [place] [address]- 5664 19 Feb, 2012 [facility] [place] [facility] [address] [id number] [place] [address]- 6661 16 Feb, 2012 [facility] [place] [facility] [address] [id number] [place] [address]- 2631 15 Feb, 2012 [facility] [place] [facility] [address] [id number] [place] [address]- 9914 14 Feb, 2012 [facility] [place] [facility] [address] [id number] [place] [address]- 7007 13 Feb, 2012 [facility] [place] [facility] [address] [id number] [place] [address]- 1494 Feb, [facility] [place] [facility] [address] [id number] [place] [address]- 1520 Feb, [facility] [place] [facility] [address] [id number] [place] [address]- 9315 Feb, [facility] [place] [facility] [address] [id number] [place] [address]- 0001 Feb, [facility] [place] [facility] [address] [id number] [place] [address]- 7691 Feb, [facility] [place] [facility] [address] [id number] [place] [address]- 1374 Feb, [facility] [place] [facility] [address] [id number] [place] [address]- 4222 Jan, [facility] [address] [id number] [place] [address]- 3912 Jan, [facility] [place] [facility] [address] [id number] [place] [address]- 9447 Jan, [facility] [place] [facility] [address] [id number] [place] [address]- 6438 August, [facility] [place] [facility] [address] [id number] [place] [address]- 1301 August, [facility] [place] [facility] [address] [id number] [place] [address]- 4743 Jul, [facility] [place] [facility] [address] [id number] [place] [address]- 9022 Jul, [facility] [place] [facility] [address] [id number] [place] [address]- 2244 Jul, [facility] [place] [facility] [address] [id number] [place] [address]- 1589 Jul, [facility] [address] [id number] [place] [address]- 2766 Jul, [facility] [place] [facility] [address] [id number] [place] [address]- 2259 Jul, [facility] [place] [facility] [address] [id number] [place] [address]- 9874 Jun, [facility] [place] [facility] [address] [id number] [place] [address]- 6655 24 May, 2011 [facility] [place] [facility] [address] [id number] [place] [address]- 1241 14 May, 2011 [facility] [place] [facility] [address] [id number] [place] [address]- 0508 05 Mar, 2011 [facility] [place] [facility] [address] [facility] [id number] [place] [address]- 4356 Feb, [facility] [place] [facility] [address] [id number] [place] [address]- 3067 18 Feb, 2010 [facility] [place] [facility] [address] [id number] [place] [address]- 6497 14 Jan, 2010 [facility] [place] [facility] [address] [facility] [id number] [place] [address]- 4731 14 Jan, 2010 [facility] [place] [facility] [address] [id number] [place] [address]- 2127 15 May, 2009 [facility] [place] [facility] [address] [id number] [place] [address]- 8770 Mar, [facility] [place] [facility] [address] [id number] [place] [address]- 1779 25 Feb, 2009 [facility] [place] [facility] [address] [facility] [id number] [place] [address]- 8865 10 Jul, 2008 [facility] [place] [facility] [address] [facility] [id number] [place] [address]- 5840 16 May, 2008 [facility] [place] [facility] [address] [facility] [id number] [place] [address]- 2546 14 May, 2006 [facility] [address] [facility] [id number] [address]- 5656 Oct, [facility] [address] [facility] [id number] [address]- 2546 Feb, IMMUNIZATIONS No Known Immunizations SOCIAL HISTORY Never Assessed REASON FOR VISIT Lab Results PLAN OF CARE VITAL SIGNS MEDICATIONS Medication Instructions Dosage Frequency Start Date End Date Duration Status Azithromycin 250 MG Orally Once a day 4 tablets, all at once 24h Mar, Mar, 1 days Active RESULTS No Results PROCEDURES No Known procedures INSTRUCTIONS MEDICATIONS ADMINISTERED No Known Medications MEDICAL (GENERAL) HISTORY Type Description Date Medical History herpes simplex type II--dx 2011 Medical History anxiety Surgical History appendectomy 08/07/13 Hospitalization History Concussion 11/2015
--- OUTSIDE RECORDS SUMMARY | 2018-09-04 10:46 | XMS REPORT ---
Author Author YVES CARRILLO Organization [facility] Address [address] [place] [address] Care Team Providers Care Boating Safety Officer Name Role Phone MODE CARRILLOE Unavailable PROBLEMS Type Condition ICD9-CM Code [id number] Code Onset Dates Condition Status SNOMED Code Problem Allergic rhinitis J30.9 Active 31928047 Assessment Dysuria R30.0 Dec, Active 33123837 Problem Dysuria R30.0 Active 09999330 Problem Contact dermatitis and eczema due to plant L24.7 Active 512312764 Problem HSV-2 (herpes simplex virus 2) infection B00.9 Active 484002954 Problem Depression with anxiety F41.8 Active 044089666 Problem Herpes simplex vulvovaginitis A60.04 Active 43681579 Problem Abrasion, multiple sites T14.8 Active 204074778 ALLERGIES Substance Reaction Event Type Date Status Cymbalta Insominia, Rapid heart beat and sweating Drug Allergy Dec, Active SOCIAL HISTORY No smoking Hx information available PLAN OF CARE VITAL SIGNS Height 62 in 2015-12-29 Weight 101.4 lbs 2015-12-29 Heart Rate 92 bpm 2015-12-29 Respiratory Rate 16 2015-12-29 BMI 18.54 kg/m2 2015-12-29 Blood pressure systolic 116 mmHg 2015-12-29 Blood pressure diastolic 84 mmHg 2015-12-29 MEDICATIONS Medication Instructions Dosage Frequency Start Date End Date Duration Status Valtrex 1 gram Orally every 24 hrs take 1 tablet (1,000 mg) by oral route once daily Mar, Active Fluticasone Propionate 50 MCG/ACT Nasally Once a day 1 spray in each nostril 24h Mar, Active PredniSONE 10 mg Orally twice a day 1 tablet 12h Dec, Dec, 05 days Active Cetirizine HCl 10 MG Orally Once a day as directed 24h Mar, Active Hydrocortisone 1 % Externally 3 times a day 1 application to affected area 8h Dec, Active BusPIRone HCl 7.5 MG Orally Three times a day prn 1 tablet Mar, Active Ibuprofen 800 MG Orally 2 times a day 1 tablet 12h 20 Feb, 2015 Active Citalopram Hydrobromide 40 mg Orally Once a day at bedtime 1 tablet Active RESULTS Name Result Date Reference Range URINE DRUG SCREEN (IN HOUSE) 2015-12-29 Lot # [id number] Exp date Control + COCAINE Negative AMPH Negative MTD Negative THC Positive OPIATE Negative BENZO Negative PCP Negative BAR Negative OXY Negative MAMP Negative TCA Negative MDMA Negative UA LONG DIP (IN HOUSE) 2015-12-29 Lot # [id number] Exp date Clarity slightly cloudy Color yellow Odor none GLU Negative RIANNA Negative KET Negative SG 1.025 BLO Negative pH 65 Protein Negative URO 0.2 E.U./dL NIT Negative PAU Trace Lot # [id number] Exp date PROCEDURES Procedure Date Ordered Related Diagnosis Body Site URINALYSIS, AUTO, W/O SCOPE Dec 29, 2015 DRUG SCREEN NON TLC DEVICES Dec 29, 2015 Office Visit, Est Pt., Level 4 Dec 29, 2015 IMMUNIZATIONS No Known Immunizations
--- OUTSIDE RECORDS SUMMARY | 2018-09-04 10:46 | XMS REPORT ---
Author Author MELINDA FUENTES [facility] [employer] Address Unknown Phone Unavailable Care Team Providers Care Derrick Builder Name Role Phone MELINDA FUENTES CP Unavailable Allergies No Known Allergies Problems Problem Type Condition Code Onset Dates Condition Status Problem Allergic rhinitis J30.9 Active Problem Unspecified genital herpes 054.10 Active Problem Depression with anxiety F41.8 Active Medications Medication Code System Code Instructions Start Date End Date Status Dosage Valtrex [facility] [address]-36 1 gram Orally every 24 hrs Apr 05, 2014 take 1 tablet (1,000 mg) by oral route once daily Results No Known Results Summary Purpose eClinicalWorks Submission
--- OUTSIDE RECORDS SUMMARY | 2018-09-04 10:46 | XMS REPORT ---
Author Author ULYSSES MONTERO Organization [employer] Address Unknown Phone Unavailable Care Team Providers Care Home Support Worker Name Role Phone ULYSSES MONTERO CP Unavailable Allergies, Adverse Reactions, Alerts Substance Reaction Event Type Cymbalta Insominia, Rapid heart beat and sweating Drug Allergy Problems Problem Type Condition Code Onset Dates Condition Status Problem Allergic rhinitis J30.9 Active Problem Unspecified genital herpes 054.10 Active Problem Depression with anxiety F41.8 Active Assessment Unspecified genital herpes 054.10 Active Medications Medication Code System Code Instructions Start Date End Date Status Dosage Fluticasone Propionate [facility] [address]-77 50 MCG/ACT Nasally Once a day Apr 21, 2015 1 spray in each nostril Valtrex [facility] [address]-75 1 gram Orally every 24 hrs Apr 05, 2014 take 1 tablet (1,000 mg) by oral route once daily BusPIRone HCl [facility] [address]-31 5 MG Orally Three times a day prn Apr 21, 2015 1 tablet Cetirizine HCl [facility] [address]-24 10 MG Orally Once a day Apr 21, 2015 as directed Ibuprofen [facility] [address]-50 800 MG Orally 2 times a day Mar 11, 2015 1 tablet Citalopram Hydrobromide [facility] [address]-08 20 MG Orally Once a day at bedtime 1 tablet Procedures Procedure Coding System Code Date Office Visit, Est Pt., Level 3 CPT-4 [id number] Apr 28, 2015 Vital Signs Date/Time: Apr 28, 2015 Temperature 99.2 F Weight 94 lbs Height 62 in BMI 17.19 Index Blood Pressure Diastolic 62 mmHg Blood Pressure Systolic 98 mmHg Cardiac Monitoring Heart Rate 72 bpm Results No Known Results Summary Purpose eClinicalWorks Submission
--- OUTSIDE RECORDS SUMMARY | 2018-09-04 10:46 | XMS REPORT ---
Author Author ULYSSES MONTERO Organization [employer] Address Unknown Phone Unavailable Care Team Providers Care Coordinator Of Health Services Name Role Phone ULYSSES MONTERO CP Unavailable Allergies No Known Allergies Problems Problem Type Condition Code Onset Dates Condition Status Problem Depression with anxiety F41.8 Active Problem Allergic rhinitis J30.9 Active Problem HSV-2 (herpes simplex virus 2) infection B00.9 Active Assessment HSV-2 (herpes simplex virus 2) infection B00.9 Active Problem Unspecified genital herpes 054.10 Active Assessment Depression with anxiety F41.8 Active Medications Medication Code System Code Instructions Start Date End Date Status Dosage Fluticasone Propionate [facility] [address]-33 50 MCG/ACT Nasally Once a day Apr 21, 2015 1 spray in each nostril Valtrex [facility] [address]-96 1 gram Orally every 24 hrs Apr 05, 2014 take 1 tablet (1,000 mg) by oral route once daily Cetirizine HCl [facility] [address]-01 10 MG Orally Once a day Apr 21, 2015 as directed Ibuprofen [facility] [address]-81 800 MG Orally 2 times a day Mar 11, 2015 1 tablet BusPIRone HCl [facility] [address]-01 7.5 MG Orally Three times a day prn Mar 1 tablet Citalopram Hydrobromide [facility] [address]-35 40 mg Orally Once a day at bedtime 1 tablet Procedures Procedure Coding System Code Date Office Visit, Est Pt., Level 3 CPT-4 78008 Dec 15, 2015 Vital Signs Date/Time: Dec 15, 2015 Cardiac Monitoring Heart Rate 68 bpm Weight 93.1 lbs Height 62 in BMI 17.03 Index Blood Pressure Diastolic 66 mmHg Blood Pressure Systolic 98 mmHg Results No Known Results Summary Purpose [employer] Submission
--- OUTSIDE RECORDS SUMMARY | 2018-09-04 10:46 | XMS REPORT ---
Author Author MONTEROULYSSES Gallegos Organization [facility] Address [address] [place] [address] Care Team Providers Care Machine Erector Name Role Phone ULYSSES MONTERO Unavailable PROBLEMS Type Condition ICD9-CM Code QIA86-UB Code Onset Dates Condition Status SNOMED Code Problem Contact dermatitis and eczema due to plant L24.7 Active 867623602 Problem HSV-2 (herpes simplex virus 2) infection B00.9 Active 046875711 Problem Allergic rhinitis J30.9 Active 03992170 Problem Depression with anxiety F41.8 Active 046120573 ALLERGIES No Information ENCOUNTERS Encounter Location Date Diagnosis [place] [address] [id number] [place] [address]2632- [address]203 04 Sep, 2017 Screening examination for sexually transmitted disease Z11.3 and Mariella vaginitis B37.3 [place] [address] [id number] [place] [address] 66772- 8397 Jul, Acute non-recurrent frontal sinusitis J01.10 and Impacted cerumen of right ear H61.21 [place] [address] [id number] [place] [address] 36305- 8100 Jun, Annual physical exam Z00.00 ; Routine gynecological examination Z01.419 ; HSV-2 (herpes simplex virus 2) infection B00.9 ; Seasonal allergic rhinitis due to pollen J30.1 ; Vaginal discharge N89.8 ; Allergic rhinitis J30.9 and Contact dermatitis and eczema due to plant L24.7 [place] [address] [address] [id number] [place] [address] 88634- 0347 16 May, 2017 Depression with anxiety F41.8 ; Allergic rhinitis J30.9 ; HSV-2 (herpes simplex virus 2) infection B00.9 ; Contact dermatitis and eczema due to plant L24.7 and Seasonal allergic rhinitis due to pollen J30.1 [place] [address] [address] Mar, [place] [address] [address] [id number] [place] [address] 24420- 0228 Mar, [place] [id number] [place] [address] 32702- 4898 Mar, Pelvic pain R10.2 ; Vaginal discharge N89.8 ; Other specified bacterial agents as the cause of diseases classified elsewhere B96.89 and Acute vaginitis N76.0 [facility] W[facility] [place] [id number] [place] [address] 26231 -3313 Jun, Body aches R52 and Influenza A J10.[address] [facility] [place] [id number] [place] [address] 27872 -7051 Mar, Discharge from the vagina N89.8 ; Unprotected sex Z72.51 and Vaginal candidiasis B37.3 [place] [address] [address] [id number] [place] [address] 34757- 1990 Feb, Acute gastritis without hemorrhage, unspecified gastritis type K29.00 and Seasonal allergic rhinitis due to pollen J30.1 [place] [address] [place] [address] 36490- 3616 Dec, Dysuria R30.0 ; Contact dermatitis and eczema due to plant L24.7 ; Herpes simplex vulvovaginitis A60.04 and Abrasion, multiple sites T14.8 [place] [address] [place] [address] 29173- 7220 Nov, Depression with anxiety F41.8 and HSV-2 (herpes simplex virus 2) infection B00.9 [place] [id number] [place] [address] 78294- 9508 Nov, [place] [address] [address] [id number] [place] [address] 79188- 1890 May, Depression with anxiety F41.8 [place] [id number] [place] [address] 88380- 9646 Apr, [place] [address] [id number] [place] [address] 82478- 4053 Apr, Unspecified genital herpes 054.10 [place] [id number] [place] [address] 20530- 2721 Mar, Depression with anxiety F41.8 and Allergic rhinitis J30.9 [place] [id number] [place] [address] 56617- 4441 Mar, [place] [address] [id number] [place] [address] 11639- 0777 Mar, Chlamydia A74.9 [place] [id number] [place] [address] 37866- 0421 Feb, Well woman exam Z01.419 ; Dysmenorrhea N94.6 ; Herpes simplex B00.9 ; Dyspareunia N94.1 ; Anxiety associated with depression F41.8 ; Unprotected sexual intercourse Z72.51 and Marijuana use F12.10 [place] [id number] [place] [address] 38885- 3713 Feb, Depression with anxiety F41.8 and H/O dysmenorrhea Z87.42 [place] [address] [place] [address] 62749- 4061 Feb, General medical exam Z00.00 [place] [id number] [place] [address] 88015- 8546 Jan, [place] [id number] [place] [address] 63624- 5188 Jan, Major depressive disorder, recurrent episode, unspecified severity F33.9 ; Generalized anxiety disorder F41.1 and ADHD, adult residual type F90.8 [place] [address] [place] [address] 52586- 3492 Jan, Generalized anxiety disorder F41.1 [place] [id number] [address]- 5863 20 Jan, 2015 General medical exam Z00.00 and Anxiety associated with depression F41.8 [facility] [address] [address] 5487 15 Sep, 2014 Allergic rhinitis 477.9 [facility] [address] [address]- 7962 August, [facility] [address] [address] 1861 August, Cervicitis and endocervicitis 616.0 ; History of chlamydia infection V12.09 and Unspecified genital herpes 054.10 [facility] [address] [address]- 6372 Jul, [facility] [address] [address]- 0335 Jul, [facility] [address] [address]- 1787 Apr, [facility] [address] [address]- 4868 Apr, [facility] [address] [address]- 2924 Apr, [facility] [address] [place] [id number] [address]- 8036 Apr, [facility] [address] [address]- 8643 Apr, [facility] [address] [address]- 2345 Apr, [facility] [id number] [address]- 6724 Apr, [facility] [id number] [address]- 5582 Apr, [facility] [id number] [place] [address]- 5260 Apr, [facility] [address] [id number] [place] [address]- 6227 Apr, [facility] [place] [facility] [address] [id number] [place] [address]- 1375 Apr, [facility] [address] [id number] [place] [address]- 5821 Apr, [facility] [address] [id number] [place] [address]- 4822 Mar, [facility] [address] [id number] [place] [address]- 2856 Mar, [facility] [address] [id number] [place] [address]- 9664 Jan, [facility] [place] [facility] [address] [id number] [place] [address]- 6817 Jan, [facility] [address] [id number] [place] [address]- 7768 26 Dec, 2013 [facility] [place] [facility] [address] [id number] [place] [address]- 6583 26 Dec, 2013 [facility] [address] [facility] [id number] [place] [address]- 8316 20 Dec, 2013 [facility] [place] [facility] [address] [id number] [place] [address]- 2545 19 Dec, 2013 [facility] [place] [facility] [address] [id number] [place] [address]- 2541 19 Dec, 2013 [facility] [place] [facility] [address] [id number] [place] [address]- 5966 17 Dec, 2013 [facility] [place] [facility] [address] [id number] [place] [address]- 8298 17 Dec, 2013 [facility] [place] [facility] [address] [id number] [place] [address]- 3744 Dec, [facility] [place] [facility] [address] [id number] [place] [address]- 4246 Dec, [facility] [place] [facility] [address] [id number] [place] [address]- 9636 Oct, [facility] [place] [facility] [address] [id number] [place] [address]- 6757 Oct, [facility] [place] [facility] [address] [id number] [place] [address]- 6426 Oct, [facility] [place] [facility] [address] [id number] [place] [address]- 2604 Oct, [facility] [place] [facility] [address] [id number] [place] [address]- 9986 Oct, [facility] [place] [facility] [address] [id number] [place] [address]- 6868 Oct, [facility] [place] [facility] [address] [id number] [place] [address]- 1045 Oct, [facility] [place] [facility] [address] [id number] [place] [address]- 2910 Oct, [facility] [place] [facility] [address] [id number] [place] [address]- 6604 Sep, [facility] [place] [facility] [address] [id number] [place] [address]- 8396 Sep, [facility] [place] [facility] [address] [id number] [place] [address]- 4516 August, [facility] [place] [facility] [address] [id number] [place] [address]- 8246 August, [facility] [place] [facility] [address] [id number] [place] [address]- 6397 August, [facility] [place] [facility] [address] [id number] [place] [address]- 1682 August, [facility] [place] [facility] [address] [id number] [place] [address]- 7765 August, [facility] [address] [id number] [place] [address]- 0715 August, [facility] [place] [facility] [address] [id number] [place] [address]- 5855 August, [facility] [place] [facility] [address] [id number] [place] [address]- 2680 August, [facility] [place] [facility] [address] [id number] [place] [address]- 4803 Jul, [facility] [place] [facility] [address] [id number] [place] [address]- 4664 Jul, [facility] [place] [facility] [address] [id number] [place] [address]- 5173 Jul, [facility] [address] [id number] [place] [address]- 8033 Jul, [facility] [place] [facility] [address] [id number] [place] [address]- 1756 Mar, [facility] [address] [id number] [place] [address]- 9754 Mar, [facility] [place] [facility] [address] [facility] [id number] [place] [address]- 1684 Mar, [facility] [place] [facility] [address] [id number] [place] [address]- 1687 Mar, [facility] [place] [facility] [address] [id number] [place] [address]- 4924 Jan, [facility] [place] [facility] [address] [id number] [place] [address]- 6317 Jan, [facility] [place] [facility] [address] [id number] [place] [address]- 6929 Jul, [facility] [place] [facility] [address] [id number] [place] [address]- 3928 Jul, [facility] [place] [facility] [address] [id number] [place] [address]- 0021 26 Jun, 2012 [facility] [address] [id number] [place] [address]- 1974 25 Jun, 2012 [facility] [place] [facility] [address] [id number] [place] [address]- 2431 25 Jun, 2012 [facility] [place] [facility] [address] [id number] [place] [address]- 3838 15 Jun, 2012 [facility] [place] [facility] [address] [id number] [place] [address]- 0295 13 Jun, 2012 [facility] [place] [facility] [address] [id number] [place] [address]- 0902 12 Jun, 2012 [facility] [place] [facility] [address] [facility] [id number] [place] [address]- 2048 08 Jun, 2012 [facility] [place] [facility] [address] [id number] [place] [address]- 6004 07 Jun, 2012 [facility] [address] [id number] [place] [address]- 5516 06 Jun, 2012 [facility] [place] [facility] [address] [id number] [place] [address]- 9251 05 Jun, 2012 [facility] [place] [facility] [address] [facility] [id number] [place] [address]- 9583 26 May, 2012 [facility] [place] [facility] [address] [id number] [place] [address]- 2003 19 May, 2012 [facility] [place] [facility] [address] [id number] [place] [address]- 2504 14 May, 2012 [facility] [place] [facility] [address] [id number] [place] [address]- 8733 05 May, 2012 [facility] [place] [facility] [address] [id number] [place] [address]- 2281 05 May, 2012 [facility] [place] [facility] [address] [id number] [place] [address]- 2008 May, [facility] [place] [facility] [address] [id number] [place] [address]- 2604 Apr, [facility] [place] [facility] [address] [id number] [place] [address]- 3025 Apr, [facility] [place] [facility] [address] [id number] [place] [address]- 7382 Apr, [facility] [place] [facility] [address] [id number] [place] [address]- 5606 Apr, [facility] [place] [facility] [address] [id number] [place] [address]- 4287 Mar, [facility] [place] [facility] [address] [id number] [place] [address]- 4009 Mar, [facility] [place] [facility] [address] [id number] [place] [address]- 0713 Mar, [facility] [place] [facility] [address] [id number] [place] [address]- 4283 Mar, [facility] [place] [facility] [address] [id number] [place] [address]- 0412 Feb, [facility] [place] [facility] [address] [id number] [place] [address]- 4770 Feb, [facility] [place] [facility] [address] [id number] [place] [address]- 0099 Feb, [facility] [place] [facility] [address] [id number] [place] [address]- 4130 19 Feb, 2012 [facility] [place] [facility] [address] [id number] [place] [address]- 0450 16 Feb, 2012 [facility] [place] [facility] [address] [id number] [place] [address]- 0530 15 Feb, 2012 [facility] [place] [facility] [address] [id number] [place] [address]- 2727 14 Feb, 2012 [facility] [place] [facility] [address] [id number] [place] [address]- 4722 13 Feb, 2012 [facility] [place] [facility] [address] [id number] [place] [address]- 0391 Feb, [facility] [place] [facility] [address] [id number] [place] [address]- 8730 Feb, [facility] [place] [facility] [address] [id number] [place] [address]- 7034 Feb, [facility] [place] [facility] [address] [id number] [place] [address]- 6216 Feb, [facility] [place] [facility] [address] [id number] [place] [address]- 7268 Feb, [facility] [place] [facility] [address] [id number] [place] [address]- 0039 Feb, [facility] [place] [facility] [address] [id number] [place] [address]- 1677 Jan, [facility] [address] [id number] [place] [address]- 9442 Jan, [facility] [place] [facility] [address] [id number] [place] [address]- 6703 Jan, [facility] [place] [facility] [address] [id number] [place] [address]- 5849 August, [facility] [place] [facility] [address] [id number] [place] [address]- 0074 August, [facility] [place] [facility] [address] [id number] [place] [address]- 5264 Jul, [facility] [place] [facility] [address] [id number] [place] [address]- 4785 Jul, [facility] [place] [facility] [address] [id number] [place] [address]- 6712 Jul, [facility] [place] [facility] [address] [id number] [place] [address]- 2924 Jul, [facility] [address] [id number] [place] [address]- 5691 Jul, [facility] [place] [facility] [address] [id number] [place] [address]- 9897 Jul, [facility] [place] [facility] [address] [id number] [place] [address]- 0106 Jun, [facility] [place] [facility] [address] [id number] [place] [address]- 1958 24 May, 2011 [facility] [place] [facility] [address] [id number] [place] [address]- 6799 14 May, 2011 [facility] [place] [facility] [address] [id number] [place] [address]- 1316 05 Mar, 2011 [facility] [place] [facility] [address] [facility] [id number] [place] [address]- 7815 Feb, [facility] [place] [facility] [address] [id number] [address]- 6349 18 Feb, 2010 [facility] [place] [facility] [address] [id number] [place] [address]- 7537 14 Jan, 2010 [facility] [place] [facility] [address] [facility] [id number] [place] [address]- 4443 14 Jan, 2010 [facility] [place] [facility] [address] [id number] [address]- 5195 15 May, 2009 [facility] [place] [facility] [address] [id number] [place] [address]- 8634 Mar, [facility] [place] [facility] [address] [id number] [place] [address]- 5319 25 Feb, 2009 [facility] [place] [facility] [address] [facility] [id number] [place] [address]- 2584 10 Jul, 2008 [facility] [place] [facility] [address] [facility] [id number] [place] [address]- 6949 16 May, 2008 [facility] [place] [facility] [address] [facility] [id number] [place] [address]- 7210 14 May, 2006 [facility] [address] [facility] [id number] [place] [address]- 6736 13 Oct, 2004 [facility] [address] [facility] [id number] [place] [address]- 7990 10 Feb, 2003 IMMUNIZATIONS No Known Immunizations SOCIAL HISTORY Never Assessed REASON FOR VISIT Return call PLAN OF CARE VITAL SIGNS MEDICATIONS No Known Medications RESULTS No Results PROCEDURES No Known procedures INSTRUCTIONS MEDICATIONS ADMINISTERED No Known Medications MEDICAL (GENERAL) HISTORY Type Description Date Medical History herpes simplex type II--dx 2011 Medical History anxiety Surgical History appendectomy 08/07/13 Hospitalization History Concussion 11/2015
--- OUTSIDE RECORDS SUMMARY | 2018-09-04 10:46 | XMS REPORT ---
Author Author ULYSSES MONTERO Organization [employer] Address Unknown Phone Unavailable Care Team Providers Care Nuclear Medicine Technician Name Role Phone ULYSSES MONTERO CP Unavailable Allergies No Known Allergies Problems Problem Type Condition Code Onset Dates Condition Status Assessment General medical exam Z00.00 Active Problem Unspecified genital herpes 054.10 Active Medications No Known Medications Procedures Procedure Coding System Code Date COMPLETE CBC W/AUTO DIFF WBC CPT-4 26195 Feb 22, 2015 ASSAY THYROID STIM HORMONE CPT-4 50281 Feb 22, 2015 COMPREHEN METABOLIC PANEL CPT-4 98556 Feb 22, 2015 VENIPUNCT, ROUTINE* CPT-4 10103 Feb 22, 2015 Results No Known Results Summary Purpose [employer] Submission
--- OUTSIDE RECORDS SUMMARY | 2018-09-04 10:46 | XMS REPORT ---
Author Author PATRICIA KEENAN [facility] [employer] Address Unknown Phone Unavailable Care Team Providers Care Ocular Care Technician Name Role Phone PATRICIA KEENAN CP Unavailable Allergies, Adverse Reactions, Alerts Substance Reaction Event Type Cymbalta Insominia, Rapid heart beat and sweating Drug Allergy Problems Problem Type Condition Code Onset Dates Condition Status Assessment Major depressive disorder, recurrent episode, unspecified severity F33.9 Active Assessment Generalized anxiety disorder F41.1 Active Problem Unspecified genital herpes 054.10 Active Assessment ADHD, adult residual type F90.8 Active Medications No Known Medications Procedures Procedure Coding System Code Date Psych diagnostic evaluation, new patient CPT-4 47343 Feb 09, 2015 Results No Known Results Summary Purpose [employer] Submission
--- OUTSIDE RECORDS SUMMARY | 2018-09-04 10:46 | XMS REPORT ---
Author Author ROSSY SUTHERLAND Organization [employer] Address Unknown Phone Unavailable Care Team Providers Care Weight Checker Name Role Phone ROSSY SUTHERLAND CP Unavailable Allergies, Adverse Reactions, Alerts Substance Reaction Event Type Cymbalta Insominia, Rapid heart beat and sweating Drug Allergy Problems Problem Type Condition Code Onset Dates Condition Status Assessment Marijuana use F12.10 Active Assessment Well woman exam Z01.419 Active Assessment Dysmenorrhea N94.6 Active Problem Unspecified genital herpes 054.10 Active Assessment Anxiety associated with depression F41.8 Active Assessment Unprotected sexual intercourse Z72.51 Active Assessment Herpes simplex B00.9 Active Assessment Dyspareunia N94.1 Active Medications Medication Code System Code Instructions Start Date End Date Status Dosage Citalopram Hydrobromide [facility] NAMED [facility] [address]-16 20 MG Orally Once a day at bedtime Mar 11, 2015 1 tablet Ibuprofen FORMER[facility] NAMED [facility] [address]-97 800 MG Orally 2 times a day Mar 11, 2015 1 tablet Valtrex FORMER[facility] NAMED [facility] [address]-64 1 gram Apr 05, 2014 take 1 tablet (1, 000 mg) by oral route once daily Procedures Procedure Coding System Code Date Preventive Care Est Pt. Age 18-39 CPT-4 51187 Mar 15, 2015 No Charge CPT-4 08477 Mar 15, 2015 Vital Signs Date/Time: Mar 15, 2015 Temperature 99.0 F Weight 91.0 lbs Height 62 in BMI 16.64 Index Blood Pressure Diastolic 68 mmHg Blood Pressure Systolic 102 mmHg Cardiac Monitoring Heart Rate 72 bpm Results No Known Results Summary Purpose [employer] Submission
--- OUTSIDE RECORDS SUMMARY | 2018-09-04 10:46 | XMS REPORT ---
Author Author KYLAH ULYSSES Organization [facility] Address [address] [place] [address] Care Team Providers Care Silk Conditioner Name Role Phone MONTEROROXY GallegosELE Unavailable PROBLEMS Type Condition ICD9-CM Code [id number] Code Onset Dates Condition Status SNOMED Code Problem Depression with anxiety F41.8 Active 318180637 Problem Allergic rhinitis J30.9 Active 25830156 Problem Seasonal allergic rhinitis due to pollen J30.1 Active 77706750 Problem Dysuria R30.0 Active 23815472 Problem Abrasion, multiple sites T14.8 Active 796451032 Problem HSV-2 (herpes simplex virus 2) infection B00.9 Active 331347960 Problem Contact dermatitis and eczema due to plant L24.7 Active 930785759 Problem Herpes simplex vulvovaginitis A60.04 Active 37163812 ALLERGIES Substance Reaction Event Type Date Status Cymbalta Insominia, Rapid heart beat and sweating Drug Allergy Mar, Active SOCIAL HISTORY No smoking Hx information available PLAN OF CARE Activity Details Follow Up prn Reason: VITAL SIGNS Height 62 in 2016-04-16 Weight 103.4 lbs 2016-04-16 Temperature 97.6 degrees Fahrenheit 2016-04-16 Heart Rate 80 bpm 2016-04-16 Respiratory Rate 18 2016-04-16 BMI 18.91 kg/m2 2016-04-16 Blood pressure systolic 100 mmHg 2016-04-16 Blood pressure diastolic 68 mmHg 2016-04-16 MEDICATIONS Medication Instructions Dosage Frequency Start Date End Date Duration Status Valtrex 1 gram Orally every 24 hrs take 1 tablet (1,000 mg) by oral route once daily Mar, Active Diflucan 150 MG Orally Once a day 1 tablet today and repeat in 7 days 24h Mar, Active RESULTS Name Result Date Reference Range TEST, URINE (IN HOUSE) 2016-04-16 RESULTS negative Lot # [id number] Control + Exp date 2017 TRICHOMONAS (IN HOUSE) 2016-04-16 TRICHOMONAS negative Control + Lot # [id number] Exp date 2016 07 UA LONG DIP (IN HOUSE) 2016-04-16 Lot # [id number] Exp date 2017 01 31 Clarity clear Color yellow Odor none GLU negative RIANNA negative KET negative SG 1.025 BLO negative pH 7.0 Protein negative URO 0.2 NIT negative PAU negative Lot # [id number] Exp date 2017 02 BACTERIAL VAGINOSIS (IN HOUSE) 2016-04-16 RESULTS negative Control + Lot # [id number] Exp date 2016 09 CULTURE, GENITAL 2016-04-16 Genital Culture, Routine Final report Result 1 Yeast isolated. Result 2 Result 3 PDF Report 2016-04-16 PDF Report1 LCLS PAP TEST, HPV IF ASCUS 2016-04-16 DIAGNOSIS: Specimen adequacy: Clinician provided ICD10: Performed by: . . Note: . GC/CHLAM PROBE (STATE) 2016-04-16 CHLAMYDIA GC PROCEDURES Procedure Date Ordered Related Diagnosis Body Site URINALYSIS, AUTO, W/O SCOPE Apr 16, 2016 URINE TEST Apr 16, 2016 CULTURE, BACTERIA, OTHER Apr 16, 2016 Office Visit, Est Pt., Level 3 Apr 16, 2016 TRICHOMONAS ASSAY W/OPTIC Apr 16, 2016 SPECIMEN HANDLING Apr 16, 2016 No Charge Apr 16, 2016 WALKER VAG, DNA, DIR PROBE Apr 16, 2016 IMMUNIZATIONS No Known Immunizations
--- OUTSIDE RECORDS SUMMARY | 2018-09-04 10:47 | XMS REPORT ---
Author Author PATRICIA KEENAN [facility] [employer] Address Unknown Phone Unavailable Care Team Providers Care Small Appliance Assembly Supervisor Name Role Phone PATRICIA KEENAN CP Unavailable Allergies, Adverse Reactions, Alerts Substance Reaction Event Type Cymbalta Insominia, Rapid heart beat and sweating Drug Allergy Problems Problem Type Condition Code Onset Dates Condition Status Assessment Generalized anxiety disorder F41.1 Active Problem Unspecified genital herpes 054.10 Active Medications No Known Medications Procedures Procedure Coding System Code Date Psychotherapy, patient &/family, 45 minutes, new patient CPT-4 21646 Jan Results No Known Results Summary Purpose e[employer] Submission
--- OUTSIDE RECORDS SUMMARY | 2018-09-04 10:47 | XMS REPORT ---
Author Author KYLAHROXYULYSSES Organization [facility] Address [address] [place] [address] Care Team Providers Care Recovery Operator Helper Name Role Phone ULYSSES MONTERO Unavailable PROBLEMS Type Condition ICD9-CM Code XDQ37-SG Code Onset Dates Condition Status SNOMED Code Problem Contact dermatitis and eczema due to plant L24.7 Active 601566350 Problem HSV-2 (herpes simplex virus 2) infection B00.9 Active 026394413 Problem Allergic rhinitis J30.9 Active 71663945 Problem Depression with anxiety F41.8 Active 413547395 ALLERGIES Substance Reaction Event Type Date Status Cymbalta Insominia, Rapid heart beat and sweating Drug Allergy Mar, Active ENCOUNTERS Encounter Location Date Diagnosis [place] [address] [address] Sep, Screening examination for sexually transmitted disease Z11.3 and Mariella vaginitis B37.3 [place] [id number] [place] [address] Jul, Acute non-recurrent frontal sinusitis J01.10 and Impacted cerumen of right ear H61.[address] [address] Jun, Annual physical exam Z00.00 ; Routine gynecological examination Z01.419 ; HSV-2 (herpes simplex virus 2) infection B00.9 ; Seasonal allergic rhinitis due to pollen J30.1 ; Vaginal discharge N89.8 ; Allergic rhinitis J30.9 and Contact dermatitis and eczema due to plant L24.7 [place] [address] [address] [place] [id number] [place] [address]- [address] 16 May, 2017 Depression with anxiety F41.8 ; Allergic rhinitis J30.9 ; HSV-2 (herpes simplex virus 2) infection B00.9 ; Contact dermatitis and eczema due to plant L24.7 and Seasonal allergic rhinitis due to pollen J30.1 [place] [address] [place] [id number] [place] [address]- [address] Mar, [place] [address] [place] [id number] [place] [address]- [address] Mar, [place] [address] [address] Mar, Pelvic pain R10.2 ; Vaginal discharge N89.8 ; Other specified bacterial agents as the cause of diseases classified elsewhere B96.89 and Acute vaginitis N76.0 [facility] [place] [address] [address] Jun, Body aches R52 and Influenza A J10.1 [facility] IN [place] [address] [address] Mar, Discharge from the vagina N89.8 ; Unprotected sex Z72.51 and Vaginal candidiasis B37.3 [place] [address] [address] Feb, Acute gastritis without hemorrhage, unspecified gastritis type K29.00 and Seasonal allergic rhinitis due to pollen J30.1 [place] [address] [place] [id number] [place] [address]- [address]658 Dec, Dysuria R30.0 ; Contact dermatitis and eczema due to plant L24.7 ; Herpes simplex vulvovaginitis A60.04 and Abrasion, multiple sites T14.8 [place] [address] [place] [id number] [place] [address]- [address] Nov, Depression with anxiety F41.8 and HSV-2 (herpes simplex virus 2) infection B00.9 [place] [address] [place] [id number] [place] [address]- [address] Nov, [place] [address] [address] May, Depression with anxiety F41.8 [place] [address] [place] [id number] [place] [address]- [address] Apr, [place] [address] [address] Apr, Unspecified genital herpes 054.10 [place] [address] [address] Mar, Depression with anxiety F41.8 and Allergic rhinitis J30.9 [place] [address] [address] Mar, [place] [address] [address] Mar, Chlamydia A74.9 [place] [address] [address] Feb, Well woman exam Z01.419 ; Dysmenorrhea N94.6 ; Herpes simplex B00.9 ; Dyspareunia N94.1 ; Anxiety associated with depression F41.8 ; Unprotected sexual intercourse Z72.51 and Marijuana use F12.10 [place] [address] [address] Feb, Depression with anxiety F41.8 and H/O dysmenorrhea Z87.42 [place] [address] [place] [id number] [place] [address]- 3567 Feb, General medical exam Z00.00 [place] [address] [place] [id number] [place] [address]- 0693 Jan, [place] [address] [address] Jan, Major depressive disorder, recurrent episode, unspecified severity F33.9 ; Generalized anxiety disorder F41.1 and ADHD, adult residual type F90.8 [place] [address] [address] Jan, Generalized anxiety disorder F41.1 [facility] [address] [address] Jan, General medical exam Z00.00 and Anxiety associated with depression F41.8 [facility] [address] [address] 15 Sep, 2014 Allergic rhinitis 477.9 [facility] [address] [place] [id number] [place] [address]- 99[address] 15 Aug, 2014 [facility] [address] [place] [id number] [place] [address]23- 3[address] August, Cervicitis and endocervicitis 616.0 ; History of chlamydia infection V12.09 and Unspecified genital herpes 054.10 [facility] [address] [address] 14 Jul, 2014 [facility] [address] [place] [id number] [place] [address]69- 4681 Jul, [facility] [id number] [place] [address]20- 0398 Apr, [facility] [address] [place] [id number] [place] [address]06- 0407 Apr, [facility] [address] [address] Apr, [facility] [address] [address] Apr, [facility] [address] [address] Apr, [facility] [address] [place] [id number] [place] [address]- 7745 Apr, [facility] [address] [address]- 9[address] Apr, [facility] [address] [place] [id number] [place] [address]- 3171 Apr, [facility] [place] [facility] [address] [id number] [place] [address]- 9951 Apr, [facility] [place] [facility] [address] [facility] [id number] [address] 30[address] Apr, [facility] [place] [facility] [address] [facility] [id number] [place] [address]- 4251 Apr, [facility] [place] [facility] [address] [id number] [place] [address]- 9382 Apr, [facility] [place] [facility] [address] [facility] [id number] [place] [address]- 6390 Mar, [facility] [place] [facility] [address] [facility] [id number] [place] [address]- 9375 Mar, [facility] [place] [facility] [address] [facility] [id number] [address]- 1021 Jan, [facility] [place] [facility] [address] [facility] [id number] [address]- 4[address] 07 Jan, 2014 [facility] [place] [facility] [address] [facility] [id number] [address]- 6479 26 Dec, 2013 [facility] [place] [facility] [address] [facility] [id number] [place] [address]- 5258 26 Dec, 2013 [facility] [place] [facility] [address] [facility] [id number] [address]- 9849 20 Dec, 2013 [facility] [place] [facility] [address] [id number] [address]- 4588 19 Dec, 2013 [facility] [place] [facility] [address] [id number] [address]- 5525 19 Dec, 2013 [facility] [place] [facility] [address] [facility] [id number], [place] [address]- 7882 17 Dec, 2013 [facility] [place] [facility] [address] [facility] [id number] [address]- 0613 17 Dec, 2013 [facility] [place] [facility] [address] [id number] [place] [address]- 0518 Dec, [facility] [place] [facility] [address] [id number] [place] [address]- 1030 Dec, [facility] [place] [facility] [address] [id number] [place] [address]- 5546 Oct, [facility] [place] [facility] [address] [id number] [place] [address]- 1208 Oct, [facility] [place] [facility] [address] [id number] [place] [address]- 7653 Oct, [facility] [place] [facility] [address] [id number] [place] [address]- 9296 Oct, [facility] [place] [facility] [address] [id number] [place] [address]- 9405 Oct, [facility] [place] [facility] [address] [id number] [place] [address]- 7326 Oct, [facility] [place] [facility] [address] [id number] [place] [address]- 9468 Oct, [facility] [place] [facility] [address] [id number] [place] [address]- 8038 Oct, [facility] [place] [facility] [address] [id number] [place] [address]- 6545 Sep, [facility] [place] [facility] [address] [id number] [place] [address]- 6918 Sep, [facility] [place] [facility] [address] [id number] [place] [address]- 9195 August, [facility] [place] [facility] [address] [id number] [place] [address]- 3006 August, [facility] [place] [facility] [address] [id number] [place] [address]- 5267 August, [facility] [place] [facility] [address] [id number] [place] [address]- 2163 August, [facility] [address] [id number] [place] [address]- 1890 August, [facility] [place] [facility] [address] [id number] [place] [address]- 3900 August, [facility] [address] [id number] [place] [address]- 9084 August, [facility] [place] [facility] [address] [id number] [place] [address]- 4289 August, [facility] [address] [id number] [place] [address]- 1468 Jul, [facility] [place] [facility] [address] [id number] [place] [address]- 3107 Jul, [facility] [address] [id number] [place] [address]- 5341 Jul, [facility] [place] [facility] [address] [id number] [place] [address]- 6436 Jul, [facility] [address] [id number] [place] [address]- 9673 Mar, [facility] [place] [facility] [address] [id number] [place] [address]- 8687 Mar, [facility] [place] [facility] [address] [id number] [address]- 6740 Mar, [facility] [place] [facility] [address] [id number], [place] [address]- 9819 Mar, [facility] [place] [facility] [address] [id number] [place] [address]- 7695 Jan, [facility] [place] [facility] [address] [id number] [place] [address]- 6867 Jan, [facility] [place] [facility] [address] [id number] [place] [address]- 8208 Jul, [facility] [place] [facility] [address] [id number] [place] [address]- 2726 24 Jul, 2012 [facility] [address] [id number] [place] [address]- 7346 26 Jun, 2012 [facility] [place] [facility] [address] [id number] [place] [address]- 7646 25 Jun, 2012 [facility] [address] [id number] [place] [address]- 4742 25 Jun, 2012 [facility] [place] [facility] [address] [id number] [place] [address]- 4026 15 Jun, 2012 [facility] [address] [id number] [place] [address]- 0922 13 Jun, 2012 [facility] [place] [facility] [address] [facility] [id number] [place] [address]- 6863 12 Jun, 2012 [facility] [address] [facility] [id number] [place] [address]- 6382 08 Jun, 2012 [facility] [address] [facility] [id number] [place] [address]- 4388 07 Jun, 2012 [facility] [place] [facility] [address] [id number] [place] [address]- 7261 06 Jun, 2012 [facility] [address] [facility] [id number] [place] [address]- 9309 05 Jun, 2012 [facility] [place] [facility] [address] [id number] [place] [address]- 0588 26 May, 2012 [facility] [place] [facility] [address] [facility] [id number] [place] [address]- 9237 19 May, 2012 [facility] [place] [facility] [address] [id number] [place] [address]- 0563 14 May, 2012 [facility] [place] [facility] [address] [facility] [id number] [place] [address]- 7546 05 May, 2012 [facility] [place] [facility] [address] [facility] [id number] [place] [address]- 2514 May, [facility] [address] [id number] [place] [address]- 2864 May, [facility] [place] [facility] [address] [id number] [place] [address]- 2088 Apr, [facility] [place] [facility] [address] [id number] [place] [address]- 3763 Apr, [facility] [place] [facility] [address] [id number] [place] [address]- 5104 Apr, [facility] [place] [facility] [address] [id number] [place] [address]- 9177 Apr, [facility] [place] [facility] [address] [id number] [place] [address]- 8274 Mar, [facility] [place] [facility] [address] [id number] [place] [address]- 4847 Mar, [facility] [place] [facility] [address] [id number] [place] [address]- 8895 Mar, [facility] [place] [facility] [address] [id number] [place] [address]- 5214 Mar, [facility] [place] [facility] [address] [id number] [place] [address]- 0040 Feb, [facility] [place] [facility] [address] [id number] [place] [address]- 1786 Feb, [facility] [place] [facility] [address] [id number] [address]- 3539 Feb, [facility] [place] [facility] [address] [id number] [place] [address]- 4423 Feb, [facility] [place] [facility] [address] [id number] [place] [address]- 7364 16 Feb, 2012 [facility] [place] [facility] [address] [id number] [place] [address]- 9783 15 Feb, 2012 [facility] [place] [facility] [address] [id number] [place] [address]- 1241 14 Feb, 2012 [facility] [place] [facility] [address] [id number] [place] [address]- 2922 13 Feb, 2012 [facility] [place] [facility] [address] [id number] [place] [address]- 0688 13 Feb, 2012 [facility] [place] [facility] [address] [id number] [place] [address]- 0275 13 Feb, 2012 [facility] [place] [facility] [address] [id number] [place] [address]- 4776 13 Feb, 2012 [facility] [place] [facility] [address] [id number] [place] [address]- 6122 Feb, [facility] [place] [facility] [address] [id number] [place] [address]- 3975 Feb, [facility] [place] [facility] [address] [id number] [place] [address]- 6091 Feb, [facility] [place] [facility] [address] [id number] [place] [address]- 3985 Jan, [facility] [place] [facility] [address] [id number] [place] [address]- 9530 Jan, [facility] [place] [facility] [address] [facility] [id number] [place] [address]- 5354 Jan, [facility] [place] [facility] [address] [id number] [place] [address]- 9464 August, [facility] [place] [facility] [address] [id number] [place] [address]- 1307 August, [facility] [place] [facility] [address] [id number] [place] [address]- 6294 Jul, [facility] [place] [facility] [address] [id number] [place] [address]- 5583 Jul, [facility] [place] [facility] [address] [id number] [place] [address]- 6210 Jul, [facility] [place] [facility] [address] [id number] [place] [address]- 9387 Jul, [facility] [place] [facility] [address] [id number] [place] [address]- 3733 Jul, [facility] [place] [facility] [address] [id number] [place] [address]- 6359 Jul, [facility] [place] [facility] [address] [id number] [place] [address]- 9531 Jun, [facility] [place] [facility] [address] [id number] [place] [address]- 8340 24 May, 2011 [facility] [place] [facility] [address] [id number] [place] [address]- 4429 14 May, 2011 [facility] [place] [facility] [address] [id number] [place] [address]- 2786 Mar, [facility] [place] [facility] [address] [id number] [place] [address]- 6338 Feb, [facility] [place] [facility] [address] [id number] [place] [address]- 8611 Feb, [facility] [place] [facility] [address] [id number] [place] [address]- 0703 14 Jan, 2010 [facility] [place] [facility] [address] [id number] [place] [address]- 0010 14 Jan, 2010 [facility] [place] [facility] [address] [id number] [place] [address]- 0734 15 May, 2009 [facility] [place] [facility] [address] [id number] [place] [address]- 5284 Mar, [facility] [place] [facility] [address] [id number] [place] [address]- 2636 Feb, [facility] [place] [facility] [address] [id number] [place] [address]- 9008 10 Jul, 2008 [facility] [place] [facility] [address] [id number] [place] [address] 16 May, 2008 [facility] [address] [facility] [id number] [address] May, [facility] [address] [facility] [id number] [address] Oct, [facility] [address] [facility] [id number] [address] Feb, IMMUNIZATIONS No Known Immunizations SOCIAL HISTORY Never Assessed REASON FOR VISIT pelvic pain x the last month -- marcial olson PLAN OF CARE Activity Details Follow Up 3 Months Reason:chm VITAL SIGNS Height 62 in 2017-03-26 Weight 101.0 lbs 2017-03-26 Temperature 98.7 degrees Fahrenheit 2017-03-26 Heart Rate 70 bpm 2017-03-26 Respiratory Rate 18 2017-03-26 BMI 18.47 kg/m2 2017-03-26 Blood pressure systolic 118 mmHg 2017-03-26 Blood pressure diastolic 70 mmHg 2017-03-26 MEDICATIONS Medication Instructions Dosage Frequency Start Date End Date Duration Status Citalopram Hydrobromide 40 mg Orally Once a day at bedtime 1 tablet Not-Taking Fluticasone Propionate 50 MCG/ACT Nasally Once a day 1 spray in each nostril 24h Mar, Not-Taking BusPIRone HCl 7.5 MG Orally Three times a day prn 1 tablet Mar, Not-Taking Metronidazole 500 mg Orally Twice a day 1 tablet 12h Mar, Mar, 10 days Active Ranitidine HCl 150 MG Orally twice a day 1 capsule 12h Feb, Not-Taking Ondansetron 4 MG Orally every 8 hrs 1 tablet on the tongue and allow to dissolve 8h Jun, 10 days Not-Taking Hydrocortisone 1 % Externally 3 times a day 1 application to affected area 8h Dec, Not-Taking Ibuprofen 800 MG Orally 2 times a day 1 tablet 12h Feb, Not- Taking Valtrex 1 gram Orally every 24 hrs take 1 tablet (1,000 mg) by oral route once daily Mar, Not-Taking Cetirizine HCl 10 MG Orally Once a day as directed 24h Mar, Not-Taking Diflucan 150 MG Orally Once a day 1 tablet today and repeat in 7 days 24h Mar, Not-Taking Valtrex 1 GM TAKE ONE TABLET BY MOUTH ONCE DAILY 90 Not-Taking RESULTS No Results PROCEDURES Procedure Date Ordered Result Body Site No Charge Mar 26, 2017 TRICHOMONAS ASSAY W/OPTIC Mar 26, 2017 CULTURE, BACTERIA, OTHER Mar 26, 2017 Bacterial Vaginosis In House Mar 26, 2017 URINE TEST Mar 26, 2017 URINALYSIS, AUTO, W/O SCOPE Mar 26, 2017 INSTRUCTIONS MEDICATIONS ADMINISTERED No Known Medications MEDICAL (GENERAL) HISTORY Type Description Date Medical History herpes simplex type II--dx 2011 Medical History anxiety Surgical History appendectomy 08/07/13 Hospitalization History Concussion 11/2015
--- OUTSIDE RECORDS SUMMARY | 2018-09-04 10:47 | XMS REPORT ---
Author Author ULYSSES MONTERO Organization [employer] Address Unknown Phone Unavailable Care Team Providers Care Healthcare Technician Name Role Phone ULYSSES MONTERO CP Unavailable Allergies, Adverse Reactions, Alerts Substance Reaction Event Type Cymbalta Insominia, Rapid heart beat and sweating Drug Allergy Problems Problem Type Condition Code Onset Dates Condition Status Problem Allergic rhinitis J30.9 Active Problem Unspecified genital herpes 054.10 Active Problem Depression with anxiety F41.8 Active Assessment Depression with anxiety F41.8 Active Assessment Allergic rhinitis J30.9 Active Medications Medication Code System Code Instructions Start Date End Date Status Dosage Fluticasone Propionate [facility] [address]-19 50 MCG/ACT Nasally Once a day Apr 21, 2015 1 spray in each nostril Cetirizine HCl [facility] [address]-54 10 MG Orally Once a day Apr 21, 2015 as [address] [facility] [address]-28 5 MG Orally Three times a day prn Apr 21, [address] [facility] [address]-40 20 MG Orally Once a day at bedtime [address] [facility] [address]-72 1 gram Apr 05, 2014 take 1 tablet (1, 000 mg) by oral route once daily Procedures Procedure Coding System Code Date Office Visit, Est Pt., Level 3 CPT-4 54445 Apr 21, 2015 Vital Signs Date/Time: Apr 21, 2015 Temperature 97.8 F Weight 92.2 lbs Height 62 in BMI 16.86 Index Blood Pressure Diastolic 64 mmHg Blood Pressure Systolic 98 mmHg Cardiac Monitoring Heart Rate 76 bpm Results No Known Results Summary Purpose [employer] Submission
--- OUTSIDE RECORDS SUMMARY | 2018-09-04 10:47 | XMS REPORT ---
Author Author KYLAHROXYULYSSES Organization [facility] [place] Address [address] [place] [address] Care Team Providers Care Surgical Corsetier Name Role Phone ULYSSES MONTERO Unavailable PROBLEMS Type Condition ICD9-CM Code SEV96-DN Code Onset Dates Condition Status SNOMED Code Problem Contact dermatitis and eczema due to plant L24.7 Active 219431601 Problem HSV-2 (herpes simplex virus 2) infection B00.9 Active 202454551 Problem Allergic rhinitis J30.9 Active 89033017 Problem Depression with anxiety F41.8 Active 547157620 ALLERGIES Substance Reaction Event Type Date Status Cymbalta Insominia, Rapid heart beat and sweating Drug Allergy Jun, Active ENCOUNTERS Encounter Location Date Diagnosis [place] [address] [address] Sep, Screening examination for sexually transmitted disease Z11.3 and Mariella vaginitis B37.3 [place] [id number] [place] [address] Jul, Acute non-recurrent frontal sinusitis J01.10 and Impacted cerumen of right ear H61.[address] [address] Jun, Annual physical exam Z00.00 ; Routine gynecological examination Z01.419 ; HSV-2 (herpes simplex virus 2) infection B00.9 ; Seasonal allergic rhinitis due to pollen J30.1 ; Vaginal discharge N89.8 ; Allergic rhinitis J30.9 and Contact dermatitis and eczema due to plant L24.7 [place] [address] [address] [place] [id number] [place] [address] 16 May, 2017 Depression with anxiety F41.8 ; Allergic rhinitis J30.9 ; HSV-2 (herpes simplex virus 2) infection B00.9 ; Contact dermatitis and eczema due to plant L24.7 and Seasonal allergic rhinitis due to pollen J30.1 [place] [address] [place] [id number] [place] [address]- [address]25 Mar, [place] [address] [place] [id number] [place] [address]- [address] Mar, [place] [address] [address] Mar, Pelvic pain R10.2 ; Vaginal discharge N89.8 ; Other specified bacterial agents as the cause of diseases classified elsewhere B96.89 and Acute vaginitis N76.0 [facility] [place] [address] [address] Jun, Body aches R52 and Influenza A J10.1 [facility] [place] [address] [address] Mar, Discharge from the vagina N89.8 ; Unprotected sex Z72.51 and Vaginal candidiasis B37.3 [place] [address] [address] Feb, Acute gastritis without hemorrhage, unspecified gastritis type K29.00 and Seasonal allergic rhinitis due to pollen J30.1 [place] [address] [place] [id number] [place] [address]- [address] Dec, Dysuria R30.0 ; Contact dermatitis and eczema due to plant L24.7 ; Herpes simplex vulvovaginitis A60.04 and Abrasion, multiple sites T14.8 [place] [address] [place] [id number] [place] [address]- 1320 Nov, Depression with anxiety F41.8 and HSV-2 (herpes simplex virus 2) infection B00.9 [place] [address] [place] [id number] [place] [address] 85373- 8338 Nov, [place] [address] [address] May, Depression with anxiety F41.8 [place] [address] [place] [id number] [place] [address] 9[address]36- 0671 Apr, [place] [address] [address] Apr, Unspecified genital herpes 054.10 [place] [address] [address] Mar, Depression with anxiety F41.8 and Allergic rhinitis J30.9 [place] [address] [address]- [address] Mar, [place] [address] [address] Mar, Chlamydia A74.9 [place] [address] [address]- [address] Feb, Well woman exam Z01.419 ; Dysmenorrhea N94.6 ; Herpes simplex B00.9 ; Dyspareunia N94.1 ; Anxiety associated with depression F41.8 ; Unprotected sexual intercourse Z72.51 and Marijuana use F12.10 [place] [address] [address]- [address] Feb, Depression with anxiety F41.8 and H/O dysmenorrhea Z87.42 [place] [address] [place] [id number] [place] [address]27- 9285 Feb, General medical exam Z00.00 [place] [address] [place] [id number] [place] [address]- [address] Jan, [place] [address] [address] Jan, Major depressive disorder, recurrent episode, unspecified severity F33.9 ; Generalized anxiety disorder F41.1 and ADHD, adult residual type F90.8 [place] [address] [address]- [address] Jan, Generalized anxiety disorder F41.1 [facility] [place] [address] [address] Jan, General medical exam Z00.00 and Anxiety associated with depression F41.8 [facility] [place] [address] [address] 15 Sep, 2014 Allergic rhinitis 477.9 [facility] [place] [address] [place] [id number] [place] [address] 34873- 9849 15 Aug, 2014 [facility] [place] [address] [place] [id number] [place] [address] 28250- 2470 August, Cervicitis and endocervicitis 616.0 ; History of chlamydia infection V12.09 and Unspecified genital herpes 054.10 [facility] [place] [address], [place] [address] 14 Jul, 2014 [facility] [place] [address] [place] [id number] [place] [address] 71314- 0668 Jul, [facility] [place] [id number] [place] [address] 96056- 8079 Apr, [facility] [place] [address] [place] [id number] [place] [address] 71453- 2657 Apr, [facility] [place] [address], [place] [address] 65[address] Apr, [facility] [place] [address] [address]- 7[address] Apr, [facility] [place] [address] [address]- 4071 Apr, [facility] [place] [address] [place] [id number] [place] [address] 84769- 1605 Apr, [facility] [place] [address], [place] [address]- 6248 Apr, [facility] [place] [address] [place] [id number] [place] [address] 93851- 4671 Apr, [facility] [place] [facility] [address] [id number] [place] [address]- 2969 Apr, [facility] [place] [facility] [address] [facility] [id number], [place] [address]- 2495 Apr, [facility] [place] [facility] [address] [facility] [id number] [place] [address]- 3539 Apr, [facility] [place] [facility] [address] [id number] [place] [address]- 9807 Apr, [facility] [place] [facility] [address] [facility] [id number] [place] [address]- 0068 Mar, [facility] [place] [facility] [address] [facility] [id number] [place] [address]- 0474 Mar, [facility] [place] [facility] [address] [facility] [id number], [place] [address]- 4667 Jan, [facility] [place] [facility] [address] [facility] [id number], [place] [address]- 8362 07 Jan, 2014 [facility] [place] [facility] [address] [facility] [id number], [place] [address]- 4462 26 Dec, 2013 [facility] [place] [facility] [address] [facility] [id number] [place] [address]- 4558 26 Dec, 2013 [facility] [place] [facility] [address] [facility] [id number], [place] [address]- 1418 20 Dec, 2013 [facility] [place] [facility] [address] [id number], [place] [address]- 4750 19 Dec, 2013 [facility] [place] [facility] [address] [id number], [place] [address]- 2158 19 Dec, 2013 [facility] [place] [facility] [address] [facility] [id number], [place] [address]- 2608 17 Dec, 2013 [facility] [place] [facility] [address] [facility] [id number], [place] [address]- 1976 17 Dec, 2013 [facility] [place] [facility] [address] [id number] [place] [address]- 7306 Dec, [facility] [place] [facility] [address] [id number] [place] [address]- 5203 Dec, [facility] [place] [facility] [address] [id number] [place] [address]- 6896 Oct, [facility] [place] [facility] [address] [id number] [place] [address]- 9062 Oct, [facility] [place] [facility] [address] [id number] [place] [address]- 2193 Oct, [facility] [place] [facility] [address] [id number] [place] [address]- 6001 Oct, [facility] [place] [facility] [address] [id number] [place] [address]- 1367 Oct, [facility] [place] [facility] [address] [id number] [place] [address]- 2099 Oct, [facility] [place] [facility] [address] [id number] [place] [address]- 9436 Oct, [facility] [place] [facility] [address] [id number] [place] [address]- 6410 Oct, [facility] [place] [facility] [address] [id number] [place] [address]- 8202 Sep, [facility] [place] [facility] [address] [id number] [place] [address]- 1038 Sep, [facility] [place] [facility] [address] [id number] [place] [address]- 6529 August, [facility] [place] [facility] [address] [id number] [place] [address]- 0374 August, [facility] [place] [facility] [address] [id number] [place] [address]- 4700 August, [facility] [place] [facility] [address] [id number] [place] [address]- 7437 August, [facility] [address] [id number] [place] [address]- 4205 August, [facility] [place] [facility] [address] [id number] [place] [address]- 9031 August, [facility] [address] [id number] [place] [address]- 4896 August, [facility] [place] [facility] [address] [id number] [place] [address]- 0560 August, [facility] [address] [id number] [place] [address]- 4763 Jul, [facility] [place] [facility] [address] [id number] [place] [address]- 2974 Jul, [facility] [address] [id number] [place] [address]- 1922 Jul, [facility] [place] [facility] [address] [id number] [place] [address]- 6805 Jul, [facility] [address] [id number] [place] [address]- 7367 Mar, [facility] [place] [facility] [address] [id number] [place] [address]- 1244 Mar, [facility] [place] [facility] [address] [id number], [place] [address]- 0319 Mar, [facility] [place] [facility] [address] [id number], [place] [address]- 4981 Mar, [facility] [place] [facility] [address] [id number] [place] [address]- 9175 Jan, [facility] [place] [facility] [address] [id number] [place] [address]- 9700 Jan, [facility] [place] [facility] [address] [id number] [place] [address]- 3044 Jul, [facility] [place] [facility] [address] [id number] [place] [address]- 2466 24 Jul, 2012 [facility] [address] [id number] [place] [address]- 1162 26 Jun, 2012 [facility] [place] [facility] [address] [id number] [place] [address]- 0696 25 Jun, 2012 [facility] [address] [id number] [place] [address]- 9997 25 Jun, 2012 [facility] [place] [facility] [address] [id number] [place] [address]- 1269 15 Jun, 2012 [facility] [address] [id number] [place] [address]- 5657 13 Jun, 2012 [facility] [place] [facility] [address] [facility] [id number] [place] [address]- 1596 12 Jun, 2012 [facility] [address] [facility] [id number] [place] [address]- 6493 08 Jun, 2012 [facility] [address] [facility] [id number] [place] [address]- 4584 07 Jun, 2012 [facility] [place] [facility] [address] [id number] [place] [address]- 9841 06 Jun, 2012 [facility] [address] [facility] [id number] [place] [address]- 0905 05 Jun, 2012 [facility] [place] [facility] [address] [id number] [place] [address]- 8525 26 May, 2012 [facility] [place] [facility] [address] [facility] [id number] [place] [address]- 5363 19 May, 2012 [facility] [place] [facility] [address] [id number] [place] [address]- 9366 14 May, 2012 [facility] [place] [facility] [address] [facility] [id number] [place] [address]- 2496 05 May, 2012 [facility] [place] [facility] [address] [facility] [id number] [place] [address]- 2661 May, [facility] [address] [id number] [place] [address]- 2122 May, [facility] [place] [facility] [address] [id number] [place] [address]- 9416 Apr, [facility] [place] [facility] [address] [id number] [place] [address]- 0322 Apr, [facility] [place] [facility] [address] [id number] [place] [address]- 3864 Apr, [facility] [place] [facility] [address] [id number] [place] [address]- 4166 Apr, [facility] [place] [facility] [address] [id number] [place] [address]- 7968 Mar, [facility] [place] [facility] [address] [id number] [place] [address]- 6365 Mar, [facility] [place] [facility] [address] [id number] [place] [address]- 1029 Mar, [facility] [place] [facility] [address] [id number] [place] [address]- 0700 Mar, [facility] [place] [facility] [address] [id number] [place] [address]- 8559 Feb, [facility] [place] [facility] [address] [id number] [place] [address]- 1566 Feb, [facility] [place] [facility] [address] [id number], [place] [address]- 0657 Feb, [facility] [place] [facility] [address] [id number] [place] [address]- 3499 Feb, [facility] [place] [facility] [address] [id number] [place] [address]- 8500 16 Feb, 2012 [facility] [place] [facility] [address] [id number] [place] [address]- 6966 15 Feb, 2012 [facility] [place] [facility] [address] [id number] [place] [address]- 0390 14 Feb, 2012 [facility] [place] [facility] [address] [id number] [place] [address]- 8578 13 Feb, 2012 [facility] [place] [facility] [address] [id number] [place] [address]- 5710 13 Feb, 2012 [facility] [place] [facility] [address] [id number] [place] [address]- 5158 13 Feb, 2012 [facility] [place] [facility] [address] [id number] [place] [address]- 4597 13 Feb, 2012 [facility] [place] [facility] [address] [id number] [place] [address]- 6005 Feb, [facility] [place] [facility] [address] [id number] [place] [address]- 0479 Feb, [facility] [place] [facility] [address] [id number] [place] [address]- 7088 Feb, [facility] [place] [facility] [address] [id number] [place] [address]- 1690 Jan, [facility] [place] [facility] [address] [id number] [place] [address]- 0328 Jan, [facility] [place] [facility] [address] [facility] [id number] [place] [address]- 1086 Jan, [facility] [place] [facility] [address] [id number] [place] [address]- 9633 August, [facility] [place] [facility] [address] [id number] [place] [address]- 2091 August, [facility] [place] [facility] [address] [id number] [place] [address]- 8262 Jul, [facility] [place] [facility] [address] [id number] [place] [address]- 4267 Jul, [facility] [place] [facility] [address] [id number] [place] [address]- 1377 Jul, [facility] [place] [facility] [address] [id number] [place] [address]- 4870 Jul, [facility] [place] [facility] [address] [id number] [place] [address]- 5489 Jul, [facility] [place] [facility] [address] [id number] [place] [address]- 8371 Jul, [facility] [place] [facility] [address] [id number] [place] [address]- 2468 Jun, [facility] [place] [facility] [address] [id number] [place] [address]- 0266 24 May, 2011 [facility] [place] [facility] [address] [id number] [place] [address]- 9963 14 May, 2011 [facility] [place] [facility] [address] [id number] [place] [address]- 4974 Mar, [facility] [place] [facility] [address] [id number] [place] [address]- 3750 Feb, [facility] [place] [facility] [address] [id number] [place] [address]- 0563 Feb, [facility] [place] [facility] [address] [id number] [place] [address]- 1593 14 Jan, 2010 [facility] [place] [facility] [address] [id number] [place] [address]- 2771 14 Jan, 2010 [facility] [place] [facility] [address] [id number] [place] [address]- 8042 15 May, 2009 [facility] [place] [facility] [address] [id number] [place] [address]- 9567 Mar, [facility] [place] [facility] [address] [id number] [place] [address]- 9479 Feb, [facility] [place] [facility] [address] [id number] [place] [address]- 2679 10 Jul, 2008 [facility] [place] [facility] [address] [id number] [place] [address]- 2546 May, [facility] [place] [address] [facility] [id number], [place] [address]- 2546 May, [facility] [place] [address] [facility] [id number], [place] [address] 2546 Oct, [facility] [place] [address] [facility] [id number], [place] [address]- 2546 Feb, IMMUNIZATIONS No Known Immunizations SOCIAL HISTORY Never Assessed REASON FOR VISIT cough, runny nose for 4 days. cruz, sister has influenza and lives with her PLAN OF CARE Activity Details Follow Up prn Reason: VITAL SIGNS Height 62 in 2016-06-25 Weight 99.0 lbs 2016-06-25 Temperature 98.3 degrees Fahrenheit 2016-06-25 Heart Rate 88 bpm 2016-06-25 Respiratory Rate 20 2016-06-25 BMI 18.11 kg/m2 2016-06-25 Blood pressure systolic 112 mmHg 2016-06-25 Blood pressure diastolic 70 mmHg 2016-06-25 MEDICATIONS Medication Instructions Dosage Frequency Start Date End Date Duration Status Citalopram Hydrobromide 40 mg Orally Once a day at bedtime 1 tablet Not-Taking Fluticasone Propionate 50 MCG/ACT Nasally Once a day 1 spray in each nostril 24h Mar, Not-Taking Valtrex 1 GM TAKE ONE TABLET BY MOUTH ONCE DAILY 90 Not-Taking Ondansetron 4 MG Orally every 8 hrs 1 tablet on the tongue and allow to dissolve 8h Jun, 10 days Active Ranitidine HCl 150 MG Orally twice a day 1 capsule 12h Feb, Not-Taking Valtrex 1 gram Orally every 24 hrs take 1 tablet (1,000 mg) by oral route once daily Mar, Active Ibuprofen 800 MG Orally 2 times a day 1 tablet 12h Feb, Not- Taking Cetirizine HCl 10 MG Orally Once a day as directed 24h Mar, Not-Taking Diflucan 150 MG Orally Once a day 1 tablet today and repeat in 7 days 24h Mar, Not-Taking BusPIRone HCl 7.5 MG Orally Three times a day prn 1 tablet Mar, Not-Taking Hydrocortisone 1 % Externally 3 times a day 1 application to affected area 8h Dec, Not-Taking RESULTS Name Result Date Reference Range INFLUENZA A & B (IN HOUSE) 2016-06-25 INFLUENZA A positive INFLUENZA B negative Control + Lot # [id number] Exp date 2017 PROCEDURES Procedure Date Ordered Result Body Site INFLUENZA ASSAY W/OPTIC June 25, 2016 INSTRUCTIONS MEDICATIONS ADMINISTERED No Known Medications MEDICAL (GENERAL) HISTORY Type Description Date Medical History herpes simplex type II--dx 2011 Medical History anxiety Surgical History appendectomy 08/07/13 Hospitalization History Concussion 11/2015
--- OUTSIDE RECORDS SUMMARY | 2018-09-04 10:47 | XMS REPORT ---
Author Author ROSSY SUTHERLAND [facility] e[employer] Address Unknown Phone Unavailable Care Team Providers Care Spring Encaser Name Role Phone ROSSY SUTHERLAND Unavailable Allergies No Known Allergies Problems Problem Type Condition Code Onset Dates Condition Status Assessment Chlamydia A74.9 Active Problem Unspecified genital herpes 054.10 Active Medications Medication Code System Code Instructions Start Date End Date Status Dosage Azithromycin [facility] [place] [address]-83 500 MG Orally once Mar 30, 2015 2 tablets Results No Known Results Summary Purpose eClinicalWorks Submission
--- OUTSIDE RECORDS SUMMARY | 2018-09-04 10:47 | XMS REPORT ---
Author Author ULYSSES MONTERO Organization e[employer] Address Unknown Phone Unavailable Care Team Providers Care Manager Cancer Name Role Phone ULYSSES MONTERO CP Unavailable Allergies, Adverse Reactions, Alerts Substance Reaction Event Type Cymbalta Insominia, Rapid heart beat and sweating Drug Allergy Problems Problem Type Condition Code Onset Dates Condition Status Assessment General medical exam Z00.00 Active Assessment Anxiety associated with depression F41.8 Active Problem Unspecified genital herpes 054.10 Active Medications Medication Code System Code Instructions Start Date End Date Status Dosage Valtrex [facility] [address]-57 1 gram Apr 05, 2014 take 1 tablet (1, 000 mg) by oral route once daily Sertraline HCl [facility] [address]-41 25 MG Orally Once a day Feb 09, 2015 1 tablet Sertraline HCl [facility] [address]-43 25 MG Orally Once a day Feb 08, 2015 1 tablet Procedures Procedure Coding System Code Date Office Visit, Est Pt., Level 3 CPT-4 42094 Feb 08, 2015 Vital Signs Date/Time: Feb 08, 2015 Temperature 98.1 F Weight 92.0 lbs Height 62 in BMI 16.83 Index Blood Pressure Diastolic 64 mmHg Blood Pressure Systolic 100 mmHg Cardiac Monitoring Heart Rate 80 bpm Results No Known Results Summary Purpose eClinicalWorks Submission
--- OUTSIDE RECORDS SUMMARY | 2018-09-04 10:48 | XMS REPORT ---
Author Author ULYSSES MONTERO Organization [employer] Address Unknown Phone Unavailable Care Team Providers Care Corn Miller Name Role Phone ULYSSES MONTERO CP Unavailable Allergies No Known Allergies Problems Problem Type Condition Code Onset Dates Condition Status Problem Unspecified genital herpes 054.10 Active Medications No Known Medications Results No Known Results Summary Purpose [employer] Submission
--- OUTSIDE RECORDS SUMMARY | 2018-09-04 10:48 | XMS REPORT ---
Author Author ULYSSES MONTERO Organization [employer] Address Unknown Phone Unavailable Care Team Providers Care Neck Fitter Name Role Phone ULYSSES MONTERO CP Unavailable [...] Instructions Start Date End Date Status Dosage BusPIRone HCl [facility] [address]-23 7.5 MG Orally Three times a day prn Mar 1 tablet Cetirizine HCl [facility] [address]-62 10 MG Orally Once a day Apr 21, 2015 as directed Fluticasone Propionate [facility] [address]-79 50 MCG/ACT Nasally Once a day Apr 21, 2015 1 spray in each nostril Valtrex [facility] [address]-88 1 gram Orally every 24 hrs Apr 05, 2014 take 1 tablet (1,000 mg) by oral route once daily Citalopram Hydrobromide [facility] [address]-57 40 MG Orally Once a day at bedtime 1 tablet Ibuprofen [facility] [address]-10 800 MG Orally 2 times a day Mar 11, 2015 1 tablet Procedures Procedure Coding System Code Date Office Visit, Est Pt., Level 3 CPT-4 90548 May 24, 2015 Vital Signs Date/Time: May 24, 2015 Temperature 97.8 F Weight 97.3 lbs Height 62 in BMI 17.79 Index Blood Pressure Diastolic 60 mmHg Blood Pressure Systolic 102 mmHg Cardiac Monitoring Heart Rate 78 bpm Results No Known Results Summary Purpose [employer] Submission
--- OUTSIDE RECORDS SUMMARY | 2018-09-04 10:48 | XMS REPORT ---
Author Author PRIYA MORE [facility] Address [address] [place] [address] Care Team Providers Care Sheriffs Detective Name Role Phone PRIYA MORE Unavailable PROBLEMS Type Condition ICD9-CM Code LVY86-[id number] Code Onset Dates Condition Status SNOMED Code Assessment Acute gastritis without hemorrhage, unspecified gastritis type K29.00 Feb, Active 26803853 Problem Depression with anxiety F41.8 Active 931328418 Problem Allergic rhinitis J30.9 Active 45873342 Problem Seasonal allergic rhinitis due to pollen J30.1 Active 22140078 Problem Dysuria R30.0 Active 55653338 Problem Abrasion, multiple sites T14.8 Active 257849188 Problem HSV-2 (herpes simplex virus 2) infection B00.9 Active 482138811 Problem Contact dermatitis and eczema due to plant L24.7 Active 432124722 Problem Herpes simplex vulvovaginitis A60.04 Active 75889259 ALLERGIES Substance Reaction Event Type Date Status Cymbalta Insominia, Rapid heart beat and sweating Drug Allergy Feb, Active SOCIAL HISTORY No smoking Hx information available PLAN OF CARE VITAL SIGNS Height 62 in 2016-03-06 Weight 96.2 lbs 2016-03-06 Heart Rate 78 bpm 2016-03-06 Respiratory Rate 16 2016-03-06 BMI 17.59 kg/m2 2016-03-06 Blood pressure systolic 100 mmHg 2016-03-06 Blood pressure diastolic 70 mmHg 2016-03-06 MEDICATIONS Medication Instructions Dosage Frequency Start Date End Date Duration Status Valtrex 1 gram Orally every 24 hrs take 1 tablet (1,000 mg) by oral route once daily Mar, Active Cetirizine HCl 10 MG Orally Once a day as directed 24h Mar, Active Ibuprofen 800 MG Orally 2 times a day 1 tablet 12h 20 Feb, 2015 Active Ranitidine HCl 150 MG Orally twice a day 1 capsule 12h Feb, Active RESULTS No Results PROCEDURES Procedure Date Ordered Related Diagnosis Body Site Office Visit, Est Pt., Level 3 Mar 06, 2016 IMMUNIZATIONS No Known Immunizations
--- OUTSIDE RECORDS SUMMARY | 2018-09-04 10:50 | XMS REPORT | Continuity of Care Document ---
Author Organization Unknown Address Unknown Allergies Active Description Code Type Severity Reaction Onset Reported/Identified Relationship to Patient Clinical Status Yes No Known Drug Allergies [id number] Drug Allergy Unknown N/A 01/09/2012 Yes Cymbalta 30 mg capsule,delayed release(DR/EC) Drug Allergy N/A N/A 2013 Yes duloxetine [id number] Drug Allergy Unknown opposite effect 09/02/2018 Medications There is no data. Problems Date Dx Coded Attending Type Code Diagnosis Diagnosed By 03/29/2008 MELINDA FUENTES DO 558.9 GASTROENTERITIS NONINFECTIOUS 03/29/2008 558.9 GASTROENTERITIS NONINFECTIOUS 03/29/2008 [facility], RAN R 558.9 GASTROENTERITIS NONINFECTIOUS 03/29/2008 CUCA MONDRAGON PHD 558.9 GASTROENTERITIS NONINFECTIOUS 03/29/2008 558.9 GASTROENTERITIS NONINFECTIOUS 03/29/2008 [facility], RAN R 558.9 GASTROENTERITIS NONINFECTIOUS 03/29/2008 [facility], RAN R 558.9 GASTROENTERITIS NONINFECTIOUS 03/29/2008 MELINDA FUENTES DO 558.9 GASTROENTERITIS NONINFECTIOUS 03/29/[facility] GASTROENTERITIS NONINFECTIOUS 03/29/2008 MELINDA FUENTES DO 558.9 GASTROENTERITIS NONINFECTIOUS 03/29/2008 558.9 GASTROENTERITIS NONINFECTIOUS 03/29/2008 CHEO HERNANDEZ APRN 558.9 GASTROENTERITIS NONINFECTIOUS 03/29/2008 DEREK HERNDON APRN 558.9 GASTROENTERITIS NONINFECTIOUS 03/29/2008 MELINDA FUENTES DO 558.9 GASTROENTERITIS NONINFECTIOUS 03/29/2008 TIGRE FUENTES DOA K 558.9 GASTROENTERITIS NONINFECTIOUS 03/29/2008 TIGRE FUENTES DOA K 558.9 GASTROENTERITIS NONINFECTIOUS 03/29/2008 TIGRE FUENTES DOA K 558.9 GASTROENTERITIS NONINFECTIOUS 03/29/2008 GLADYS HERNANDEZ APRNIDI A 558.9 GASTROENTERITIS NONINFECTIOUS 03/29/2008 GLADYS HERNANDEZ APRNIDI A 558.9 GASTROENTERITIS NONINFECTIOUS 03/29/2008 MELINDA FUENTES DO K 558.9 GASTROENTERITIS NONINFECTIOUS 03/29/2008 NICOLE VALENTINE APRN 558.9 GASTROENTERITIS NONINFECTIOUS 06/07/2008 MELINDA FUENTES DO K 626.0 AMENORRHEA 06/07/2008 MELINDA FUENTES DO V20.2 Preventive Medicine New Patient Evaluation Childhood 5-06/07/2008 626.0 AMENORRHEA 06/07/2008 V20.2 Preventive Medicine New Patient Evaluation Childhood -06/07/2008 [facility], RAN R 626.0 AMENORRHEA 06/07/2008 [facility], RAN R V20.2 Preventive Medicine New Patient Evaluation Childhood -06/07/2008 GIANCARLO DOSS, CUCA Helm 626.0 AMENORRHEA 06/07/2008 GIANCARLO DOSS, CUCA Helm V20.2 Preventive Medicine New Patient Evaluation Childhood -06/07/2008 626.0 AMENORRHEA 06/07/2008 V20.2 Preventive Medicine New Patient Evaluation Childhood -06/07/2008 [facility], RAN R 626.0 AMENORRHEA 06/07/2008 [facility], RAN R V20.2 Preventive Medicine New Patient Evaluation Childhood -06/07/2008 [facility], RAN R 626.0 AMENORRHEA 06/07/2008 [facility], RAN R V20.2 Preventive Medicine New Patient Evaluation Childhood 5-06/07/2008 MELINDA FUENTES DO 626.0 AMENORRHEA 06/07/2008 MELINDA FUENTES DO K V20.2 Preventive Medicine New Patient Evaluation Childhood -06/07/2008 [facility], RAN R 626.0 AMENORRHEA 06/07/2008 [facility], RAN R V20.2 Preventive Medicine New Patient Evaluation Childhood -06/07/2008 MELINDA FUENTES DO K 626.0 AMENORRHEA 06/07/2008 MELINDA FUENTES DO K V20.2 Preventive Medicine New Patient Evaluation Childhood -06/07/2008 626.0 AMENORRHEA 06/07/2008 V20.2 Preventive Medicine New Patient Evaluation Childhood 5-06/07/2008 MARY COMPUTER ASSEMBLER, CHEO A 626.0 AMENORRHEA 06/07/2008 MARY COMPUTER ASSEMBLER, CHEO A V20.2 Preventive Medicine New Patient Evaluation Childhood -06/07/2008 NANCI HERNDON APRNIA R 626.0 AMENORRHEA 06/07/2008 YANICK ALTMANNTONYADEREK R V20.2 Preventive Medicine New Patient Evaluation Childhood -06/07/2008 TIGRE FUENTES DOA K 626.0 AMENORRHEA 06/07/2008 TIGRE FUENTES DOA K V20.2 Preventive Medicine New Patient Evaluation Childhood -06/07/2008 FUENTES TIGRE SANDHUA K 626.0 AMENORRHEA 06/07/2008 TIGRE FUENTES DOA K V20.2 Preventive Medicine New Patient Evaluation Childhood 08-3006/07/2008 TIGRE FUENTES DOA K 626.0 AMENORRHEA 06/07/2008 FUENTES DO MELINDA K V20.2 PREVENTIVE MEDICINE NEW PATIENT EVALUATION CHILDHOOD 08-3006/07/2008 TIGRE FUENTES DOA K 626.0 AMENORRHEA 06/07/2008 TIGRE FUENTES DOA K V20.2 PREVENTIVE MEDICINE NEW PATIENT EVALUATION CHILDHOOD -06/07/2008 MARY COMPUTER ASSEMBLER, CHEO A 626.0 AMENORRHEA 06/07/2008 MARY LEE CHEO A V20.2 PREVENTIVE MEDICINE NEW PATIENT EVALUATION CHILDHOOD 08-3006/07/2008 MARY ALTMANN, CHEO A 626.0 AMENORRHEA 06/07/2008 MARY LEE CHEO A V20.2 PREVENTIVE MEDICINE NEW PATIENT EVALUATION CHILDHOOD 08-3006/07/2008 TIGRE FUENTES DOA K 626.0 AMENORRHEA 06/07/2008 GINA SANDHU MELINDA K V20.2 PREVENTIVE MEDICINE NEW PATIENT EVALUATION CHILDHOOD 08-3006/07/2008 MADDavin COMPUTER ASSEMBLER, NICOLE L 626.0 AMENORRHEA 06/07/2008 MADL COMPUTER ASSEMBLERGRANT LooneyNICOLE L V20.2 PREVENTIVE MEDICINE NEW PATIENT EVALUATION CHILDHOOD -07/13/2008 MELINDA FUENTES DO 311 MO DEPRESS NOS 07/13/2008 311 MO DEPRESS NOS 07/13/2008 GIANCARLO [facility], RAN Rees 311 MO DEPRESS NOS 07/13/2008 GIANCARLO PHD, CUCA Helm 311 MO DEPRESS NOS 07/13/2008 311 MO DEPRESS NOS 07/13/2008 GIANCARLO [facility], RAN R 311 MO DEPRESS NOS 07/13/2008 GIANCARLO [facility], RAN R 311 MO DEPRESS NOS 07/13/2008 FUENTES DO, MELINDA K 311 MO DEPRESS NOS 07/13/2008 GIANCARLO [facility], RAN R 311 MO DEPRESS NOS 07/13/2008 FUENTES DO, MELINDA K 311 MO DEPRESS NOS 07/13/2008 311 MO DEPRESS NOS 07/13/2008 MARY COMPUTER ASSEMBLER, CHEO A 311 MO DEPRESS NOS 07/13/2008 HERNDON COMPUTER ASSEMBLERNANCI LooneyIA R 311 MO DEPRESS NOS 07/13/2008 FUENTES DO, MELINDA K 311 MO DEPRESS NOS 07/13/2008 FUENTES DO, MELINDA K 311 MO DEPRESS NOS 07/13/2008 FUENTES DO, MELINDA K 311 MO DEPRESS NOS 07/13/2008 FUENTES DO, MELINDA K 311 MO DEPRESS NOS 07/13/2008 MARY COMPUTER ASSEMBLER, CHEO A 311 MO DEPRESS NOS 07/13/2008 MARY COMPUTER ASSEMBLER, CHEO A 311 MO DEPRESS NOS 07/13/2008 FUENTES DO, MELINDA K 311 MO DEPRESS NOS 07/13/2008 NICOLE VALENTINE APRN 311 MO DEPRESS NOS 07/30/2008 FUENTES DO, MELINDA K 792.1 worms in the stool 07/30/2008 792.1 worms in the stool 07/30/2008 GIANCARLO [facility], RAN R 792.1 worms in the stool 07/30/2008 CUCA MONDRAGON PHD 792.1 worms in the stool 07/30/2008 792.1 worms in the stool 07/30/2008 GIANCARLO [facility], RAN R 792.1 worms in the stool 07/30/2008 GIANCARLO [facility], RAN R 792.1 worms in the stool 07/30/2008 FUENTES DO, MELINDA K 792.1 worms in the stool 07/30/2008 GIANCARLO [facility], RAN R 792.1 worms in the stool 07/30/2008 FUENTES DO, MELINDA K 792.1 worms in the stool 07/30/2008 792.1 worms in the stool 07/30/2008 MARY COMPUTER ASSEMBLER, CHEO A 792.1 worms in the stool 07/30/2008 NANCI HERNDON APRNIA R 792.1 worms in the stool 07/30/2008 FUENTES DO, MELINDA K 792.1 worms in the stool 07/30/2008 FUENTES DO, MELINDA K 792.1 worms in the stool 07/30/2008 FUENTES DO, MELINDA K 792.1 WORMS IN THE STOOL 07/30/2008 FUENTES DO, MELINDA K 792.1 WORMS IN THE STOOL 07/30/2008 MARY COMPUTER ASSEMBLER, CHEO A 792.1 WORMS IN THE STOOL 07/30/2008 MARY COMPUTER ASSEMBLER, CHEO A 792.1 WORMS IN THE STOOL 07/30/2008 FUENTES DO, MELINDA K 792.1 WORMS IN THE STOOL 07/30/2008 MADL COMPUTER ASSEMBLER, NICOLE L 792.1 WORMS IN THE STOOL 03/16/2009 FUENTES DO, MELINDA K 078.19 WARTS HAND RIGHT 03/16/2009 078.19 WARTS HAND RIGHT 03/16/2009 [facility], RAN R 078.19 WARTS HAND RIGHT 03/16/2009 GIANCARLO PHD, CUCA Helm 078.19 WARTS HAND RIGHT 03/16/2009 078.19 WARTS HAND RIGHT 03/16/2009 [facility], RAN R 078.19 WARTS HAND RIGHT 03/16/2009 [facility], RAN R 078.19 WARTS HAND RIGHT 03/16/2009 FUENTES DO, MELINDA K 078.19 WARTS HAND RIGHT 03/16/2009 [facility], RAN R 078.19 WARTS HAND RIGHT 03/16/2009 FUENTES DO, MELINDA K 078.19 WARTS HAND RIGHT 03/16/2009 078.19 WARTS HAND RIGHT 03/16/2009 MARY COMPUTER ASSEMBLER, CHEO A 078.19 WARTS HAND RIGHT 03/16/2009 DEREK HERNDON APRN R 078.19 WARTS HAND RIGHT 03/16/2009 FUENTES DO, MELINDA K 078.19 WARTS HAND RIGHT 03/16/2009 FUENTES DO, MELINDA K 078.19 WARTS HAND RIGHT 03/16/2009 FUENTES DO, MELINDA K 078.19 WARTS HAND RIGHT 03/16/2009 FUENTES DO, MELINDA K 078.19 WARTS HAND RIGHT 03/16/2009 MARY COMPUTER ASSEMBLER, CHEO A 078.19 WARTS HAND RIGHT 03/16/2009 CHEO HERNANDEZ APRN A 078.19 WARTS HAND RIGHT 03/16/2009 FUENTES DO, MELINDA K 078.19 WARTS HAND RIGHT 03/16/2009 NICOLE VALENTINE APRN 078.19 WARTS HAND RIGHT 03/23/2009 FUENTES DO, MELINDA K 461.9 SINUSITIS ACUTE 03/23/2009 FUENTES DO, MELINDA K 477.9 ALLERGIC RHINITIS 03/23/2009 FUENTES DO, MELINDA K 704.8 FOLLICULITIS 03/23/2009 461.9 SINUSITIS ACUTE 03/23/2009 477.9 ALLERGIC RHINITIS 03/23/2009 704.8 FOLLICULITIS 03/23/2009 [facility], RAN R 461.9 SINUSITIS ACUTE 03/23/2009 [facility], RAN R 477.9 ALLERGIC RHINITIS 03/23/2009 [facility], RAN R 704.8 FOLLICULITIS 03/23/2009 CUCA MONDRAGON PHD 461.9 SINUSITIS ACUTE 03/23/2009 CUCA MONDRAGON PHD 477.9 ALLERGIC RHINITIS 03/23/2009 CUCA MONDRAGON PHD 704.8 FOLLICULITIS 03/23/2009 461.9 SINUSITIS ACUTE 03/23/2009 477.9 ALLERGIC RHINITIS 03/23/2009 704.8 FOLLICULITIS 03/23/2009 [facility], RAN R 461.9 SINUSITIS ACUTE 03/23/2009 [facility], RAN R 477.9 ALLERGIC RHINITIS 03/23/2009 [facility], RAN R 704.8 FOLLICULITIS 03/23/2009 [facility], RAN R 461.9 SINUSITIS ACUTE 03/23/2009 [facility], RAN R 477.9 ALLERGIC RHINITIS 03/23/2009 [facility], RAN R 704.8 FOLLICULITIS 03/23/2009 FUENTES DO, MELINDA K 461.9 SINUSITIS ACUTE 03/23/2009 FUENTES DO MELINDA K 477.9 ALLERGIC RHINITIS 03/23/2009 FUENTES DO, MELINDA K 704.8 FOLLICULITIS 03/23/2009 [facility], RAN R 461.9 SINUSITIS ACUTE 03/23/2009 [facility], RAN R 477.9 ALLERGIC RHINITIS 03/23/2009 [facility], RAN R 704.8 FOLLICULITIS 03/23/2009 FUENTES DO, MELINDA K 461.9 SINUSITIS ACUTE 03/23/2009 FUENTES DO, MELINDA K 477.9 ALLERGIC RHINITIS 03/23/2009 FUENTES DO, MELINDA K 704.8 FOLLICULITIS 03/23/2009 461.9 SINUSITIS ACUTE 03/23/2009 477.9 ALLERGIC RHINITIS 03/23/2009 704.8 FOLLICULITIS 03/23/2009 MARY COMPUTER ASSEMBLER, CHEO A 461.9 SINUSITIS ACUTE 03/23/2009 MARY COMPUTER ASSEMBLER, CHEO A 477.9 ALLERGIC RHINITIS 03/23/2009 MARY COMPUTER ASSEMBLER, CHEO A 704.8 FOLLICULITIS 03/23/2009 HERNDON COMPUTER ASSEMBLER, DEREK R 461.9 SINUSITIS ACUTE 03/23/2009 HERNDON COMPUTER ASSEMBLER, DEREK R 477.9 ALLERGIC RHINITIS 03/23/2009 HERNDON COMPUTER ASSEMBLER, DEREK R 704.8 FOLLICULITIS 03/23/2009 FUENTES DO, MELINDA K 461.9 SINUSITIS ACUTE 03/23/2009 FUENTES DO, MELINDA K 477.9 ALLERGIC RHINITIS 03/23/2009 FUENTES DO, MELINDA K 704.8 FOLLICULITIS 03/23/2009 FUENTES DO, MELINDA K 461.9 SINUSITIS ACUTE 03/23/2009 FUENTES DO, MELINDA K 477.9 ALLERGIC RHINITIS 03/23/2009 FUENTES DO, MELINDA K 704.8 FOLLICULITIS 03/23/2009 FUENTES DO, MELINDA K 461.9 SINUSITIS ACUTE 03/23/2009 FUENTES DO, MELINDA K 477.9 ALLERGIC RHINITIS 03/23/2009 FUENTES DO, MELINDA K 704.8 FOLLICULITIS 03/23/2009 FUENTES DO, MELINDA K 461.9 SINUSITIS ACUTE 03/23/2009 FUENTES DO, MELINDA K 477.9 ALLERGIC RHINITIS 03/23/2009 FUENTES DO, MELINDA K 704.8 FOLLICULITIS 03/23/2009 MARY COMPUTER ASSEMBLER, CHEO A 461.9 SINUSITIS ACUTE 03/23/2009 MARY COMPUTER ASSEMBLER, CHEO A 477.9 ALLERGIC RHINITIS 03/23/2009 MARY COMPUTER ASSEMBLER, CHEO A 704.8 FOLLICULITIS 03/23/2009 MARY COMPUTER ASSEMBLER, CHEO A 461.9 SINUSITIS ACUTE 03/23/2009 MARY COMPUTER ASSEMBLER, CHEO A 477.9 ALLERGIC RHINITIS 03/23/2009 MARY COMPUTER ASSEMBLER, CHEO A 704.8 FOLLICULITIS 03/23/2009 FUENTES DO, MELINDA K 461.9 SINUSITIS ACUTE 03/23/2009 FUENTES DO, MELINDA K 477.9 ALLERGIC RHINITIS 03/23/2009 FUENTES DO, MELINDA K 704.8 FOLLICULITIS 03/23/2009 MADL COMPUTER ASSEMBLER, NICOLE L 461.9 SINUSITIS ACUTE 03/23/2009 MADL COMPUTER ASSEMBLER, NICOLE L 477.9 ALLERGIC RHINITIS 03/23/2009 MADL COMPUTER ASSEMBLER, NICOLE L 704.8 FOLLICULITIS 06/06/2009 FUENTES DO, MELINDA K V05.3 HEPATITIS VIRAL/ALL 06/06/2009 V05.3 HEPATITIS VIRAL/ALL 06/06/2009 [facility], RAN R V05.3 HEPATITIS VIRAL/ALL 06/06/2009 GIANCARLO PHD, CUCA Helm V05.3 HEPATITIS VIRAL/ALL 06/06/2009 V05.3 HEPATITIS VIRAL/ALL 06/06/2009 [facility], RAN R V05.3 HEPATITIS VIRAL/ALL 06/06/2009 [facility], RAN R V05.3 HEPATITIS VIRAL/ALL 06/06/2009 FUENTES DO, MELINDA K V05.3 HEPATITIS VIRAL/ALL 06/06/2009 [facility], RAN R V05.3 HEPATITIS VIRAL/ALL 06/06/2009 FUENTES DO, MELINDA K V05.3 HEPATITIS VIRAL/ALL 06/06/2009 V05.3 HEPATITIS VIRAL/ALL 06/06/2009 MARY COMPUTER ASSEMBLER, CHEO A V05.3 HEPATITIS VIRAL/ALL 06/06/2009 YANICK COMPUTER ASSEMBLER, DEREK R V05.3 HEPATITIS VIRAL/ALL 06/06/2009 FUENTES DO, MELINDA K V05.3 HEPATITIS VIRAL/ALL 06/06/2009 FUENTES DO, MELINDA K V05.3 HEPATITIS VIRAL/ALL 06/06/2009 FUENTES DO, MELINDA K V05.3 HEPATITIS VIRAL/ALL 06/06/2009 FUENTES DO, MELINDA K V05.3 HEPATITIS VIRAL/ALL 06/06/2009 MARY COMPUTER ASSEMBLER, CHEO A V05.3 HEPATITIS VIRAL/ALL 06/06/2009 MARY COMPUTER ASSEMBLER, CHEO A V05.3 HEPATITIS VIRAL/ALL 06/06/2009 FUENTES DO, MELINDA K V05.3 HEPATITIS VIRAL/ALL 06/06/2009 MADL COMPUTER ASSEMBLER, NICOLE L V05.3 HEPATITIS VIRAL/ALL 12/14/2009 FUENTES DO, MELINDA K V25.9 UNSPECIFIED CONTRACEPTIVE MANAGEMENT 12/14/2009 V25.9 UNSPECIFIED CONTRACEPTIVE MANAGEMENT 12/14/2009 [facility], RAN R V25.9 UNSPECIFIED CONTRACEPTIVE MANAGEMENT 12/14/2009 GIANCARLO PHD, CUCA Helm V25.9 UNSPECIFIED CONTRACEPTIVE MANAGEMENT 12/14/2009 V25.9 UNSPECIFIED CONTRACEPTIVE MANAGEMENT 12/14/2009 [facility], RAN R V25.9 UNSPECIFIED CONTRACEPTIVE MANAGEMENT 12/14/2009 [facility], RAN R V25.9 UNSPECIFIED CONTRACEPTIVE MANAGEMENT 12/14/2009 FUENTES DO, MELINDA K V25.9 UNSPECIFIED CONTRACEPTIVE MANAGEMENT 12/14/2009 [facility], RAN R V25.9 UNSPECIFIED CONTRACEPTIVE MANAGEMENT 12/14/2009 FUENTES DO, MELINDA K V25.9 UNSPECIFIED CONTRACEPTIVE MANAGEMENT 12/14/2009 V25.9 UNSPECIFIED CONTRACEPTIVE MANAGEMENT 12/14/2009 MARY COMPUTER ASSEMBLER, CHEO A V25.9 UNSPECIFIED CONTRACEPTIVE MANAGEMENT 12/14/2009 NANCI HERNDON APRNIA R V25.9 UNSPECIFIED CONTRACEPTIVE MANAGEMENT 12/14/2009 FUENTES DO, MELINDA K V25.9 UNSPECIFIED CONTRACEPTIVE MANAGEMENT 12/14/2009 FUENTES DO, MELINDA K V25.9 UNSPECIFIED CONTRACEPTIVE MANAGEMENT 12/14/2009 FUENTES DO, MELINDA K V25.9 UNSPECIFIED CONTRACEPTIVE MANAGEMENT 12/14/2009 FUENTES DO, MELINDA K V25.9 UNSPECIFIED CONTRACEPTIVE MANAGEMENT 12/14/2009 MARY COMPUTER ASSEMBLER, CHEO A V25.9 UNSPECIFIED CONTRACEPTIVE MANAGEMENT 12/14/2009 MARY COMPUTER ASSEMBLER, CHEO A V25.9 UNSPECIFIED CONTRACEPTIVE MANAGEMENT 12/14/2009 FUENTES DO, MELINDA K V25.9 UNSPECIFIED CONTRACEPTIVE MANAGEMENT 12/14/2009 MADL COMPUTER ASSEMBLER, NICOLE L V25.9 UNSPECIFIED CONTRACEPTIVE MANAGEMENT 12/15/2009 FUENTES DO, MELINDA K V25.49 SURVEILLANCE OF OTHER CONTRACEPTIVE METHOD 12/15/2009 V25.49 SURVEILLANCE OF OTHER CONTRACEPTIVE METHOD 12/15/2009 [facility], RAN R V25.49 SURVEILLANCE OF OTHER CONTRACEPTIVE METHOD 12/15/2009 CUCA MONDRAGON PHD V25.49 SURVEILLANCE OF OTHER CONTRACEPTIVE METHOD 12/15/2009 V25.49 SURVEILLANCE OF OTHER CONTRACEPTIVE METHOD 12/15/2009 [facility], RAN R V25.49 SURVEILLANCE OF OTHER CONTRACEPTIVE METHOD 12/15/2009 [facility], RAN R V25.49 SURVEILLANCE OF OTHER CONTRACEPTIVE METHOD 12/15/2009 FUENTES DO, MELINDA K V25.49 SURVEILLANCE OF OTHER CONTRACEPTIVE METHOD 12/15/2009 [facility], RAN R V25.49 SURVEILLANCE OF OTHER CONTRACEPTIVE METHOD 12/15/2009 FUENTES DO, MELINDA K V25.49 SURVEILLANCE OF OTHER CONTRACEPTIVE METHOD 12/15/2009 V25.49 SURVEILLANCE OF OTHER CONTRACEPTIVE METHOD 12/15/2009 MARY COMPUTER ASSEMBLER, CHEO A V25.49 SURVEILLANCE OF OTHER CONTRACEPTIVE METHOD 12/15/2009 NANCI HERNDON APRNIA R V25.49 SURVEILLANCE OF OTHER CONTRACEPTIVE METHOD 12/15/2009 FUENTES DO, MELINDA K V25.49 SURVEILLANCE OF OTHER CONTRACEPTIVE METHOD 12/15/2009 FUENTES DO, MELINDA K V25.49 SURVEILLANCE OF OTHER CONTRACEPTIVE METHOD 12/15/2009 FUENTES DO, MELINDA K V25.49 SURVEILLANCE OF OTHER CONTRACEPTIVE METHOD 12/15/2009 FUENTES DO, MELINDA K V25.49 SURVEILLANCE OF OTHER CONTRACEPTIVE METHOD 12/15/2009 MARY COMPUTER ASSEMBLER, CHEO A V25.49 SURVEILLANCE OF OTHER CONTRACEPTIVE METHOD 12/15/2009 MARY COMPUTER ASSEMBLER, CHEO A V25.49 SURVEILLANCE OF OTHER CONTRACEPTIVE METHOD 12/15/2009 FUENTES DO, MELINDA K V25.49 SURVEILLANCE OF OTHER CONTRACEPTIVE METHOD 12/15/2009 MADL COMPUTER ASSEMBLER, NICOLE L V25.49 SURVEILLANCE OF OTHER CONTRACEPTIVE METHOD 02/02/2010 FUENTES DO, MELINDA K 625.9 UNSPECIFIED SYMPTOM ASSOCIATED WITH FEMALE GENITAL ORGANS 02/02/2010 625.9 UNSPECIFIED SYMPTOM ASSOCIATED WITH FEMALE GENITAL ORGANS 02/02/2010 [facility], RAN R 625.9 UNSPECIFIED SYMPTOM ASSOCIATED WITH FEMALE GENITAL ORGANS 02/02/2010 CUCA MONDRAGON PHD 625.9 UNSPECIFIED SYMPTOM ASSOCIATED WITH FEMALE GENITAL ORGANS 02/02/2010 625.9 UNSPECIFIED SYMPTOM ASSOCIATED WITH FEMALE GENITAL ORGANS 02/02/2010 [facility], RAN R 625.9 UNSPECIFIED SYMPTOM ASSOCIATED WITH FEMALE GENITAL ORGANS 02/02/2010 [facility], RAN R 625.9 UNSPECIFIED SYMPTOM ASSOCIATED WITH FEMALE GENITAL ORGANS 02/02/2010 FUENTES DO, MELINDA K 625.9 UNSPECIFIED SYMPTOM ASSOCIATED WITH FEMALE GENITAL ORGANS 02/02/2010 [facility], RAN R 625.9 UNSPECIFIED SYMPTOM ASSOCIATED WITH FEMALE GENITAL ORGANS 02/02/2010 FUENTES DO, MELINDA K 625.9 UNSPECIFIED SYMPTOM ASSOCIATED WITH FEMALE GENITAL ORGANS 02/02/2010 625.9 UNSPECIFIED SYMPTOM ASSOCIATED WITH FEMALE GENITAL ORGANS 02/02/2010 MARY COMPUTER ASSEMBLER, CHEO A 625.9 UNSPECIFIED SYMPTOM ASSOCIATED WITH FEMALE GENITAL ORGANS 02/02/2010 NANCI HERNDON APRNIA R 625.9 UNSPECIFIED SYMPTOM ASSOCIATED WITH FEMALE GENITAL ORGANS 02/02/2010 FUENTES DO, MELINDA K 625.9 UNSPECIFIED SYMPTOM ASSOCIATED WITH FEMALE GENITAL ORGANS 02/02/2010 FUENTES DO, MELINDA K 625.9 UNSPECIFIED SYMPTOM ASSOCIATED WITH FEMALE GENITAL ORGANS 02/02/2010 FUENTES DO, MELINDA K 625.9 UNSPECIFIED SYMPTOM ASSOCIATED WITH FEMALE GENITAL ORGANS 02/02/2010 FUENTES DO, MELINDA K 625.9 UNSPECIFIED SYMPTOM ASSOCIATED WITH FEMALE GENITAL ORGANS 02/02/2010 MARY COMPUTER ASSEMBLER, CHEO A 625.9 UNSPECIFIED SYMPTOM ASSOCIATED WITH FEMALE GENITAL ORGANS 02/02/2010 MARY COMPUTER ASSEMBLER, CHEO A 625.9 UNSPECIFIED SYMPTOM ASSOCIATED WITH FEMALE GENITAL ORGANS 02/02/2010 FUENTES DO, MELINDA K 625.9 UNSPECIFIED SYMPTOM ASSOCIATED WITH FEMALE GENITAL ORGANS 02/02/2010 MEME COMPUTER ASSEMBLER, NICOLE L 625.9 UNSPECIFIED SYMPTOM ASSOCIATED WITH FEMALE GENITAL ORGANS 03/09/2010 FUENTES DO, MELINDA K V72.41 TEST NEGATIVE RESULT 03/09/2010 V72.41 TEST NEGATIVE RESULT 03/09/2010 [facility], RAN R V72.41 TEST NEGATIVE RESULT 03/09/2010 GIANCARLO PHD, CUCA Helm V72.41 TEST NEGATIVE RESULT 03/09/2010 V72.41 TEST NEGATIVE RESULT 03/09/2010 [facility], RAN R V72.41 TEST NEGATIVE RESULT 03/09/2010 [facility], RAN R V72.41 TEST NEGATIVE RESULT 03/09/2010 FUENTES DO, MELINDA K V72.41 TEST NEGATIVE RESULT 03/09/2010 [facility], RAN R V72.41 TEST NEGATIVE RESULT 03/09/2010 FUENTES DO, MELINDA K V72.41 TEST NEGATIVE RESULT 03/09/2010 V72.41 TEST NEGATIVE RESULT 03/09/2010 MARY COMPUTER ASSEMBLER, CHEO A V72.41 TEST NEGATIVE RESULT 03/09/2010 [employer], DEREK R V72.41 TEST NEGATIVE RESULT 03/09/2010 FUENTES DO, MELINDA K V72.41 TEST NEGATIVE RESULT 03/09/2010 FUENTES DO, MELINDA K V72.41 TEST NEGATIVE RESULT 03/09/2010 FUENTES DO, MELINDA K V72.41 TEST NEGATIVE RESULT 03/09/2010 FUENTES DO, MELINDA K V72.41 TEST NEGATIVE RESULT 03/09/2010 [employer], CHEO A V72.41 TEST NEGATIVE RESULT 03/09/2010 [employer]ARY [employer]SEM[employer]ER, CHEO A V72.41 TEST NEGATIVE RESULT 03/09/2010 FUENTES DO, MELINDA K V72.41 TEST NEGATIVE RESULT 03/09/2010 [employer], NICOLE L V72.41 TEST NEGATIVE RESULT 08/22/2010 FUENTES DO, MELINDA K V01.9 CONTACT WITH OR EXPOSURE TO UNSPECIFIED COMMUNICABLE DISEASE 08/22/2010 V01.9 CONTACT WITH OR EXPOSURE TO UNSPECIFIED COMMUNICABLE DISEASE 08/22/2010 [facility], RAN R V01.9 CONTACT WITH OR EXPOSURE TO UNSPECIFIED COMMUNICABLE DISEASE 08/22/2010 GIANCARLO DOSS, CUCA Helm V01.9 CONTACT WITH OR EXPOSURE TO UNSPECIFIED COMMUNICABLE DISEASE 08/22/2010 V01.9 CONTACT WITH OR EXPOSURE TO UNSPECIFIED COMMUNICABLE DISEASE 08/22/2010 [facility], RAN R V01.9 CONTACT WITH OR EXPOSURE TO UNSPECIFIED COMMUNICABLE DISEASE 08/22/2010 [facility], RAN R V01.9 CONTACT WITH OR EXPOSURE TO UNSPECIFIED COMMUNICABLE DISEASE 08/22/2010 FUENTES DO, MELINDA K V01.9 CONTACT WITH OR EXPOSURE TO UNSPECIFIED COMMUNICABLE DISEASE 08/22/2010 [facility], RAN R V01.9 CONTACT WITH OR EXPOSURE TO UNSPECIFIED COMMUNICABLE DISEASE 08/22/2010 FUENTES DO, MELINDA K V01.9 CONTACT WITH OR EXPOSURE TO UNSPECIFIED COMMUNICABLE DISEASE 08/22/2010 V01.9 CONTACT WITH OR EXPOSURE TO UNSPECIFIED COMMUNICABLE DISEASE 08/22/2010 MARY [employer]PUT[employer]SEMBLER, CHEO A V01.9 CONTACT WITH OR EXPOSURE TO UNSPECIFIED COMMUNICABLE DISEASE 08/22/2010 HERND[facility] COMPUTER ASSEMBLERNANCIIA R V01.9 CONTACT WITH OR EXPOSURE TO UNSPECIFIED COMMUNICABLE DISEASE 08/22/2010 FUENTES DO, MELINDA K V01.9 CONTACT WITH OR EXPOSURE TO UNSPECIFIED COMMUNICABLE DISEASE 08/22/2010 FUENTES DO, MELINDA K V01.9 CONTACT WITH OR EXPOSURE TO UNSPECIFIED COMMUNICABLE DISEASE 08/22/2010 FUENTES DO, MELINDA K V01.9 CONTACT WITH OR EXPOSURE TO UNSPECIFIED COMMUNICABLE DISEASE 08/22/2010 FUENTES DO, MELINDA K V01.9 CONTACT WITH OR EXPOSURE TO UNSPECIFIED COMMUNICABLE DISEASE 08/22/2010 M[employer]PUT[employer]ER, CHEO A V01.9 CONTACT WITH OR EXPOSURE TO UNSPECIFIED COMMUNICABLE DISEASE 08/22/2010 MARY [employer]PUT[employer] ASSEMBLER, CHEO A V01.9 CONTACT WITH OR EXPOSURE TO UNSPECIFIED COMMUNICABLE DISEASE 08/22/2010 FUENTES DO, MELINDA K V01.9 CONTACT WITH OR EXPOSURE TO UNSPECIFIED COMMUNICABLE DISEASE 08/22/2010 MEME NICOLE LEE Davin V01.9 CONTACT WITH OR EXPOSURE TO UNSPECIFIED COMMUNICABLE DISEASE 09/06/2010 Ot 564.00 UNSPEC CONSTIPATION 09/06/2010 Ot 789.00 ABDOMINAL PAIN, UNSPECIFIED SITE 09/06/2010 Ot 789.03 ABDOMINAL PAIN, RIGHT LOWER QUADRANT 12/21/2010 GINA SANDHU MELINDA K V65.45 STD COUNSELING 12/21/2010 GINA SANDHU MELINDA K V69.2 HIGH-RISK SEXUAL BEHAVIOR 12/21/2010 TIGRE FUENTES DOA K V74.5 STD SCREEN 12/21/2010 V65.45 STD COUNSELING 12/21/2010 V69.2 HIGH-RISK SEXUAL BEHAVIOR 12/21/2010 V74.5 STD SCREEN 12/21/2010 [facility], RAN Rees V65.45 STD COUNSELING 12/21/2010 [facility] V69.2 HIGH-RISK SEXUAL BEHAVIOR 12/21/2010 [facility], RAN Rees V74.5 STD SCREEN 12/21/2010 GIANCARLO DOSS, CUCA Helm V65.45 STD COUNSELING 12/21/2010 GIANCARLO DOSS, CUCA Helm V69.2 HIGH-RISK SEXUAL BEHAVIOR 12/21/2010 GIANCARLO DOSS, CUCA Helm V74.5 STD SCREEN 12/21/2010 V65.45 STD COUNSELING 12/21/2010 V69.2 HIGH-RISK SEXUAL BEHAVIOR 12/21/2010 V74.5 STD SCREEN 12/21/2010 [facility], RAN R V65.45 STD COUNSELING 12/21/2010 [facility], RAN R V69.2 HIGH-RISK SEXUAL BEHAVIOR 12/21/2010 [facility], RAN R V74.5 STD SCREEN 12/21/2010 [facility] [facility] RAN R V65.45 STD COUNSELING 12/21/2010 [facility], RAN R V69.2 HIGH-RISK SEXUAL BEHAVIOR 12/21/2010 [facility], RAN R V74.5 STD SCREEN 12/21/2010 FUENTES DOTIGREA K V65.45 STD COUNSELING 12/21/2010 FUENTES DO MELINDA K V69.2 HIGH-RISK SEXUAL BEHAVIOR 12/21/2010 FUENTES DO MELINDA K V74.5 STD SCREEN 12/21/2010 [facility], RAN R V65.45 STD COUNSELING 12/21/2010 [facility], RAN R V69.2 HIGH-RISK SEXUAL BEHAVIOR 12/21/2010 [facility], RAN R V74.5 STD SCREEN 12/21/2010 FUENTES DO MELINDA K V65.45 STD COUNSELING 12/21/2010 FUENTES DO MELINDA K V69.2 HIGH-RISK SEXUAL BEHAVIOR 12/21/2010 FUENTES DO MELINDA K V74.5 STD SCREEN 12/21/2010 V65.45 STD COUNSELING 12/21/2010 V69.2 HIGH-RISK SEXUAL BEHAVIOR 12/21/2010 V74.5 STD SCREEN 12/21/2010 MARY APRN, CHEO A V65.45 STD COUNSELING 12/21/2010 MARY APRN, CHEO A V69.2 HIGH-RISK SEXUAL BEHAVIOR 12/21/2010 MARY APRN, CHEO A V74.5 STD SCREEN 12/21/2010 DEREK HERNDON APRN V65.45 STD COUNSELING 12/21/2010 DEREK HERNDON APRN R V69.2 HIGH-RISK SEXUAL BEHAVIOR 12/21/2010 DEREK HERNDON APRN V74.5 STD SCREEN 12/21/2010 FUENTES DOTIGREA K V65.45 STD COUNSELING 12/21/2010 FUENTES DO, MELINDA K V69.2 HIGH-RISK SEXUAL BEHAVIOR 12/21/2010 FUENTES DO, MELINDA K V74.5 STD SCREEN 12/21/2010 FUENTES DO, MELINDA K V65.45 STD COUNSELING 12/21/2010 FUENTES DO, MELINDA K V69.2 HIGH-RISK SEXUAL BEHAVIOR 12/21/2010 FUENTES DO, MELINDA K V74.5 STD SCREEN 12/21/2010 FUENTES DO, MELINDA K V65.45 STD COUNSELING 12/21/2010 FUENTES DO, MELINDA K V69.2 HIGH-RISK SEXUAL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
[2018-09-04] MEDS ORDERED: D5 LR IV SOLUTION 1,000 ML IV SCH (11:07)
--- NOTE | 2018-09-04 11:07 | Progress Note-Pre Operative ---
Pre-Operative Progress Note H&P Reviewed The H&P was reviewed, patient examined and no changes noted. Date Seen by Provider: September 04, 2018 Time Seen by Provider: 10:35 Date H&P Reviewed: September 04, 2018 Time H&P Reviewed: 10:35 Pre-Operative Diagnosis: CPP, Dyspareunia CORAL VILLEDA DO September 04, 2018 11:07
--- NOTE | 2018-09-04 11:11 | Discharge Inst-Women's Service ---
Discharge Inst-Women's Serv Depart Medication/Instructions New, Converted or Re-Newed RX: RX on Chart Consults/Follow Up Additional Follow Up: Yes Orders/Referrals Dr. Laird in 2 weeks Activity Activity: Activity as Tolerated Driving Instructions: No Driving for 1 Week (do not drive while taking narcotics) NO SMOKING: NO SMOKING Nothing Inside Vagina: No Douching, No [place], No Tampons Diet Discharge Diet: No Restrictions Symptoms to Report to : Bleeding Excessive, Pain Increased, Fever Over 101 Degrees F, Vaginal Bleeding Increase, Questions/Concerns For Any Problems or Questions: Contact Your Physician Skin/Wound Care Infection Signs and Symptoms: Increased Redness, Foul Odor of Wound, Increased Drainage, Skin Itchy or Has a Rash, Increased Swelling, Temperature Above 101 F Stitches/[place]/Dermabond: Dermabond, Care of Stitches Bathing Instructions: CORAL Amanda DO September 04, 2018 11:11
[2018-09-04] MEDS ORDERED: IBUP-1773 PO (11:12)
[2018-09-04] MEDS ORDERED: ACHD5005 PO (11:12)
[2018-09-04] MEDS ORDERED: KETOROLAC 30 MG/ML VIAL IVP ONE ×2 (11:15→12:45)
[2018-09-04] MEDS ORDERED: HYDROcodone/APAP 5 MG/325 MG (LORTAB) TAB PO PRN (11:15)
[2018-09-04] MEDS ORDERED: ONDANSETRON 4 MG/2 ML (SDV) Z0FRAN IVP PRN ×2 (11:15→12:45)
[2018-09-04] MEDS ORDERED: morphine INJ 10 MG/ML 1ML (SYR OR VIAL) ONE (12:37)
[2018-09-04] MEDS ORDERED: morphine INJ 10 MG/ML 1ML (SYR OR VIAL) IVP ONE (12:45)
[2018-09-04] MEDS ORDERED: PROMETHAZINE INJ 25 MG/ML (PHENERGAN) AMP IVP ONE (12:45)
[2018-09-04] MEDS ORDERED: HYDROmorphone 2 MG/ML VIAL (DILAUDID) IV ONE (12:45)
[2018-09-04] MEDS ORDERED: MEPERIDINE (DEMEROL) INJ 50 MG/ML IVP ONE (12:45)
[2018-09-04] MEDS ORDERED: HYDROmorphone 2 MG/ML VIAL (DILAUDID) ONE (13:03)
--- NOTE | 2018-09-04 13:44 | Anesthesia-General Post-Op ---
General Patient Condition Mental Status/LOC: Same as Preop Cardiovascular: Satisfactory Nausea/Vomiting: Absent Respiratory: Satisfactory Pain: Controlled Complications: Absent Post Op Complications Complications None Follow Up Care/Instructions Patient Instructions None needed. Anesthesia/Patient Condition Patient Condition Patient is doing well, no complaints, stable vital signs, no apparent adverse anesthesia problems. No complications reported per nursing. D/C home per [facility] Criteria: Yes SHANIA ZHANG CRNA September 04, 2018 13:44
--- NOTE | 2018-09-04 15:41 | OPERATIVE REPORT ---
DATE OF SERVICE: 09/04/2018 PREOPERATIVE DIAGNOSES: A 23-year-old female with chronic pelvic pain and dyspareunia. POSTOPERATIVE DIAGNOSES: 1. A 23-year-old female with chronic pelvic pain and dyspareunia. 2. Endometriosis. PROCEDURE: Laparoscopic chromotubation with excision of endometriosis of the peritoneum in the left uterosacral ligament as well as cauterization of endometriosis implants. SURGEON: Coral Villeda DO ANESTHESIA: General endotracheal. ESTIMATED BLOOD LOSS: Minimal. URINE OUTPUT: 100 mL clear at the end of procedure. FLUIDS: 1200 mL lactate Ringer solution. FINDINGS: Grossly normal-appearing external female genitalia and normal appearing cervix with a uterine cavity depth of approximately 7 cm. Grossly, normal appearing upper abdominal anatomy. Endometriosis implants of the bladder that are dark pigmented implants. No filmy adhesions noted. Dense adhesions noted of the left uterosacral ligament associated with dark pigmented areas suspicious for endometriosis. SPECIMENS SENT: Endometriosis implant of the left uterosacral ligament. INDICATION FOR PROCEDURE: This 23-year-old female is a patient, who had sought a second opinion in my office after being told on several different occasions there was nothing wrong with her. She continued to have pelvic pain and have significant amounts of pain with intercourse. She has concerns about her fertility and has history of endometriosis in her family. So, she has concerns that this might be the case. We did evaluate the patient with ultrasound and infectious disease testing, thyroid tests and everything is normal in the office. I did discuss with the patient proceeding with laparoscopy since no answers were given. Risks of procedure were discussed with the patient in detail including risks of bleeding, infection, damage to surrounding structures. We also discussed the risk of possibly, not finding anything to address at the time of surgery. We discussed recovery time frame, possible need for reoperation of complications were encountered after all of her questions were answered and consent was obtained in the preoperative area and the patient was taken to the operating room. OPERATIVE REPORT IN DETAIL: Once in the operating room, anesthesia was found to be adequate, placed in dorsal lithotomy position, prepped and draped in normal sterile fashion. Knott catheter was placed in a sterile technique after time out was performed. A weighted speculum was inserted in the patient's vagina. Right angle retractor was used to visualize the cervix, which was grasped at 12 o'clock position using a long Allis clamp. I then gently sounded the uterine cavity and depth was found to be 8 cm. I then gently dilated the cervix using Hanks dilators to allow placement of the Kronner uterine manipulator. Once I had it in place, I removed the other instruments from the patient's vagina. I performed change of gloves and took my attention to the abdomen where infraumbilically, I infiltrated this area using 0.25% Marcaine and made a 5 mm incision and directed a Veress needle through the incision until intraperitoneal placement was confirmed using a saline drop test. I proceeded with insufflation using CO2 gas and opening pressure of 3 mmHg was noted. I proceeded to maximum pressure of 15 mmHg, at which point I removed the Veress needle and introduced a 5 mm blunt laparoscopic trocar. Once this was in place, I am able to confirm an intraperitoneal placement using the laparoscope. I then had the patient placed in steep Trendelenburg after briefly scanning the upper abdominal anatomy, which appears to be normal. I then identified the pelvic anatomy as described above. I placed a suprapubic trocar, approximately 5 cm wide under direct visualization of the laparoscope. Once this was in place, I used an EndoShear to cauterize the pinpoint lesions of endometriosis. I have identified my findings above. I also used EndoShears to excise the peritoneum including the large endometriosis implant of the left uterosacral ligament. Once this was excised, I removed the trocar and sent it as peritoneal biopsy of the left uterosacral ligament. After which, there was no active bleeding noted from any of my dissection planes. I copiously irrigated the pelvis using normal saline. I performed a chromotubation with the methylene blue spillage of dye through the right fallopian tube. The left fallopian tube never opened up despite pushing the dye. I copiously irrigated again with the methylene blue and placed to clear out the dye as best as I can. After which, there was no active bleeding noted from any of my dissection planes. I had the patient taken out of steep Trendelenburg, removed the trocars under direct visualization of the laparoscope, leaving the infraumbilical trocar in place to release insufflation and to introduce 10 mL of 0.25% Marcaine into the peritoneal cavity for postoperative pain management. Once that was done, that trocars were released as well. The skin was reapproximated using Dermabond and Band-Aids were placed over the incision. Knott catheter and Kronner uterine manipulator was removed. The patient tolerated the procedure well and sent to recovery area in stable condition. Lap and sponge counts were correct at the end of the procedure. Instrument count was correct as well. 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
== END 2018-09-04 15:20 | disposition home or self-care (01) ==
LOC: SDC 08:34
PROVIDERS: ATTEND Obstetrics & Gynecology
DX: N80.3 Endometriosis of pelvic peritoneum (principal); N80.8 Other endometriosis; N94.10 Unspecified dyspareunia; N94.5 Secondary dysmenorrhea; B00.9 Herpesviral infection, unspecified; R56.9 Unspecified convulsions; F31.9 Bipolar disorder, unspecified
CPT/HCPCS: 36415; 84703; 85025; 86850; 86900; 86901; 87081

== ENCOUNTER 2019-03-14 11:06 | Emergency (ER) | payer SELFPAY ==
[~2019-03-14] VITALS: Ht 157.5 cm; Wt 43.2 kg
[~2019-03-14 11:06] MED LIST changes: +IBUP-1773 PO
--- NOTE | 2019-03-14 11:42 | ED Back Pain ---
General Chief Complaint: Back Problems Stated Complaint: LOW BACK PAIN Source of Information: Patient Exam Limitations: No Limitations History of Present Illness Date Seen by Provider: Mar 14, 2019 Time Seen by Provider: 11:40 Initial Comments To ER with right low back pain worse with movement, pain goes away at rest. Present for a few days, she had leave work this morning because of the pain. No fever, she does report questionable chills, no nausea no vomiting no dysuria no bowel changes. Location: Lumbar Spine, Paraspinous Muscles Timing/Duration: 3-4 Days Severity: Moderate Method of Injury: Unknown Associated Symptoms: lower back pain Allergies and Home Medications Allergies Coded Allergies: duloxetine (Verified Adverse Reaction, Unknown, opposite effect, 09/02/18) Home Medications Hydrocodone Bit/Acetaminophen 1 Tab Tab, 1 TAB PO Q4H PRN for PAIN-MODERATE Prescribed by: CORAL VILLEDA on 09/04/18 1112 Ibuprofen 600 Mg Tablet, 600 MG PO Q6H Prescribed by: CORAL VILLEDA on 09/04/18 1112 Methocarbamol 750 Mg Tablet, 750 MG PO Q4H PRN for PAIN-SEVERE (8-10) Prescribed by: GUSTAVO PITTS on 03/14/19 1238 Naproxen 500 Mg Tablet, 500 MG PO BID PRN for PAIN-MODERATE (5-7) Prescribed by: GUSTAVO PITTS on 03/14/19 1238 Valacyclovir HCl 1,000 Mg Tablet, 1,000 MG PO DAILY, (Reported) Patient Home Medication List Home Medication List Reviewed: Yes Review of Systems Constitutional: see HPI EENTM: see HPI Respiratory: no symptoms reported Cardiovascular: no symptoms reported Genitourinary: no symptoms reported Musculoskeletal: see HPI, back pain Skin: no symptoms reported Psychiatric/Neurological: No Symptoms Reported Past Mxvbsdz-Qdjuuq-Suqfke Hx Patient Social History Alcohol Use: Rarely Uses Number of Drinks Today: 0 Alcohol Beverage of Choice: Whiskey Recreational Drug Use: Yes Drug of Choice: MARIJUANA Type Used: Cigarettes 2nd Hand Smoke Exposure: No Recent Foreign Travel: No Contact w/Someone Who Travel: No Recent Hopitalizations: No Immunizations Up To Date Tetanus Booster (TDap): Less than 5yrs PED Vaccines UTD: No Seasonal Allergies Seasonal Allergies: Yes Past Medical History Surgeries: Yes Appendectomy, Tonsillectomy Respiratory: No Cardiac: No Neurological: Yes (PT REPORT OF ONE SEIZURE IN 2014, NO SEIZURE DISORDER TO PT KNOWLEDGE) Reproductive Disorders: No Female Reproductive Disorders: Denies Sexually Transmitted Disease: Yes (herpes) HIV/AIDS: No Genitourinary: No Gastrointestinal: No Musculoskeletal: No Endocrine: No HEENT: No Cancer: No Psychosocial: Yes Bipolar, Depression Integumentary: No Blood Disorders: No Adverse Reaction/Blood Tranf: No Physical Exam Vital Signs Vital Signs - First Documented 03/14/19 11:20 Temp 36.9 Pulse 76 Resp 17 B/P (MAP) 120/84 (96) Pulse Ox 98 O2 Delivery Room Air Capillary Refill : Height, Weight, BMI Height: 5'1.00" Weight: 104lbs. 0.0oz. 47.603275ul; 19.7 BMI Method:Stated General Appearance: No Apparent Distress, WD/WN HEENT: PERRL/EOMI, TMs Normal Neck: Full Range of Motion, Normal Inspection Respiratory: No Accessory Muscle Use, No Respiratory Distress Gastrointestinal: Normal Bowel Sounds, Non Tender, Soft Extremity: Normal Capillary Refill, Normal Inspection Neurologic/Psychiatric: Alert, Oriented x3 Skin: Normal Color, Warm/Dry Progress/Results/Core Measures Results/Orders Lab Results Laboratory Tests Test 03/14/19 11:23 Range/Units Urine Color YELLOW Urine Clarity CLEAR Urine pH 6.0 5-9 Urine Specific [place] >=1.030 1.016-1.022 Urine Protein NEGATIVE NEGATIVE Urine Glucose (UA) NEGATIVE NEGATIVE Urine Ketones NEGATIVE NEGATIVE Urine Nitrite NEGATIVE NEGATIVE Urine Bilirubin NEGATIVE NEGATIVE Urine Urobilinogen 0.2 < = 1.0 MG/DL Urine Leukocyte Esterase NEGATIVE NEGATIVE Urine RBC (Auto) 2+ H NEGATIVE Urine RBC RARE /HPF Urine WBC RARE /HPF Urine Squamous Epithelial Cells 2-5 /HPF Urine Crystals NONE /LPF Urine Bacteria TRACE /HPF Urine Casts NONE /LPF Urine Mucus SMALL H /LPF Urine Culture Indicated NO My Orders Orders - GUSTAVO PITTS APRN Ct Abd/Pelvis Wo(Kidney Stone) (03/14/19 12:45) Vital Signs/I&O 03/14/19 11:20 Temp 36.9 Pulse 76 Resp 17 B/P (MAP) 120/84 (96) Pulse Ox 98 O2 Delivery Room Air Departure Communication (Admissions) NAME: STEPHEN MAN Davin MED REC#: [id number] PT STATUS: REG ER : 1995 PHYSICIAN: GUSTAVO PITTS APRN ADMIT DATE: 03/14/19/ER Draft POSDate of Exam:03/14/19 CT ABD/PELVIS WO(KIDNEY STONE) PROCEDURE: CT urinary tract, rule out kidney stone. TECHNIQUE: Multiple contiguous axial images were obtained through the abdomen and pelvis without the use of intravenous contrast. Auto Exposure Controls were utilized during the CT exam to meet ALARA standards for radiation dose reduction. INDICATION: Right-sided back pain Exam compared to 11/29/2015. FINDINGS: There are no radiodense kidney stones. There is no hydroureteronephrosis. There is previous appendectomy. The uterus, adnexa and unopacified urinary bladder had an unremarkable appearance. There is no bowel obstruction. There were no findings of ileus or diverticulitis. The liver, spleen, adrenals, pancreas, gallbladder and bile ducts unremarkable. The aorta is nonaneurysmal. No ascites, abscess, hematoma or other fluid collection. No pneumatosis or free gas. The osseous structures nonacute. No focal inflammatory process. The lung bases clear. IMPRESSION: Unremarkable CT abdomen and pelvis. Dictated on workstation # [id number] Dict: 03/14/19 1255 Trans: 03/14/19 1301 BANNER [id number] Interpreted by: ISMA PRICE Electronically signed by: Kiersten Primary Impression: Right low back pain Qualified Codes: M54.5 - Low back pain Disposition: 01 HOME, SELF-CARE Condition: Stable Departure-Patient Inst. Decision time for Depature: 12:31 Referrals: [facility] [place] Primary Care Physician Patient Instructions: Low Back Pain (DC) Add. Discharge Instructions: 1.Return to ER for any concerns 2. Medication as directed 3. All discharge instructions reviewed with patient and/or family. Voiced understanding. Scripts Methocarbamol (Robaxin-750) 750 Mg Tablet 750 MG PO Q4H PRN for PAIN-SEVERE (8-10), #20 TAB Prov: GUSTAVO PITTS APRN 03/14/19 Naproxen (Naprosyn) 500 Mg Tablet 500 MG PO BID PRN for PAIN-MODERATE (5-7), #30 TAB 0 Refills Prov: GUSTAVO PITTS APRN 03/14/19 Work/School Note: Work Release Form Date Seen in the Emergency Department: Mar 14, 2019 Return to Work: Mar 15, 2019 GUSTAVO PITTS APRN Mar 14, 2019 11:42 POS
[2019-03-14 11:44] LABS: BILIRUBIN,URINE NEGATIVE (NEGATIVE); CLARITY,URINE CLEAR; COLOR,URINE YELLOW; GLUCOSE, URINE (UA) NEGATIVE (NEGATIVE); KETONES,URINE NEGATIVE (NEGATIVE); LEUKOCYTE ESTERASE ,URINE NEGATIVE (NEGATIVE); NITRITE,URINE NEGATIVE (NEGATIVE); PROTEIN,URINE NEGATIVE (NEGATIVE)
[2019-03-14 11:58] LABS: BACTERIA,URINE TRACE /HPF; RBC,URINE RARE /HPF; WBC,URINE RARE /HPF
[2019-03-14] MEDS ORDERED: METH-313 PO (12:38)
[2019-03-14] MEDS ORDERED: NAPR-1071 PO (12:38)
--- NOTE | 2019-03-14 13:01 | Diagnostic Imaging Report ---
PROCEDURE: CT urinary tract, rule out kidney stone. TECHNIQUE: Multiple contiguous axial images were obtained through the abdomen and pelvis without the use of intravenous contrast. Auto Exposure Controls were utilized during the CT exam to meet ALARA standards for radiation dose reduction. INDICATION: Right-sided back pain Exam compared to 11/29/2015. FINDINGS: There are no radiodense kidney stones. There is no hydroureteronephrosis. There is previous appendectomy. The uterus, adnexa and unopacified urinary bladder had an unremarkable appearance. There is no bowel obstruction. There were no findings of ileus or diverticulitis. The liver, spleen, adrenals, pancreas, gallbladder and bile ducts unremarkable. The aorta is nonaneurysmal. No ascites, abscess, hematoma or other fluid collection. No pneumatosis or free gas. The osseous structures nonacute. No focal inflammatory process. The lung bases clear. IMPRESSION: Unremarkable CT abdomen and pelvis. Dictated by: Dictated on workstation # [id number]
[2019-03-14 13:09] VITALS: BP 120/84
== END 2019-03-14 13:09 | disposition home or self-care (01) ==
LOC: EDUNIT# 11:06 → ER 11:07
DX: M54.5 Low back pain (principal); F31.9 Bipolar disorder, unspecified; Z88.8 Allergy status to other drugs, medicaments and biological substances; Z90.49 Acquired absence of other specified parts of digestive tract; Z90.89 Acquired absence of other organs
CPT/HCPCS: 74176; 81000; 84703

== ENCOUNTER 2019-04-16 04:42 | Emergency (ER) | payer SELFPAY ==
[~2019-04-16] VITALS: Ht 157.4 cm; Wt 47.3 kg
[~2019-04-16 04:42] MED LIST changes: +METH-313 PO; +NAPR-1071 PO
--- NOTE | 2019-04-16 05:25 | ED Back Pain ---
General Chief Complaint: Back Problems Stated Complaint: BACK PAIN Nursing Triage Note: AMBULATORY TO ED ROOM 5 WITH C/O LOWER BACK PAIN. HAS TAKEN PRN ROBAXIN 750MG PO TAB THAT RECEIVED LAST MONTH WHEN SEEN IN ER FOR SAME COMPLAINT. PT STATES, "IT DOESN'T WORK". Nursing Sepsis Screen: No Definite Risk Source of Information: Patient History of Present Illness Date Seen by Provider: Apr 16, 2019 Time Seen by Provider: 05:00 Initial Comments PT ARRIVES VIA POV FROM HOME WITH BLACK MALE S.O. C/O RIGHT LOW BACK PAIN/FLANK PAIN --NO INJURY THIS IS AN ONGOING PROBLEM FOR SEVERAL MONTHS, WAS SEEN IN ER 03/14/19 FOR SAME, HAD NORMAL CT SCAN OF ABDOMEN AND PELVIS AT THAT TIME AND WAS GIVEN RX FOR ROBAXIN 750 MG AND NAPROXEN 500 MG ( PT ONLY MENTIONS RX FOR ROBAXIN) NO RADIATION OF PAIN NO PARESTHESIAS OR MOTOR DEFICITS NO PROBLEMS WITH BOWEL OR BLADDER FUNCTION NO FEVER NO NAUSEA/VOMITING STATES ROBAXIN "IT HELPED BUT IT DIDN'T" STATES SHE HAS TAKEN MOTRIN AND IT HELPS, AND YESTERDAY SHE TOOK ALEVE AT HER GRANDMA'S HOUSE AND IT HELPED, BUT HAS NOT TAKEN ANYTHING FOR PAIN SINCE YESTERDAY HAS NOT FOLLOWED UP WITH ANYONE SINCE PREVIOUS ER VISIT SYMPTOMS NO DIFFERENT TODAY IN ANY WAY DENIES ANY INJURY 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 LMP --NOW. ON OCP'S. DENIES ANY MISSED DOSES OF MEDICATIONS Other Comments [place] [facility] [place]ergies and Home Medications Allergies Coded Allergies: duloxetine (Verified Adverse Reaction, Unknown, opposite effect, 09/02/18) Home Medications Hydrocodone Bit/Acetaminophen 1 Tab Tab, 1 TAB PO Q4H PRN for PAIN-MODERATE Prescribed by: CORAL VILLEDA on 09/04/18 1112 Ibuprofen 600 Mg Tablet, 600 MG PO Q6H Prescribed by: CORAL VILLEDA on 09/04/18 1112 Meloxicam 15 Mg Tablet, 15 MG PO DAILY Prescribed by: JORGE SMALLS on 04/16/19 0545 Methocarbamol 750 Mg Tablet, 750 MG PO Q4H PRN for PAIN-SEVERE (8-10) Prescribed by: GUSTAVO PITTS on 03/14/19 1238 Naproxen 500 Mg Tablet, 500 MG PO BID PRN for PAIN-MODERATE (5-7) Prescribed by: GUSTAVO PITTS on 03/14/19 1238 Nitrofurantoin Monohyd/M-Cryst 100 Mg Capsule, 100 MG PO BID Prescribed by: JORGE SMALLS on 04/16/19 0545 Orphenadrine Citrate 100 Mg Tablet.er, 100 MG PO BID FOR MUSCLE SPASMS Prescribed by: JORGE SMALLS on 04/16/19 0545 Valacyclovir HCl 1,000 Mg Tablet, 1,000 MG PO DAILY, (Reported) Patient Home Medication List Home Medication List Reviewed: Yes Review of Systems Constitutional: no symptoms reported Respiratory: no symptoms reported Cardiovascular: no symptoms reported Gastrointestinal: no symptoms reported; No abdominal pain, No vomiting Genitourinary: no symptoms reported : No Control/STD Prophylaxis: BC Pills Musculoskeletal: see HPI, back pain Skin: no symptoms reported; No rash Psychiatric/Neurological: No Symptoms Reported; Denies Headache, Denies Numbness, Denies Paresthesia, Denies Tingling, Denies Weakness Past Hhfksbp-Yvqbjg-Xchzdz Hx Past Med/Social Hx: Reviewed and Corrections made Patient Social History Alcohol Use: Occasionally Uses (HEAVY AT TIMES) Number of Drinks Today: GG Alcohol Beverage of Choice: Whiskey Recreational Drug Use: Yes (THC) Drug of Choice: MARIJUANA Smoking Status: Current Everyday Smoker (< 1 PPD) Type Used: Cigarettes 2nd Hand Smoke Exposure: No Recent Foreign Travel: No Contact w/Someone Who Travel: No Recent Infectious Disease Expo: No Recent Hopitalizations: No Physical Abuse: No Sexual Abuse: No Mistreated: No Fear: No Immunizations Up To Date Tetanus Booster (TDap): Less than 5yrs PED Vaccines UTD: No Seasonal Allergies Seasonal Allergies: Yes Past Medical History Surgeries: Yes (DIAGNOSTIC LAPAROSCOPY WITH ABLATION OF ENDOMETRIOSIS 09/04/18) Appendectomy, Tonsillectomy Respiratory: No Cardiac: No Neurological: Yes (PT REPORT OF ONE SEIZURE IN 2015, NO SEIZURE DISORDER TO PT'S KNOWLEDGE-NO ) : No Reproductive Disorders: Yes (CHRONIC PELVIC PAIN;DX LAPAROSCOPY WITH ABLATION OF ENDOMETRIOSIS 09/04/18) Female Reproductive Disorders: Endometriosis Sexually Transmitted Disease: Yes (GENITAL HERPES FOR YEARS, + 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 0.0oz. 47.339138ho; 19.00 BMI Method:Stated General Appearance: No Apparent Distress, WD/WN, Other (PT SLEEPING WITH MALE S.O. ON ER CART WITH HER. LAYING ON LEFT SIDE, AND MALE NEARLY LAYING ON TOP OF HER ON HER RIGHT SIDE. ) Cardiovascular: Regular Rate, Rhythm, Normal Peripheral Pulses Respiratory: Normal Breath Sounds, No Accessory Muscle Use, No Respiratory Distress Gastrointestinal: Normal Bowel Sounds, No Organomegaly, No Pulsatile Mass, Soft, Tenderness (MILD SUPRAPUBIC TENDERNESS, STATES "IT ALWAYS HURTS" IN THIS AREA.) Back: No CVA Tenderness, No Vertebral Tenderness, Other (AREA OF PAIN IS RIGHT FLANK BUT IS NOT TENDER TO PALPATION, FULL ROM. DTR'S INTACT. NEGATIVE STRAIGHT LEG RAISING. 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 as Tested Skin: Normal Color, Warm/Dry; No Rash Progress/Results/Core Measures Results/Orders Lab Results Laboratory Tests Test 04/16/19 04:55 Range/Units Urine Color YELLOW Urine Clarity CLEAR Urine pH 6.0 5-9 Urine Specific [place] >=1.030 1.016-1.022 Urine Protein NEGATIVE NEGATIVE Urine Glucose (UA) NEGATIVE NEGATIVE Urine Ketones NEGATIVE NEGATIVE Urine Nitrite NEGATIVE NEGATIVE Urine Bilirubin NEGATIVE NEGATIVE Urine Urobilinogen 0.2 < = 1.0 MG/DL Urine Leukocyte Esterase NEGATIVE NEGATIVE Urine RBC (Auto) 2+ H NEGATIVE Urine RBC 0-2 /HPF Urine WBC 2-5 /HPF Urine Squamous Epithelial Cells 2-5 /HPF Urine Crystals NONE /LPF Urine Bacteria FEW H /HPF Urine Casts NONE /LPF Urine Mucus MODERATE H /LPF Urine Culture Indicated YES My Orders Orders - JORGE SMALLS DO Urine Bedside (04/16/19 05:00) Ua Culture If Indicated (04/16/19 05:00) Urine Culture (04/16/19 04:55) Ketorolac Injection (Toradol Injection) (04/16/19 06:00) Orphenadrine Injection (Norflex Injectio (04/16/19 06:00) Diphenhydramine Injection (Benadryl Inje (04/16/19 06:00) Medications Given in ED Current Medications Medications Dose Ordered Sig/Gilberto Route Start Time Stop Time Status Last Admin Dose Admin Diphenhydramine HCl 25 mg ONCE ONCE IM 04/16/19 06:00 04/16/19 06:01 DC 04/16/19 05:58 25 MG Ketorolac Tromethamine 60 mg ONCE ONCE IM 04/16/19 06:00 04/16/19 06:01 DC 04/16/19 05:59 60 MG Orphenadrine Citrate 60 mg ONCE ONCE IM 04/16/19 06:00 04/16/19 06:01 DC 04/16/19 05:59 60 MG Vital Signs/I&O 04/16/19 04:55 Temp 36.6 Pulse 101 Resp 18 B/P (MAP) 114/85 (95) O2 Delivery Room Air Blood Pressure Mean: 95 Progress Progress Note : Progress Note GIVEN NORFLEX, TORADOL AND BENADRYL WITH IMPROVEMENT IN SYMPTOMS Departure Impression Primary Impression: Chronic right flank pain Additional Impression: UTI (urinary tract infection) Disposition: 01 HOME, SELF-CARE Condition: Improved Departure-Patient Inst. Referrals: [facility] (PCP/Family) Primary Care Physician Patient Instructions: MANAGING YOUR CHRONIC PAIN, Flank Pain (DC), Urinary Tract Infection, Adult (DC) Add. Discharge Instructions: MOIST HEAT TO SORE AREA AT 20 MINUTE INTERVALS LOTS OF CLEAR LIQUIDS--NO COFFEE, POP OR TEA FOLLOW UP WITH [facility] IN 3-4 DAYS FOR FURTHER CARE All discharge instructions reviewed with patient and/or family. Voiced understanding. Scripts Meloxicam (Mobic) 15 Mg Tablet 15 MG PO DAILY, #10 TAB Prov: JORGE SMALLS DO 04/16/19 Orphenadrine Citrate (Orphenadrine Citrate) 100 Mg Tablet.er 100 MG PO BID, #14 TAB FOR MUSCLE SPASMS Prov: SERINAJORGE K DO 04/16/19 Nitrofurantoin Monohyd/M-Cryst (Macrobid 100 mg Capsule) 100 Mg Capsule 100 MG PO BID, #20 CAP Prov: JORGE SMALLS DO 04/16/19 JORGE SMALLS DO Apr 16, 2019 05:25
[2019-04-16 05:32] LABS: BILIRUBIN,URINE NEGATIVE (NEGATIVE); CLARITY,URINE CLEAR; COLOR,URINE YELLOW; GLUCOSE, URINE (UA) NEGATIVE (NEGATIVE); KETONES,URINE NEGATIVE (NEGATIVE); LEUKOCYTE ESTERASE ,URINE NEGATIVE (NEGATIVE); NITRITE,URINE NEGATIVE (NEGATIVE); PROTEIN,URINE NEGATIVE (NEGATIVE)
[2019-04-16 05:39] LABS: BACTERIA,URINE FEW /HPF; RBC,URINE 0-2 /HPF
[2019-04-16] MEDS ORDERED: MELO15TA14 PO (05:45)
[2019-04-16] MEDS ORDERED: ORPH100T PO (05:45)
[2019-04-16] MEDS ORDERED: NITR-65 PO (05:45)
[2019-04-16] MEDS ORDERED: KETOROLAC 60 MG/2 ML VIAL IM ONE (06:00)
[2019-04-16] MEDS ORDERED: diphenhydrAMINE 50 MG/ML INJ (BENADRYL) IM ONE (06:00)
[2019-04-16] MEDS ORDERED: ORPHENADRINE 60 MG/2 ML (NORFLEX) AMP IM ONE (06:00)
[2019-04-16 06:17] VITALS: BP 112/85
== END 2019-04-16 06:17 | disposition home or self-care (01) ==
LOC: EDUNIT# 04:42 → ER 04:43
DX: N39.0 Urinary tract infection, site not specified (principal); G89.29 Other chronic pain; F41.9 Anxiety disorder, unspecified; F31.9 Bipolar disorder, unspecified; F17.210 Nicotine dependence, cigarettes, uncomplicated; Z88.8 Allergy status to other drugs, medicaments and biological substances; Z90.89 Acquired absence of other organs; Z90.49 Acquired absence of other specified parts of digestive tract
CPT/HCPCS: 81000; 84703; 87077; 87088; 96372; 99284

== ENCOUNTER → 2019-05-27 | Outpatient (CLI) | payer OTHER ==
[~2019-05-27] MED LIST changes: -IBUP-2055 PO; +IBUP-2473 PO; +MELO15TA14 PO; +NITR-65 PO; +ORPH100T PO
--- NOTE | 2019-05-27 13:52 | Diagnostic Imaging Report ---
PROCEDURE: MRI lumbar spine. TECHNIQUE: Multiplanar, multisequence MRI of the lumbar spine was performed without contrast. INDICATION: Chronic low back pain. COMPARISON: CT abdomen and pelvis without contrast of 03/14/2019. FINDINGS: There are five lumbar-type vertebral bodies. Normal alignment. Vertebral body heights are preserved. Normal bone marrow signal. At L5-S1, there is a small central disc protrusion which results in no spinal canal or lateral recess narrowing. There is no spinal canal, lateral recess, or neuroforaminal narrowing in the lumbar spine. No abnormal signal in the conus which terminates at L2. Normal morphology of the cauda equina. The visualized paravertebral soft tissues are unremarkable. IMPRESSION: 1. Small central disc protrusion at L5-S1. MRI of the lumbar spine is otherwise negative. No neural impingement in the lumbar spine. No acute osseous findings. Dictated by: Dictated on workstation # [id number]
== END ==
LOC: RAD 13:00
PROVIDERS: ATTEND Physician Assistant
DX: M51.27 Other intervertebral disc displacement, lumbosacral region (principal)
CPT/HCPCS: 72148

== ENCOUNTER → 2019-10-13 | Outpatient (CLI) | payer SELFPAY ==
--- NOTE | 2019-10-13 15:35 | Diagnostic Imaging Report ---
PROCEDURE: US PELVIC (NON OB). TECHNIQUE: Multiple Real-time grayscale images were obtained over the pelvis in various projections transabdominally. INDICATION: Chronic pelvic pain. FINDINGS: The uterus is anteverted measuring 6.6 x 3.2 x 3.7 cm. The endometrium is 4 mm in thickness. No myometrial mass is detected. The right ovary measures 2.9 x 2.1 x 2.6 cm and the left ovary measures 2.5 x 1.6 x 2.2 cm. Both ovaries contain small follicles. The ovaries demonstrate blood flow. No adnexal mass or free fluid is detected. IMPRESSION: Unremarkable pelvic ultrasound. Dictated by: Dictated on workstation # [id number]
== END ==
LOC: RAD 10:54
PROVIDERS: ATTEND Obstetrics & Gynecology
DX: R10.2 Pelvic and perineal pain (principal); G89.29 Other chronic pain
CPT/HCPCS: 76856